=== PATIENT | female | born 1955 | race Caucasian/White ===

== ENCOUNTER → 2017-10-02 08:26 | Outpatient (CLI) | payer OTHER, SELFPAY ==
--- NOTE | 2017-10-02 08:30 | HPBI_ITS ---
MAMMOGRAPHY - BILATERAL SCREENING REASON FOR EXAM: Female, 62 years old. Routine annual screening examination. PERTINENT HISTORY: Prior bilateral stereotactic breast biopsies. TECHNIQUE: Digital bilateral breast arabella (3D mammographic acquisition) in the CC and MLO projections. 2-D mediolateral oblique (MLO) and craniocaudad (CC) views of both breasts were obtained. CAD: Full Field Digital Mammography with Computer Added Detection was performed. COMPARISON: Comparison is made with prior study dated August 22, 2016 and August 04, 2015. FINDINGS: Breast Composition: There are scattered areas of fibroglandular density. There are no dominant masses or suspicious calcifications. A tissue clip marker is once again seen in the deep upper outer portion of the left and right breasts. No other significant abnormalities are identified. There has been no significant change since the prior study. HPBI/SCREENING MAMM (CAD), BILAT IMPRESSION: Stable bilateral screening mammogram. Yearly follow-up mammogram recommended. (A) ASSESSMENT CATEGORY: BIRADS Category 2: Benign. A letter regarding these results will be sent to the patient by the facility within 30 days. Approximately 10% of breast cancers are not detected by mammography. A normal mammogram should not delay biopsy of a clinically suspicious abnormality. [id number] Electronically Signed: Nazario Baldwin MD at 10:32 EST Tel [phone], Service support ,
== END ==
PROVIDERS: Family Provider Family Medicine; PCP Family Medicine; Visit Provider Family Medicine
DX: Z12.31 Encounter for screening mammogram for malignant neoplasm of breast (principal)
CPT/HCPCS: 77063; 77067

== ENCOUNTER → 2017-10-06 07:19 | Outpatient (CLI) | payer OTHER, SELFPAY ==
[2017-10-06 09:13] LABS: Anion Gap 4 (5-15); BUN 45 mg/dL (7-18); BUN/Creat Ratio 26.3 RATIO (10-20); Calcium,Total 9.2 mg/dL (8.5-10.1); Chloride 105 mmol/L (98-107); Creatinine, Serum 1.71 mg/dL (0.55-1.02); EST Glomerular Filtration Rate 32 mL/min (>60); Est Glom Filt Rate - Afr Amer 39 mL/min (>60); Glucose 156 mg/dL (74-106); Potassium 4.9 mmol/L (3.5-5.1); Sodium Level 138 mmol/L (136-145)
== END ==
PROVIDERS: Family Provider Family Medicine; PCP Family Medicine; Visit Provider Internal Medicine Nephrology
DX: N18.3 Chronic kidney disease, stage 3 (moderate) (principal)
CPT/HCPCS: 36415; 80048

== ENCOUNTER → 2017-12-26 06:57 | Outpatient (CLI) | payer OTHER, SELFPAY ==
[2017-12-26 08:04] LABS: Cholesterol 206 mg/dL (200); High Density Lipoprotein 42 mg/dL; T4 Free Direct 0.94 ng/dL (0.76-1.46); Thyroid Stim Hormone (TSH) 7.81 uIU/mL (0.358-3.74); Triglycerides 146 mg/dL; Very Low Density Lipoprotein 29 mg/dL (5-40)
== END ==
PROVIDERS: Family Provider Family Medicine; PCP Family Medicine
DX: E78.5 Hyperlipidemia, unspecified (principal); E03.9 Hypothyroidism, unspecified
CPT/HCPCS: 36415; 80061; 84439; 84443

== ENCOUNTER → 2018-01-23 07:18 | Outpatient (CLI) | payer OTHER, SELFPAY ==
[2018-01-23 07:42] LABS: Hematocrit 34.1 % (37-47); Hemoglobin 11.1 g/dl (12.0-15.0); Mean Corp Hgb Conc 32.6 g/gl (32-36); Mean Corpuscular Hgb 30.3 pg (27.0-32.0); Mean Corpuscular Volume 93.2 fL (81-99); Mean Platelet Vol. 8.9 fl (6.2-12.0); Platelet Count 358 K/mm3 (150-450); RBC Distribution Width CV 13.2 % (11.6-14.6); RBC Distribution Width SD 45.5 fl (35.1-43.9); Red Blood Count 3.66 M/mm3 (4.2-5.4)
[2018-01-23 07:44] LABS: Scan Indicated on CBC? Y/N NO
[2018-01-23 07:45] LABS: Protein, Urine (Random) 10.1 mg/dL (<11.9); Protein:Creat Ratio 159 mg/g CRE (0-200)
[2018-01-23 07:55] LABS: Albumin, Serum 3.7 g/dL (3.2-5.0); BUN 72 mg/dL (7-18); BUN/Creat Ratio 40.7 RATIO (10-20); Calcium,Total 9.3 mg/dL (8.5-10.1); Chloride 110 mmol/L (98-107); Creatinine, Serum 1.77 mg/dL (0.55-1.02); EST Glomerular Filtration Rate 31 mL/min (>60); Est Glom Filt Rate - Afr Amer 38 mL/min (>60); Glucose 78 mg/dL (74-106); Phosphorus 4.5 mg/dL (2.5-4.9); Potassium 5.2 mmol/L (3.5-5.1); Sodium Level 139 mmol/L (136-145)
[2018-01-24 08:42] LABS: PTHIN 24.2 pg/mL (18.4-80.1); Vitamin D,25 Hydroxy 17.5 ng/mL (29.95-100.01)
== END ==
PROVIDERS: Family Provider Family Medicine; PCP Family Medicine; Visit Provider Internal Medicine Nephrology
DX: N18.3 Chronic kidney disease, stage 3 (moderate) (principal)
CPT/HCPCS: 36415; 80069; 82306; 82570; 83970; 84156; 85027

== ENCOUNTER → 2018-02-09 13:21 | Outpatient (CLI) | payer OTHER, SELFPAY ==
[2018-02-09 15:57] LABS: Absolute Lymphocyte Count 1.71 X10^3/ul (0.83-4.51); Absolute Neutrophil Count 6.1 X10^3/uL (2.0-7.7); Basophil# 0.05 X10^3/uL; Basophil% 0.5 % (0-1); Eosinophil# 0.36 X10^3/uL; Eosinophils% 3.9 % (0-5); Hematocrit 34.4 % (37-47); Hemoglobin 11.3 g/dl (12.0-15.0); Lymphocyte # 1.71 X10^3/ul (4.0); Lymphocyte % 18.5 % (19-41); Mean Corp Hgb Conc 32.8 g/gl (32-36); Mean Corpuscular Volume 94.5 fL (81-99); Mean Platelet Vol. 9.7 fl (6.2-12.0); Monocyte# 0.97 X10^3/uL; Monocyte% 10.5 % (0-10); Neutrophil # 6.12 X10^3/uL (2.7-7.7); Neutrophil % 66.3 % (47-70); Platelet Count 368 K/mm3 (150-450); RBC Distribution Width CV 13.2 % (11.6-14.6); Red Blood Count 3.64 M/mm3 (4.2-5.4); White Blood Count 9.2 K/mm3 (4.4-11.0)
[2018-02-09 16:20] LABS: POSITIVE COUNT NO; POSITIVE DIFFERENTIAL NO; POSITIVE MORPHOLOGY NO
[2018-02-09 16:22] LABS: Erythrocyte Sedimentation Rate 41 mm/hr (0-30)
== END ==
PROVIDERS: Family Provider Family Medicine; PCP Family Medicine; Visit Provider Family Medicine
DX: I88.9 Nonspecific lymphadenitis, unspecified (principal); E10.319 Type 1 diabetes mellitus with unspecified diabetic retinopathy without macular edema; J06.9 Acute upper respiratory infection, unspecified
CPT/HCPCS: 36415; 85025; 85652; 86140

== ENCOUNTER → 2018-06-05 07:49 | Outpatient (CLI) | payer OTHER, SELFPAY ==
[2018-06-05 08:41] LABS: Absolute Lymphocyte Count 1.71 X10^3/ul (0.83-4.51); Absolute Neutrophil Count 4.5 X10^3/uL (2.0-7.7); Basophil# 0.05 X10^3/uL; Basophil% 0.7 % (0-1); Eosinophils% 2.8 % (0-5); Hematocrit 33.5 % (37-47); Lymphocyte # 1.71 X10^3/ul (4.0); Lymphocyte % 23.8 % (19-41); Mean Corp Hgb Conc 32.8 g/gl (32-36); Mean Corpuscular Hgb 30.6 pg (27.0-32.0); Mean Corpuscular Volume 93.1 fL (81-99); Mean Platelet Vol. 9.1 fl (6.2-12.0); Monocyte# 0.68 X10^3/uL; Monocyte% 9.5 % (0-10); Neutrophil # 4.51 X10^3/uL (2.7-7.7); Neutrophil % 62.9 % (47-70); Platelet Count 344 K/mm3 (150-450); RBC Distribution Width CV 12.7 % (11.6-14.6); RBC Distribution Width SD 41.9 fl (35.1-43.9); White Blood Count 7.2 K/mm3 (4.4-11.0)
[2018-06-05 08:47] LABS: POSITIVE COUNT NO; POSITIVE DIFFERENTIAL NO; POSITIVE MORPHOLOGY NO
[2018-06-05 08:49] LABS: Protein, Urine (Random) 13.4 mg/dL (<11.9); Protein:Creat Ratio 369 mg/g CRE (0-200)
[2018-06-05 09:10] LABS: Albumin, Serum 3.4 g/dL (3.2-5.0); BUN 38 mg/dL (7-18); BUN/Creat Ratio 26.2 RATIO (10-20); Calcium,Total 9.7 mg/dL (8.5-10.1); Chloride 105 mmol/L (98-107); Creatinine, Serum 1.45 mg/dL (0.55-1.02); EST Glomerular Filtration Rate 39 mL/min (>60); Est Glom Filt Rate - Afr Amer 47 mL/min (>60); Glucose 98 mg/dL (74-106); Potassium 4.6 mmol/L (3.5-5.1); Sodium Level 139 mmol/L (136-145)
[2018-06-05 09:19] LABS: PTHIN 11.3 pg/mL (18.4-80.1)
[2018-06-05 09:20] LABS: Vitamin D,25 Hydroxy 29.2 ng/mL (29.95-100.01)
== END ==
PROVIDERS: Family Provider Family Medicine; PCP Family Medicine; Referring Provider Internal Medicine Nephrology; Visit Provider Internal Medicine Nephrology
DX: N18.3 Chronic kidney disease, stage 3 (moderate) (principal); N25.81 Secondary hyperparathyroidism of renal origin; D63.1 Anemia in chronic kidney disease
CPT/HCPCS: 36415; 80069; 82306; 82570; 83970; 84156; 85025

== ENCOUNTER → 2018-06-26 06:04 | Outpatient (CLI) | payer OTHER, SELFPAY ==
[2018-06-26 07:58] LABS: ALB/GLOB Ratio 0.9 RATIO (0.9-2.4); AST(SGOT) 17 U/L (15-37); Alanine Aminotransfer ALT/SGPT 25 U/L (13-56); Albumin, Serum 3.7 g/dL (3.2-5.0); Alkaline Phosphatase 67 U/L (45-117); Anion Gap 10 (5-15); BUN 59 mg/dL (7-18); BUN/Creat Ratio 31.9 RATIO (10-20); Calcium,Total 9.7 mg/dL (8.5-10.1); Chloride 108 mmol/L (98-107); Cholesterol 178 mg/dL (200); Creatinine, Serum 1.85 mg/dL (0.55-1.02); EST Glomerular Filtration Rate 29 mL/min (>60); Est Glom Filt Rate - Afr Amer 36 mL/min (>60); Globulin 4.3 g/dL (2.2-4.2); Glucose 60 mg/dL (74-106); High Density Lipoprotein 45 mg/dL; Potassium 4.2 mmol/L (3.5-5.1); Sodium Level 142 mmol/L (136-145); T4 Free Direct 0.99 ng/dL (0.76-1.46); Thyroid Stim Hormone (TSH) 3.35 uIU/mL (0.358-3.74); Triglycerides 125 mg/dL; Very Low Density Lipoprotein 25 mg/dL (5-40)
== END ==
PROVIDERS: Family Provider Family Medicine; PCP Family Medicine; Referring Provider Internal Medicine Endocrinology, Diabetes & Metabolism; Visit Provider Internal Medicine Endocrinology, Diabetes & Metabolism
DX: E10.65 Type 1 diabetes mellitus with hyperglycemia (principal)
CPT/HCPCS: 36415; 80053; 80061; 84439; 84443

== ENCOUNTER → 2018-09-13 06:03 | Outpatient (CLI) | payer OTHER, SELFPAY ==
[2018-09-13 07:44] LABS: ALB/GLOB Ratio 0.8 RATIO (0.9-2.4); AST(SGOT) 14 U/L (15-37); Alanine Aminotransfer ALT/SGPT 22 U/L (13-56); Albumin, Serum 3.5 g/dL (3.2-5.0); Alkaline Phosphatase 64 U/L (45-117); Anion Gap 9 (5-15); BUN 48 mg/dL (7-18); BUN/Creat Ratio 25.3 RATIO (10-20); Calcium,Total 9.4 mg/dL (8.5-10.1); Chloride 105 mmol/L (98-107); Cholesterol 154 mg/dL (200); EST Glomerular Filtration Rate 29 mL/min (>60); Est Glom Filt Rate - Afr Amer 35 mL/min (>60); Globulin 4.3 g/dL (2.2-4.2); Glucose 146 mg/dL (74-106); High Density Lipoprotein 44 mg/dL; Protein, Total 7.8 g/dL (6.4-8.2); Sodium Level 138 mmol/L (136-145); T4 Free Direct 1.04 ng/dL (0.76-1.46); Thyroid Stim Hormone (TSH) 0.49 uIU/mL (0.358-3.74); Triglycerides 99 mg/dL; Very Low Density Lipoprotein 20 mg/dL (5-40)
[2018-09-13 08:04] LABS: Hemoglobin A1c 9.2 % (4.2-6.3)
== END ==
PROVIDERS: Family Provider Family Medicine; PCP Family Medicine; Referring Provider Internal Medicine Endocrinology, Diabetes & Metabolism; Visit Provider Internal Medicine Endocrinology, Diabetes & Metabolism
DX: E10.65 Type 1 diabetes mellitus with hyperglycemia (principal)
CPT/HCPCS: 36415; 80053; 80061; 83036; 84439; 84443

== ENCOUNTER → 2018-10-31 13:37 | Outpatient (CLI) | payer OTHER, SELFPAY ==
--- NOTE | 2018-10-31 13:39 | BI_ITS ---
MAMMOGRAPHY - BILATERAL SCREENING REASON FOR EXAM: Female, 63 years old. Routine annual screening examination. PERTINENT HISTORY: Non-contributory. Remote bilateral stereotactic breast biopsies. TECHNIQUE: Digital bilateral breast arabella (3D mammographic acquisition) in the CC and MLO projections. 2-D mediolateral oblique (MLO) and craniocaudad (CC) views of both breasts were obtained. CAD: Full Field Digital Mammography with Computer Added Detection was performed. COMPARISON: Comparison is made with prior study dated October 02, 2017 and August 22, 2016. FINDINGS: Breast Composition: The breasts are heterogeneously dense, which may obscure small masses. There are no dominant masses or suspicious calcifications. A patient marker is seen in the deep upper outer aspect of the left and right breasts. No other significant abnormalities are identified. There has been no significant change since the prior study. BI/SCREENING MAMM (CAD), BILAT IMPRESSION: Stable bilateral screening mammogram. Yearly follow-up mammogram recommended. (A) ASSESSMENT CATEGORY: BIRADS Category 2: Benign. A letter regarding these results will be sent to the patient by the facility within 30 days. Approximately 10% of breast cancers are not detected by mammography. A normal mammogram should not delay biopsy of a clinically suspicious abnormality. [id number] Electronically Signed: Nazario Baldwin, at 15:30 EDT , Service support ,
== END ==
PROVIDERS: Family Provider Family Medicine; PCP Family Medicine; Referring Provider Family Medicine; Visit Provider Family Medicine
DX: Z12.31 Encounter for screening mammogram for malignant neoplasm of breast (principal)
CPT/HCPCS: 77063; 77067

== ENCOUNTER → 2018-11-09 10:57 | Outpatient (CLI) | payer OTHER, SELFPAY ==
[2018-11-09 12:03] LABS: Absolute Lymphocyte Count 1.73 X10^3/ul (0.83-4.51); Absolute Neutrophil Count 14.8 X10^3/uL (2.0-7.7); Basophil# 0.03 X10^3/uL; Basophil% 0.2 % (0-1); Eosinophils% 0.5 % (0-5); Hematocrit 37.9 % (37-47); Hemoglobin 12.1 g/dl (12.0-15.0); Lymphocyte # 1.73 X10^3/ul (4.0); Lymphocyte % 9.3 % (19-41); Mean Corp Hgb Conc 31.9 g/gl (32-36); Mean Corpuscular Volume 93.8 fL (81-99); Mean Platelet Vol. 10.3 fl (6.2-12.0); Monocyte# 1.93 X10^3/uL; Monocyte% 10.3 % (0-10); Neutrophil # 14.78 X10^3/uL (2.7-7.7); Neutrophil % 79.1 % (47-70); Platelet Count 265 K/mm3 (150-450); RBC Distribution Width CV 13.8 % (11.6-14.6); RBC Distribution Width SD 47.5 fl (35.1-43.9); Red Blood Count 4.04 M/mm3 (4.2-5.4); White Blood Count 18.7 K/mm3 (4.4-11.0)
[2018-11-09 12:06] LABS: Differential Indicated SCAN CRITERIA MET; POSITIVE COUNT NO; POSITIVE DIFFERENTIAL YES; POSITIVE MORPHOLOGY NO
[2018-11-09 12:37] LABS: Lactic Acid 1.8 mmol/L (0.4-2.0)
[2018-11-09 12:58] LABS: Platelet Estimate ADEQUATE (ADEQ); Red Cell Morphology NORM C+C NORMAL (NORM C&C)
[2018-11-09 13:03] LABS: ALB/GLOB Ratio 0.7 RATIO (0.9-2.4); AST(SGOT) 19 U/L (15-37); Alanine Aminotransfer ALT/SGPT 21 U/L (13-56); Albumin, Serum 3.7 g/dL (3.2-5.0); Alkaline Phosphatase 66 U/L (45-117); Anion Gap 16 (5-15); BUN 79 mg/dL (7-18); BUN/Creat Ratio 14.2 RATIO (10-20); Chloride 101 mmol/L (98-107); Creatinine, Serum 5.57 mg/dL (0.55-1.02); EST Glomerular Filtration Rate 8 mL/min (>60); Est Glom Filt Rate - Afr Amer 10 mL/min (>60); Globulin 5.3 g/dL (2.2-4.2); Glucose 281 mg/dL (74-106); Magnesium 1.9 mg/dL (1.6-2.6); Potassium 6.1 mmol/L (3.5-5.1); Sodium Level 133 mmol/L (136-145)
[2018-11-13 12:13] LABS: Pathologist Review Reviewed
== END ==
PROVIDERS: Family Provider Family Medicine; PCP Family Medicine; Visit Provider Family Medicine
DX: B34.9 Viral infection, unspecified (principal); E86.0 Dehydration; E10.319 Type 1 diabetes mellitus with unspecified diabetic retinopathy without macular edema; I95.9 Hypotension, unspecified
CPT/HCPCS: 36415; 80053; 81001; 82009; 83605; 83735; 85025

== ENCOUNTER 2018-11-09 14:49 | Inpatient (IN) | payer OTHER, SELFPAY ==
[2018-11-09] VITALS (7 sets, daily range): BP systolic 98–127; BP diastolic 38–47; PULSE 68–75; RESP 14–20; TEMP 36.2–36.6; O2SAT 95–98; BMI 28.3; BMI 28.6
--- NOTE | 2018-11-09 15:16 | EKG12_ITS ---
Test Reason : NAUSEA Blood Pressure : / mmHG Vent. Rate : 067 BPM Atrial Rate : 067 BPM P-R Int : 142 ms QRS Dur : 070 ms QT Int : 400 ms P-R-T Axes : 044 028 035 degrees QTc Int : 422 ms Normal sinus rhythm Normal ECG Confirmed by HERMES FRANCO, MANOLO ([id number]), editor newspaper BUD HWANG ([id number]) on 11/12/2018 10:58:20 AM Referred By: МАРИНА Confirmed By:MANOLO MIRZA MD
--- NOTE | 2018-11-09 15:17 | ED.VISSUMM ---
- ER Visit Summary Date of Service: 11/09/18 Chief Complaint: Nausea, vomiting, diarrhea History of Present Illness: The patient is a 63 F stage IV chronic kidney disease and insulin pump diabetes presents to the emergency department with renal failure. The patient was having symptoms of gastroenteritis. She states since Monday, she has had nausea, vomiting, multiple episodes of loose watery diarrhea. She also admits to nonproductive cough and generalized malaise. She states she has been increasingly nauseated. The patient is not on dialysis. She did see her primary care in the office today. She was found to have an elevated creatinine. She denies any abdominal pain. She denies any blood in the emesis or the diarrhea. Physical Examination: Vital signs reviewed General: Well-nourished, well-developed Head: Normocephalic, atraumatic Eyes: Pupils equal and reactive, extraocular muscles intact Neck, supple, no lymphadenopathy Heart: Regular rate and rhythm Respiratory: No distress, clear bilaterally Abdomen: Soft, nontender, nondistended, no peritoneal signs Back: Nontender Extremities: Nontender, no edema, no cords Skin: Normal color no rash Neuro: Alert and oriented, no focal or lateralizing deficits Test Results: [] Emergency Department Course and Treatment: The patient presents with elevated renal function and dehydration. Her abdomen is soft and nontender. She is not tachycardic. Is not hypotensive. IV was established. Patient was given 2 L of IV fluids and Zofran. She had improvement of her symptoms. Screening labs do show leukocytosis with feels likely reactive. She has no abdominal tenderness. She does have demonstration of acute kidney injury with a creatinine of 6. Her potassium is 5.8 with slight hemolysis. Her EKG shows no evidence of hyperkalemic change. With fluids she has improved. However, given her significant acute renal injury and dehydration, I do feel that she can require admission. Patient was discussed with the hospitalist. Treatment Plan: As Disposition: Admission Impression: 1. Acute kidney injury 2. Prerenal azotemia This note was generated with [employer] software. It may contain incorrect words, spelling, and punctuation that were not noted in review of the chart prior to signing ED Disposition - Plan for ED Patient: Referrals: Kyle Beard DO [Primary Care Provider] -
[2018-11-09] MEDS: Ondansetron 4 MG/2 ML Vial IV (15:42)
[2018-11-09] MEDS: 0.9% Normal Saline 1,000 ML 1000 ML IV ×2 (15:42)
--- NOTE | 2018-11-09 15:52 | RAD_ITS ---
STUDY: X-RAY CHEST REASON FOR EXAM: Female, 63 years old. CHF. Hypertension. Kidney failure. TECHNIQUE: Single AP portable view of the chest. COMPARISON: April 26, 2016. FINDINGS: There is a decreased inspiratory effort when compared to prior study. There is no new mass or infiltrate. There is no demonstrated pleural abnormality. There is borderline cardiomegaly. Normal mediastinum and cassie. Normal visualized pulmonary arteries. Normal visualized aortic arch and descending thoracic aorta. The thoracic spine is obscured by the mediastinum. Normal visualized ribs, clavicles, and shoulders. There is no demonstrated abnormality of the visualized soft tissue structures of the upper abdomen. RAD/Chest 1 View (Portable) IMPRESSION: No acute cardiopulmonary disease. Electronically Signed: Nehemias Gudino DO at 16:07 EDT Tel [phone], Service support ,
[2018-11-09 15:55] LABS: Absolute Lymphocyte Count 1.65 X10^3/ul (0.83-4.51); Absolute Neutrophil Count 14.2 X10^3/uL (2.0-7.7); Basophil# 0.01 X10^3/uL; Basophil% 0.1 % (0-1); Eosinophil# 0.01 X10^3/uL; Eosinophils% 0.1 % (0-5); Hematocrit 36.9 % (37-47); Hemoglobin 12.2 g/dl (12.0-15.0); Lymphocyte # 1.65 X10^3/ul (4.0); Lymphocyte % 9.3 % (19-41); Mean Corp Hgb Conc 33.1 g/gl (32-36); Mean Corpuscular Hgb 30.4 pg (27.0-32.0); Mean Platelet Vol. 10.1 fl (6.2-12.0); Monocyte# 1.75 X10^3/uL; Monocyte% 9.9 % (0-10); Neutrophil # 14.24 X10^3/uL (2.7-7.7); Neutrophil % 80.3 % (47-70); Platelet Count 295 K/mm3 (150-450); RBC Distribution Width CV 13.8 % (11.6-14.6); RBC Distribution Width SD 46.3 fl (35.1-43.9); Red Blood Count 4.01 M/mm3 (4.2-5.4); White Blood Count 17.7 K/mm3 (4.4-11.0)
[2018-11-09 16:05] LABS: ALB/GLOB Ratio 0.7 RATIO (0.9-2.4); AST(SGOT) 21 U/L (15-37); Alanine Aminotransfer ALT/SGPT 20 U/L (13-56); Albumin, Serum 3.5 g/dL (3.2-5.0); Alkaline Phosphatase 62 U/L (45-117); Anion Gap 15 (5-15); BUN 87 mg/dL (7-18); BUN/Creat Ratio 14.5 RATIO (10-20); Calcium,Total 9.4 mg/dL (8.5-10.1); Chloride 101 mmol/L (98-107); Creatinine, Serum 5.98 mg/dL (0.55-1.02); EST Glomerular Filtration Rate 8 mL/min (>60); Est Glom Filt Rate - Afr Amer 9 mL/min (>60); Globulin 5.3 g/dL (2.2-4.2); Glucose 279 mg/dL (74-106); Lipase 104 U/L (73-393); Potassium 5.8 mmol/L (3.5-5.1); Protein, Total 8.8 g/dL (6.4-8.2); Sodium Level 129 mmol/L (136-145)
[2018-11-09 16:08] LABS: Lactic Acid 1.6 mmol/L (0.4-2.0)
[2018-11-09 16:33] LABS: Differential Indicated SCAN CRITERIA MET; POSITIVE COUNT NO; POSITIVE DIFFERENTIAL YES; POSITIVE MORPHOLOGY YES
[2018-11-09 16:34] LABS: Platelet Estimate ADEQUATE (ADEQ); Red Cell Morphology NORM C+C NORMAL (NORM C&C)
--- NOTE | 2018-11-09 17:03 | ED.RN ---
pt states unable to void at this time. has received 1L of the 2 L ordered.
--- NOTE | 2018-11-09 17:31 | PCM.HP.STD ---
Problem List (1) DEVEN (acute kidney injury) Status: Acute (2) Hyperkalemia Status: Acute (3) Hyponatremia Status: Acute (4) Metabolic acidosis Status: Acute History of Present Illness Date of Admission: 11/09/18 Chief Complaint: n/v The patient is a 63 year old F presents with a 3-day history of intractable nausea vomiting diarrhea. Was not getting better. Patient was checking her blood sugar at home and was noted to be in the 90s the first 2 days but then today was in the 2 and 300 range. Presented to the emergency room and had lab work that showed her creatinine was 5.98. Baseline is around 1.9. Patient's potassium level was 5.8 but that appeared to be hemolyzed. Blood sugar was 279. Patient is a type I diabetic. Emergency room, patient received IV fluids and Zofran. [] Past Medical History Past Medical History (Chronic Problems): Chronic Problems Insulin pump in place (Chronic) DM type 1 (diabetes mellitus, type 1) (Chronic) Cerebrovascular disease (Chronic) Benign hypertension (Chronic) Allergies pravastatin sodium [From Pravachol] Allergy (Verified 11/09/18 14:53) Unknown sertraline HCl [From Zoloft] Allergy (Verified 11/09/18 14:53) Hives venlafaxine HCl [From Effexor] Allergy (Verified 11/09/18 14:53) Hives pneumococcal 23-valent polysacchari [From Pneumovax 23] Adverse Reaction (Verified 11/09/18 14:53) Swelling Home Medications: Ambulatory Orders Medication Instructions Recorded Aspirin [Aspirin, Baby] 81 mg PO DAILY@0800 06/07/14 Ferrous Gluconate 325 mg PO BID 06/07/14 Amlodipine [Norvasc] 5 mg PO DAILY 06/09/14 Guaifenesin Dm [Robitussin Dm] 10 ml PO Q4H PRN PRN udc 04/14/16 Ascorbic Acid [Vitamin C] 1,000 mg PO DAILY 11/09/18 Atenolol [Tenormin (Beta Taty)] 100 mg PO DAILY 11/09/18 Calcium (Elemental) [Os-Omer 500] 500 mg PO DAILY@0800 11/09/18 Cholecalciferol (Vitamin D3) 5,000 unit PO DAILY 11/09/18 [Vitamin D3] Insulin Lispro [Humalog] 0 units SQ UD 11/09/18 Levothyroxine [Synthroid] 50 mcg PO DAILY 11/09/18 Patiromer Calcium Sorbitex 8.4 gm PO DAILY 11/09/18 [Veltassa] Rosuvastatin Calcium [Crestor] 20 mg PO QHS 11/09/18 Spironolactone 50 mg PO DAILY 11/09/18 Valsartan [Diovan] 160 mg PO BID 11/09/18 hydroCHLOROthiazide 12.5 tab PO DAILY 11/09/18 [Hydrochlorothiazide] Surgical History: - Smoking Status: Former smoker Tobacco Use: Non-smoker - *Family History Maternal History Items: Unknown Review of Systems Constitutional: Reports: Anorexia, Chills. Denies: Fever Eyes: Denies: Blurred vision, Double vision HEENT: Denies: Head Aches, Sinus Congestion, Sinus Drainage Cardiovascular: Denies: Chest Pain, Palpitations Respiratory: Denies: Cough, Shortness of breath at rest, Sputum production Gastrointestinal: Reports: Abdominal Pain, Diarrhea, Nausea, Vomiting Genitourinary: Denies: Dysuria Musculoskeletal: Denies: Joint Pain, Joint Tenderness Skin: Denies: Rash, Wounds Neurological: Denies: Numbness, Tingling, Focal weakness Psychiatric: Denies: Anxiety, Depression Hematologic/ Lymphatic: Denies: Easy Bruising, Easy Bleeding, Hx of blood clot Comment: A 10 point review of systems were negative except as mentioned in the history of present illness and the other review of systems. VTE Information - Inpt Only VTE Present on Admission: No VTE Mechan Device Prophylaxis: None VTE Pharm Prophylaxis ordered?: Yes Patient Problems: Active and Suspected Problems DEVEN (acute kidney injury) (Acute) Hyperkalemia (Acute) Hyponatremia (Acute) Metabolic acidosis (Acute) - Physical Exam General: Alert, Cooperative, No apparent distress, Well developed, Well nourished HEENT: Atraumatic, Normocephalic Oral: Moist Mucosa, No Gingival or Mucosal Lesions/ Ulcerations Neck: No Nodes, Thyroid Normal Size and Texture Lungs: Clear to auscultation, Normal air movement, No rhonchi, No wheeze Cardiovascular: Regular rate, Regular Rhythm, Normal S1, Normal S2, No murmurs Abdomen: Bowel Sounds Present, Soft, Non Tender, Non-Distended, Hypoactive Bowel Sounds Extremities: No clubbing, No edema Skin: No rashes, No breakdown Musculoskeletal: No Tenderness to Palpation of Joints or Extremities, No Muscle Wasting Neurological: Neuro grossly intact, Muscle tone normal, Coordination normal Psych/Mental Status: Normal Affect, Appropriate Vital Signs Temp Pulse Resp BP Pulse Ox 36.2 C L 72 17 98/47 L 98 11/09/18 14:50 11/09/18 17:00 11/09/18 17:00 11/09/18 14:50 11/09/18 17:00 Oxygen Delivery Method Room Air Weight: 65.771 kg Body Mass Index (BMI) 28.3 Finger Stick Blood Glucose 166 Laboratory Tests Past 24 Hrs 11/09/18 11/09/18 11/09/18 15:30 15:30 15:30 WBC 17.7 H RBC 4.01 L Hgb 12.2 Hct 36.9 L MCV 92.0 MCH 30.4 MCHC 33.1 RDW 13.8 RDW Differential 46.3 H Plt Count 295 MPV 10.1 Immature Gran % (Auto) 0.300 Neut % (Auto) 80.3 H Lymph % (Auto) 9.3 L [place] % (Auto) 9.9 Eos % (Auto) 0.1 Baso % (Auto) 0.1 Absolute Neuts (auto) 14.2 H Absolute Lymphs (auto) 1.65 Total Counted Not Reportable Differential Comment Diff Path Review May foll Platelet Estimate ADEQUATE RBC Morphology NORM C+C Sodium 129 L Potassium 5.8 H Chloride 101 Carbon Dioxide 13.0 L Anion Gap 15 BUN 87 H Creatinine 5.98 H Estim Creat Clear Calc 7.10 Est GFR (MDRD) Af Amer 9 L Est GFR (MDRD) Non-Af 8 L BUN/Creatinine Ratio 14.5 Glucose 279 H Lactic Acid 1.6 Calcium 9.4 Total Bilirubin 0.20 AST 21 ALT 20 Alkaline Phosphatase 62 Total Protein 8.8 H Albumin 3.5 Globulin 5.3 H Albumin/Globulin Ratio 0.7 L Lipase 104 Clinical Impression(s) from Imaging Studies Chest X-Ray 11/09/18 15:52 IMPRESSION: No acute cardiopulmonary disease. Electronically Signed: Nehemias Gudino DO at 16:07 EDT Tel [phone], Service support , G reviewed and showed normal sinus rhythm with no hyperacute T waves. Assessment/Plan All Active Problems DEVEN (acute kidney injury) (Acute) Hyperkalemia (Acute) Hyponatremia (Acute) Metabolic acidosis (Acute) Gastroenteritis with dehydration (Acute) Acute kidney injury on CKD Stage 3 (Acute) 1. Acute kidney injury Likely prerenal given the intractable nausea and vomiting diarrhea IV fluids Hold nephrotoxic agents Reevaluate labs If worse, consider consultation to nephrology. 2. Hyperkalemia Was hemolyzed But may also be due to metabolic acidosis and acute kidney injury IV fluids Reevaluate 3. Metabolic acidosis Secondary to acute kidney injury Acetones negative so I do not suspect DKA Patient will be on a bicarb drip for 1 L but I suspect as her kidney failure improves at that should improve as well 4. Diabetes mellitus type 1 Uncontrolled The patient states that her blood sugars were okay yesterday and the day before when she is still having symptoms Not in DKA, therefore no need for insulin drip Will give the patient some Lantus as well as NovoLog. Hold on her insulin pump for now Sliding scale insulin as well 5. Gastroenteritis Supportive management Check enteropathic pathogens as well as C. difficile 6. DVT prophylaxis with heparin Code Visit Inpatient E&M: 39877 Init Hosp L3
--- NOTE | 2018-11-09 17:41 | HP.PCM_ITS ---
Problem List (1) DEVEN (acute kidney injury) Status: Acute (2) Hyperkalemia Status: Acute (3) Hyponatremia Status: Acute (4) Metabolic acidosis Status: Acute History of Present Illness Date of Admission: 11/09/18 Chief Complaint: n/v The patient is a 63 year old F presents with a 3-day history of intractable nausea vomiting diarrhea. Was not getting better. Patient was checking her blood sugar at home and was noted to be in the 90s the first 2 days but then today was in the 2 and 300 range. Presented to the emergency room and had lab work that showed her creatinine was 5.98. Baseline is around 1.9. Patient's potassium level was 5.8 but that appeared to be hemolyzed. Blood sugar was 279. Patient is a type I diabetic. Emergency room, patient received IV fluids and Zofran. [] Past Medical History Past Medical History (Chronic Problems): Chronic Problems Insulin pump in place (Chronic) DM type 1 (diabetes mellitus, type 1) (Chronic) Cerebrovascular disease (Chronic) Benign hypertension (Chronic) Allergies pravastatin sodium [From Pravachol] Allergy (Verified 11/09/18 14:53) Unknown sertraline HCl [From Zoloft] Allergy (Verified 11/09/18 14:53) Hives venlafaxine HCl [From Effexor] Allergy (Verified 11/09/18 14:53) Hives pneumococcal 23-valent polysacchari [From Pneumovax 23] Adverse Reaction (Verified 11/09/18 14:53) Swelling Home Medications: Ambulatory Orders Medication Instructions Recorded Aspirin [Aspirin, Baby] 81 mg PO DAILY@0800 06/07/14 Ferrous Gluconate 325 mg PO BID 06/07/14 Amlodipine [Norvasc] 5 mg PO DAILY 06/09/14 Guaifenesin Dm [Robitussin Dm] 10 ml PO Q4H PRN PRN udc 04/14/16 Ascorbic Acid [Vitamin C] 1,000 mg PO DAILY 11/09/18 Atenolol [Tenormin (Beta Taty)] 100 mg PO DAILY 11/09/18 Calcium (Elemental) [Os-Omer 500] 500 mg PO DAILY@0800 11/09/18 Cholecalciferol (Vitamin D3) 5,000 unit PO DAILY 11/09/18 [Vitamin D3] Insulin Lispro [Humalog] 0 units SQ UD 11/09/18 Levothyroxine [Synthroid] 50 mcg PO DAILY 11/09/18 Patiromer Calcium Sorbitex 8.4 gm PO DAILY 11/09/18 [Veltassa] Rosuvastatin Calcium [Crestor] 20 mg PO QHS 11/09/18 Spironolactone 50 mg PO DAILY 11/09/18 Valsartan [Diovan] 160 mg PO BID 11/09/18 hydroCHLOROthiazide 12.5 tab PO DAILY 11/09/18 [Hydrochlorothiazide] Surgical History: - Smoking Status: Former smoker Tobacco Use: Non-smoker - *Family History Maternal History Items: Unknown Review of Systems Constitutional: Reports: Anorexia, Chills. Denies: Fever Eyes: Denies: Blurred vision, Double vision HEENT: Denies: Head Aches, Sinus Congestion, Sinus Drainage Cardiovascular: Denies: Chest Pain, Palpitations Respiratory: Denies: Cough, Shortness of breath at rest, Sputum production Gastrointestinal: Reports: Abdominal Pain, Diarrhea, Nausea, Vomiting Genitourinary: Denies: Dysuria Musculoskeletal: Denies: Joint Pain, Joint Tenderness Skin: Denies: Rash, Wounds Neurological: Denies: Numbness, Tingling, Focal weakness Psychiatric: Denies: Anxiety, Depression Hematologic/ Lymphatic: Denies: Easy Bruising, Easy Bleeding, Hx of blood clot Comment: A 10 point review of systems were negative except as mentioned in the history of present illness and the other review of systems. VTE Information - Inpt Only VTE Present on Admission: No VTE Mechan Device Prophylaxis: None VTE Pharm Prophylaxis ordered?: Yes Patient Problems: Active and Suspected Problems DEVEN (acute kidney injury) (Acute) Hyperkalemia (Acute) Hyponatremia (Acute) Metabolic acidosis (Acute) - Physical Exam General: Alert, Cooperative, No apparent distress, Well developed, Well nourish ed HEENT: Atraumatic, Normocephalic Oral: Moist Mucosa, No Gingival or Mucosal Lesions/ Ulcerations Neck: No Nodes, Thyroid Normal Size and Texture Lungs: Clear to auscultation, Normal air movement, No rhonchi, No wheeze Cardiovascular: Regular rate, Regular Rhythm, Normal S1, Normal S2, No murmurs Abdomen: Bowel Sounds Present, Soft, Non Tender, Non-Distended, Hypoactive Bowel Sounds Extremities: No clubbing, No edema Skin: No rashes, No breakdown Musculoskeletal: No Tenderness to Palpation of Joints or Extremities, No Muscle Wasting Neurological: Neuro grossly intact, Muscle tone normal, Coordination normal Psych/Mental Status: Normal Affect, Appropriate Vital Signs Temp Pulse Resp BP Pulse Ox 36.2 C L 72 17 98/47 L 98 11/09/18 14:50 11/09/18 17:00 11/09/18 17:00 11/09/18 14:50 11/09/18 17:00 Oxygen Delivery Method Room Air Weight: 65.771 kg Body Mass Index (BMI) 28.3 Finger Stick Blood Glucose 166 Laboratory Tests Past 24 Hrs 11/09/18 11/09/18 11/09/18 15:30 15:30 15:30 WBC 17.7 H RBC 4.01 L Hgb 12.2 Hct 36.9 L MCV 92.0 MCH 30.4 MCHC 33.1 RDW 13.8 RDW Differential 46.3 H Plt Count 295 MPV 10.1 Immature Gran % (Auto) 0.300 Neut % (Auto) 80.3 H Lymph % (Auto) 9.3 L [place] % (Auto) 9.9 Eos % (Auto) 0.1 Baso % (Auto) 0.1 Absolute Neuts (auto) 14.2 H Absolute Lymphs (auto) 1.65 Total Counted Not Reportable Differential Comment Diff Path Review May foll Platelet Estimate ADEQUATE RBC Morphology NORM C+C Sodium 129 L Potassium 5.8 H Chloride 101 Carbon Dioxide 13.0 L Anion Gap 15 BUN 87 H Creatinine 5.98 H Estim Creat Clear Calc 7.10 Est GFR (MDRD) Af Amer 9 L Est GFR (MDRD) Non-Af 8 L BUN/Creatinine Ratio 14.5 Glucose 279 H Lactic Acid 1.6 Calcium 9.4 Total Bilirubin 0.20 AST 21 ALT 20 Alkaline Phosphatase 62 Total Protein 8.8 H Albumin 3.5 Globulin 5.3 H Albumin/Globulin Ratio 0.7 L Lipase 104 Clinical Impression(s) from Imaging Studies Chest X-Ray 11/09/18 15:52 IMPRESSION: No acute cardiopulmonary disease. Electronically Signed: Nehemias Gudino DO at 16:07 EDT Tel [phone], Service support , G reviewed and showed normal sinus rhythm with no hyperacute T waves. Assessment/Plan All Active Problems DEVEN (acute kidney injury) (Acute) Hyperkalemia (Acute) Hyponatremia (Acute) Metabolic acidosis (Acute) Gastroenteritis with dehydration (Acute) Acute kidney injury on CKD Stage 3 (Acute) 1. Acute kidney injury * Likely prerenal given the intractable nausea and vomiting diarrhea * IV fluids * Hold nephrotoxic agents * Reevaluate labs * If worse, consider consultation to nephrology. 2. Hyperkalemia * Was hemolyzed * But may also be due to metabolic acidosis and acute kidney injury * IV fluids * Reevaluate 3. Metabolic acidosis * Secondary to acute kidney injury * Acetones negative so I do not suspect DKA * Patient will be on a bicarb drip for 1 L but I suspect as her kidney failure improves at that should improve as well 4. Diabetes mellitus type 1 * Uncontrolled * The patient states that her blood sugars were okay yesterday and the day before when she is still having symptoms * Not in DKA, therefore no need for insulin drip * Will give the patient some Lantus as well as NovoLog. Hold on her insulin pump for now * Sliding scale insulin as well 5. Gastroenteritis * Supportive management * Check enteropathic pathogens as well as C. difficile 6. DVT prophylaxis with heparin Code Visit Inpatient E&M: 17389 Init Hosp L3
[2018-11-09 18:51] LABS: Bedside Glucose 197 mg/dL (70-110)
[2018-11-09] MEDS: Insulin Lispro 100 UNIT/ML INSULN.PEN 8 UNIT SC (19:35)
[2018-11-09] MEDS: 0.9% Normal Saline 1,000 ML 150 ML IV (19:36)
[2018-11-09] MEDS: Heparin Injection (Vial) 5,000 UNIT/ML VIAL 5000 UNIT SC (21:01)
[2018-11-09 22:15] LABS: Bedside Glucose 239 mg/dL (70-110)
[2018-11-09] MEDS: Insulin Lispro 100 UNIT/ML INSULN.PEN SQ (22:38)
[2018-11-10] VITALS (13 sets, daily range): BP systolic 122–136; BP diastolic 38–47; PULSE 68–79; RESP 14–18; TEMP 36.2–36.9; O2SAT 94–99
[2018-11-10] MEDS: 0.9% Normal Saline 1,000 ML 150 ML IV ×4 (02:36→21:26)
[2018-11-10 02:39] LABS: Bacteria 0 SEEN /hpf (None Seen); Mucous, Urine 0 SEEN /hpf (<or=2+); Red Blood Cells-Urine 0 SEEN /hpf (0-5); White Blood Cells 0 SEEN /hpf (0-5)
[2018-11-10] MEDS: Insulin Lispro 100 UNIT/ML INSULN.PEN SQ ×4 (02:41→17:15)
[2018-11-10 02:42] LABS: Color, Urine Yellow (Yellow); Glucose, Dipstick 50 mg/dl (Normal); Ketone-Dipstick Negative (Negative); Leukocyte Esterase-Dipstick Negative /ul (Negative); Nitrite-Dipstick Negative (Negative); Occult Blood-Urine Negative /ul (Negative); Protein-Dipstick 30 mg/dl (Negative); Urine Bilirubin Dipstick Negative (Negative); Urine Clarity Sl. Cloudy (Clear); Urine Urobilinogen Normal (Normal)
[2018-11-10 02:51] LABS: Bedside Glucose 231 mg/dL (70-110)
[2018-11-10] MEDS: guaiFENesin 10 ML UDC (200MG/10ML) PO ×3 (03:56→16:21)
[2018-11-10 04:14] LABS: Squamous Epithelial Cells - UA 0-5 SEEN /hpf (5-10)
[2018-11-10] MEDS: Heparin Injection (Vial) 5,000 UNIT/ML VIAL 5000 UNIT SC ×3 (05:46→21:26)
[2018-11-10] MEDS: Levothyroxine 50 MCG Tablet PO (05:47)
[2018-11-10 06:50] LABS: Bedside Glucose 177 mg/dL (70-110)
[2018-11-10 07:00] LABS: Absolute Lymphocyte Count 1.52 X10^3/ul (0.83-4.51); Absolute Neutrophil Count 8.7 X10^3/uL (2.0-7.7); Basophil# 0.02 X10^3/uL; Basophil% 0.2 % (0-1); Eosinophil# 0.11 X10^3/uL; Hematocrit 29.8 % (37-47); Hemoglobin 9.7 g/dl (12.0-15.0); Lymphocyte # 1.52 X10^3/ul (4.0); Lymphocyte % 13.4 % (19-41); Mean Corp Hgb Conc 32.6 g/gl (32-36); Mean Corpuscular Hgb 29.7 pg (27.0-32.0); Mean Corpuscular Volume 91.1 fL (81-99); Mean Platelet Vol. 9.8 fl (6.2-12.0); Monocyte# 0.98 X10^3/uL; Monocyte% 8.6 % (0-10); Neutrophil # 8.71 X10^3/uL (2.7-7.7); Neutrophil % 76.7 % (47-70); Platelet Count 219 K/mm3 (150-450); RBC Distribution Width CV 13.8 % (11.6-14.6); RBC Distribution Width SD 45.9 fl (35.1-43.9); Red Blood Count 3.27 M/mm3 (4.2-5.4); White Blood Count 11.4 K/mm3 (4.4-11.0)
[2018-11-10 07:01] LABS: Anion Gap 11 (5-15); BUN 69 mg/dL (7-18); BUN/Creat Ratio 20.8 RATIO (10-20); Calcium,Total 7.6 mg/dL (8.5-10.1); Chloride 111 mmol/L (98-107); Creatinine, Serum 3.32 mg/dL (0.55-1.02); EST Glomerular Filtration Rate 15 mL/min (>60); Est Glom Filt Rate - Afr Amer 18 mL/min (>60); Estimated Creatinine Clearance 12.78 ml/min; Glucose 216 mg/dL (74-106); Potassium 4.4 mmol/L (3.5-5.1); Sodium Level 138 mmol/L (136-145)
[2018-11-10 07:08] LABS: POSITIVE COUNT NO; POSITIVE DIFFERENTIAL NO; POSITIVE MORPHOLOGY NO
--- NOTE | 2018-11-10 07:51 | US_ITS ---
STUDY: RENAL ULTRASOUND - COMPLETE REASON FOR EXAM: Female, 63 years old. Acute renal insufficiency TECHNIQUE: Ultrasound evaluation of the kidneys was performed with real-time and static vargas-scale imaging. COMPARISON: None. FINDINGS: RIGHT KIDNEY: Normal location of the right kidney, which is normal in size. The right kidney measures 11.5 x 4.6 x 4.5 cm. There is diffuse thinning of the renal cortex. The renal cortex measures 1.1 cm. There is no right renal mass or cyst. There are no right renal calculi. There is no right hydronephrosis. DISTAL RIGHT URETER: There is non-visualization of the distal right ureter. There is no demonstrated right ureterovesical junction calculus. There is no demonstrated right ureteral jet. LEFT KIDNEY: Normal location of the left kidney, which is normal in size. The left kidney measures 11.4 x 4.0 x 4.9 cm. There is diffuse thinning of the renal cortex. The renal cortex measures 1.4 cm. Simple cyst of the left kidney measures 1.9 cm. There are no left renal calculi. There is no left hydronephrosis. DISTAL LEFT URETER: There is non-visualization of the distal left ureter. There is no demonstrated left ureterovesical junction calculus. There is no demonstrated left ureteral jet. BLADDER: The distended urinary bladder has a volume of 305 ml. There is a normal wall thickness of the distended urinary bladder. There is no demonstrated mass within the urinary bladder. There are no demonstrated bladder calculi. US/Kidney and Bladder IMPRESSION: 1. No hydronephrosis. 2. Bilateral renal cortical thinning. 3. Simple left renal cyst. Electronically Signed: Tuan Villalba MD at 16:19 EDT , Service support ,
--- NOTE | 2018-11-10 07:53 | PN_ITS ---
Patient Problems: Active and Suspected Problems DEVEN (acute kidney injury) (Acute) Hyperkalemia (Acute) Hyponatremia (Acute) Metabolic acidosis (Acute) Subjective: Patient was seen and examined. Sitting up eating. Denied any new nausea or vomiting. No diarrhea also seen since being admitted Vitals/I&O's: Vital Signs Temp Pulse Resp BP Pulse Ox 97.4 F L 72 18 128/40 H 99 11/10/18 04:00 11/10/18 07:00 11/10/18 04:00 11/10/18 04:00 11/10/18 04:00 Oxygen Delivery Method Room Air Weight: 68.1 kg Body Mass Index (BMI) 28.6 Finger Stick Blood Glucose 166 Intake and Output for Last 24 Hours 11/08/18 11/09/18 11/10/18 23:59 23:59 23:59 Intake Total 1489 / 1489 1318 / 1318 Balance 1489 / 1489 1318 / 1318 General: Alert, Oriented x3, Cooperative, No apparent distress HEENT: Atraumatic, PERRLA, EOMI, Normocephalic Neck: Supple Lungs: Clear to auscultation, Normal air movement Cardiovascular: Regular rate, Regular Rhythm, Normal S1, Normal S2, No murmurs Abdomen: Bowel Sounds Present, Soft, Non Tender, Non-Distended, No Hepato- splenomegaly Extremities: No edema Skin: No rashes, No breakdown Musculoskeletal: No Tenderness to Palpation of Joints or Extremities Lymphatic: No Cervical, Supraclavicular, or Inguinal Adenopathy Neurological: Cranial nerves II-XII grossly intact, Neuro grossly intact Psych/Mental Status: Normal Affect, Appropriate Laboratory Results 11/09/18 15:30: WBC 17.7 H, RBC 4.01 L, Hgb 12.2, Hct 36.9 L, MCV 92.0, MCH 30.4, MCHC 33.1, RDW 13.8, RDW Differential 46.3 H, Plt Count 295, MPV 10.1, Immature Gran % (Auto) 0.300, Neut % (Auto) 80.3 H, Lymph % (Auto) 9.3 L, [place] % (Auto) 9.9, Eos % (Auto) 0.1, Baso % (Auto) 0.1, Absolute Neuts (auto) 14.2 H, Absolute Lymphs (auto) 1.65, Total Counted Not Reportable, Differential Comment , Diff Path Review May foll, Platelet Estimate ADEQUATE, RBC Morphology NORM C+C 11/09/18 15:30: Sodium 129 L, Potassium 5.8 H, Chloride 101, Carbon Dioxide 13.0 L, Anion Gap 15, BUN 87 H, Creatinine 5.98 H, Estim Creat Clear Calc 7.10, Est GFR (MDRD) Af Amer 9 L, Est GFR (MDRD) Non-Af 8 L, BUN/Creatinine Ratio 14.5, Glucose 279 H, Calcium 9.4, Total Bilirubin 0.20, AST 21, ALT 20, Alkaline Phosphatase 62, Total Protein 8.8 H, Albumin 3.5, Globulin 5.3 H, Albumin/Globulin Ratio 0.7 L, Lipase 104 11/09/18 15:30: Lactic Acid 1.6 11/09/18 18:41: POC Glucose 197 H 11/09/18 22:12: POC Glucose 239 H 11/10/18 02:37: Urine Color Yellow, Urine Clarity Sl. Cloudy, Urine pH 6.0, Ur Specific [place] 1.010, Urine Protein 30 H, Urine Glucose (UA) 50 H, Urine Ketones Negative, Urine Occult Blood Negative, Urine Nitrite Negative, Urine Robert irubin Negative, Urine Urobilinogen Normal, Ur Leukocyte Esterase Negative, Urine RBC 0 SEEN, Urine WBC 0 SEEN, Ur Squamous Epith Cells 0-5 SEEN, Urine Bacteria 0 SEEN, Urine Mucus 0 SEEN 11/10/18 02:40: POC Glucose 231 H 11/10/18 05:40: WBC 11.4 H, RBC 3.27 L, Hgb 9.7 L, Hct 29.8 L, MCV 91.1, MCH 2 9.7, MCHC 32.6, RDW 13.8, RDW Differential 45.9 H, Plt Count 219, MPV 9.8, Immature Gran % (Auto) 0.100, Neut % (Auto) 76.7 H, Lymph % (Auto) 13.4 L, [place] % (Auto) 8.6, Eos % (Auto) 1.0, Baso % (Auto) 0.2, Absolute Neuts (auto) 8.7 H, Absolute Lymphs (auto) 1.52, Total Counted Not Reportable 11/10/18 05:40: Sodium 138, Potassium 4.4, Chloride 111 H, Carbon Dioxide 16.0 L , Anion Gap 11, BUN 69 H, Creatinine 3.32 H, Estim Creat Clear Calc 12.78, Est GFR (MDRD) Af Amer 18 L, Est GFR (MDRD) Non-Af 15 L, BUN/Creatinine Ratio 20.8 H , Glucose 216 H, Calcium 7.6 L 11/10/18 06:47: POC Glucose 177 H Current Medications Atenolol (Tenormin (Beta Taty)) 100 mg PO DAILY [facility] Dextrose (D50w Syringe) 0 gm IV X1 PRN; Protocol PRN Reason: Hypoglycemia Glucagon () 1 mg IM .X1 PRN PRN Reason: Hypoglycemia Guaifenesin (Robitussin) 10 ml PO Q4H PRN PRN PRN Reason: COUGH Last Admin: 11/10/18 03:56 Dose: 10 ml Heparin Sodium (Porcine) (Heparin Na) 5,000 unit SC Q8 TATY Last Admin: 11/10/18 05:46 Dose: 5,000 unit Sodium Chloride () 1,000 mls @ 150 mls/hr IV .Q6H40M [facility] Last Admin: 11/10/18 02:36 Dose: 150 mls/hr Insulin Human Lispro (Humalog Kwikpen (Bkc)) 0 unit SQ ACHS & 3AM [facility]; Protocol Last Admin: 11/10/18 02:41 Dose: 4 units Levothyroxine Sodium (Synthroid) 50 mcg PO DAILY@0600 [facility] Last Admin: 11/10/18 05:47 Dose: 50 mcg Magnesium Hydroxide (Milk Of Magnesia) 30 ml PO DAILY PRN PRN PRN Reason: Constipation Morphine Sulfate () 2 - 4 mg IV Q4H PRN PRN PRN Reason: MOD-SEVERE PAIN (4-10/10) Morphine Sulfate () 2 - 4 mg IV Q4H PRN PRN PRN Reason: MOD-SEVERE PAIN (4-10/10) Ondansetron HCl (Zofran) 4 mg IV Q8H PRN PRN PRN Reason: NAUSEA Sodium Chloride () 5 - 15 ml IV UD PRN PRN Reason: SALINE FLUSH Medical Necessity - Tobacco Use Smoking Status: Former smoker Tobacco Use: Non-smoker Assessment/Plan All Active Problems DEVEN (acute kidney injury) (Acute) Hyperkalemia (Acute) Hyponatremia (Acute) Metabolic acidosis (Acute) Gastroenteritis with dehydration (Acute) Acute kidney injury on CKD Stage 3 (Acute) 63-year-old female with past medical history of type I DM, CKD stage III who comes in with complaints of nausea and vomiting as well as diarrhea ongoing for more than 3 days. Patiet was found to have acute kidney injury. 1. Acute kidney injury on CKD stage III, prerenal, improving, secondary to intractable nausea and vomiting and medication side effects Recent was on hydrochlorothiazide, prolactin, valsartan, these meds are on hold Will continue on IV fluids, ultrasound of kidneys and bladder, labs in a.m. 2. Intractable nausea and vomiting likely second to gastroenteritis, resolved 3. Hyperkalemia, resolved, labs on hold 4. NAGMA secondary to CKD, was on bicarbonate drip on admission, We will monitor for now, likely will improve with improvement in [place] I, if persistent, would start sodium bicarbonate from tomorrow 5. Type I DM, blood sugars fairly controlled, on insulin pump, will continue on insulin pump therapy, will keep medium dose insulin sliding scale on with before meals at bedtime Accu-Cheks 5. Hypertension, controlled, on atenolol, amlodipine, hydrochlorothiazide, spironolactone, valsartan on hold We will continue to monitor 6. Hypothyroidism, on levothyroxine 7. DVT prophylaxis with heparin subcu Code Visit Inpatient E&M: 71001 Subs Hosp L2
[2018-11-10] MEDS: Atenolol 100 MG Tablet PO (08:07)
[2018-11-10 08:46] LABS: Iron 59 ug/dL (50-170); Iron Binding Capacity,Total 273 ug/dL (250-450); PERCENT IRON SATURATION 21.6 % (15.0-55.0)
--- NOTE | 2018-11-10 10:47 | CASEMGMT ---
RN CM Assessment Presentation: DEVEN, intractable nausea, vomiting, diarrhea. Type I diabetic Intro role of CM and purpose of RN CM assessment to patient and her . Demographics, PCP and Pharmacy verified. Pt able to participate in RN CM Assessment. PCP:Dr. Souza Preferred [facility]acy[facility] Insurance: MMO Prescription Benefit: yes, no difficulty with insulin supplies. LNOK: Sahil Living Arrangements: Lives independently in two story home with her . Denies needing assistance with any care needs. Transportation: drives or her drives. DME: none HHC: none Patient DC goals: Home DC PLAN: Home Harpal WARD RN ACM
[2018-11-10 11:26] LABS: Bedside Glucose 384 mg/dL (70-110)
[2018-11-10 16:20] LABS: Bedside Glucose 248 mg/dL (70-110)
--- NOTE | 2018-11-10 17:00 | NURSING ---
Patient bolused herself 8.5 units of humalog insulin via her home insulin pump at this time for supper.
[2018-11-10] MEDS: Ferrous Gluconate 324 MG Tablet PO (17:18)
[2018-11-10 21:35] LABS: Bedside Glucose 76 mg/dL (70-110)
[2018-11-11 02:59] VITALS: PULSE 73
[2018-11-11 03:15] VITALS: BP 112/46; PULSE 79; RESP 18; TEMP 36.8; O2SAT 92
[2018-11-11] MEDS: 0.9% Normal Saline 1,000 ML 150 ML IV (03:45)
[2018-11-11 04:01] LABS: Bedside Glucose 29 mg/dL (70-110)
[2018-11-11 04:01] LABS: Bedside Glucose 79 mg/dL (70-110)
[2018-11-11] MEDS: Heparin Injection (Vial) 5,000 UNIT/ML VIAL 5000 UNIT SC (05:26)
[2018-11-11] MEDS: Levothyroxine 50 MCG Tablet PO (05:26)
[2018-11-11 07:01] LABS: Bedside Glucose 170 mg/dL (70-110)
[2018-11-11 07:07] VITALS: PULSE 80
[2018-11-11 07:30] VITALS: O2SAT 87
[2018-11-11] MEDS: Ferrous Gluconate 324 MG Tablet PO (08:03)
[2018-11-11] MEDS: Atenolol 100 MG Tablet PO (08:03)
[2018-11-11] MEDS: Aspirin 81 MG TAB.CHEW PO (08:03)
[2018-11-11] MEDS: Calcium (Elemental) 500 MG Tablet PO (08:03)
[2018-11-11 08:45] VITALS: BP 139/47; PULSE 84; RESP 16; TEMP 36.3; O2SAT 93
[2018-11-11 09:33] LABS: Absolute Lymphocyte Count 0.82 X10^3/ul (0.83-4.51); Absolute Neutrophil Count 10.6 X10^3/uL (2.0-7.7); Basophil# 0.01 X10^3/uL; Basophil% 0.1 % (0-1); Differential Indicated SCAN CRITERIA MET; Eosinophil# 0.03 X10^3/uL; Eosinophils% 0.2 % (0-5); Hematocrit 29.3 % (37-47); Hemoglobin 9.6 g/dl (12.0-15.0); Lymphocyte # 0.82 X10^3/ul (4.0); Lymphocyte % 6.5 % (19-41); Mean Corp Hgb Conc 32.8 g/gl (32-36); Mean Corpuscular Hgb 29.8 pg (27.0-32.0); Mean Platelet Vol. 10.3 fl (6.2-12.0); Monocyte# 1.02 X10^3/uL; Monocyte% 8.1 % (0-10); Neutrophil # 10.61 X10^3/uL (2.7-7.7); Neutrophil % 84.8 % (47-70); POSITIVE COUNT NO; POSITIVE DIFFERENTIAL NO; POSITIVE MORPHOLOGY YES; Platelet Count 221 K/mm3 (150-450); RBC Distribution Width CV 13.4 % (11.6-14.6); RBC Distribution Width SD 43.9 fl (35.1-43.9); Red Blood Count 3.22 M/mm3 (4.2-5.4); White Blood Count 12.5 K/mm3 (4.4-11.0)
[2018-11-11 09:36] LABS: Albumin, Serum 2.5 g/dL (3.2-5.0); BUN 44 mg/dL (7-18); BUN/Creat Ratio 24.7 RATIO (10-20); Calcium,Total 7.3 mg/dL (8.5-10.1); Chloride 116 mmol/L (98-107); Creatinine, Serum 1.78 mg/dL (0.55-1.02); EST Glomerular Filtration Rate 31 mL/min (>60); Est Glom Filt Rate - Afr Amer 37 mL/min (>60); Estimated Creatinine Clearance 23.84 ml/min; Glucose 148 mg/dL (74-106); Phosphorus 1.7 mg/dL (2.5-4.9); Potassium 4.3 mmol/L (3.5-5.1); Sodium Level 141 mmol/L (136-145)
--- NOTE | 2018-11-11 10:14 | DS.PCM_ITS ---
Discharge Date and Diagnosis Date of Admission: 11/09/18 Date of Discharge: 11/11/18 - Primary Discharge Diagnosis Active and Suspected Problems DEVEN (acute kidney injury) (Acute) Hyperkalemia (Acute) Hyponatremia (Acute) Metabolic acidosis (Acute) Intractable nausea and vomiting Acute gastroenteritis - Secondary Discharge Diagnosis Chronic Problems Insulin pump in place (Chronic) DM type 1 (diabetes mellitus, type 1) (Chronic) Cerebrovascular disease (Chronic) Benign hypertension (Chronic) Hospital Course and Treatment Imaging Results: Clinical Impression(s) from Imaging Studies Chest X-Ray 11/09/18 15:52 IMPRESSION: No acute cardiopulmonary disease. Electronically Signed: Nehemias Gudino DO at 16:07 EDT Tel [phone], Service support , Renal Ultrasound 11/10/18 07:51 IMPRESSION: 1. No hydronephrosis. 2. Bilateral renal cortical thinning. 3. Simple left renal cyst. Electronically Signed: Tuan Villalba MD at 16:19 EDT , Service support , None Operations: None Procedures: None Summary of Care Provided: 63-year-old female with past medical history of type I DM, CKD stage III who comes in with complaints of nausea and vomiting as well as diarrhea ongoing for more than 3 days. She was found to have acute kidney injury secondary to dehydration. This was also secondary to acute gastroenteritis. Patient was also on hydrochlorothiazide, valsartan, spironolactone. These medications were held. He was also found to have electrolyte imbalances - hyponatremic with sodium of 129, hypokalemic with potassium of 5.8, non-gap metabolic acidosis with bicarb level of 13, BUN was 87, creatinine was 5.98, her baseline creatinine appears to be around 1.7-1.9. Ultrasound of the kidney and bladder was showed medical renal disease, simple left renal cyst. Patient was managed on IV fluids and supportive care. She improved, creatinine was gradually back to her baseline. She received a dose of bicarbonate for metabolic acidosis. This was not continued. Patient was rather observed as she continued to improve. She was continued on her insulin pump and her blood sugars were controlled prior to discharge. Patient was asked to stop taking valsartan because of reported carcinogenic contaminant. He was asked to stop taking hydrochlorothiazide and spironolactone. She is aware that she needs a repeat blood work to be done within a week. 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 She was asked to resume on her amlodipine if needed for uncontrolled blood pressure. Subjective: On the day of discharge, patient was seen and examined. She feels much improved. Objective: Physical exam: General: Alert, Oriented x3, Cooperative, No apparent distress HEENT: Atraumatic, PERRLA, EOMI, Normocephalic Neck: Supple Lungs: Clear to auscultation, Normal air movement Cardiovascular: Regular rate, Regular Rhythm, Normal S1, Normal S2, No murmurs Abdomen: Bowel Sounds Present, Soft, Non Tender, Non-Distended, No Hepato-splenomegaly Extremities: No edema Skin: No rashes, No breakdown Musculoskeletal: No Tenderness to Palpation of Joints or Extremities Lymphatic: No Cervical, Supraclavicular, or Inguinal Adenopathy Neurological: Cranial nerves II-XII grossly intact, Neuro grossly intact Psych/Mental Status: Normal Affect, Appropriate - Physical Exam Vital Signs Temp Pulse Resp BP Pulse Ox 97.3 F L 84 16 139/47 H 93 11/11/18 08:45 11/11/18 08:45 11/11/18 08:45 11/11/18 08:45 11/11/18 08:45 Oxygen Flow Rate (L/min) 2 Oxygen Delivery Method Room Air Weight: 70.7 kg Body Mass Index (BMI) 28.6 Finger Stick Blood Glucose 166 Intake and Output for Last 24 Hours 11/09/18 11/10/18 11/11/18 23:59 23:59 23:59 Intake Total 1489 / 1489 4959 / 4959 1152 / 1152 Output Total 400 / 400 Balance 1489 / 1489 4559 / 4559 1152 / 1152 Laboratory Tests Past 24 Hrs 11/11/18 11/11/18 09:06 09:06 WBC 12.5 H RBC 3.22 L Hgb 9.6 L Hct 29.3 L MCV 91.0 MCH 29.8 MCHC 32.8 RDW 13.4 RDW Differential 43.9 Plt Count 221 MPV 10.3 Immature Gran % (Auto) 0.300 Neut % (Auto) 84.8 H Lymph % (Auto) 6.5 L [place] % (Auto) 8.1 Eos % (Auto) 0.2 Baso % (Auto) 0.1 Absolute Neuts (auto) 10.6 H Absolute Lymphs (auto) 0.82 L Total Counted Not Reportable Sodium 141 Potassium 4.3 Chloride 116 H Carbon Dioxide 17.0 L BUN 44 H Creatinine 1.78 H Estim Creat Clear Calc 23.84 Est GFR (MDRD) Af Amer 37 L Est GFR (MDRD) Non-Af 31 L BUN/Creatinine Ratio 24.7 H Glucose 148 H Calcium 7.3 L Phosphorus 1.7 L Albumin 2.5 L POC Glucose 11/11/18 11/11/18 11/11/18 06:54 03:53 03:28 POC Glucose 170 H 79 29 L* 11/10/18 11/10/18 11/10/18 21:22 16:07 11:18 POC Glucose 76 248 H 384 H Discharge Diet: Low fat/ Low Cholesterol, 2000 mg Sodium Diet, Carb Control Diet Discharge Activity: Return to Normal Activity Home Medications: Medications to take at Discharge Aspirin [Aspirin, Baby] 81 mg PO DAILY@0800 06/07/14 Ferrous Gluconate 325 mg PO BID 06/07/14 Amlodipine [Norvasc] 5 mg PO DAILY 06/09/14 Guaifenesin Dm [Robitussin Dm] 10 ml PO Q4H PRN PRN udc 04/14/16 Ascorbic Acid [Vitamin C] 1,000 mg PO DAILY 11/09/18 Atenolol [Tenormin (beta angel)] 100 mg PO DAILY 11/09/18 Calcium (Elemental) [Os-Omer 500] 500 mg PO DAILY@0800 11/09/18 Cholecalciferol (Vitamin D3) [Vitamin D3] 5,000 unit PO DAILY 11/09/18 Insulin Lispro [Humalog] 0 units SQ UD 11/09/18 Levothyroxine [Synthroid] 50 mcg PO DAILY 11/09/18 Patiromer Calcium Sorbitex [Veltassa] 8.4 gm PO DAILY 11/09/18 Rosuvastatin Calcium [Crestor] 20 mg PO QHS 11/09/18 Na Biphos/Potassium Phosphate [Neutra-Phos Packet] 1 packet PO 4X/DAY #3 packet 11/11/18 Following Prescrptions Were Given to Patient: Na Biphos/Potassium Phosphate [Neutra-Phos Packet] 1 packet PO 4X/DAY #3 packet Primary Care Physician: Kyle Beard DO [Primary Care Provider] - Please follow up with your Primary Care Physician in: within 1-2 weeks Please Follow Up With: Sheirf Orantes MD When: within 1-2 weeks Disposition: Home Minutes spent on discharge:: 40 Patient Condition:: Stable Medical Necessity - Tobacco Use Smoking Status: Former smoker Tobacco Use: Non-smoker Meaningful Use Info Meaningful Use Diagnoses (Choose all that apply): None applicable Code Visit Inpatient E&M: 53067 Disch Hosp
--- NOTE | 2018-11-11 10:14 | DCINST_ITS ---
- Discharge Diagnoses Current Active Problems: Current Active and Chronic Problems DEVEN (acute kidney injury) (Acute) Hyperkalemia (Acute) Hyponatremia (Acute) Metabolic acidosis (Acute) Reason(s) for Visit for Discharge Instructions: Nausea and vomiting You will use the following diet at home:: Calorie/Carbohydrate Controlled (specify 1200, 1400, etc), Renal (restricted protein/sodium) Your food should be the consistency of: Regular Your liquids should be the consistency of: Regular/Thin Discharge Activity: Return to Normal Activity Additional Instructions: Continue to hydrate yourself. Follow-up with Dr. Orantes within 1-2 weeks. Take note of changes in your medcations. Do not take valsartan anymore. Continue to check your blood pressures at home. You may resume your home amlodipine if your systolic blood pressure is persistently elevated more than 150mmHG. Follow-up with your primary doctor to discuss your blood pressure medications and have blood work repeated to check on your kidney function. Allergies/Adverse Reactions: Allergies pravastatin sodium [From Pravachol] Allergy (Verified 11/09/18 14:53) Unknown sertraline HCl [From Zoloft] Allergy (Verified 11/09/18 14:53) Hives venlafaxine HCl [From Effexor] Allergy (Verified 11/09/18 14:53) Hives pneumococcal 23-valent polysacchari [From Pneumovax 23] Adverse Reaction (Verified 11/09/18 14:53) Swelling Medications to take at Discharge Aspirin [Aspirin, Baby] 81 mg PO DAILY@0800 06/07/14 Ferrous Gluconate 325 mg PO BID 06/07/14 Amlodipine [Norvasc] 5 mg PO DAILY 06/09/14 Guaifenesin Dm [Robitussin Dm] 10 ml PO Q4H PRN PRN udc 04/14/16 Ascorbic Acid [Vitamin C] 1,000 mg PO DAILY 11/09/18 Atenolol [Tenormin (beta angel)] 100 mg PO DAILY 11/09/18 Calcium (Elemental) [Os-Omer 500] 500 mg PO DAILY@0800 11/09/18 Cholecalciferol (Vitamin D3) [Vitamin D3] 5,000 unit PO DAILY 11/09/18 Insulin Lispro [Humalog] 0 units SQ UD 11/09/18 Levothyroxine [Synthroid] 50 mcg PO DAILY 11/09/18 Patiromer Calcium Sorbitex [Veltassa] 8.4 gm PO DAILY 11/09/18 Rosuvastatin Calcium [Crestor] 20 mg PO QHS 11/09/18 Na Biphos/Potassium Phosphate [Neutra-Phos Packet] 1 packet PO 4X/DAY #3 packet 11/11/18 The following prescriptions were given: Na Biphos/Potassium Phosphate [Neutra-Phos Packet] 1 packet PO 4X/DAY #3 packet Primary Care Physician: Kyle Beard DO [Primary Care Provider] - Please follow up with your Primary Care Physician in: within 1-2 weeks Test Results: Test results from this visit will be discussed in further detail at your follow- up appointment, if applicable. Please Follow Up With: Sherif Orantes MD When: within 1-2 weeks Proposed Discharge Date: 11/11/18
[2018-11-11 10:53] VITALS: PULSE 70
[2018-11-11] MEDS: Na Biphos/Potassium Phosphate PACKET 1 PACKET PO (10:56)
--- NOTE | 2018-11-12 14:23 | CASEMGMT ---
AMMON CM DC PHONE CALL DC DATE: 11/11/18 DC Disposition: Home LACE/STRATA: 05/09 Attempted call to home phone. Message machine did not leave identifier so no message left. Harpal VERDE BSN ACM
[2018-11-13 12:14] LABS: Pathologist Review Reviewed
== END 2018-11-11 11:28 | disposition home or self-care (01) | DRG 683 ==
LOC: ED 15:34 → MS3 17:24 → ICU 17:47 → PCU 11-10 07:16 → ICU 11-12 07:05
PROVIDERS: Emergency Provider Emergency Medicine; Family Provider Family Medicine; PCP Family Medicine; Visit Provider Internal Medicine
DX: N17.9 Acute kidney failure, unspecified (principal); E87.2 Acidosis; E87.1 Hypo-osmolality and hyponatremia; E87.5 Hyperkalemia; E03.9 Hypothyroidism, unspecified; K52.9 Noninfective gastroenteritis and colitis, unspecified; I12.9 Hypertensive chronic kidney disease with stage 1 through stage 4 chronic kidney disease, or unspecified chronic kidney disease; E10.22 Type 1 diabetes mellitus with diabetic chronic kidney disease; N18.3 Chronic kidney disease, stage 3 (moderate); E86.0 Dehydration; Z96.41 Presence of insulin pump (external) (internal); Z79.4 Long term (current) use of insulin
CPT/HCPCS: 36415; 71045; 76770; 80048; 80053; 80069; 81001; 82962; 83540; 83550; 83605; 83690; 85025; 93005; 94762; 97162; 97165; 99285; J7030; A4216; J2405

== ENCOUNTER → 2018-11-14 10:59 | Outpatient (CLI) | payer OTHER, SELFPAY ==
[2018-11-14 10:59] VITALS: BMI 28.3
--- NOTE | 2018-11-14 11:14 | RAD_ITS ---
STUDY: X-RAY CHEST REASON FOR EXAM: Female, 63 years old. Recently discharged from the hospital after being treated for dehydration. Patient now has cough. TECHNIQUE: PA and lateral views of the chest. COMPARISON: November 09, 2018 FINDINGS: The lungs are expanded. There is heterogeneous airspace consolidation involving more than half left lung. There may also be right basilar airspace consolidation. There may be small left-sided pleural effusion. There is mild cardiac enlargement. Normal mediastinum and cassie. Normal visualized pulmonary arteries. There is atherosclerotic calcification of the aortic arch with tortuosity. Normal visualized thoracic spine. Normal visualized ribs, clavicles, and shoulders. There is no demonstrated abnormality of the visualized soft tissue structures of the upper abdomen. RAD/Chest PA and Lateral IMPRESSION: 1. Bilateral heterogeneous airspace consolidations, left greater than right, could represent pneumonia. 2. Unchanged appearance to cardiomegaly. Electronically Signed: Diana Obrien MD at 10:10 EDT , Service support ,
[2018-11-14 13:08] LABS: Mean Corp Hgb Conc 32.1 g/gl (32-36); Mean Corpuscular Hgb 29.4 pg (27.0-32.0); Mean Corpuscular Volume 91.5 fL (81-99); Mean Platelet Vol. 9.7 fl (6.2-12.0); POSITIVE COUNT YES; POSITIVE DIFFERENTIAL YES; POSITIVE MORPHOLOGY YES; Platelet Count 430 K/mm3 (150-450); RBC Distribution Width CV 13.9 % (11.6-14.6); RBC Distribution Width SD 46.3 fl (35.1-43.9); Red Blood Count 3.06 M/mm3 (4.2-5.4); White Blood Count 15.2 K/mm3 (4.4-11.0)
[2018-11-14 13:09] LABS: ALB/GLOB Ratio 0.5 RATIO (0.9-2.4); AST(SGOT) 51 U/L (15-37); Alanine Aminotransfer ALT/SGPT 48 U/L (13-56); Albumin, Serum 2.5 g/dL (3.2-5.0); Alkaline Phosphatase 75 U/L (45-117); Anion Gap 9 (5-15); BUN 26 mg/dL (7-18); BUN/Creat Ratio 18.3 RATIO (10-20); Calcium,Total 7.9 mg/dL (8.5-10.1); Chloride 110 mmol/L (98-107); Creatinine, Serum 1.42 mg/dL (0.55-1.02); Differential Indicated MANUAL DIFF; EST Glomerular Filtration Rate 40 mL/min (>60); Est Glom Filt Rate - Afr Amer 48 mL/min (>60); Globulin 4.6 g/dL (2.2-4.2); Glucose 232 mg/dL (74-106); Potassium 4.1 mmol/L (3.5-5.1); Protein, Total 7.1 g/dL (6.4-8.2); Sodium Level 140 mmol/L (136-145)
[2018-11-14 13:12] LABS: BNP,B-Type NATRIURETIC PEPTIDE 287.1 pg/mL (0-100)
[2018-11-14 13:48] LABS: Eosinophil 1 % (0-5); Lymphocyte 9 % (19-41); Metamyelocyte 1 % (0-1); Monocyte 8 % (0-10); Neutrophil-Band 5 % (0-5); Neutrophil-Segmented 76 % (47-70); Total Cells Counted 100 (MANUAL DIFF)
[2018-11-14 13:49] LABS: Platelet Estimate ADEQUATE (ADEQ); Red Cell Morphology NORM C+C NORMAL (NORM C&C)
[2018-11-14 13:51] LABS: Absolute Lymphocyte Count 1.37 X10^3/ul (0.83-4.51); Absolute Neutrophil Count 12.3 X10^3/uL (2.0-7.7); Lymphocyte # 1.37 X10^3/ul (4.0)
[2018-11-15 12:10] LABS: Pathologist Review Reviewed
== END ==
PROVIDERS: Family Provider Family Medicine; PCP Family Medicine; Referring Provider Family Medicine; Visit Provider Family Medicine
DX: R05 Cough (principal); R09.02 Hypoxemia; R06.00 Dyspnea, unspecified
CPT/HCPCS: 36415; 71046; 80053; 83880; 85025

== ENCOUNTER → 2018-11-28 06:04 | Outpatient (CLI) | payer OTHER, SELFPAY ==
[2018-11-14 10:59] VITALS: BMI 28.3
[2018-11-28 07:25] LABS: Hematocrit 28.3 % (37-47); Hemoglobin 9.2 g/dl (12.0-15.0); Mean Corp Hgb Conc 32.5 g/gl (32-36); Mean Corpuscular Hgb 29.9 pg (27.0-32.0); Mean Corpuscular Volume 91.9 fL (81-99); Mean Platelet Vol. 8.7 fl (6.2-12.0); Platelet Count 444 K/mm3 (150-450); RBC Distribution Width CV 13.6 % (11.6-14.6); Red Blood Count 3.08 M/mm3 (4.2-5.4); Scan Indicated on CBC? Y/N NO; White Blood Count 6.3 K/mm3 (4.4-11.0)
[2018-11-28 07:35] LABS: Hemoglobin A1c 7.5 % (4.2-6.3)
[2018-11-28 07:37] LABS: Protein, Urine (Random) 33.4 mg/dL (<11.9); Protein:Creat Ratio 739 mg/g CRE (0-200)
[2018-11-28 07:45] LABS: ALB/GLOB Ratio 0.8 RATIO (0.9-2.4); AST(SGOT) 16 U/L (15-37); Alanine Aminotransfer ALT/SGPT 26 U/L (13-56); Alkaline Phosphatase 63 U/L (45-117); Anion Gap 4 (5-15); BUN 32 mg/dL (7-18); BUN/Creat Ratio 25.4 RATIO (10-20); Calcium,Total 9.2 mg/dL (8.5-10.1); Chloride 107 mmol/L (98-107); Creatinine, Serum 1.26 mg/dL (0.55-1.02); EST Glomerular Filtration Rate 46 mL/min (>60); Est Glom Filt Rate - Afr Amer 55 mL/min (>60); Globulin 3.9 g/dL (2.2-4.2); Glucose 149 mg/dL (74-106); Protein, Total 6.9 g/dL (6.4-8.2); Sodium Level 137 mmol/L (136-145); T4 Free Direct 1.04 ng/dL (0.76-1.46); Thyroid Stim Hormone (TSH) 3.19 uIU/mL (0.358-3.74)
[2018-11-28 08:17] LABS: PTHIN 8.5 pg/mL (18.4-80.1); Vitamin D,25 Hydroxy 37.5 ng/mL (29.95-100.01)
[2018-11-28 16:49] LABS: Phosphorus 4.2 mg/dL (2.5-4.9)
== END ==
PROVIDERS: Family Provider Family Medicine; PCP Family Medicine; Referring Provider Internal Medicine Endocrinology, Diabetes & Metabolism; Visit Provider Internal Medicine Endocrinology, Diabetes & Metabolism
DX: E10.65 Type 1 diabetes mellitus with hyperglycemia (principal); N18.3 Chronic kidney disease, stage 3 (moderate); D63.1 Anemia in chronic kidney disease
CPT/HCPCS: 36415; 80053; 82306; 82570; 83036; 83970; 84100; 84156; 84439; 84443; 85027

== ENCOUNTER → 2019-03-28 06:01 | Outpatient (CLI) | payer OTHER, SELFPAY ==
[2018-11-14 10:59] VITALS: BMI 28.3
[2019-03-28 08:15] LABS: ALB/GLOB Ratio 0.7 RATIO (0.9-2.4); AST(SGOT) 16 U/L (15-37); Alanine Aminotransfer ALT/SGPT 27 U/L (13-56); Albumin, Serum 3.2 g/dL (3.2-5.0); Alkaline Phosphatase 60 U/L (45-117); Anion Gap 9 (5-15); BUN 40 mg/dL (7-18); BUN/Creat Ratio 23.4 RATIO (10-20); Calcium,Total 10.2 mg/dL (8.5-10.1); Chloride 111 mmol/L (98-107); Cholesterol 152 mg/dL (200); Creatinine, Serum 1.71 mg/dL (0.55-1.02); EST Glomerular Filtration Rate 32 mL/min (>60); Est Glom Filt Rate - Afr Amer 39 mL/min (>60); Globulin 4.3 g/dL (2.2-4.2); Glucose 153 mg/dL (74-106); High Density Lipoprotein 50 mg/dL; Phosphorus 3.6 mg/dL (2.5-4.9); Potassium 4.3 mmol/L (3.5-5.1); Protein, Total 7.5 g/dL (6.4-8.2); Sodium Level 143 mmol/L (136-145); Thyroid Stim Hormone (TSH) 4.84 uIU/mL (0.358-3.74); Triglycerides 116 mg/dL; Very Low Density Lipoprotein 23 mg/dL (5-40)
[2019-04-03 10:20] LABS: Vitamin D 1,25-Dihydroxy 10.1 pg/mL (19.9-79.3)
== END ==
PROVIDERS: Family Provider Family Medicine; PCP Family Medicine; Referring Provider Internal Medicine Endocrinology, Diabetes & Metabolism; Visit Provider Internal Medicine Endocrinology, Diabetes & Metabolism
DX: E20.9 Hypoparathyroidism, unspecified (principal); E10.65 Type 1 diabetes mellitus with hyperglycemia
CPT/HCPCS: 36415; 80053; 80061; 82330; 82652; 83036; 83970; 84100; 84443

== ENCOUNTER → 2019-04-10 06:04 | Outpatient (CLI) | payer OTHER, SELFPAY ==
[2018-11-14 10:59] VITALS: BMI 28.3
[2019-04-10 07:34] LABS: ALB/GLOB Ratio 0.7 RATIO (0.9-2.4); AST(SGOT) 20 U/L (15-37); Alanine Aminotransfer ALT/SGPT 25 U/L (13-56); Albumin, Serum 3.3 g/dL (3.2-5.0); Alkaline Phosphatase 65 U/L (45-117); Anion Gap 6 (5-15); BUN 33 mg/dL (7-18); Calcium,Total 9.5 mg/dL (8.5-10.1); Chloride 111 mmol/L (98-107); EST Glomerular Filtration Rate 37 mL/min (>60); Est Glom Filt Rate - Afr Amer 45 mL/min (>60); Globulin 4.5 g/dL (2.2-4.2); Glucose 139 mg/dL (74-106); Potassium 4.4 mmol/L (3.5-5.1); Protein, Total 7.8 g/dL (6.4-8.2); Sodium Level 139 mmol/L (136-145)
[2019-04-10 08:51] LABS: PTHIN 12.6 pg/mL (18.4-80.1); Vitamin D,25 Hydroxy 35.2 ng/mL (29.95-100.01)
[2019-04-12 12:32] LABS: Beta-2-Microglobulin, S 3.7 mg/L (0.6-2.4)
[2019-04-16 14:08] LABS: Albumin 3.4 g/dL (2.9-4.4); Albumin, Ur 73.7 % (.); Alpha-1-Globulin, Ur 1.4 % (.); Alpha-1-Globulins 0.2 g/dL (0.0-0.4); Alpha-2-Globulins 0.9 g/dL (0.4-1.0); Alpha-2-Globulins, Ur 4.9 % (.); Beta Globulin, Ur 8.1 % (.); Gamma Globulin 1.5 g/dL (0.4-1.8); Immunoglobulin A 259 mg/dL (87-352); Immunoglobulin G 1328 mg/dL (700-1600); Immunoglobulin M 137 mg/dL (26-217); M-Spike, Ur % Not Observed % (Not Observed); PROEL- TOTAL PROTEIN 7.1 g/dL (6.0-8.5); Total Protein, Ur 77.9 mg/dL (Not Estab.)
[2019-04-17 12:23] LABS: Vitamin A, Retinol 68.3 ug/dL (22.0-69.5)
== END ==
PROVIDERS: Family Provider Family Medicine; PCP Family Medicine; Referring Provider Internal Medicine Endocrinology, Diabetes & Metabolism; Visit Provider Internal Medicine Endocrinology, Diabetes & Metabolism
DX: E83.52 Hypercalcemia (principal)
CPT/HCPCS: 36415; 80053; 82232; 82306; 82330; 82784; 83970; 84165; 84166; 84590; 86334; 86335

== ENCOUNTER → 2019-04-12 06:13 | Outpatient (CLI) | payer OTHER, SELFPAY ==
[2018-11-14 10:59] VITALS: BMI 28.3
[2019-04-12 09:42] LABS: 24 Hour Urine Protein 724.4 mg/24HR (<150 MG/24HR); 24HR. UA Prot. Total Volume 2375 mL; 24HR. Urine Creatinine 0.82 g/24 HR (0.70-1.90); Urine Protein (24 Hour) 30.5 mg/dL (<11.9)
[2019-04-12 11:17] LABS: 24HR UR TOTAL VOLUME 2375 ml; Calcium Urine pH Range 1; Urine Calcium (Random) < 5.0 (Not Estab.)
[2019-04-12 14:05] LABS: (24 HR) Urine Calcium < 5.0 mg/24 HR (42.0-353.0)
== END ==
PROVIDERS: Family Provider Family Medicine; PCP Family Medicine; Referring Provider Internal Medicine Endocrinology, Diabetes & Metabolism; Visit Provider Internal Medicine Endocrinology, Diabetes & Metabolism
DX: E83.52 Hypercalcemia (principal)
CPT/HCPCS: 82340; 82570; 84156

== ENCOUNTER → 2019-06-05 06:02 | Outpatient (CLI) | payer OTHER, SELFPAY ==
[2018-11-14 10:59] VITALS: BMI 28.3
[2019-06-05 08:56] LABS: Anion Gap 6 (5-15); BUN 46 mg/dL (7-18); BUN/Creat Ratio 27.7 RATIO (10-20); Calcium,Total 9.5 mg/dL (8.5-10.1); Chloride 110 mmol/L (98-107); Creatinine, Serum 1.66 mg/dL (0.55-1.02); EST Glomerular Filtration Rate 33 mL/min (>60); Est Glom Filt Rate - Afr Amer 40 mL/min (>60); Glucose 172 mg/dL (74-106); Potassium 4.1 mmol/L (3.5-5.1); Sodium Level 140 mmol/L (136-145)
== END ==
PROVIDERS: Family Provider Family Medicine; PCP Family Medicine; Referring Provider Internal Medicine Nephrology; Visit Provider Internal Medicine Nephrology
DX: N18.3 Chronic kidney disease, stage 3 (moderate) (principal)
CPT/HCPCS: 36415; 80048; 82043; 82570

== ENCOUNTER → 2019-07-02 06:09 | Outpatient (CLI) | payer OTHER, SELFPAY ==
[2018-11-14 10:59] VITALS: BMI 28.3
[2019-07-02 07:23] LABS: ALB/GLOB Ratio 0.8 RATIO (0.9-2.4); AST(SGOT) 17 U/L (15-37); Alanine Aminotransfer ALT/SGPT 27 U/L (13-56); Albumin, Serum 3.3 g/dL (3.2-5.0); Alkaline Phosphatase 55 U/L (45-117); Anion Gap 6 (5-15); BUN 46 mg/dL (7-18); BUN/Creat Ratio 26.9 RATIO (10-20); Calcium,Total 9.4 mg/dL (8.5-10.1); Chloride 109 mmol/L (98-107); Creatinine, Serum 1.71 mg/dL (0.55-1.02); EST Glomerular Filtration Rate 32 mL/min (>60); Est Glom Filt Rate - Afr Amer 39 mL/min (>60); Glucose 144 mg/dL (74-106); Potassium 4.3 mmol/L (3.5-5.1); Protein, Total 7.3 g/dL (6.4-8.2); Sodium Level 140 mmol/L (136-145); T4 Free Direct 1.15 ng/dL (0.76-1.46); Thyroid Stim Hormone (TSH) 0.22 uIU/mL (0.358-3.74)
[2019-07-02 08:02] LABS: Hemoglobin A1c 6.9 % (4.2-6.3)
== END ==
PROVIDERS: Family Provider Family Medicine; PCP Family Medicine; Referring Provider Internal Medicine Endocrinology, Diabetes & Metabolism; Visit Provider Internal Medicine Endocrinology, Diabetes & Metabolism
DX: E03.9 Hypothyroidism, unspecified (principal); E10.65 Type 1 diabetes mellitus with hyperglycemia
CPT/HCPCS: 36415; 80053; 83036; 84439; 84443

== ENCOUNTER → 2019-10-02 06:06 | Outpatient (CLI) | payer OTHER, SELFPAY ==
[2018-11-14 10:59] VITALS: BMI 28.3
[2019-10-02 07:17] LABS: ALB/GLOB Ratio 0.8 RATIO (0.9-2.4); AST(SGOT) 17 U/L (15-37); Alanine Aminotransfer ALT/SGPT 30 U/L (13-56); Albumin, Serum 3.4 g/dL (3.2-5.0); Alkaline Phosphatase 59 U/L (45-117); Anion Gap 6 (5-15); BUN 36 mg/dL (7-18); BUN/Creat Ratio 21.3 RATIO (10-20); Calcium,Total 9.3 mg/dL (8.5-10.1); Chloride 109 mmol/L (98-107); Cholesterol 168 mg/dL (200); Creatinine, Serum 1.69 mg/dL (0.55-1.02); EST Glomerular Filtration Rate 33 mL/min (>60); Est Glom Filt Rate - Afr Amer 39 mL/min (>60); Glucose 146 mg/dL (74-106); High Density Lipoprotein 51 mg/dL; Potassium 4.5 mmol/L (3.5-5.1); Protein, Total 7.4 g/dL (6.4-8.2); Sodium Level 140 mmol/L (136-145); Thyroid Stim Hormone (TSH) 1.31 uIU/mL (0.358-3.74); Triglycerides 160 mg/dL; Very Low Density Lipoprotein 32 mg/dL (5-40)
[2019-10-02 10:17] LABS: Hemoglobin A1c 6.8 % (4.2-6.3)
== END ==
PROVIDERS: PCP Family Medicine; Visit Provider Internal Medicine Endocrinology, Diabetes & Metabolism
DX: R77.1 Abnormality of globulin (principal)
CPT/HCPCS: 36415; 80053; 80061; 83036; 84443

== ENCOUNTER → 2020-02-05 08:00 | Outpatient (CLI) | payer OTHER, SELFPAY ==
[2018-11-14 10:59] VITALS: BMI 28.3
[2020-02-05 08:34] LABS: Hematocrit 36.3 % (37-47); Hemoglobin 11.5 g/dL (12.0-15.0); Mean Corp Hgb Conc 31.7 g/dL (32-36); Mean Corpuscular Hgb 31.2 pg (27.0-32.0); Mean Corpuscular Volume 98.4 fL (81-99); Mean Platelet Vol. 9.3 fl (6.2-12.0); Platelet Count 334 K/mm3 (150-450); RBC Distribution Width CV 12.6 % (11.6-14.6); RBC Distribution Width SD 45.1 fl (35.1-43.9); Red Blood Count 3.69 M/mm3 (4.2-5.4); White Blood Count 6.9 K/mm3 (4.4-11.0)
[2020-02-05 09:03] LABS: Hemoglobin A1c 6.8 % (3.8-5.6)
[2020-02-05 09:08] LABS: ALB/GLOB Ratio 0.9 RATIO (0.9-2.4); AST(SGOT) 14 U/L (15-37); Alanine Aminotransfer ALT/SGPT 25 U/L (13-56); Albumin, Serum 3.6 g/dL (3.2-5.0); Alkaline Phosphatase 64 U/L (45-117); Anion Gap 8 (5-15); BUN 45 mg/dL (7-18); BUN/Creat Ratio 23.7 RATIO (10-20); Calcium,Total 9.5 mg/dL (8.5-10.1); Chloride 106 mmol/L (98-107); EST Glomerular Filtration Rate 28 mL/min (>60); Est Glom Filt Rate - Afr Amer 34 mL/min (>60); Glucose 194 mg/dL (74-106); PTHIN 6.4 pg/mL (18.4-80.1); Phosphorus 3.6 mg/dL (2.5-4.9); Potassium 4.9 mmol/L (3.5-5.1); Protein, Total 7.6 g/dL (6.4-8.2); Sodium Level 139 mmol/L (136-145); T4 Free Direct 1.21 ng/dL (0.76-1.46); Thyroid Stim Hormone (TSH) 0.79 uIU/mL (0.358-3.74)
[2020-02-05 09:13] LABS: Vitamin D,25 Hydroxy 49.9 ng/mL
[2020-02-05 10:20] LABS: Microalbumin:Creatinine Ratio 884.4 mg/g CRE (<30 mg/g CRE); Protein, Urine (Random) 60.7 mg/dL (<11.9); Protein:Creat Ratio 1114 mg/g CRE (0-200)
== END ==
PROVIDERS: PCP Family Medicine; Visit Provider Internal Medicine Endocrinology, Diabetes & Metabolism
DX: E03.9 Hypothyroidism, unspecified (principal); E10.65 Type 1 diabetes mellitus with hyperglycemia
CPT/HCPCS: 36415; 80053; 82043; 82306; 82570; 83036; 83970; 84100; 84156; 84439; 84443; 85027

== ENCOUNTER → 2020-05-20 08:08 | Outpatient (CLI) | payer OTHER, SELFPAY ==
[2018-11-14 10:59] VITALS: BMI 28.3
[2020-05-20 09:17] LABS: ALB/GLOB Ratio 0.8 RATIO (0.9-2.4); AST(SGOT) 20 U/L (15-37); Alanine Aminotransfer ALT/SGPT 32 U/L (13-56); Albumin, Serum 3.4 g/dL (3.2-5.0); Alkaline Phosphatase 73 U/L (45-117); Anion Gap 4 (5-15); BUN 26 mg/dL (7-18); BUN/Creat Ratio 19.5 RATIO (10-20); Calcium,Total 10.1 mg/dL (8.5-10.1); Chloride 105 mmol/L (98-107); Cholesterol 200 mg/dL (200); Creatinine, Serum 1.33 mg/dL (0.55-1.02); EST Glomerular Filtration Rate 43 mL/min (>60); Est Glom Filt Rate - Afr Amer 52 mL/min (>60); Globulin 4.4 g/dL (2.2-4.2); Glucose 129 mg/dL (74-106); High Density Lipoprotein 61 mg/dL; Protein, Total 7.8 g/dL (6.4-8.2); Sodium Level 140 mmol/L (136-145); T4 Free Direct 0.93 ng/dL (0.76-1.46); Thyroid Stim Hormone (TSH) 3.97 uIU/mL (0.358-3.74); Triglycerides 167 mg/dL; Very Low Density Lipoprotein 33 mg/dL (5-40)
== END ==
PROVIDERS: PCP Family Medicine; Referring Provider Internal Medicine Endocrinology, Diabetes & Metabolism; Visit Provider Internal Medicine Endocrinology, Diabetes & Metabolism
DX: E10.65 Type 1 diabetes mellitus with hyperglycemia (principal); E03.9 Hypothyroidism, unspecified; N18.31 Chronic kidney disease, stage 3a; E78.5 Hyperlipidemia, unspecified; Z46.81 Encounter for fitting and adjustment of insulin pump
CPT/HCPCS: 36415; 80053; 80061; 84439; 84443

== ENCOUNTER → 2020-07-29 09:23 | Outpatient (CLI) | payer OTHER, SELFPAY ==
[2018-11-14 10:59] VITALS: BMI 28.3
[2020-07-29 10:20] LABS: Hematocrit 36.3 % (37-47); Hemoglobin 12.1 g/dL (12.0-15.0); Mean Corp Hgb Conc 33.3 g/dL (32-36); Mean Corpuscular Hgb 30.6 pg (27.0-32.0); Mean Corpuscular Volume 91.7 fL (81-99); Mean Platelet Vol. 9.6 fl (6.2-12.0); Platelet Count 337 K/mm3 (150-450); RBC Distribution Width CV 12.9 % (11.6-14.6); RBC Distribution Width SD 43.4 fl (35.1-43.9); Red Blood Count 3.96 M/mm3 (4.2-5.4); White Blood Count 7.6 K/mm3 (4.4-11.0)
[2020-07-29 10:22] LABS: Protein, Urine (Random) 147.2 mg/dL (<11.9); Protein:Creat Ratio 8000 mg/g CRE (0-200)
[2020-07-29 10:41] LABS: Albumin, Serum 3.3 g/dL (3.2-5.0); BUN 37 mg/dL (7-18); BUN/Creat Ratio 23.9 RATIO (10-20); Calcium,Total 9.9 mg/dL (8.5-10.1); Chloride 104 mmol/L (98-107); Creatinine, Serum 1.55 mg/dL (0.55-1.02); EST Glomerular Filtration Rate 36 mL/min (>60); Est Glom Filt Rate - Afr Amer 43 mL/min (>60); Glucose 174 mg/dL (74-106); Phosphorus 3.7 mg/dL (2.5-4.9); Sodium Level 139 mmol/L (136-145)
[2020-07-29 10:47] LABS: PTHIN 9.4 pg/mL (18.4-80.1)
[2020-07-29 10:52] LABS: Vitamin D,25 Hydroxy 23.4 ng/mL
== END ==
PROVIDERS: PCP Family Medicine; Referring Provider Internal Medicine Nephrology; Visit Provider Internal Medicine Nephrology
DX: N25.81 Secondary hyperparathyroidism of renal origin (principal); N18.30 Chronic kidney disease, stage 3 unspecified; D63.1 Anemia in chronic kidney disease
CPT/HCPCS: 36415; 80069; 82306; 82570; 83970; 84156; 85027

== ENCOUNTER → 2020-08-28 08:20 | Outpatient (CLI) | payer OTHER, SELFPAY ==
[2018-11-14 10:59] VITALS: BMI 28.3
[2020-08-28 09:24] LABS: ALB/GLOB Ratio 0.8 RATIO (0.9-2.4); AST(SGOT) 15 U/L (15-37); Alanine Aminotransfer ALT/SGPT 28 U/L (13-56); Albumin, Serum 3.4 g/dL (3.2-5.0); Alkaline Phosphatase 67 U/L (45-117); Anion Gap 4 (5-15); BUN 39 mg/dL (7-18); BUN/Creat Ratio 21.1 RATIO (10-20); Calcium,Total 9.1 mg/dL (8.5-10.1); Chloride 106 mmol/L (98-107); Cholesterol 187 mg/dL (200); Creatinine, Serum 1.85 mg/dL (0.55-1.02); EST Glomerular Filtration Rate 29 mL/min (>60); Est Glom Filt Rate - Afr Amer 35 mL/min (>60); Globulin 4.1 g/dL (2.2-4.2); Glucose 132 mg/dL (74-106); High Density Lipoprotein 54 mg/dL; Protein, Total 7.5 g/dL (6.4-8.2); Sodium Level 140 mmol/L (136-145); T4 Free Direct 1.21 ng/dL (0.76-1.46); Thyroid Stim Hormone (TSH) 1.28 uIU/mL (0.358-3.74); Triglycerides 171 mg/dL; Very Low Density Lipoprotein 34 mg/dL (5-40)
== END ==
PROVIDERS: PCP Family Medicine; Referring Provider Internal Medicine Endocrinology, Diabetes & Metabolism; Visit Provider Internal Medicine Endocrinology, Diabetes & Metabolism
DX: E10.65 Type 1 diabetes mellitus with hyperglycemia (principal); E03.9 Hypothyroidism, unspecified; N18.30 Chronic kidney disease, stage 3 unspecified; E78.5 Hyperlipidemia, unspecified; Z46.81 Encounter for fitting and adjustment of insulin pump
CPT/HCPCS: 36415; 80053; 80061; 84439; 84443

== ENCOUNTER 2020-10-15 12:00 | Outpatient (RCR) | payer OTHER, SELFPAY ==
[2018-11-14 10:59] VITALS: BMI 28.3
[2020-10-15] MEDS: COVID-19 VACC, MRNA(PFIZER)/PF 30 MCG/0.3 ML SYRINGE IM (10:10)
[2020-11-05] MEDS: COVID-19 VACC, MRNA(PFIZER)/PF 30 MCG/0.3 ML SYRINGE IM (10:01)
== END 2021-01-12 23:59 ==
LOC: IMMUN 12:00
PROVIDERS: PCP Family Medicine; Visit Provider Family Medicine
DX: Z23 Encounter for immunization (principal)
CPT/HCPCS: 0001A; 0002A; 91300

== ENCOUNTER → 2021-01-18 14:24 | Outpatient (CLI) | payer OTHER, SELFPAY ==
[2018-11-14 10:59] VITALS: BMI 28.3
--- NOTE | 2021-01-18 14:27 | RAD_ITS ---
STUDY: X-RAY - RIGHT HAND REASON FOR EXAM: Right hand pain and swelling, no specific injury. TECHNIQUE: 3 view(s) of the hand. COMPARISON: Radiographs 12/23/2014. FINDINGS: Normal radiocarpal articulation. Normal distal radioulnar joint. Normal visualized carpal bones. Normal carpal articulations Normal carpometacarpal articulation of the thumb. Normal second through fifth carpometacarpal joints. Normal metacarpi. Normal metacarpophalangeal joint of the thumb. Normal interphalangeal joint of the thumb. Normal proximal and distal phalanges of the thumb. Normal metacarpophalangeal joints of the second through fifth fingers. There are small marginal osteophytes and joint space narrowing of the distal interphalangeal joints of the second through fifth fingers. Normal phalanges of the second through fifth fingers. There is a pericapsular calcification of the fifth metacarpophalangeal joint. There is mild vascular calcification. RAD/Hand Min 3 Views IMPRESSION: Osteoarthritis of the distal interphalangeal joints Pericapsular calcification of the fifth metacarpophalangeal joint. Electronically Signed: Dragan De Jesus MD at 15:00 EDT Tel , Service support ,
[2021-01-18 18:02] LABS: Erythrocyte Sedimentation Rate 105 mm/hr (0-30)
[2021-01-18 18:11] LABS: Rheumatoid Factor < 10.0 IU/mL (<15); Uric Acid 7.4 mg/dL (2.6-6.0)
== END ==
PROVIDERS: PCP Family Medicine; Referring Provider Family Medicine; Visit Provider Family Medicine
DX: M79.641 Pain in right hand (principal); M13.0 Polyarthritis, unspecified
CPT/HCPCS: 36415; 73130; 84550; 85652; 86140; 86431

== ENCOUNTER → 2021-01-26 07:41 | Outpatient (CLI) | payer OTHER, SELFPAY ==
[2018-11-14 10:59] VITALS: BMI 28.3
[2021-01-26 08:35] LABS: Vitamin D,25 Hydroxy 25.9 ng/mL
[2021-01-26 08:41] LABS: ALB/GLOB Ratio 0.8 RATIO (0.9-2.4); AST(SGOT) 18 U/L (15-37); Alanine Aminotransfer ALT/SGPT 24 U/L (13-56); Albumin, Serum 3.1 g/dL (3.2-5.0); Alkaline Phosphatase 74 U/L (45-117); Anion Gap 9 (5-15); BUN 42 mg/dL (7-18); BUN/Creat Ratio 26.8 RATIO (10-20); Calcium,Total 8.9 mg/dL (8.5-10.1); Chloride 107 mmol/L (98-107); Creatinine, Serum 1.57 mg/dL (0.55-1.02); EST Glomerular Filtration Rate 35 mL/min (>60); Est Glom Filt Rate - Afr Amer 43 mL/min (>60); Glucose 127 mg/dL (74-106); Potassium 4.1 mmol/L (3.5-5.1); Protein, Total 7.1 g/dL (6.4-8.2); Sodium Level 141 mmol/L (136-145); T4 Free Direct 1.19 ng/dL (0.76-1.46); Thyroid Stim Hormone (TSH) 2.18 uIU/mL (0.358-3.74)
[2021-01-26 08:53] LABS: Microalbumin:Creatinine Ratio 2968.5 mg/g CRE (<30 mg/g CRE)
== END ==
PROVIDERS: PCP Family Medicine; Referring Provider Internal Medicine Endocrinology, Diabetes & Metabolism; Visit Provider Internal Medicine Endocrinology, Diabetes & Metabolism
DX: E10.65 Type 1 diabetes mellitus with hyperglycemia (principal); E03.9 Hypothyroidism, unspecified; E55.9 Vitamin D deficiency, unspecified; E78.5 Hyperlipidemia, unspecified; Z46.81 Encounter for fitting and adjustment of insulin pump
CPT/HCPCS: 36415; 80053; 82043; 82306; 82570; 83036; 84439; 84443

== ENCOUNTER → 2021-01-28 15:17 | Outpatient (CLI) | payer OTHER, SELFPAY ==
[2018-11-14 10:59] VITALS: BMI 28.3
--- NOTE | 2021-01-28 15:19 | BI_ITS ---
MAMMOGRAPHY - BILATERAL SCREENING 3-D TOMOSYNTHESIS REASON FOR EXAM: Female, 65 years old. SCREENING PERTINENT HISTORY: No significant family history. TECHNIQUE: 2-D mammograms and 3-D Tomosynthesis of the breast (s) were performed. CAD was performed. COMPARISON: 10/31/2018 FINDINGS: The breast composition is of scattered fibroglandular tissue Scattered benign calcifications are seen including arterial type. No dense spiculated masses or suspicious microcalcifications are identified. No architectural distortion is identified. There is no skin thickening or nipple retraction. There has been no significant change since the prior study 10/31/2018. BI/SCRN MAMM (CAD)W/FARHANA BILAT IMPRESSION: No mammographic signs of malignancy. Routine yearly mammograms recommended. ASSESSMENT CATEGORY: BIRADS Category 1: Negative. A letter regarding these results will be sent to the patient by the facility within 30 days. FOLLOW UP RECOMMENDATION: Yearly follow up mammogram recommended. (A) Approximately 10% of breast cancers are not detected by mammography. A normal mammogram should not delay biopsy of a clinically suspicious abnormality. Electronically Signed: Oksana Gary, at 13:34 EDT Tel , Service support ,
== END ==
PROVIDERS: PCP Family Medicine; Referring Provider Family Medicine; Visit Provider Family Medicine
DX: Z12.31 Encounter for screening mammogram for malignant neoplasm of breast (principal)
CPT/HCPCS: 77063; 77067

== ENCOUNTER → 2021-02-25 14:05 | Outpatient (CLI) | payer OTHER, SELFPAY ==
[2018-11-14 10:59] VITALS: BMI 28.3
[2021-02-25 17:55] LABS: Anion Gap 8 (5-15); BUN 25 mg/dL (7-18); Calcium,Total 9.1 mg/dL (8.5-10.1); Chloride 105 mmol/L (98-107); Creatinine, Serum 1.67 mg/dL (0.55-1.02); EST Glomerular Filtration Rate 33 mL/min (>60); Est Glom Filt Rate - Afr Amer 40 mL/min (>60); Glucose 80 mg/dL (74-106); Potassium 3.9 mmol/L (3.5-5.1); Sodium Level 140 mmol/L (136-145)
[2021-02-25 18:16] LABS: Protein:Creat Ratio 6082 mg/g CRE (0-200)
== END ==
PROVIDERS: PCP Family Medicine; Referring Provider Internal Medicine Nephrology; Visit Provider Internal Medicine Nephrology
DX: R80.9 Proteinuria, unspecified (principal); N18.32 Chronic kidney disease, stage 3b
CPT/HCPCS: 36415; 80048; 82570; 84156

== ENCOUNTER → 2021-07-16 07:25 | Outpatient (CLI) | payer OTHER, SELFPAY ==
[2021-07-16 09:23] LABS: Vitamin D,25 Hydroxy 34.5 ng/mL
[2021-07-16 09:34] LABS: ALB/GLOB Ratio 0.8 RATIO (0.9-2.4); AST(SGOT) 20 U/L (15-37); Alanine Aminotransfer ALT/SGPT 34 U/L (13-56); Albumin, Serum 3.2 g/dL (3.2-5.0); Alkaline Phosphatase 63 U/L (45-117); Anion Gap 8 (5-15); BUN 44 mg/dL (7-18); Calcium,Total 9.2 mg/dL (8.5-10.1); Chloride 107 mmol/L (98-107); Cholesterol 182 mg/dL (200); Creatinine, Serum 1.76 mg/dL (0.55-1.02); EST Glomerular Filtration Rate 31 mL/min (>60); Est Glom Filt Rate - Afr Amer 37 mL/min (>60); Globulin 4.2 g/dL (2.2-4.2); Glucose 139 mg/dL (74-106); High Density Lipoprotein 38 mg/dL; Potassium 4.1 mmol/L (3.5-5.1); Protein, Total 7.4 g/dL (6.4-8.2); Sodium Level 139 mmol/L (136-145); T4 Free Direct 1.37 ng/dL (0.76-1.46); Triglycerides 243 mg/dL; Very Low Density Lipoprotein 49 mg/dL (5-40)
== END ==
PROVIDERS: PCP Family Medicine; Referring Provider Internal Medicine Endocrinology, Diabetes & Metabolism; Visit Provider Internal Medicine Endocrinology, Diabetes & Metabolism
DX: E10.65 Type 1 diabetes mellitus with hyperglycemia (principal); E03.9 Hypothyroidism, unspecified; Z46.81 Encounter for fitting and adjustment of insulin pump; E78.5 Hyperlipidemia, unspecified; N18.30 Chronic kidney disease, stage 3 unspecified
CPT/HCPCS: 36415; 80053; 80061; 82306; 83036; 84439; 84443

== ENCOUNTER → 2021-08-05 | Outpatient (CLI) | payer OTHER, SELFPAY | END | disposition home or self-care (01) | LOC: LABSPEC 12:29 | PROVIDERS: PCP Family Medicine; Visit Provider Physician Assistant Medical | DX: Z11.52 Encounter for screening for COVID-19 (principal) | CPT/HCPCS: 87635; U0003; U0005 ==

== ENCOUNTER 2021-09-08 12:58 | Outpatient (CLI) | payer OTHER, SELFPAY ==
[2021-09-08 15:27] LABS: Hemoglobin 11.4 g/dL (12.0-15.0); Mean Corp Hgb Conc 32.6 g/dL (32-36); Mean Corpuscular Hgb 30.7 pg (27.0-32.0); Mean Corpuscular Volume 94.3 fL (81-99); Mean Platelet Vol. 9.6 fl (6.2-12.0); Platelet Count 340 K/mm3 (150-450); RBC Distribution Width CV 12.7 % (11.6-14.6); RBC Distribution Width SD 43.8 fl (35.1-43.9); Red Blood Count 3.71 M/mm3 (4.2-5.4); White Blood Count 8.2 K/mm3 (4.4-11.0)
[2021-09-08 15:51] LABS: Albumin, Serum 3.4 g/dL (3.2-5.0); BUN 44 mg/dL (7-18); Calcium,Total 9.1 mg/dL (8.5-10.1); Chloride 105 mmol/L (98-107); Creatinine, Serum 1.76 mg/dL (0.55-1.02); EST Glomerular Filtration Rate 31 mL/min (>60); Est Glom Filt Rate - Afr Amer 37 mL/min (>60); Glucose 295 mg/dL (74-106); Phosphorus 3.9 mg/dL (2.5-4.9); Potassium 4.8 mmol/L (3.5-5.1); Sodium Level 136 mmol/L (136-145)
[2021-09-08 15:53] LABS: Vitamin D,25 Hydroxy 39.6 ng/mL
[2021-09-08 16:24] LABS: Protein, Urine (Random) 55.5 mg/dL (<11.9); Protein:Creat Ratio 3153 mg/g CRE (0-200)
[2021-09-09 07:30] LABS: PTHIN 43.7 pg/mL (18.4-80.1)
== END 2021-09-08 23:59 | disposition short-term general hospital (02) ==
PROVIDERS: PCP Family Medicine; Referring Provider Internal Medicine Nephrology; Visit Provider Internal Medicine Nephrology
DX: R80.9 Proteinuria, unspecified (principal); E10.65 Type 1 diabetes mellitus with hyperglycemia; N18.32 Chronic kidney disease, stage 3b; D63.1 Anemia in chronic kidney disease; I12.9 Hypertensive chronic kidney disease with stage 1 through stage 4 chronic kidney disease, or unspecified chronic kidney disease; E78.5 Hyperlipidemia, unspecified; Z46.81 Encounter for fitting and adjustment of insulin pump
CPT/HCPCS: 36415; 80069; 82306; 82570; 83970; 84156; 85027

== ENCOUNTER 2021-11-15 08:25 | Outpatient (CLI) | payer OTHER, SELFPAY ==
[2021-11-15 09:42] LABS: Hemoglobin A1c 6.4 % (3.8-5.6)
[2021-11-15 09:55] LABS: Vitamin D,25 Hydroxy 36.4 ng/mL
[2021-11-15 09:59] LABS: ALB/GLOB Ratio 0.8 RATIO (0.9-2.4); AST(SGOT) 16 U/L (15-37); Alanine Aminotransfer ALT/SGPT 25 U/L (13-56); Albumin, Serum 3.4 g/dL (3.2-5.0); Alkaline Phosphatase 67 U/L (45-117); Anion Gap 7 (5-15); BUN 46 mg/dL (7-18); BUN/Creat Ratio 24.9 RATIO (10-20); Calcium,Total 8.7 mg/dL (8.5-10.1); Chloride 107 mmol/L (98-107); Creatinine, Serum 1.85 mg/dL (0.55-1.02); EST Glomerular Filtration Rate 29 mL/min (>60); Est Glom Filt Rate - Afr Amer 35 mL/min (>60); Globulin 4.1 g/dL (2.2-4.2); Glucose 154 mg/dL (74-106); Potassium 3.9 mmol/L (3.5-5.1); Protein, Total 7.5 g/dL (6.4-8.2); Sodium Level 140 mmol/L (136-145); Thyroid Stim Hormone (TSH) 0.31 uIU/mL (0.358-3.74)
[2021-11-15 10:18] LABS: Microalbumin:Creatinine Ratio 1908.5 mg/g CRE (<30 mg/g CRE)
== END 2021-11-15 23:59 | disposition home or self-care (01) ==
LOC: LAB 08:26
PROVIDERS: PCP Family Medicine; Referring Provider Internal Medicine Endocrinology, Diabetes & Metabolism; Visit Provider Internal Medicine Endocrinology, Diabetes & Metabolism
DX: E10.65 Type 1 diabetes mellitus with hyperglycemia (principal); N18.30 Chronic kidney disease, stage 3 unspecified; I12.9 Hypertensive chronic kidney disease with stage 1 through stage 4 chronic kidney disease, or unspecified chronic kidney disease; E78.5 Hyperlipidemia, unspecified; Z46.81 Encounter for fitting and adjustment of insulin pump
CPT/HCPCS: 36415; 80053; 82043; 82306; 82570; 83036; 84443

== ENCOUNTER → 2022-01-28 | Outpatient (CLI) | payer OTHER, SELFPAY ==
[2022-01-28 10:03] LABS: Cholesterol 180 mg/dL (200); High Density Lipoprotein 46 mg/dL; T4 Free Direct 1.27 ng/dL (0.76-1.46); Thyroid Stim Hormone (TSH) 0.84 uIU/mL (0.358-3.74); Triglycerides 220 mg/dL; Very Low Density Lipoprotein 44 mg/dL (5-40)
== END | disposition home or self-care (01) ==
LOC: LAB 08:27
PROVIDERS: PCP Family Medicine; Visit Provider Internal Medicine Endocrinology, Diabetes & Metabolism
DX: E10.65 Type 1 diabetes mellitus with hyperglycemia (principal); N18.30 Chronic kidney disease, stage 3 unspecified; Z46.81 Encounter for fitting and adjustment of insulin pump; E78.5 Hyperlipidemia, unspecified; I12.9 Hypertensive chronic kidney disease with stage 1 through stage 4 chronic kidney disease, or unspecified chronic kidney disease
CPT/HCPCS: 36415; 80061; 84439; 84443

== ENCOUNTER → 2022-05-11 | Outpatient (CLI) | payer MEDICARE, SELFPAY ==
[2022-05-11 09:13] LABS: Vitamin D,25 Hydroxy 32.8 ng/mL
[2022-05-11 09:32] LABS: ALB/GLOB Ratio 0.8 RATIO (0.9-2.4); AST(SGOT) 21 U/L (15-37); Alanine Aminotransfer ALT/SGPT 29 U/L (13-56); Albumin, Serum 3.2 g/dL (3.2-5.0); Alkaline Phosphatase 68 U/L (45-117); Anion Gap 7 (5-15); BUN 23 mg/dL (7-18); BUN/Creat Ratio 14.6 RATIO (10-20); Chloride 106 mmol/L (98-107); Creatinine, Serum 1.58 mg/dL (0.55-1.02); EST Glomerular Filtration Rate 35 mL/min (>60); Est Glom Filt Rate - Afr Amer 42 mL/min (>60); Free T3 2.3 pg/mL (2.18-3.98); Globulin 4.1 g/dL (2.2-4.2); Glucose 148 mg/dL (74-106); Potassium 3.8 mmol/L (3.5-5.1); Protein, Total 7.3 g/dL (6.4-8.2); Sodium Level 141 mmol/L (136-145); T4 Free Direct 1.11 ng/dL (0.76-1.46); Thyroid Stim Hormone (TSH) 1.51 uIU/mL (0.358-3.74)
[2022-05-11 09:46] LABS: Hemoglobin A1c 6.9 % (3.8-5.6)
== END | disposition home or self-care (01) ==
PROVIDERS: PCP Family Medicine; Referring Provider Internal Medicine Endocrinology, Diabetes & Metabolism; Visit Provider Internal Medicine Endocrinology, Diabetes & Metabolism
DX: E10.65 Type 1 diabetes mellitus with hyperglycemia (principal); N18.30 Chronic kidney disease, stage 3 unspecified; Z46.81 Encounter for fitting and adjustment of insulin pump; E78.5 Hyperlipidemia, unspecified; I12.9 Hypertensive chronic kidney disease with stage 1 through stage 4 chronic kidney disease, or unspecified chronic kidney disease
CPT/HCPCS: 36415; 80053; 82043; 82306; 83036; 84439; 84443; 84481

== ENCOUNTER → 2022-05-16 | Outpatient (CLI) | payer MEDICARE, SELFPAY ==
--- NOTE | 2022-05-16 07:57 | BI_ITS ---
MAMMOGRAPHY - BILATERAL SCREENING REASON FOR EXAM: Female, 67 years old. Routine annual screening examination. PERTINENT HISTORY: Non-contributory. History of prior bilateral stereotactic breast biopsies. TECHNIQUE: Digital bilateral breast afrhana (3D mammographic acquisition) in the CC and MLO projections. 2-D mediolateral oblique (MLO) and craniocaudad (CC) views of both breasts were obtained. CAD: Full Field Digital Mammography with Computer Added Detection was performed. COMPARISON: Comparison is made with prior study dated 01/28/2021 and 10/31/2018. FINDINGS: Breast Composition: There are scattered areas of fibroglandular density. There are no dominant masses or suspicious calcifications. Once again, tissue clip markers are seen in the deep upper outer aspects of the left and right breasts. No other significant abnormalities are identified. There has been no significant change since the prior study. BI/SCRN MAMM (CAD)W/FARHANA BILAT IMPRESSION: Stable bilateral screening mammogram. Yearly follow-up mammogram recommended. (A) ASSESSMENT CATEGORY: BIRADS Category 2: Benign. A letter regarding these results will be sent to the patient by the facility within 30 days. Approximately 10% of breast cancers are not detected by mammography. A normal mammogram should not delay biopsy of a clinically suspicious abnormality. [id number] Electronically Signed: Nazario Baldwin MD at 9:06 EDT ,
== END | disposition home or self-care (01) ==
LOC: OPBI 07:55
PROVIDERS: PCP Family Medicine; Referring Provider Family Medicine; Visit Provider Family Medicine
DX: Z12.31 Encounter for screening mammogram for malignant neoplasm of breast (principal)
CPT/HCPCS: 77063; 77067

== ENCOUNTER → 2022-06-01 | Outpatient (CLI) | payer MEDICARE, SELFPAY ==
[2022-06-01 12:00] LABS: Hematocrit 40.4 % (37-47); Hemoglobin 13.2 g/dL (12.0-15.0); Mean Corp Hgb Conc 32.7 g/dL (32-36); Mean Corpuscular Hgb 31.1 pg (27.0-32.0); Mean Corpuscular Volume 95.3 fL (81-99); Mean Platelet Vol. 9.5 fl (6.2-12.0); Platelet Count 348 K/mm3 (150-450); RBC Distribution Width CV 12.6 % (11.6-14.6); RBC Distribution Width SD 43.6 fl (35.1-43.9); Red Blood Count 4.24 M/mm3 (4.2-5.4); White Blood Count 9.4 K/mm3 (4.4-11.0)
[2022-06-01 12:16] LABS: Albumin, Serum 3.3 g/dL (3.2-5.0); BUN 37 mg/dL (7-18); BUN/Creat Ratio 22.8 RATIO (10-20); Calcium,Total 9.6 mg/dL (8.5-10.1); Chloride 106 mmol/L (98-107); Creatinine, Serum 1.62 mg/dL (0.55-1.02); EST Glomerular Filtration Rate 34 mL/min (>60); Est Glom Filt Rate - Afr Amer 41 mL/min (>60); Glucose 122 mg/dL (74-106); Phosphorus 4.3 mg/dL (2.5-4.9); Potassium 4.4 mmol/L (3.5-5.1); Sodium Level 137 mmol/L (136-145)
[2022-06-01 12:17] LABS: Protein, Urine (Random) 163.5 mg/dL (<11.9); Protein:Creat Ratio 10757 mg/g CRE (0-200); Vitamin D,25 Hydroxy 37.7 ng/mL
[2022-06-01 12:20] LABS: PTHIN 39.7 pg/mL (18.4-80.1)
== END | disposition home or self-care (01) ==
LOC: MTLAB 10:50
PROVIDERS: PCP Family Medicine; Referring Provider Internal Medicine Nephrology; Visit Provider Internal Medicine Nephrology
DX: R80.9 Proteinuria, unspecified (principal); N25.81 Secondary hyperparathyroidism of renal origin; N18.31 Chronic kidney disease, stage 3a; D63.1 Anemia in chronic kidney disease
CPT/HCPCS: 36415; 80069; 82306; 82570; 83970; 84156; 85027

== ENCOUNTER → 2022-08-18 | Outpatient (CLI) | payer MEDICARE, SELFPAY ==
[2022-08-18 09:31] LABS: Vitamin D,25 Hydroxy 35.6 ng/mL
[2022-08-18 09:36] LABS: ALB/GLOB Ratio 0.8 RATIO (0.9-2.4); AST(SGOT) 17 U/L (15-37); Alanine Aminotransfer ALT/SGPT 29 U/L (13-56); Alkaline Phosphatase 69 U/L (45-117); Anion Gap 6 (5-15); BUN 34 mg/dL (7-18); BUN/Creat Ratio 19.8 RATIO (10-20); Calcium,Total 8.8 mg/dL (8.5-10.1); Chloride 106 mmol/L (98-107); Cholesterol 189 mg/dL (200); Creatinine, Serum 1.72 mg/dL (0.55-1.02); EST Glomerular Filtration Rate 32 mL/min (>60); Est Glom Filt Rate - Afr Amer 38 mL/min (>60); Glucose 133 mg/dL (74-106); High Density Lipoprotein 53 mg/dL; Potassium 3.9 mmol/L (3.5-5.1); Sodium Level 140 mmol/L (136-145); T4 Free Direct 1.14 ng/dL (0.76-1.46); Thyroid Stim Hormone (TSH) 1.39 uIU/mL (0.358-3.74); Triglycerides 214 mg/dL; Very Low Density Lipoprotein 43 mg/dL (5-40)
[2022-08-18 09:47] LABS: Hemoglobin A1c 6.6 % (3.8-5.6)
== END | disposition home or self-care (01) ==
LOC: LAB 08:05
PROVIDERS: PCP Family Medicine; Referring Provider Internal Medicine Endocrinology, Diabetes & Metabolism; Visit Provider Internal Medicine Endocrinology, Diabetes & Metabolism
DX: E10.65 Type 1 diabetes mellitus with hyperglycemia (principal); E10.22 Type 1 diabetes mellitus with diabetic chronic kidney disease; N18.30 Chronic kidney disease, stage 3 unspecified; Z46.81 Encounter for fitting and adjustment of insulin pump; E03.9 Hypothyroidism, unspecified; I12.9 Hypertensive chronic kidney disease with stage 1 through stage 4 chronic kidney disease, or unspecified chronic kidney disease
CPT/HCPCS: 36415; 80053; 80061; 82306; 83036; 84439; 84443

== ENCOUNTER → 2022-09-05 | Outpatient (CLI) | payer MEDICARE, SELFPAY ==
[2022-09-05 08:43] LABS: ALB/GLOB Ratio 0.8 RATIO (0.9-2.4); AST(SGOT) 15 U/L (15-37); Alanine Aminotransfer ALT/SGPT 25 U/L (13-56); Alkaline Phosphatase 65 U/L (45-117); Anion Gap 7 (5-15); BUN 56 mg/dL (7-18); BUN/Creat Ratio 28.6 RATIO (10-20); Calcium,Total 9.1 mg/dL (8.5-10.1); Chloride 105 mmol/L (98-107); Creatinine, Serum 1.96 mg/dL (0.55-1.02); EST Glomerular Filtration Rate 27 mL/min (>60); Est Glom Filt Rate - Afr Amer 33 mL/min (>60); Glucose 218 mg/dL (74-106); Potassium 4.4 mmol/L (3.5-5.1); Sodium Level 139 mmol/L (136-145)
[2022-09-06 20:21] LABS: C-Peptide < 0.1 ng/mL (1.1-4.4)
== END | disposition home or self-care (01) ==
LOC: LAB 07:59
PROVIDERS: PCP Family Medicine; Referring Provider Internal Medicine Endocrinology, Diabetes & Metabolism; Visit Provider Internal Medicine Endocrinology, Diabetes & Metabolism
DX: E10.65 Type 1 diabetes mellitus with hyperglycemia (principal)
CPT/HCPCS: 36415; 80053; 84681

== ENCOUNTER → 2022-11-21 | Outpatient (CLI) | payer MEDICARE, SELFPAY ==
[2022-11-21 09:59] LABS: Hemoglobin A1c 6.7 % (3.8-5.6)
[2022-11-21 10:05] LABS: ALB/GLOB Ratio 0.8 RATIO (0.9-2.4); AST(SGOT) 21 U/L (15-37); Alanine Aminotransfer ALT/SGPT 24 U/L (13-56); Albumin, Serum 3.1 g/dL (3.2-5.0); Alkaline Phosphatase 65 U/L (45-117); Anion Gap 3 (5-15); BUN 46 mg/dL (7-18); BUN/Creat Ratio 25.3 RATIO (10-20); Calcium,Total 9.4 mg/dL (8.5-10.1); Chloride 111 mmol/L (98-107); Cholesterol 197 mg/dL (200); Creatinine, Serum 1.82 mg/dL (0.55-1.02); EST Glomerular Filtration Rate 30 mL/min (>60); Est Glom Filt Rate - Afr Amer 36 mL/min (>60); Globulin 3.9 g/dL (2.2-4.2); Glucose 124 mg/dL (74-106); High Density Lipoprotein 47 mg/dL; Potassium 4.1 mmol/L (3.5-5.1); Sodium Level 140 mmol/L (136-145); Thyroid Stim Hormone (TSH) 0.86 uIU/mL (0.358-3.74); Triglycerides 266 mg/dL; Very Low Density Lipoprotein 53 mg/dL (5-40)
== END | disposition home or self-care (01) ==
LOC: LAB 07:39
PROVIDERS: PCP Family Medicine; Referring Provider Internal Medicine Endocrinology, Diabetes & Metabolism; Visit Provider Internal Medicine Endocrinology, Diabetes & Metabolism
DX: E10.65 Type 1 diabetes mellitus with hyperglycemia (principal); E20.9 Hypoparathyroidism, unspecified; N18.30 Chronic kidney disease, stage 3 unspecified; E78.5 Hyperlipidemia, unspecified; I12.9 Hypertensive chronic kidney disease with stage 1 through stage 4 chronic kidney disease, or unspecified chronic kidney disease
CPT/HCPCS: 36415; 80053; 80061; 82043; 83036; 84443

== ENCOUNTER → 2022-11-29 | Outpatient (CLI) | payer MEDICARE, SELFPAY ==
[2022-11-29 12:55] LABS: Hematocrit 39.7 % (37-47); Hemoglobin 13.2 g/dL (12.0-15.0); Mean Corp Hgb Conc 33.2 g/dL (32-36); Mean Corpuscular Hgb 31.7 pg (27.0-32.0); Mean Corpuscular Volume 95.2 fL (81-99); Mean Platelet Vol. 9.8 fl (6.2-12.0); Platelet Count 332 K/mm3 (150-450); RBC Distribution Width CV 12.5 % (11.6-14.6); RBC Distribution Width SD 43.7 fl (35.1-43.9); Red Blood Count 4.17 M/mm3 (4.2-5.4); White Blood Count 7.6 K/mm3 (4.4-11.0)
[2022-11-29 13:35] LABS: PTHIN 33.9 pg/mL (18.4-80.1)
[2022-11-29 13:36] LABS: Albumin, Serum 3.3 g/dL (3.2-5.0); BUN 40 mg/dL (7-18); BUN/Creat Ratio 22.7 RATIO (10-20); Calcium,Total 9.6 mg/dL (8.5-10.1); Chloride 105 mmol/L (98-107); Creatinine, Serum 1.76 mg/dL (0.55-1.02); EST Glomerular Filtration Rate 31 mL/min (>60); Est Glom Filt Rate - Afr Amer 37 mL/min (>60); Glucose 128 mg/dL (74-106); Phosphorus 4.4 mg/dL (2.5-4.9); Potassium 4.3 mmol/L (3.5-5.1); Sodium Level 136 mmol/L (136-145)
[2022-11-29 13:38] LABS: Vitamin D,25 Hydroxy 58.4 ng/mL
[2022-11-29 13:57] LABS: Protein:Creat Ratio 6512 mg/g CRE (0-200)
[2022-11-30 14:10] LABS: Anti-dsDNA Ab 1 IU/mL (0-9)
[2022-11-30 16:09] LABS: Complement C3 149 mg/dL (82-167); PROEL- A/G Ratio 1.1 (0.7-1.7); PROEL- Albumin 3.5 g/dL (2.9-4.4); PROEL- Alpha-1 Globulin 0.2 g/dL (0.0-0.4); PROEL- Alpha-2 Globulin 0.9 g/dL (0.4-1.0); PROEL- Gamma Globulin 1.2 g/dL (0.4-1.8); PROEL- Globulin, Total 3.2 g/dL (2.2-3.9); PROEL- TOTAL PROTEIN 6.7 g/dL (6.0-8.5)
== END | disposition home or self-care (01) ==
LOC: MTLAB 10:49
PROVIDERS: PCP Family Medicine; Referring Provider Internal Medicine Nephrology; Visit Provider Internal Medicine Nephrology
DX: R80.9 Proteinuria, unspecified (principal); N25.81 Secondary hyperparathyroidism of renal origin; N18.32 Chronic kidney disease, stage 3b; D63.1 Anemia in chronic kidney disease
CPT/HCPCS: 36415; 80069; 82306; 82570; 83970; 84156; 84165; 85027; 86160; 86225

== ENCOUNTER → 2023-03-13 | Outpatient (CLI) | payer MEDICARE, SELFPAY ==
[2023-03-13 08:30] LABS: Hematocrit 37.5 % (37-47); Hemoglobin 11.6 g/dL (12.0-15.0); Mean Corp Hgb Conc 30.9 g/dL (32-36); Mean Corpuscular Hgb 31.2 pg (27.0-32.0); Mean Corpuscular Volume 100.8 fL (81-99); Mean Platelet Vol. 9.8 fl (6.2-12.0); Platelet Count 343 K/mm3 (150-450); RBC Distribution Width CV 12.7 % (11.6-14.6); RBC Distribution Width SD 47.1 fl (35.1-43.9); Red Blood Count 3.72 M/mm3 (4.2-5.4); White Blood Count 7.9 K/mm3 (4.4-11.0)
[2023-03-13 09:06] LABS: PTHIN 58.6 pg/mL (18.4-80.1)
[2023-03-13 09:22] LABS: ALB/GLOB Ratio 0.7 RATIO (0.9-2.4); AST(SGOT) 15 U/L (15-37); Alanine Aminotransfer ALT/SGPT 25 U/L (13-56); Albumin, Serum 3.1 g/dL (3.2-5.0); Alkaline Phosphatase 60 U/L (45-117); Anion Gap 6 (5-15); BUN 75 mg/dL (7-18); BUN/Creat Ratio 26.1 RATIO (10-20); Chloride 112 mmol/L (98-107); Cholesterol 175 mg/dL (200); Creatinine, Serum 2.87 mg/dL (0.55-1.02); EST Glomerular Filtration Rate 18 mL/min (>60); Est Glom Filt Rate - Afr Amer 21 mL/min (>60); Globulin 4.2 g/dL (2.2-4.2); Glucose 198 mg/dL (74-106); High Density Lipoprotein 43 mg/dL; Magnesium 2.5 mg/dL (1.6-2.6); Phosphorus 5.6 mg/dL (2.5-4.9); Potassium 5.7 mmol/L (3.5-5.1); Protein, Total 7.3 g/dL (6.4-8.2); Sodium Level 139 mmol/L (136-145); Triglycerides 287 mg/dL; Very Low Density Lipoprotein 57 mg/dL (5-40)
[2023-03-13 09:23] LABS: Hemoglobin A1c 7.3 % (3.8-5.6)
[2023-03-13 09:57] LABS: Microalbumin:Creatinine Ratio 1198.5 mg/g CRE (<30 mg/g CRE)
== END | disposition home or self-care (01) ==
PROVIDERS: PCP Family Medicine; Referring Provider Internal Medicine Nephrology; Visit Provider Internal Medicine Nephrology
DX: E10.65 Type 1 diabetes mellitus with hyperglycemia (principal); E20.9 Hypoparathyroidism, unspecified; N18.30 Chronic kidney disease, stage 3 unspecified; E03.9 Hypothyroidism, unspecified; Z46.81 Encounter for fitting and adjustment of insulin pump
CPT/HCPCS: 36415; 80053; 80061; 82043; 82306; 82570; 83036; 83735; 83970; 84100; 85027

== ENCOUNTER → 2023-03-30 | Outpatient (CLI) | payer MEDICARE, SELFPAY ==
[2023-03-30 11:43] LABS: Anion Gap 5 (5-15); BUN 70 mg/dL (7-18); BUN/Creat Ratio 27.8 RATIO (10-20); Calcium,Total 9.5 mg/dL (8.5-10.1); Chloride 108 mmol/L (98-107); Creatinine, Serum 2.52 mg/dL (0.55-1.02); EST Glomerular Filtration Rate 20 mL/min (>60); Est Glom Filt Rate - Afr Amer 25 mL/min (>60); Glucose 167 mg/dL (74-106); Potassium 5.2 mmol/L (3.5-5.1); Sodium Level 139 mmol/L (136-145); Uric Acid 8.7 mg/dL (2.6-6.0)
== END | disposition home or self-care (01) ==
PROVIDERS: PCP Family Medicine; Referring Provider Internal Medicine Endocrinology, Diabetes & Metabolism; Visit Provider Internal Medicine Endocrinology, Diabetes & Metabolism
DX: E10.65 Type 1 diabetes mellitus with hyperglycemia (principal); E20.9 Hypoparathyroidism, unspecified; Z46.81 Encounter for fitting and adjustment of insulin pump; H35.9 Unspecified retinal disorder; E03.9 Hypothyroidism, unspecified; Z87.2 Personal history of diseases of the skin and subcutaneous tissue
CPT/HCPCS: 36415; 80048; 84550

== ENCOUNTER → 2023-05-08 | Outpatient (CLI) | payer MEDICARE, SELFPAY ==
[2023-05-08 11:30] LABS: Hematocrit 37.2 % (37-47); Hemoglobin 11.4 g/dL (12.0-15.0); Mean Corp Hgb Conc 30.6 g/dL (32-36); Mean Corpuscular Hgb 30.5 pg (27.0-32.0); Mean Corpuscular Volume 99.5 fL (81-99); Mean Platelet Vol. 9.2 fl (6.2-12.0); Platelet Count 343 K/mm3 (150-450); RBC Distribution Width CV 12.5 % (11.6-14.6); RBC Distribution Width SD 44.9 fl (35.1-43.9); Red Blood Count 3.74 M/mm3 (4.2-5.4); White Blood Count 10.2 K/mm3 (4.4-11.0)
[2023-05-08 11:54] LABS: Protein, Urine (Random) 95.1 mg/dL (<11.9); Protein:Creat Ratio 2805 mg/g CRE (0-200)
[2023-05-08 11:55] LABS: PTHIN 30.8 pg/mL (18.4-80.1)
[2023-05-08 12:00] LABS: Albumin, Serum 3.4 g/dL (3.2-5.0); BUN 57 mg/dL (7-18); BUN/Creat Ratio 26.1 RATIO (10-20); Calcium,Total 9.4 mg/dL (8.5-10.1); Chloride 109 mmol/L (98-107); Creatinine, Serum 2.18 mg/dL (0.55-1.02); EST Glomerular Filtration Rate 24 mL/min (>60); Est Glom Filt Rate - Afr Amer 29 mL/min (>60); Glucose 119 mg/dL (74-106); Phosphorus 5.2 mg/dL (2.5-4.9); Potassium 5.7 mmol/L (3.5-5.1); Sodium Level 138 mmol/L (136-145)
[2023-05-08 12:01] LABS: Vitamin D,25 Hydroxy 47.5 ng/mL
== END | disposition home or self-care (01) ==
LOC: LAB 10:34
PROVIDERS: PCP Family Medicine; Referring Provider Internal Medicine Nephrology; Visit Provider Internal Medicine Nephrology
DX: N18.32 Chronic kidney disease, stage 3b (principal); N25.81 Secondary hyperparathyroidism of renal origin; D63.1 Anemia in chronic kidney disease; R80.9 Proteinuria, unspecified
CPT/HCPCS: 36415; 80069; 82306; 82570; 83970; 84156; 85027

== ENCOUNTER → 2023-06-06 | Outpatient (CLI) | payer MEDICARE, SELFPAY ==
[2023-06-06 08:24] LABS: Hemoglobin A1c 6.3 % (3.8-5.6)
[2023-06-06 08:27] LABS: ALB/GLOB Ratio 0.7 RATIO (0.9-2.4); AST(SGOT) 13 U/L (15-37); Alanine Aminotransfer ALT/SGPT 26 U/L (13-56); Albumin, Serum 3.2 g/dL (3.2-5.0); Alkaline Phosphatase 70 U/L (45-117); Anion Gap 3 (5-15); BUN 55 mg/dL (7-18); BUN/Creat Ratio 28.8 RATIO (10-20); Calcium,Total 8.9 mg/dL (8.5-10.1); Chloride 110 mmol/L (98-107); Cholesterol 177 mg/dL (200); Creatinine, Serum 1.91 mg/dL (0.55-1.02); EST Glomerular Filtration Rate 28 mL/min (>60); Est Glom Filt Rate - Afr Amer 34 mL/min (>60); Globulin 4.4 g/dL (2.2-4.2); Glucose 163 mg/dL (74-106); High Density Lipoprotein 46 mg/dL; Potassium 4.4 mmol/L (3.5-5.1); Protein, Total 7.6 g/dL (6.4-8.2); Sodium Level 137 mmol/L (136-145); Thyroid Stim Hormone (TSH) 0.24 uIU/mL (0.358-3.74); Triglycerides 297 mg/dL; Very Low Density Lipoprotein 59 mg/dL (5-40)
== END | disposition home or self-care (01) ==
LOC: LAB 07:23
PROVIDERS: PCP Family Medicine; Referring Provider Internal Medicine Endocrinology, Diabetes & Metabolism; Visit Provider Internal Medicine Endocrinology, Diabetes & Metabolism
DX: E10.65 Type 1 diabetes mellitus with hyperglycemia (principal); E20.9 Hypoparathyroidism, unspecified; Z46.81 Encounter for fitting and adjustment of insulin pump; H35.9 Unspecified retinal disorder; E03.9 Hypothyroidism, unspecified
CPT/HCPCS: 36415; 80053; 80061; 83036; 84439; 84443

== ENCOUNTER → 2023-07-05 | Outpatient (CLI) | payer MEDICARE, SELFPAY ==
--- NOTE | 2023-07-05 08:33 | BI_ITS ---
MAMMOGRAPHY - BILATERAL SCREENING REASON FOR EXAM: Female, 68 years old. Routine annual screening examination. PERTINENT HISTORY: Non-contributory. History of prior bilateral stereotactic breast biopsies. TECHNIQUE: Digital bilateral breast farhana (3D mammographic acquisition) in the CC and MLO projections. 2-D mediolateral oblique (MLO) and craniocaudad (CC) views of both breasts were obtained. CAD: Full Field Digital Mammography with Computer Added Detection was performed. COMPARISON: Comparison is made with prior study dated May 16, 2022 and January 28, 2021. FINDINGS: Breast Composition: The breasts are heterogeneously dense, which may obscure small masses. There are no dominant masses or suspicious calcifications. Tissue clip markers are once again seen in the deep upper outer aspect of the left and right breasts. Stable secretory type of calcifications bilaterally. No other significant abnormalities are identified. There has been no significant change since the prior study. BI/SCRN MAMM (CAD)W/FARHANA BILAT IMPRESSION: Stable bilateral screening mammogram. Yearly follow-up mammogram recommended. (A) ASSESSMENT CATEGORY: BIRADS Category 2: Benign. A letter regarding these results will be sent to the patient by the facility within 30 days. Approximately 10% of breast cancers are not detected by mammography. A normal mammogram should not delay biopsy of a clinically suspicious abnormality. [id number] Electronically Signed: Nazario Baldwin MD at 9:24 EST ,
== END | disposition home or self-care (01) ==
LOC: OPBI 08:30
PROVIDERS: PCP Family Medicine; Referring Provider Family Medicine; Visit Provider Family Medicine
DX: Z12.31 Encounter for screening mammogram for malignant neoplasm of breast (principal)
CPT/HCPCS: 77063; 77067

== ENCOUNTER → 2023-08-03 | Outpatient (CLI) | payer MEDICARE, SELFPAY ==
--- OUTSIDE RECORDS SUMMARY | 2023-08-03 11:45 | XMS RPT_ITS | CCD ---
Author Name Unknown Address [address] [place] [address] Organization [facility] Care Team Providers Care Guard Captain Name Role Phone NAOMY DUNN Attending Unavailable NAOMY DUNN Attending Unavailable Allergies Allergy Classification Reported Allergen(s) Allergy Type Date of Onset Reaction(s) Facility (1 source) amLODIPine; Translations: [AMLODIPINE] Drug Allergy 07-04-2012 [facility] Repository (1 source) Pneumococcal vaccine; Translations: [PNEUMOCOCCAL 23-DONALD PS VACCINE] Drug Allergy 05-31-2007 [facility] Repository (1 source) Pravastatin; Translations: [PRAVASTATIN] Drug Allergy 05-23-2005 [facility] Repository (1 source) Sertraline; Translations: [SERTRALINE HCL] Drug Allergy 05-23-2005 [facility] Repository (1 source) venlafaxine; Translations: [VENLAFAXINE HCL] Drug Allergy 05-23-2005 [facility] Repository Results Test Name Value Interpretation Reference Range Facil ity Encounters Encounter Date Encounter Type Care Provider Facility Start: 01-02-2018 End: 01-03-2018 Patient encounter procedure NAOMY DUNN [facility] Start: 10-03-2017 End: 10-04-2017 Patient encounter procedure NAOMY DUNN [facility] Summary Purpose Family History No Family History Records Found Advance Directives No Advanced Directives Records Found Additional Source Comments INFORMATION SOURCE (unrecogn ized section and content) FOR RECORDS PERTAINING TO PATIENTS WHO ARE OR HAVE BEEN ENROLLED IN A CHEMICAL DEPENDENCY/SUBSTANCEABUSE PROGRAM, SOME INFORMATION MAY BE OMITTED. This clinical summary was aggregated from multiple sources. Caution should be exercised in using it in the provision of clinical care. This summary normalizes information from multiple sources, and as a consequence, information in this document may materially change the coding, format and clinical context of patient data. In addition, data may be omitted in some cases. CLINICAL DECISIONS SHOULD BE BASED ON THE PRIMARY CLINICAL RECORDS. [facility] [employer] [facility]. provides no warranty or guarantee of the accuracy or completeness of information in this document.
[2023-08-03 12:41] LABS: Anion Gap 6 (5-15); BUN 42 mg/dL (7-18); BUN/Creat Ratio 21.3 RATIO (10-20); Calcium,Total 9.2 mg/dL (8.5-10.1); Chloride 110 mmol/L (98-107); Creatinine, Serum 1.97 mg/dL (0.55-1.02); EST Glomerular Filtration Rate 27 mL/min (>60); Est Glom Filt Rate - Afr Amer 33 mL/min (>60); Glucose 119 mg/dL (74-106); Potassium 4.7 mmol/L (3.5-5.1); Sodium Level 140 mmol/L (136-145)
[2023-08-03 12:49] LABS: Protein, Urine (Random) 106.8 mg/dL (<11.9); Protein:Creat Ratio 4967 mg/g CRE (0-200)
== END | disposition home or self-care (01) ==
LOC: MTLAB 11:12
PROVIDERS: PCP Family Medicine; Referring Provider Internal Medicine Nephrology; Visit Provider Internal Medicine Nephrology
DX: R80.9 Proteinuria, unspecified (principal); N18.32 Chronic kidney disease, stage 3b
CPT/HCPCS: 36415; 80048; 82570; 84156

== ENCOUNTER → 2023-09-14 | Outpatient (CLI) | payer MEDICARE, SELFPAY ==
[2023-09-14 15:06] LABS: Hematocrit 36.5 % (37-47); Hemoglobin 11.9 g/dL (12.0-15.0); Mean Corp Hgb Conc 32.6 g/dL (32-36); Mean Corpuscular Volume 95.1 fL (81-99); Mean Platelet Vol. 9.4 fl (6.2-12.0); Platelet Count 354 K/mm3 (150-450); RBC Distribution Width CV 12.4 % (11.6-14.6); RBC Distribution Width SD 42.5 fl (35.1-43.9); Red Blood Count 3.84 M/mm3 (4.2-5.4); White Blood Count 10.9 K/mm3 (4.4-11.0)
[2023-09-14 15:27] LABS: Vitamin D,25 Hydroxy 59.5 ng/mL
[2023-09-14 15:42] LABS: ALB/GLOB Ratio 0.8 RATIO (0.9-2.4); AST(SGOT) 15 U/L (15-37); Alanine Aminotransfer ALT/SGPT 29 U/L (13-56); Albumin, Serum 3.4 g/dL (3.2-5.0); Alkaline Phosphatase 67 U/L (45-117); Anion Gap 9 (5-15); BUN 54 mg/dL (7-18); BUN/Creat Ratio 22.6 RATIO (10-20); Calcium,Total 9.2 mg/dL (8.5-10.1); Chloride 110 mmol/L (98-107); Creatinine, Serum 2.39 mg/dL (0.55-1.02); EST Glomerular Filtration Rate 22 mL/min (>60); Est Glom Filt Rate - Afr Amer 26 mL/min (>60); Glucose 125 mg/dL (74-106); Potassium 4.6 mmol/L (3.5-5.1); Protein, Total 7.4 g/dL (6.4-8.2); Sodium Level 141 mmol/L (136-145); T4 Free Direct 1.05 ng/dL (0.76-1.46); Thyroid Stim Hormone (TSH) 0.84 uIU/mL (0.358-3.74)
[2023-09-14 16:10] LABS: Microalbumin:Creatinine Ratio 1776.5 mg/g CRE (<30 mg/g CRE)
== END | disposition home or self-care (01) ==
LOC: MTLAB 11:21
PROVIDERS: PCP Family Medicine; Referring Provider Internal Medicine Endocrinology, Diabetes & Metabolism; Visit Provider Internal Medicine Endocrinology, Diabetes & Metabolism
DX: E10.65 Type 1 diabetes mellitus with hyperglycemia (principal); E10.22 Type 1 diabetes mellitus with diabetic chronic kidney disease; E20.9 Hypoparathyroidism, unspecified; N18.30 Chronic kidney disease, stage 3 unspecified; H35.9 Unspecified retinal disorder; E78.5 Hyperlipidemia, unspecified
CPT/HCPCS: 36415; 80053; 82043; 82306; 82570; 84439; 84443; 85027

== ENCOUNTER 2023-11-12 07:52 | Emergency (ER) | payer MEDICARE, SELFPAY ==
[2023-11-12] VITALS (9 sets, daily range): BP systolic 147–180; BP diastolic 29–119; PULSE 47–78; RESP 12–18; TEMP 36.3–36.4; O2SAT 98–100; BMI 36.8
[2023-11-12 08:12] LABS: Absolute Lymphocyte Count 2.74 X10^3/uL (0.83-4.51); Absolute Neutrophil Count 5.5 X10^3/uL (2.0-7.7); Basophil# 0.07 X10^3/uL; Basophil% 0.7 % (0-1); Eosinophil# 0.31 X10^3/uL; Eosinophils% 3.2 % (0-5); Hematocrit 40.8 % (37-47); Hemoglobin 12.6 g/dL (12.0-15.0); Lymphocyte # 2.74 X10^3/ul (0.83-4.51); Lymphocyte % 28.2 % (19-41); Mean Corp Hgb Conc 30.9 g/dL (32-36); Mean Corpuscular Hgb 31.1 pg (27.0-32.0); Mean Corpuscular Volume 100.7 fL (81-99); Mean Platelet Vol. 9.7 fl (6.2-12.0); Monocyte# 1.04 X10^3/uL; Monocyte% 10.7 % (0-10); NRBC Flagged by Analyzer 0 % (0-5); Neutrophil # 5.47 X10^3/uL (2.7-7.7); Neutrophil % 56.5 % (47-70); Platelet Count 386 K/mm3 (150-450); RBC Distribution Width CV 12.4 % (11.6-14.6); RBC Distribution Width SD 45.9 fl (35.1-43.9); Red Blood Count 4.05 M/mm3 (4.2-5.4); White Blood Count 9.7 K/mm3 (4.4-11.0)
[2023-11-12 08:23] LABS: Anion Gap 7 (5-15); BUN 63 mg/dL (7-18); BUN/Creat Ratio 23.8 RATIO (10-20); Calcium,Total 9.1 mg/dL (8.5-10.1); Chloride 104 mmol/L (98-107); Creatinine, Serum 2.65 mg/dL (0.55-1.02); EST Glomerular Filtration Rate 19 mL/min (>60); Est Glom Filt Rate - Afr Amer 23 mL/min (>60); Estimated Creatinine Clearance 20.29 ml/min; Glucose 360 mg/dL (74-106); Potassium 5.3 mmol/L (3.5-5.1); Sodium Level 131 mmol/L (136-145)
--- NOTE | 2023-11-12 08:29 | EKG12_ITS ---
Test Reason : Blood Pressure : / mmHG Vent. Rate : 053 BPM Atrial Rate : 053 BPM P-R Int : 166 ms QRS Dur : 078 ms QT Int : 490 ms P-R-T Axes : 000 026 006 degrees QTc Int : 459 ms Sinus bradycardia Low voltage QRS Borderline ECG Confirmed by Eliseo Whalen ([id number]), online content editor BUD HWANG ([id number]) on 11/13/2023 11:06:44 AM Referred By: Confirmed By:Eliseo Whalen
--- NOTE | 2023-11-12 08:29 | CT_ITS ---
STUDY: CT CERVICAL SPINE WITHOUT CONTRAST REASON FOR EXAM: Female, 68 years old. Headache after fall RADIATION DOSAGE (If Supplied By Facility): CTDIvol = ( 24.83 ) mGy, DLP = ( 550.34 ) mGycm TECHNIQUE: High resolution transaxial imaging was performed without contrast material. Sagittal and coronal images were reconstructed. Individualized dose optimization techniques were used for this CT. COMPARISON: None FINDINGS: Normal craniovertebral junction. There are degenerative changes of the anterior atlantoaxial articulation. Normal odontoid process. There is straightening of the normal cervical lordosis, likely positional or due to pain. Normal vertebral bodies and posterior osseous elements. C2-3: Normal endplates. Normal disc height and morphology. Normal central canal and intervertebral neuroforamina. C3-4: Normal endplates. Mild disc space narrowing.. Normal central canal and intervertebral neuroforamina. C4-5: Normal endplates. Normal disc height and morphology. Normal central canal and intervertebral neuroforamina. C5-6: Normal endplates. Mild disc space narrowing.. Normal central canal and intervertebral neuroforamina. C6-7: Normal endplates. Mild disc space narrowing.. Normal central canal and intervertebral neuroforamina. C7-T1: Normal endplates. Mild disc space narrowing.. Normal central canal and intervertebral neuroforamina. Soft tissue show dense calcifications within the distal common carotid arteries and the vertebral arteries. There is no airway narrowing or deviation. No suspicious bulky adenopathy, lung apices are clear. CT/Spine Cervical without Contras IMPRESSION: Age consistent degenerative changes throughout the cervical spine without evidence of fracture or suspicious osseous lesion Electronically Signed: Cayetano Serra MD at 9:13 EDT ,
--- NOTE | 2023-11-12 08:29 | CT_ITS ---
STUDY: CT BRAIN WITHOUT CONTRAST REASON FOR EXAM: Female, 68 years old. Headache after fall RADIATION DOSAGE (If Supplied By Facility): CTDIvol = ( 44.99 ) mGy, DLP = ( 711.75 ) mGycm TECHNIQUE: Transaxial CT imaging of the brain was performed without administration of intravenous contrast material. Individualized dose optimization techniques were used for this CT. COMPARISON: 2010 FINDINGS: Normal soft tissue structures. Normal calvarium. Normal size ventricles and extra-axial spaces for the patient''s age. Normal white matter tracts of the cerebral hemispheres. Normal basal ganglia and thalami. Normal brainstem. Normal cerebellum. There is no intracranial hemorrhage. There are no findings of an acute ischemic infarction. Normal visualized paranasal sinuses. CT/Brain/Head without Contrast IMPRESSION: Chronic involutional changes of the brain. No acute hemorrhage Electronically Signed: Cayetano Serra MD at 9:15 EDT ,
--- NOTE | 2023-11-12 08:30 | RAD_ITS ---
INDICATION: HYPOGLYCEMIA EXAMINATION/TECHNIQUE: X-RAY - XR Chest 1 View COMPARISON: No relevant prior comparison study available FINDINGS: LINES/DEVICES: None. LUNGS: No consolidation, edema or effusion. No pneumothorax. MEDIASTINUM AND CARDIOVASCULAR STRUCTURES: Cardiac silhouette not enlarged. Central airways and mediastinal contour are unremarkable. BONES AND SOFT TISSUES: Unremarkable. RAD/Chest 1 View (Portable) IMPRESSION: No radiographic evidence of acute cardiopulmonary disease. Electronically Signed: Wilmer Zamora MD at 9:32 EDT ,
--- NOTE | 2023-11-12 08:30 | EX.ED.DYSGE1 ---
HPI History of Present Illness Chief Complaint: Hypoglycemia Narrative Narrative: 68-year-old female presenting with altered mental status. Patient lives with her family and apparently fell from bed this morning. She does not recall this. Patient's family found her at the bedside kneeling. Patient's sugar was noted to be in the 40s. She was given some juice x 2 and then EMS was called and glucagon was given as well as some IV fluids with D10. Patient's family states she does not have history of seizure but was altered and confused up until the time of my evaluation which is about an hour. Patient does have an insulin pump and currently her blood sugars are in the 300s. She states her only complaint currently is that she is cold and does not have any pain anywhere except for mild body aches. Patient's family states that she was otherwise normal for going to bed if she has been eating and drinking normally with normal urine and stool. She is on anticoagulation. PFSH PFS Home Medications aspirin 81 mg chewable tablet 81 mg PO DAILY@0800 [facility] 06/07/14 [History Last Taken 11/08/18] ferrous gluconate 324 mg (37.5 mg iron) tablet 325 mg PO BID iron supplement 06/07/14 [History Last Taken 11/08/18] amlodipine 5 mg tablet 5 mg PO DAILY bp 06/09/14 [History Last Taken 11/08/18] dextromethorphan-guaifenesin 10 mg-100 mg/5 mL oral syrup 10 ml PO Q4H PRN PRN Cough 04/14/16 [Rx Last Taken 11/09/18] Cholecalciferol (Vitamin D3) [Vitamin D3] 5,000 unit PO DAILY supplement 11/09/18 [History Last Taken 11/08/18] ascorbic acid (vitamin C) 1,000 mg tablet,extended release (Vitamin C ER) 1,000 mg PO DAILY supplement 11/09/18 [History Last Taken 11/08/18] atenolol 100 mg tablet 100 mg PO DAILY heart 11/09/18 [History Last Taken 11/08/18] calcium carbonate (Oyster Shell Calcium 500) 500 mg PO DAILY@0800 supplement 11/09/18 [History Last Taken 11/08/18] patiromer calcium sorbitex 8.4 gram oral powder packet (Veltassa) 8.4 g PO DAILY potassium 11/09/18 [History Last Taken 11/08/18] rosuvastatin 20 mg tablet (Crestor) 20 mg PO QHS cholesterol 11/09/18 [History Last Taken 11/08/18] potassium, sodium phosphates 280 mg-160 mg-250 mg oral powder packet 1 packet PO 4X/DAY #3 packets 11/11/18 [Rx Last Taken Unknown] dapagliflozin propanediol 10 mg tablet (Farxiga) 10 mg PO DAILY 11/12/23 [History Last Taken Unknown] insulin lispro-aabc 100 unit/mL subcutaneous solution (Lyumjev U-100 Insulin) 110 unit subcut DAILY 11/12/23 [History Last Taken Unknown] levothyroxine 88 mcg tablet (Synthroid) 88 mcg PO DAILY 11/12/23 [History Last Taken Unknown] mirtazapine 15 mg tablet 15 mg PO QHS 11/12/23 [History Last Taken Unknown] montelukast 10 mg tablet 10 mg PO DAILY 11/12/23 [History Last Taken Unknown] olmesartan 40 mg tablet 40 mg PO DAILY 11/12/23 [History Last Taken Unknown] sodium polystyrene sulfonate 15 gram-sorbitol 20 gram/60 mL oral susp (SPS (with sorbitol)) ml PO 11/12/23 [History Last Taken Unknown] Allergy/AdvReac Type Severity Reaction Status Date / Time pravastatin sodium Allergy Unknown Verified 11/09/18 14:53 [From Pravachol] sertraline HCl [From Zoloft] Allergy Hives Verified 11/09/18 14:53 venlafaxine HCl Allergy Hives Verified 11/09/18 14:53 [From Effexor] pneumococcal 23-valent AdvReac Swelling Verified 11/09/18 14:53 polysacchari [From Pneumovax 23] Social History Smoking Status: Former smoker ROS ROS ED Constitutional Constitutional ED: Denies chills, fever(s) or sweats Eyes Eyes: Denies blurry vision or change in vision ENT ENT ED: Denies ear pain or sore throat Cardiovascular Cardiovascular: Denies chest pain, palpitations or racing heartbeat Respiratory/Chest Respiratory/Chest: Denies cough, dyspnea or sputum Gastrointestinal Gastrointestinal: Denies abdominal pain, constipation, diarrhea, nausea or vomiting Genitourinary Genitourinary ED: Denies dysuria, hematuria or urinary frequency Musculoskeletal Musculoskeletal: Reports myalgias; Denies arthralgias or neck pain Integumentary Denies abscess, Abrasions or rash Neurologic Neurologic: Reports headache(s); Denies paresthesias or weakness Psychiatric Psychiatric: Denies anxiety, depression, suicidal ideation or suicidal thoughts Endocrine Endocrinology: Denies polydipsia or polyuria EXAM Physical Exam Const Vital Signs: 11/12/23 07:53 11/12/23 07:58 11/12/23 08:52 Temperature 97.4 F L Temperature Source Temporal Pulse Rate 65 58 L Respiratory Rate 16 16 Respiratory Effort Normal Respiratory Pattern Normal Blood Pressure 152/119 H 152/72 H Blood Pressure Mean 130 98 Pulse Ox 100 98 Oxygen Delivery Method Room Air Room Air 11/12/23 09:00 11/12/23 08:58 11/12/23 09:00 Temperature Temperature Source Pulse Rate 78 56 L 54 L Respiratory Rate 16 16 15 Respiratory Effort Respiratory Pattern Blood Pressure 152/76 H 147/29 H Blood Pressure Mean 101 49 Pulse Ox 98 100 98 Oxygen Delivery Method Room Air 11/12/23 09:15 11/12/23 09:30 11/12/23 09:45 Temperature Temperature Source Pulse Rate 60 61 58 L Respiratory Rate 18 16 15 Respiratory Effort Respiratory Pattern Blood Pressure 180/36 H 169/63 H 153/55 H Blood Pressure Mean 70 87 77 Pulse Ox 98 100 100 Oxygen Delivery Method 11/12/23 10:00 11/12/23 10:22 Temperature 97.6 F L Temperature Source Pulse Rate 47 L 57 L Respiratory Rate 12 18 Respiratory Effort Respiratory Pattern Blood Pressure 155/42 H 155/66 H Blood Pressure Mean 72 95 Pulse Ox 100 100 Oxygen Delivery Method Positive well nourished General Appearance ED: NAD; Negative for pallor HEENT Reports moist mucous membranes Eyes PERRL and EOMs intact bilaterally Chest Wall inspection of chest normal Resp normal respiratory effort and clear to auscultation bilaterally Auscultation: Negative for rales, rhonchi or wheezes Cardio regular rate and regular rhythm GI normal to inspection, nondistended, normoactive bowel sounds Neuro oriented x3 and CN's II-XII intact bilaterally Sensorium / Orientation: alert Motor Exam: general weakness Psych Psych Narrative: Slightly slow to respond. Alert and awake. Skin no rashes or lesions noted General Skin Exam: Negative for jaundice or pallor MDM MDM MDM Narrative Medical decision making narrative: Patient had fall from bed and was hypoglycemic. She is already given D10 as well as glucagon. Blood sugar is around 300 currently. Differential includes ACS, dysrhythmia, hypoglycemia, seizure, intracranial hemorrhage, C-spine injury, dehydration, anemia, electrolyte abnormalities, pneumonia, UTI. CBC was obtained to assess white blood cell count, hemoglobin, platelets. BMP to assess renal function, electrolytes, glucose. High-sensitivity troponin EKG to assess for dysrhythmia/ischemia. Chest x-ray rule out pneumonia. Urinalysis to assess for UTI. CT brain and cervical spine will be obtained to rule out intracranial injury or C-spine injury given the patient's altered mental status with possible seizure and she is unable to be cleared by next criteria. Patient given IV fluids. She declines analgesia. CBC shows normal white blood cell count 9.7. Hemoglobin 12.6. Platelets normal 386. Creatinine slightly elevated at 2.65 and again patient was given a liter of normal saline. Potassium slightly high at 5.3 but I do not believe she is more than IV fluids for this. Her EKG does not show any acute changes from hyperkalemia. My interpretation shows sinus bradycardia with a ventricular to 53 bpm without sign of ischemia. Chest x-ray on my interpretation shows no acute process. Radiology has not interpreted this. Lactic acid 1.0 which is reassuring from a seizure possibly standpoint. High-sensitivity phone is 3. Urinalysis negative for infection. On reevaluation at 10:20 AM the patient is doing much better and she is sitting up awake and alert. She feels better. We discussed that her lab work and imaging including her CT brain and cervical spine which were both negative. Patient does have an insulin pump and understands how to manage it she also knows where to follow-up with for the pump. She states that she has a pump issue she knows how to dose herself with insulin at home and she has all medications that she would be. She also has glucagon at home and we will place this by the bedside. Return precautions were discussed. Impression: 1. Altered mental status 2. Hypoglycemia 3. Closed head injury 4. Fall 5. Dehydration Lab Data Attestation: I reviewed the patient's lab results. Labs: Laboratory Results - last 24 hr 11/12/23 11/12/23 11/12/23 07:58 08:00 08:40 WBC 9.7 RBC 4.05 L Hgb 12.6 Hct 40.8 MCV 100.7 H MCH 31.1 MCHC 30.9 L RDW Std Deviation 45.9 H RDW Coeff of Estuardo 12.4 Plt Count 386 MPV 9.7 Immature Gran % (Auto) 0.700 Neut % (Auto) 56.5 Lymph % (Auto) 28.2 [place] % (Auto) 10.7 H Eos % (Auto) 3.2 Baso % (Auto) 0.7 Absolute Neuts (auto) 5.5 Absolute Lymphs (auto) 2.74 Nucleated RBC % 0 Sodium 131 L Potassium 5.3 H Chloride 104 Carbon Dioxide 20.0 L Anion Gap 7 BUN 63 H Creatinine 2.65 H Estim Creat Clear Calc 20.29 Est GFR (MDRD) Af Amer 23 L Est GFR (MDRD) Non-Af 19 L BUN/Creatinine Ratio 23.8 H Glucose 360 H Lactic Acid 1.0 Calcium 9.1 Troponin I High Sens 3 Urine Color Urine Clarity Urine pH Ur Specific [place] Urine Protein Urine Glucose (UA) Urine Ketones Urine Occult Blood Urine Nitrite Urine Bilirubin Urine Urobilinogen Ur Leukocyte Esterase Urine RBC Urine WBC Ur Squamous Epith Cells Urine Bacteria Urine Mucus POC Glucose 222 H 11/12/23 11/12/23 09:07 09:16 WBC RBC Hgb Hct MCV MCH MCHC RDW Std Deviation RDW Coeff of Estuardo Plt Count MPV Immature Gran % (Auto) Neut % (Auto) Lymph % (Auto) [place] % (Auto) Eos % (Auto) Baso % (Auto) Absolute Neuts (auto) Absolute Lymphs (auto) Nucleated RBC % Sodium Potassium Chloride Carbon Dioxide Anion Gap BUN Creatinine Estim Creat Clear Calc Est GFR (MDRD) Af Amer Est GFR (MDRD) Non-Af BUN/Creatinine Ratio Glucose Lactic Acid Calcium Troponin I High Sens Urine Color Yellow Urine Clarity Clear Urine pH 5.0 Ur Specific [place] 1.010 Urine Protein 100 H Urine Glucose (UA) 1000 H Urine Ketones Negative Urine Occult Blood 25 H Urine Nitrite Negative Urine Bilirubin Negative Urine Urobilinogen Normal Ur Leukocyte Esterase Negative Urine RBC 0 SEEN Urine WBC 0-5 SEEN Ur Squamous Epith Cells 0-5 SEEN Urine Bacteria 0 SEEN Urine Mucus 0 SEEN POC Glucose 343 H Discharge Plan Triage Chief Complaint: Hypoglycemia ED Provider: Robby Joe Dx/Rx/DC Orders Instructions: ED Diabetic Insulin Reaction Prescriptions: No Action aspirin 81 MG tablet,chewable 81 mg PO DAILY@0800 Patient Comments: heart health ferrous gluconate 325 MG tablet 325 mg PO BID Patient Comments: iron supplement amlodipine 5 MG tablet 5 mg PO DAILY Patient Comments: blood pressure dextromethorphan-guaifenesin 10 ML syrup 10 ml PO Q4H PRN PRN (Reason: Cough) 0RF Patient Comments: cough atenolol 100 MG tablet 100 mg PO DAILY rosuvastatin [Crestor] 20 MG tablet 20 mg PO QHS ascorbic acid (vitamin C) [Vitamin C] 1,000 MG tablet extended release 1,000 mg PO DAILY calcium carbonate [Oyster Shell Calcium 500] 500 MG tablet 500 mg PO DAILY@0800 patiromer calcium sorbitex [Veltassa] 8.4 GM powder in packet 8.4 g PO DAILY Patient Comments: MIX 1 PACKET UTD AND TAKE WITH FOOD QD Cholecalciferol (Vitamin D3) [Vitamin D3] 5,000 UNIT capsule 5,000 unit PO DAILY potassium, sodium phosphates 1 PACKET packet 1 packet PO 4X/DAY Qty: 3 0RF levothyroxine [Synthroid] 88 mcg tablet 88 mcg PO DAILY montelukast 10 mg tablet 10 mg PO DAILY mirtazapine 15 mg tablet 15 mg PO QHS olmesartan 40 mg tablet 40 mg PO DAILY dapagliflozin propanediol [Farxiga] 10 mg tablet 10 mg PO DAILY SPS (with sorbitol) 15-20 gram/60 mL suspension PO Lyumjev U-100 Insulin 100 unit/mL solution 110 unit subcut DAILY Primary Care Provider: Kyle Beard Referrals: Kyle Beard DO [Primary Care Provider] - Disposition Disposition: Home, Self Care Discharge Date/Time: 11/12/23 10:27
[2023-11-12 08:50] LABS: Troponin-I HS 3 pg/mL (3.0-54.0)
[2023-11-12 09:20] LABS: Bacteria 0 SEEN /hpf (None Seen); Mucous, Urine 0 SEEN /hpf (<or=2+); Red Blood Cells-Urine 0 SEEN /hpf (0-5)
[2023-11-12 09:22] LABS: Color, Urine Yellow (Yellow); Glucose, Dipstick 1000 mg/dl (Normal); Ketone-Dipstick Negative (Negative); Leukocyte Esterase-Dipstick Negative /ul (Negative); Nitrite-Dipstick Negative (Negative); Occult Blood-Urine 25 /ul (Negative); Protein-Dipstick 100 mg/dl (Negative); Urine Bilirubin Dipstick Negative (Negative); Urine Clarity Clear (Clear); Urine Urobilinogen Normal (Normal)
[2023-11-12 09:29] LABS: Squamous Epithelial Cells - UA 0-5 SEEN /hpf (5-10); White Blood Cells 0-5 SEEN /hpf (0-5)
[2023-11-12 10:19] LABS: Bedside Glucose 343 mg/dL (74-106)
[2023-11-12 10:19] LABS: Bedside Glucose 222 mg/dL (74-106)
[2023-11-12 10:36] LABS: Bedside Glucose 268 mg/dL (74-106)
== END 2023-11-12 10:27 | disposition home or self-care (01) ==
PROVIDERS: Emergency Provider Student in an Organized Health Care Education/Training Program; PCP Family Medicine; Visit Provider Student in an Organized Health Care Education/Training Program
DX: E16.2 Hypoglycemia, unspecified (principal); R41.82 Altered mental status, unspecified; S09.90XA Unspecified injury of head, initial encounter; E86.0 Dehydration; Z87.891 Personal history of nicotine dependence; Z96.41 Presence of insulin pump (external) (internal); W06.XXXA Fall from bed, initial encounter; Y92.89 Other specified places as the place of occurrence of the external cause
CPT/HCPCS: 70450; 71045; 72125; 80048; 81001; 82962; 83605; 84484; 85025; 93005; 99283; A4216

== ENCOUNTER → 2024-01-05 | Outpatient (CLI) | payer MEDICARE, SELFPAY ==
[2024-01-05 08:00] LABS: Hemoglobin A1c 6.3 % (3.8-5.6)
[2024-01-05 08:26] LABS: ALB/GLOB Ratio 0.8 RATIO (0.9-2.4); AST(SGOT) 23 U/L (15-37); Alanine Aminotransfer ALT/SGPT 30 U/L (13-56); Albumin, Serum 3.2 g/dL (3.2-5.0); Alkaline Phosphatase 63 U/L (45-117); Anion Gap 7 (5-15); BUN 35 mg/dL (7-18); BUN/Creat Ratio 18.6 RATIO (10-20); Calcium,Total 8.9 mg/dL (8.5-10.1); Chloride 107 mmol/L (98-107); Cholesterol 184 mg/dL (200); Creatinine, Serum 1.88 mg/dL (0.55-1.02); EST Glomerular Filtration Rate 28 mL/min (>60); Est Glom Filt Rate - Afr Amer 34 mL/min (>60); Free T3 1.9 pg/mL (2.18-3.98); Globulin 3.8 g/dL (2.2-4.2); Glucose 120 mg/dL (74-106); High Density Lipoprotein 44 mg/dL; Potassium 4.2 mmol/L (3.5-5.1); Sodium Level 139 mmol/L (136-145); T4 Free Direct 1.15 ng/dL (0.76-1.46); Thyroid Stim Hormone (TSH) 3.22 uIU/mL (0.358-3.74); Triglycerides 197 mg/dL; Very Low Density Lipoprotein 39 mg/dL (5-40)
[2024-01-05 09:44] LABS: Protein:Creat Ratio 2980 mg/g CRE (0-200)
== END | disposition home or self-care (01) ==
LOC: LAB 07:13
PROVIDERS: PCP Family Medicine; Referring Provider Internal Medicine Nephrology; Visit Provider Internal Medicine Nephrology
DX: N18.32 Chronic kidney disease, stage 3b (principal); E10.65 Type 1 diabetes mellitus with hyperglycemia; E10.22 Type 1 diabetes mellitus with diabetic chronic kidney disease; R80.9 Proteinuria, unspecified; H35.9 Unspecified retinal disorder; E78.5 Hyperlipidemia, unspecified
CPT/HCPCS: 36415; 80053; 80061; 82570; 83036; 84156; 84439; 84443; 84481

== ENCOUNTER → 2024-02-06 | Outpatient (CLI) | payer MEDICARE, SELFPAY ==
--- NOTE | 2024-02-06 09:03 | BD_ITS ---
STUDY: DUAL ENERGY X-RAY ABSORPTIOMETRY / DXA REASON FOR EXAM: Female, 68 years old. M810 TECHNIQUE: Bone Mineral Density (BMD) measurements of lumbar spine and bilateral hips were obtained. COMPARISON: None. FINDINGS: Lumbar Spine (L1-L4): g/cm2 (1.449) / T-score (3.4) / Z-score (5.3) Findings are suggestive of normal bone density with a low fracture risk. Left Femur Total: g/cm2 (0.993) / T-score (0.4) / Z-score (1.7) Left Femoral Neck: g/cm2 (0.774) / T-score (-0.7) / Z-score (0.9) Right Femur Total: g/cm2 (1.050) / T-score (0.9) / Z-score (2.2) Right Femoral Neck: g/cm2 (0.816) / T-score (-0.3) / Z-score (1.3) BD/Dexa Bone Density Study IMPRESSION: The patient is considered normal as outlined below according to World Stepan Organization (WHO) criteria with a low fracture risk. Reference Information: The T-score is the number of standard deviations above or below the standard which is normal for young adults at their peak bone mineral density. The World Health Organization (WHO) interprets the T-scores as follows: Above -1 Normal bone density Between -1 and -2.5 Osteopenia Equal to / or below -2.5 Osteoporosis As a practical clinical guideline, osteopenia may be graded as follows: Mild -1 through -1.5 Moderate -1.6 through -2.0 Severe -2.1 through -2.4 The Z-score is the number of standard deviations above or below age-matched controls. A Z-score of less than -1.5 would be considered abnormal. References: 1. NIH Osteoporosis and Related Bone Diseases www osteo.org 2. International Society for Clinical Densitometry www iscd.org 3. National Osteoporosis Foundation www nof.org Electronically Signed: Nazario Baldwin MD at 13:25 EDT ,
== END | disposition home or self-care (01) ==
LOC: OPBD 08:58
PROVIDERS: PCP Family Medicine; Referring Provider Family Medicine; Visit Provider Family Medicine
DX: M81.0 Age-related osteoporosis without current pathological fracture (principal)
CPT/HCPCS: 77080

== ENCOUNTER → 2024-04-26 | Outpatient (CLI) | payer MEDICARE, SELFPAY ==
[2024-04-26 11:14] LABS: ALB/GLOB Ratio 0.9 RATIO (0.9-2.4); AST(SGOT) 17 U/L (15-37); Alanine Aminotransfer ALT/SGPT 27 U/L (13-56); Albumin, Serum 3.5 g/dL (3.2-5.0); Alkaline Phosphatase 67 U/L (45-117); Anion Gap 8 (5-15); BUN 56 mg/dL (7-18); BUN/Creat Ratio 24.5 RATIO (10-20); Calcium,Total 9.2 mg/dL (8.5-10.1); Chloride 110 mmol/L (98-107); Creatinine, Serum 2.29 mg/dL (0.55-1.02); EST Glomerular Filtration Rate 23 mL/min (>60); Est Glom Filt Rate - Afr Amer 27 mL/min (>60); Globulin 3.8 g/dL (2.2-4.2); Glucose 154 mg/dL (74-106); Potassium 4.6 mmol/L (3.5-5.1); Protein, Total 7.3 g/dL (6.4-8.2); Sodium Level 139 mmol/L (136-145); T4 Free Direct 1.03 ng/dL (0.76-1.46)
[2024-04-26 11:27] LABS: Vitamin D,25 Hydroxy 48.9 ng/mL
[2024-04-26 11:32] LABS: Hemoglobin A1c 7.1 % (3.8-5.6)
[2024-04-26 11:45] LABS: Microalbumin:Creatinine Ratio 1309.6 mg/g CRE (<30 mg/g CRE); Protein, Urine (Random) 80.2 mg/dL (<11.9); Protein:Creat Ratio 1678 mg/g CRE (0-200)
== END | disposition home or self-care (01) ==
LOC: MTLAB 08:07
PROVIDERS: PCP Family Medicine; Referring Provider Internal Medicine Endocrinology, Diabetes & Metabolism; Visit Provider Internal Medicine Endocrinology, Diabetes & Metabolism
DX: R80.9 Proteinuria, unspecified (principal); E10.65 Type 1 diabetes mellitus with hyperglycemia; E11.22 Type 2 diabetes mellitus with diabetic chronic kidney disease; N18.32 Chronic kidney disease, stage 3b; E20.9 Hypoparathyroidism, unspecified; H35.9 Unspecified retinal disorder; E78.5 Hyperlipidemia, unspecified
CPT/HCPCS: 36415; 80053; 82043; 82306; 82570; 83036; 84156; 84439; 84443

== ENCOUNTER → 2024-08-19 | Outpatient (CLI) | payer MEDICARE, SELFPAY ==
[2024-08-19 11:07] LABS: ALB/GLOB Ratio 0.8 RATIO (0.9-2.4); AST(SGOT) 33 U/L (15-37); Alanine Aminotransfer ALT/SGPT 49 U/L (13-56); Albumin, Serum 3.4 g/dL (3.2-5.0); Alkaline Phosphatase 54 U/L (45-117); Anion Gap 10 (5-15); BUN 75 mg/dL (7-18); BUN/Creat Ratio 25.1 RATIO (10-20); Calcium,Total 9.2 mg/dL (8.5-10.1); Chloride 110 mmol/L (98-107); Creatinine, Serum 2.99 mg/dL (0.55-1.02); EST Glomerular Filtration Rate 17 mL/min (>60); Est Glom Filt Rate - Afr Amer 20 mL/min (>60); Free T3 1.4 pg/mL (2.18-3.98); Globulin 4.5 g/dL (2.2-4.2); Glucose 47 mg/dL (74-106); Potassium 4.6 mmol/L (3.5-5.1); Protein, Total 7.9 g/dL (6.4-8.2); Sodium Level 140 mmol/L (136-145); T4 Free Direct 1.33 ng/dL (0.76-1.46)
[2024-08-19 11:19] LABS: Microalbumin:Creatinine Ratio 1447.4 mg/g CRE (<30 mg/g CRE)
[2024-08-19 11:25] LABS: Hemoglobin A1c 6.2 % (3.8-5.6)
[2024-08-19 14:26] LABS: Vitamin D,25 Hydroxy 41.5 ng/mL
== END | disposition home or self-care (01) ==
LOC: MTLAB 07:53
PROVIDERS: PCP Family Medicine; Referring Provider Internal Medicine Endocrinology, Diabetes & Metabolism; Visit Provider Internal Medicine Endocrinology, Diabetes & Metabolism
DX: E10.65 Type 1 diabetes mellitus with hyperglycemia (principal); N18.30 Chronic kidney disease, stage 3 unspecified; E20.9 Hypoparathyroidism, unspecified; H35.9 Unspecified retinal disorder; E78.5 Hyperlipidemia, unspecified

== ENCOUNTER → 2024-11-12 | Outpatient (CLI) | payer MEDICARE, SELFPAY ==
[2024-11-12 11:28] LABS: Cholesterol 178 mg/dL (<=200); Free T3 2.2 pg/mL (2.18-3.98); High Density Lipoprotein 41 mg/dL; Low Density Lipoprotein Calc. 90 mg/dL; Triglycerides 236 mg/dL; Very Low Density Lipoprotein 47 mg/dL (5-40); Vitamin D,25 Hydroxy 42.1 ng/mL (30-100); cholesterol:hdl ratio screen 4.36
[2024-11-12 11:44] LABS: Anion Gap 14 (5-15); Calcium,Total 9.6 mg/dL (7.6-11.0); Chloride 108 mmol/L (98-108); Creatinine, Serum 2.84 mg/dL (0.70-1.20); EST Glomerular Filtration Rate 18 (>60); Glucose 116 mg/dL (70-99); Potassium 5.5 mmol/L (3.3-5.1); Sodium Level 138 mmol/L (133-145)
[2024-11-12 20:45] LABS: Protein, Urine (Random) 71.5 mg/dL (0.0-12.0); Protein:Creat Ratio 1706 mg/g CRE (0-200)
[2024-11-13 15:16] LABS: AST(SGOT) 15 U/L (<=31); Alanine Aminotransfer ALT/SGPT 16 U/L (<=34); Albumin, Serum 4.1 g/dL (3.4-4.8); Alkaline Phosphatase 56 U/L (35-104); Bilirubin, Direct < 0.08 mg/dL (0.00-0.30); Protein, Total 7.3 g/dL (5.9-8.4); Total Bilirubin 0.21 mg/dL (0.00-1.30)
[2024-11-13 16:14] LABS: BUN 104 mg/dL (4-19); BUN/Creat Ratio 36.6 RATIO (10-20); Globulin 3.3 g/dL (2.2-4.2)
== END | disposition home or self-care (01) ==
LOC: MTLAB 07:29
PROVIDERS: PCP Family Medicine; Referring Provider Internal Medicine Endocrinology, Diabetes & Metabolism; Visit Provider Internal Medicine Endocrinology, Diabetes & Metabolism
DX: E10.65 Type 1 diabetes mellitus with hyperglycemia (principal); N18.4 Chronic kidney disease, stage 4 (severe); E20.9 Hypoparathyroidism, unspecified; H35.9 Unspecified retinal disorder; E78.5 Hyperlipidemia, unspecified; R80.9 Proteinuria, unspecified
CPT/HCPCS: 36415; 80048; 80061; 80076; 82043; 82306; 82570; 83036; 84156; 84439; 84443; 84481

== ENCOUNTER → 2024-12-02 | Outpatient (CLI) | payer MEDICARE, SELFPAY ==
[2024-12-02 15:01] LABS: Anion Gap 11 (5-15); BUN 53 mg/dL (4-19); BUN/Creat Ratio 25.2 RATIO (10-20); Calcium,Total 10.1 mg/dL (7.6-11.0); Carbon Dioxide 22.4 mmol/L (21.0-32.0); Chloride 106 mmol/L (98-108); EST Glomerular Filtration Rate 25 (>60); Glucose 129 mg/dL (70-99); Potassium 4.4 mmol/L (3.3-5.1); Sodium Level 139 mmol/L (133-145)
[2024-12-02 16:09] LABS: Protein:Creat Ratio 3097 mg/g CRE (0-200)
== END | disposition home or self-care (01) ==
LOC: MTLAB 10:34
PROVIDERS: PCP Family Medicine; Referring Provider Internal Medicine Nephrology; Visit Provider Internal Medicine Nephrology
DX: N18.32 Chronic kidney disease, stage 3b (principal)
CPT/HCPCS: 36415; 80048; 82570; 84156

== ENCOUNTER → 2025-04-15 | Outpatient (CLI) | payer MEDICARE, SELFPAY ==
[2025-04-15 10:51] LABS: Creatinine, Urine (random) 72.80 mg/dL (28.00-217.00)
[2025-04-15 11:03] LABS: Microalbumin,Random Urine 2368.0 mg/L (<20 mg/L)
[2025-04-15 11:57] LABS: Cholesterol 209 mg/dL (<=200); Low Density Lipoprotein Calc. 114 mg/dL; Triglycerides 238 mg/dL; Very Low Density Lipoprotein 48 mg/dL (5-40); Vitamin D,25 Hydroxy 29.4 ng/mL (30-100); cholesterol:hdl ratio screen 4.44
[2025-04-15 12:00] LABS: AST(SGOT) 20 U/L (<=31); Alanine Aminotransfer ALT/SGPT 26 U/L (<=34); Albumin, Serum 3.5 g/dL (3.4-4.8); Alkaline Phosphatase 66 U/L (35-104); Anion Gap 13 (5-15); BUN 44 mg/dL (4-19); BUN/Creat Ratio 18.0 RATIO (10-20); Calcium,Total 9.0 mg/dL (7.6-11.0); Carbon Dioxide 23.3 mmol/L (21.0-32.0); Chloride 104 mmol/L (98-108); Globulin 3.1 g/dL (2.2-4.2); Glucose 179 mg/dL (70-99); Potassium 4.4 mmol/L (3.3-5.1)
== END | disposition home or self-care (01) ==
LOC: MTLAB 07:21
PROVIDERS: PCP Family Medicine; Referring Provider Internal Medicine Endocrinology, Diabetes & Metabolism; Visit Provider Internal Medicine Endocrinology, Diabetes & Metabolism
DX: E11.22 Type 2 diabetes mellitus with diabetic chronic kidney disease (principal); N18.4 Chronic kidney disease, stage 4 (severe); E20.9 Hypoparathyroidism, unspecified; H35.9 Unspecified retinal disorder; E78.5 Hyperlipidemia, unspecified
CPT/HCPCS: 36415; 80053; 80061; 82043; 82306; 82570; 83036; 84439; 84443

== ENCOUNTER → 2025-05-14 | Outpatient (CLI) | payer MEDICARE, SELFPAY ==
[2025-05-14 15:19] LABS: Anion Gap 10 (5-15); BUN 45 mg/dL (4-19); BUN/Creat Ratio 19.1 RATIO (10-20); Calcium,Total 8.8 mg/dL (7.6-11.0); Carbon Dioxide 24.8 mmol/L (21.0-32.0); Chloride 105 mmol/L (98-108); Glucose 232 mg/dL (70-99); Potassium 4.3 mmol/L (3.3-5.1)
== END | disposition home or self-care (01) ==
LOC: MTLAB 13:48
PROVIDERS: PCP Family Medicine; Referring Provider Internal Medicine Nephrology; Visit Provider Internal Medicine Nephrology
DX: E10.21 Type 1 diabetes mellitus with diabetic nephropathy (principal); E10.22 Type 1 diabetes mellitus with diabetic chronic kidney disease; N18.32 Chronic kidney disease, stage 3b
CPT/HCPCS: 36415; 80048

== ENCOUNTER → 2025-07-08 | Outpatient (CLI) | payer MEDICARE, SELFPAY ==
--- OUTSIDE RECORDS SUMMARY | 2025-07-08 07:14 | XMS RPT_ITS | CCD ---
Author Organization [facility] Care Team Providers Care Diabetes Manager Name Role Phone CAITLIN DUNN Attending Unavailable CAITLIN DUNN Attending Unavailable Dr. Kyle Beard Primary Care Provider Dr. Kyle Beard Referring Provider [phone] Dr. Blanka Nguyen Attending Provider Dr. Kyle Beard DO Primary Care Provider [phone] Eliot FRANCO, Dr. Gisel Marin Attending Provide r Dr. Gisel Mccabe MD Referring Provide r Jose Elias FRANCO, Dr. Gorman Other Provider Kyle Beard DO Unavailable [phone] Generic Provider , No Assigned Pcp Primary Car e Provider Unavailable GENERIC PROVIDER, NO ASSIGNED PCP Primary Care Unavailable LISA CHISHOLM Attending Unavailable Dr. Kyle Beard DO Primary Care Physician Dr. Gisel Mccabe MD Attending Physici an Dr. Gisel Mccabe MD Referring Provide r Sherif Orantes Attending Unavailable Sherif Orantes Referring Unavailable Kyle Beard Primary Care Unavailable Gisel Mccabe Attending UnavailGisel Scott Referring Unavaila ble Kyle Beard Primary Care Unavailable Sherif Orantes Attending Unavailable Sherif Orantes Referring Unavailable Kyle Beard Primary Care Unavailable Kyle Beard Primary Care Unavailable Gisel Mccabe Attending Gisel Velez Referring Moose jesse SorianoKisha Kyle Primary Care Unavailable Gisel Mccabe Attending Gisel Velez Referring Moose Sherif Castro Consulting Unavailable Allergies Allergy Classification Reported Allergen(s) Allergy Type Date of Onset Reaction(s) Facility (1 source) amLODIPine; Translations: [AMLODIPINE] Drug Allergy 2 [facility] Repository (1 source) Pneumococcal vaccine; Translations: [PNEUMOCOCCAL 23-DONALD PS VACCINE] Drug Allergy 7 [facility] Repository (1 source) Pravastatin; Translations: [PRAVASTATIN] Drug Allergy 5 [facility] (18 sources) Sertraline; Translations: [SERTRALINE HCL] Drug Allergy 5 [facility] (18 sources) venlafaxine; Translations: [VENLAFAXINE HCL] Drug Allergy 5 [facility] (17 sources) Pravastatin; Translations: [pravastatin sodium] Drug Allergy 9 [facility] (17 sources) pneumococcal 23-valent polysacchari; Translations: [pneumococcal 23-valent polysacchari] Propensity to adverse reactions 9 Swelling [facility] (1 source) ALLERGIES NOT ON FILE; Translations: [ALLERGIES NOT ON FILE] Propensity to adverse reactions (disorder) [facility] Medications Current Medications Medication Drug Class(es) Dates Sig (Normalized) Sig (Original) amLODIPine 5 mg oral tablet (16 sources) Dihydropyridine Calcium Channel Taty Start: 06-09-2014 take 1 tablet by mouth once daily ascorbic acid 1000 mg extended release oral tablet (16 sources) Vitamin C Start: 11-09-2018 take 1 tablet by mouth once daily aspirin 81 mg chewable tablet (16 sources) Platelet Aggregation Inhibitor, Nonsteroidal Anti-inflammatory Drug Start: 06-07-2014 take 1 tablet by mouth once daily atenolol 100 mg oral tablet (16 sources) beta-Adrenergic Taty Start: 11-09-2018 take 1 tablet by mouth once daily calcium carbonate 1250 mg oral tablet (16 sources) Start: 11-09-2018 cholecalciferol 0.125 mg oral capsule (16 sources) Vitamin D Start: 11-09-2018 take 1 capsule by mouth once daily dapagliflozin 10 mg oral tablet (3 sources) Sodium-Glucose Cotransporter 2 Inhibitor Start: 11-12-2023 take 1 tablet by mouth once daily dextromethorphan hydrobromide 2 mg/ml / guaiFENesin 20 mg/ml oral solution (16 sources) Uncompetitive C-bqsqcc-C-aspartate Receptor Antagonist, Sigma-1 Agonist Start: 04-14-2016 take 1 mL by mouth every four hours as needed for cough Start: 04-14-2016 take 1 mL by mouth every four hours as needed Dextromethorphan-Guaifenesin Active 10 M L PO EVERY 4 HOURS NEEDED April 14, 2016 12:06pm ferrous gluconate 324 mg oral tablet (16 sources) Start: 06-07-2014 take 1 tablet by janelle th twice daily insulin lispro-aabc 100 unt/ml injectable solution (19 sources) Insulin Analog Start: 11-12-2023 Start: 11-09-2018 End: 11-12-2023 Insulin Lispro (Humalog U-10 0 Insulin) 100/ML solution Discontinued 0 U SQ DIRECTED November 09, 2018 12:00am November 12, 2023 8:11am dm Start: 11-09-2018 End: 11-12-2023 Insulin Lispro (Humalog U-10 0 Insulin) 100/ML solution Discontinued 0 UNITS SQ DIRECTED November 09, 2018 12:00am November 12, 2023 8:11am levothyroxine sodium 0.088 m g oral tablet (19 sources) l-Thyroxine Start: 11-12-2023 take 1 tablet by janelle once daily Start: 11-09-2018 End: 11-12-2023 take 1 tablet by mouth once daily Levothyroxine 50 MCG tablet Discontinued 50 ug PO DAILY November 09, 2018 12:00am November 12, 2023 8:11am thyroid mirtazapine 15 mg oral tablet (3 sources) Start: 11-12-2023 take 1 tablet by mouth at bedtime montelukast 10 mg oral tablet (3 sources) Leukotriene Receptor Antagonist Start: 11-12-2023 take 1 tablet by mouth once daily olmesartan medoxomil 40 mg oral tablet (3 sources) Angiotensin 2 Receptor Taty Start: 11-12-2023 take 1 tablet by mouth once daily patiromer 8400 mg powder for oral suspension (16 sources) Potassium Binder Start: 11-09-2018 Potassium, Sodium Phosphates (14 sources) Start: 11-11-2018 Potassium, Sod ium Phosphates Active 1 PACKET PO 4 TIMES DAILY November 11, 2018 9:50am Start: 11-11-2018 Potassium, Sod ium Phosphates Active 1 PACKET PO 4 TIMES DAILY November 10, 2018 11:00pm Start: 11-11-2018 Potassium, Sod ium Phosphates Active 1 PACKET PO 4 TIMES DAILY November 11, 2018 12:00am Potassium, Sodium Phosphates 1 PACKET packet (2 sources) Start: 11-11-2018 take 1 dose by mouth four times daily Start: 11-11-2018 take 1 dose by mouth four times daily Potassium, Sodium Phosphates 1 PACKET packet Active 1 NMA PO 4 TIMES DAILY November 11, 2018 12:00am rosuvastatin calcium 20 mg oral tablet (16 sources) HMG-CoA Reductase Inhibitor Start: 11-09-2018 take 1 tablet by mouth at bedtime sodium polystyrene sulfonate 250 mg/ml oral suspension (3 sources) Start: 11-12-2023 Start: 11-12-2023 Sodium Polysty damir Sulf-Sorbtl [Sodium Polystyrene Sulfonate 15 Gram-Sorbitol 20 Gram/60 Ml Oral Susp] (Sodium Polystyrene Sulfonate 15 Gram-Sorbitol 20 ) 15-20 gram/60 mL suspension Active ML PO November 12, 2023 12:00am Completed/Discontinued Medications Medication Drug Class(es) Dates Sig (Normalized) Sig (Original) bacitracin zinc 0.5 unt/mg topical ointment (1 source) Start: 5 End: 5 apply 1 dose topically once Topical, Once, On 03/22/25 at 2235, For 1 dose, Apply to: face 1 ml hydrALAZINE hydrochloride 20 mg/ml injection (1 source) Arteriolar Vasodilator Start: 5 End: 5 10 mg, intravenous, Once, On 03/22/25 at 2100, For 1 dose hydroCHLOROthiazide 12.5 mg oral capsule (20 sources) Thiazide Diuretic Start: 9 End: 9 Hydrochlorothiazide 12.5 MG capsule Discontinued 12.5 {tbl} PO DAILY November 09, 2018 5:05pm November 11, 2018 9:53am bp Start: 04-12-2016 End: 11-11-2018 Hydrochlorothiazide 12.5 MG capsule Discontinued 12.5 {tbl} PO DAILY 0 0 April 14, 2016 12:10pm November 09, 2018 5:07pm spironolactone 25 mg oral tablet (20 sources) Aldosterone Antagonist Start: 11-09-2018 End: 11-11-2018 take 2 tablets by mouth once daily Spironolactone 25 MG tablet Discontinued 50 mg PO DAILY November 09, 2018 12:00am November 11, 2018 9:54am fluid Start: 11-09-2018 End: 11-11-2018 take 50 mg by mouth once daily Spironolactone Disconti nued 50 MG PO DAILY November 09, 2018 12:00am November 11, 2018 9:54am Start: 04-12-2016 End: 04-14-2016 take 1 tablet by mouth once daily Spironolactone 25 MG tablet Discontinued 25 mg PO DAILY April 12, 2016 12:00am April 14, 2016 12:11pm valsartan 160 mg oral tablet (20 sources) Angiotensin 2 Receptor Taty Start: 04-12-2016 End: 11-11-2018 take 1 tablet by mouth twice daily Valsartan 160 MG tablet Discontinued 160 mg PO TWICE A DAY November 09, 2018 5:05pm November 11, 2018 9:53am heart Problems Active Problems Problem Classification Problem Date Documented Date Episodic/Chronic Acute and unspecified renal failure (16 sources) Injury of kidney; Translations: [Acute kidney failure, unspecified] 11-09-2018 Episodic Chronic kidney disease (17 sources) Chronic kidney disease; Translations: [Chronic kidney disease, stage 3b] Onset: 12-05-2024 04-13-2022 Diabetes mellitus with complications (2 sources) Type 1 diabetes mellitus with diabetic nephropathy; Translations: [Type 1 diabetes mellitus with hyperglycemia] Onset: 04-28-2025 Chronic Diabetes mellitus without complication (16 sources) Type 1 diabetes mellitus; Translations: [Type 1 diabetes mellitus without complications] 11-09-2018 Chronic E Codes: Fall (3 sources) Fall; Translations: [Unspecified fall, initial encounter] Onset: 03-22-2025 03-22-2025 Episodic Essential hypertension (19 sources) Benign hypertension; Translations: [Essential (primary) hypertension] Onset: 03-22-2025 11-09-2018 Chronic Fluid and electrolyte disorders (20 sources) Hyponatremia; Translations: [Hypo-osmolality and hyponatremia] 11-09-2018 Episodic Other and ill-defined cerebrovascular disease (16 sources) Cerebrovascular disease; Translations: [Cerebrovascular disease, unspecified] 11-09-2018 Chronic Residual codes; unclassified (16 sources) Past history of procedure; Translations: [Personal history of other medical treatment] 11-09-2018 Episodic Skull and face fractures (4 sources) Closed fracture of nasal bones; Translations: [Fracture of nasal bones, initial encounter for closed fracture] Onset: 03-22-2025 03-23-2025 Episodic Past or Other Problems Problem Classification Problem Date Documented Da te Episodic/Chronic Unclassified (16 sources) Gastroenteritis with dehydration 04-13-2022 Results Test Name Value Interpretation Reference Range Facility Basic Metabolic Profile (BMP )on 05-14-2025 BUN/CRE 19.1 RATIO Normal 10-20 [facility] Comment on above: Performed By: #### L 500.2500 #### [facility] [address] [place], [address] Calcium [Mass/Vol] 8.8 mg/dL Normal 7.6-11.0 [facility] Comment on above: Performed By: #### L 500.2500 #### [facility] [address] [place], [address] Chloride [Moles/Vol] 105 mmol/L Normal 98-108 [facility] Comment on above: Performed By: #### L 500.2500 #### [facility] [address] [place], [address] CO2 [Moles/Vol] 24.8 mmol/L Normal 21.0-32.0 [facility] Comment on above: Performed By: #### L 500.2500 #### [facility] [address] [place], [address] Creatinine [Mass/Vol] 2.37 mg/dL High 0.70-1.20 [facility] Comment on above: Performed By: #### L [id number] #### [facility] [address] [place], [address] GAP 10 Normal 5-15 [facility] Comment on above: Performed By: #### L [id number] #### [facility] [address] [place], [address] GFR/1.73 sq M.predicted among non-blacks MDRD (S/P/Bld) [Vol rate/Area] 22 mL/min/{1.73_m2} Low >60 [facility] Comment on above: Result Comment: mL/m in/1.73m2 CKD-EPI Creatinine Equation (2020) Performed By: #### L 500.2500 #### [facility] [address] [place], [address] Glucose [Mass/Vol] 232 mg/dL High 70-99 [facility] Comment on above: Performed By: #### L 500.2500 #### [facility] [address] [place], [address] Potassium [Moles/Vol] 4.3 mmol/L Normal 3.3-5.1 [facility] Comment on above: Performed By: #### L [id number] #### [facility] [address] [place], [address] Sodium [Moles/Vol] 140 mmol/L Normal 133-145 [facility] Comment on above: Performed By: #### L 500.2500 #### [facility] [address] [place], [address] Urea nitrogen [Mass/Vol] 45 mg/dL High 4-19 [facility] Comment on above: Performed By: #### L 500.2500 #### [facility] [address] [place], [address] Anion gap in Serum or Plasma Ordered By: iGsel Mccabe on 04-15-2025 Anion gap [Moles/Vol] 13 mmol/L 5- [facility] BUN/creatinine ratioOrdered By: Gisel Mccabe on 04-15-2025 Urea nitrogen/Creatinine [Mass ratio] 18.0 mg/mg - [facility] Bilirubin, totalOrdered By: Gisel Mccabe on 04-15-2025 Bilirubin [Mass/Vol] mg/dL 0.00-1.30 [facility] Calculated very low density lipoprotein (VLDL) cholesterol measurementOrdered By: Gisel Mccabe on 04-15-2025 Calculated very low density lipoprotein (VLDL) cholesterol measurement 48 mg/dL High [facility] Carbon dioxide, total [Moles /volume] in Central venous bloodOrdered By: Gisel Mccabe on 04-15-2025 CO2 [Moles/Vol] 23.3 mmol/L Normal 21.0-32.0 [facility] Comment on above: Performed By: #### L 501.0900, L500.2500 #### [facility] [address] [place], [place], [id number] Chloride assayOrdered By: Hiwot Mccabe on 04-15-2025 Chloride [Moles/Vol] 104 mmol/L Normal 98-108 [facility] Comment on above: Performed By: #### L 501.0900, L500.2500 #### [facility] [address] [place], [place], [id number] Comprehensive Metabolic Prof ilon 04-15-2025 ALK PHOS 66 U/L Normal 35-104 [facility] Comment on above: Performed By: #### L 501.0900, L500.2500 #### [facility] [address] [place], [address] BUN/CRE 18.0 RATIO Normal - [facility] Comment on above: Performed By: #### L 501.0900, L500.2500 #### [facility] [address] [place] [place], [address] GAP 13 Normal -15 [facility] Comment on above: Performed By: #### L 501.0900, L500.2500 #### [facility] [address] [place], [address] Potassium [Moles/Vol] 4.4 mmol/L Normal 3.3-5.1 [facility] Comment on above: Performed By: #### L 501.0900, L500.2500 #### [facility] [address] [place], [address] T BILI < 0.15 Normal 0.00-1.30 [facility] Comment on above: Performed By: #### L 501.0900, L500.2500 #### [facility] [address] [place], [address] T PROT 6.6 g/dL Normal 5.9-8.4 [facility] Comment on above: Performed By: #### L 501.0900, L500.2500 #### [facility] [address] [place], [address] Comprehensive Metabolic Prof ilOrdered By: Gisel Mccabe on 04-15-2025 AST [Catalytic activity/Vol] 20 U/L Normal <=31 [facility] Comment on above: Performed By: #### L 501.0900, L500.2500 #### [facility] [address] [place], [address] Glomerular filtration rate ( GFR) estimation/1.73 sq m using serum, plasma, or whole bOrdered By: Gisel Mccabe on 04-15-2025 GFR/1.73 sq M.predicted among non-blacks MDRD (S/P/Bld) [Vol rate/Area] 21 mL/min/{1.73_m2} Low >60 [facility] Comment on above: mL/min/1.73m2 CKD-EP I Creatinine Equation (2020) Result Comment: mL/m in/1.73m2 CKD-EPI Creatinine Equation (2020) Performed By: #### L 501.0900, L500.2500 #### [facility] [address] [place], [place], [address] Hemoglobin A1con 04-15-2025 HbA1c (Bld) [Mass fraction] 7.0 % High <=5.6 [facility] Comment on above: Result Comment: Norm al < 5.7 % Prediabetic 5.7 - 6.4 % Diabetic >or= 6.5 % Please note range changes. Performed By: #### L 501.0900, L500.2500 #### [facility] [address] [place], [address] Hemoglobin A1c percentageOrd ered By: Gisel Mccabe on 04-15-2025 HbA1c (Bld) [Mass fraction] 7.0 % High <5.7 [facility] Comment on above: Normal < 5.7 % Predi abetic 5.7 - 6.4 % Diabetic >or= 6.5 % Please note range changes. LDL calc ser/plasOrdered By: Gisel Mccabe on 04-15-2025 Cholesterol in LDL [Mass/Vol] 114 mg/dL [facility] Comment on above: Pbjeqyompl=047-028 m g/dL & Higher Msph=793 mg/dL or greaterFriedwald Equation for LDL-C Lipid Profileon 04-15-2025 CHOL:HDL 4.44 Normal [facility] Comment on above: Performed By: #### L 501.0900, L500.2500 #### [facility] [address] [place] [place], [address] Cholesterol [Mass/Vol] 209 mg/dL High <=200 [facility] Comment on above: Result Comment: Chol esterol level, Desirable <200 mg/dL Borderline high cholesterol 200-239 mg/dL High cholesterol >=240 mg/dL Recommendations of the NCEP Adult Treatment Panel for the following risk-cutoff thresholds for the [place] population. Performed By: #### L 501.0900, L500.2500 #### [facility] [address] [place], [address] Cholesterol in HDL [Mass/Vol] 47 mg/dL Normal [facility] Comment on above: Result Comment: Trina onal Cholesterol Education Program (NCEP) guidelines: <40 mg/dL: Low HDL-cholesterol (major risk factor for CHD) >= 60 mg/dL: High HDL-cholesterol (negative risk factor for CHD) HDL-cholesterol is affected by a number of factors, e.g. smoking, exercise, hormones, sex and age. Performed By: #### L 501.0900, L500.2500 #### [facility] [address] [place], [address] Cholesterol in LDL [Mass/Vol] 114 mg/dL Normal [facility] Comment on above: Result Comment: Bord xzpebr=691-032 mg/dL Higher Modr=132 mg/dL or greater Friedwald Equation for LDL-C Performed By: #### L 501.0900, L500.2500 #### [facility] [address] [place], [address] Cholesterol in VLDL [Mass/Vol] 48 mg/dL High 5-40 [facility] Comment on above: Performed By: #### L 501.0900, L500.2500 #### [facility] [address] [place], [address] Triglyceride [Mass/Vol] 238 mg/dL High [facility] Comment on above: Result Comment: The drugs N-Acetylcysteine and Metamizole may falsely depress this assay. Normal range: <150 mg/dL Borderline High: 150-199 mg/dL High: 200-499 mg/dL Very High: >500 mg/dL Performed By: #### L 501.0900, L500.2500 #### [facility] [address] [place], [address] Microalb:Creat Ratio,Random URon 04-15-2025 MALB:CREAT 3252.7 mg/g CRE High <30 mg/g CRE [facility] Comment on above: Performed By: #### L 501.0900, L500.2500 #### [facility] [address] [place], [address] MICROALBUMIN,UR 2368.0 mg/L Normal <20 mg/L [facility] Comment on above: Performed By: #### L 501.0900, L500.2500 #### [facility] [address] [place], [address] Potassium measurement (mass/ volume)Ordered By: Gisel Mccabe on 04-15-2025 Potassium (Unsp spec) [Mass/Vol] 4.4 mmol/L 3.3-5.1 [facility] Random urine creatinine lamar urement (mass/volume)Ordered By: Gisel Mccabe on 04-15-2025 Creatinine Unsp time (U) [Mass/Vol] 72.80 mg/dL 28.00-217.0 0 [facility] Screening total cholesterol/ high density lipoprotein (HDL) cholesterol ratioOrdered By: Gisel Mccabe on 04-15-2025 Cholesterol.total/Cholest rebeca in HDL [Mass ratio] 4.44 {ratio} [facility] Serum creatinine measurement (mass/volume)Ordered By: Gisel Mccabe on 04-15-2025 Creatinine [Mass/Vol] 2.42 mg/dL High 0.70-1.20 [facility] Comment on above: Performed By: #### L 501.0900, L500.2500 #### [facility] [address] [place] [place], [address] Serum globulin measurementOr dered By: Gisel Mccabe on 04-15-2025 Globulin (S) [Mass/Vol] 3.1 g/dL Normal 2.2-4.2 [facility] Comment on above: Performed By: #### L 501.0900, L500.2500 #### [facility] [address] [place], [address] Serum glucose measurement (m ass/volume)Ordered By: Gisel Mccabe on 04-15-2025 Glucose [Mass/Vol] 179 mg/dL High 70-99 [facility] Comment on above: Performed By: #### L 501.0900, L500.2500 #### [facility] [address] [place], [address] Serum or plasma alanine clayton otransferase (ALT) measurementOrdered By: Gisel Mccabe on 04-15-2025 ALT [Catalytic activity/Vol] 26 U/L Normal <=34 [facility] Comment on above: Performed By: #### L 501.0900, L500.2500 #### [facility] [address] [place], [address] Serum or plasma albumin lamar urement (mass/volume)Ordered By: Gisel Mccabe on 04-15-2025 Albumin [Mass/Vol] 3.5 g/dL Normal 3.4-4.8 [facility] Comment on above: Performed By: #### L 501.0900, L500.2500 #### [facility] [address] [place], [address] Serum or plasma albumin/glob ulin mass ratioOrdered By: Gisel Mccabe on 04-15-2025 Albumin/Globulin [Mass ratio] 1.1 {ratio} Normal 0.9-2.4 [facility] Comment on above: Performed By: #### L 501.0900, L500.2500 #### [facility] [address] [place], [address] Serum or plasma alkaline farideh sphatase measurementOrdered By: Gisel Mccabe on 04-15-2025 ALP [Catalytic activity/Vol] 66 U/L 35-104 [facility] Serum or plasma calcium lamar urement (mass/volume)Ordered By: Gisel Mccabe on 04-15-2025 Calcium [Mass/Vol] 9.0 mg/dL Normal 7.6-11.0 [facility] Comment on above: Performed By: #### L 501.0900, L500.2500 #### [facility] [address] [place], [place], [id number] Serum or plasma cholesterol in HDL measurement (mass/volume)Ordered By: Gisel Mccabe on 04-15-2025 Cholesterol in HDL [Mass/Vol] 47 mg/dL >40 [facility] Comment on above: National Cholesterol Education Program (NCEP) guidelines:<40 mg/dL: Low HDL-cholesterol (major risk factor for CHD)>= 60 mg/dL: High HDL-cholesterol (negative risk factor for CHD)HDL-cholesterol is affected by a number of factors, e.g. smoking, exercise, hormones, sex and age. Serum or plasma cholesterol measurement (mass/volume)Ordered By: Gisel Mccabe on 04-15-2025 Cholesterol [Mass/Vol] 209 mg/dL High <201 [facility] Comment on above: Cholesterol level, D esirable <200 mg/dLBorderline high cholesterol 200-239 mg/dLHigh cholesterol >=240 mg/dLRecommendations of the NCEP Adult Treatment Panel for the following risk-cutoff thresholds for the [place] population. Serum or plasma urea nitroge n measurement (mass/volume)Ordered By: Gisel Mccabe on 04-15-2025 Urea nitrogen [Mass/Vol] 44 mg/dL High 4-19 [facility] Comment on above: Performed By: #### L 501.0900, L500.2500 #### [facility] [address] [place], [place], [id number] Sodium levelOrdered By: Eileen Mccabe on 04-15-2025 Sodium [Moles/Vol] 140 mmol/L Normal 133-145 [facility] Comment on above: Performed By: #### L 501.0900, L500.2500 #### [facility] [address] [place], [place], [id number] T4 Free Directon 04-15-2025 T4 FREE DIRECT 1.20 ng/dL Normal 0.76-1.46 [facility] Comment on above: Performed By: #### L 501.0900, L500.2500 #### [facility] [address] [place], [place], [address] T4 freeOrdered By: Gisel saenz on 04-15-2025 Free T4 [Mass/Vol] 1.20 ng/dL 0.76-1.46 [facility] TSH DL <= 0.005 mIU/L QnOrde red By: Gisel Mccabe on 04-15-2025 TSH Qn 3.800 uIU/mL 0.300-4.200 [facility] Thyroid Stim Hormone (TSH)on 04-15-2025 TSH 3.800 uIU/mL Normal 0.300-4.200 [facility] Comment on above: Performed By: #### L 501.0900, L500.2500 #### [facility] [address] [place], [place], [address] Total proteinOrdered By: Matthew Mccabe on 04-15-2025 Protein [Mass/Vol] 6.6 g/dL 5.9-8.4 [facility] Triglycerides measurementOrd ered By: Gisel Mccabe on 04-15-2025 Triglyceride [Mass/Vol] 238 mg/dL High <199 [facility] Comment on above: The drugs N-Acetylcy steine and Metamizole may falsely depress this assay. Normal range: <150 mg/dLBorderline High: 150-199 mg/dLHigh: 200-499 mg/dLVery High: >500 mg/dL Urine albumin measurement [facility] detection limit of 20 mg/L or less (mass/volume)Ordered By: Gisel Mccabe on 04-15-2025 Albumin DL <= 20 mg/L (U) [Mass/Vol] 2368.0 mg/L <20 mg/L [facility] Vitamin D,25 Hydroxyon 04-15 Vitamin D 25-OH 29.4 ng/mL Low 30-100 [facility] Comment on above: Result Comment: Jeana min D Status Deficiency: <20 ng/mL (50nmol/L) Insufficiency: 20-30 ng/mL (50-75 nmol/L) Sufficiency: 30-100 ng/mL (75-250 nmol/L) Toxicity: >100 ng/mL (>250 nmol/L) Performed By: #### L 501.0900, L500.2500 #### [facility] [address] [place], [address] No Panel Informationon 03-23 CT HEAD: 1. No acute intracranial abnormality or calvarial fracture. 2. Left mastoid air cell effusion with a trace amount of fluid in the left middle ear of uncertain chronicity. Consider clinical correlation for otomastoiditis. CT MAXILLOFACIAL SKELETON: 1. Subtle rightward offset of the right and left nasal bones likely representing nondisplaced fractures. 2. Partial opacification of the nasal cavity may relate to small volume epistaxis. I personally reviewed the images/study and I agree with the findings as stated by Telma Thakur MD (resident). MACRO: None. Signed by: Tobi Valdes 03/23/2025 12:56 AM Dictation workstation: [id number] Interpreted By: Toib Browne i, and Elsamaloty Mazzin STUDY: CT FACIAL BONES WO IV CONTRAST; CT HEAD WO IV CONTRAST; 03/22/2025 10:47 pm INDICATION: Signs/Symptoms:facial trauma; Signs/Symptoms:fall with headstrike. COMPARISON: None. ACCESSION NUMBER(S): [id number]; [id number] ORDERING CLINICIAN: AMERICO CHING TECHNIQUE: Axial noncontrast images of the head with coronal and sagittal reformatted images. Axial noncontrast images of the facial bones with coronal and sagittal reformatted images. 3D facial reconstructions were created on an independent workstation and reviewed. FINDINGS: CT HEAD: BRAIN PARENCHYMA: No acute intraparenchymal hemorrhage or parenchymal evidence of acute large territory ischemic infarct. Espino-white matter distinction is preserved. No mass-effect. VENTRICLES and EXTRA-AXIAL SPACES: No acute extra-axial or intraventricular hemorrhage. No effacement of cerebral sulci. The ventricles and sulci are age-concordant. MASTOIDS: There is complete opacification of the left-sided mastoid air cells. The right-sided mastoid air cells are unremarkable. Trace amount of fluid in the left middle ear. CALVARIUM: No skull fracture. CT MAXILLOFACIAL SKELETON: FACIAL BONES: Subtle rightward offset of the right and left nasal bones (304/139), likely representing nondisplaced fractures. The bony orbits are intact. ORBITS: The globes, extraocular muscles, and optic nerve sheath complexes are intact. No retrobulbar or subperiosteal hematoma. Bilateral lens replacements. SOFT TISSUES: No discernible acute abnormality. PARANASAL SINUSES: No air-fluid levels within the paranasal sinuses. Partial opacification of the nasal cavity may relate to small volume epistaxis. MMODAL Tobi Valdes MD - 03/23/2025 Interpreted By: Tobi Valdes and Elsamaloty Mazzin STUDY: CT FACIAL BONES WO IV CONTRAST; CT HEAD WO IV CONTRAST; 03/22/2025 10:47 pm INDICATION: Signs/Symptoms:facial trauma; Signs/Symptoms:fall with headstrike. COMPARISON: None. ACCESSION NUMBER(S): [id number]; [id number] ORDERING CLINICIAN: AMERICO CHING TECHNIQUE: Axial noncontrast images of the head with coronal and sagittal reformatted images. Axial noncontrast images of the facial bones with coronal and sagittal reformatted images. 3D facial reconstructions were created on an independent workstation and reviewed. FINDINGS: CT HEAD: BRAIN PARENCHYMA: No acute intraparenchymal hemorrhage or parenchymal evidence of acute large territory ischemic infarct. Espino-white matter distinction is preserved. No mass-effect. VENTRICLES and EXTRA-AXIAL SPACES: No acute extra-axial or intraventricular hemorrhage. No effacement of cerebral sulci. The ventricles and sulci are age-concordant. MASTOIDS: There is complete opacification of the left-sided mastoid air cells. The right-sided mastoid air cells are unremarkable. Trace amount of fluid in the left middle ear. CALVARIUM: No skull fracture. CT MAXILLOFACIAL SKELETON: FACIAL BONES: Subtle rightward offset of the right and left nasal bones (304/139), likely representing nondisplaced fractures. The bony orbits are intact. ORBITS: The globes, extraocular muscles, and optic nerve sheath complexes are intact. No retrobulbar or subperiosteal hematoma. Bilateral lens replacements. SOFT TISSUES: No discernible acute abnormality. PARANASAL SINUSES: No air-fluid levels within the paranasal sinuses. Partial opacification of the nasal cavity may relate to small volume epistaxis. IMPRESSION: CT HEAD: 1. No acute intracranial abnormality or calvarial fracture. 2. Left mastoid air cell effusion with a trace amount of fluid in the left middle ear of uncertain chronicity. Consider clinical correlation for otomastoiditis. CT MAXILLOFACIAL SKELETON: 1. Subtle rightward offset of the right and left nasal bones likely representing nondisplaced fractures. 2. Partial opacification of the nasal cavity may relate to small volume epistaxis. I personally reviewed the images/study and I agree with the findings as stated by Telma Thakur MD (resident). MACRO: None. Signed by: Tobi Valdes 03/23/2025 12:56 AM Dictation workstation: [id number] [facility] Work Phone: No Panel InformationOrdered By: Tobi Valdes on 03-23-2025 [facility] Work Phone: CT FACIAL BONES WO IV CONTRA STon 03-22-2025 CT FACIAL BONES WO IV CONTRAST Interpreted By: Tobi Valdes and Elsamaloty Mazzin STUDY: CT FACIAL BONES WO IV CONTRAST; CT HEAD WO IV CONTRAST; 03/22/2025 10:47 pm INDICATION: Signs/Symptoms:facial trauma; Signs/Symptoms:fall with headstrike. COMPARISON: None. ACCESSION NUMBER(S): [id number]; [id number] ORDERING CLINICIAN: AMERICO CHING TECHNIQUE: Axial noncontrast images of the head with coronal and sagittal reformatted images. Axial noncontrast images of the facial bones with coronal and sagittal reformatted images. 3D facial reconstructions were created on an independent workstation and reviewed. FINDINGS: CT HEAD: BRAIN PARENCHYMA: No acute intraparenchymal hemorrhage or parenchymal evidence of acute large territory ischemic infarct. Espino-white matter distinction is preserved. No mass-effect. VENTRICLES and EXTRA-AXIAL SPACES: No acute extra-axial or intraventricular hemorrhage. No effacement of cerebral sulci. The ventricles and sulci are age-concordant. MASTOIDS: There is complete opacification of the left-sided mastoid air cells. The right-sided mastoid air cells are unremarkable. Trace amount of fluid in the left middle ear. CALVARIUM: No skull fracture. CT MAXILLOFACIAL SKELETON: FACIAL BONES: Subtle rightward offset of the right and left nasal bones (304/139), likely representing nondisplaced fractures. The bony orbits are intact. ORBITS: The globes, extraocular muscles, and optic nerve sheath complexes are intact. No retrobulbar or subperiosteal hematoma. Bilateral lens replacements. SOFT TISSUES: No discernible acute abnormality. PARANASAL SINUSES: No air-fluid levels within the paranasal sinuses. Partial opacification of the nasal cavity may relate to small volume epistaxis. IMPRESSION: CT HEAD: 1. No acute intracranial abnormality or calvarial fracture. 2. Left mastoid air cell effusion with a trace amount of fluid in the left middle ear of uncertain chronicity. Consider clinical correlation for otomastoiditis. CT MAXILLOFACIAL SKELETON: 1. Subtle rightward offset of the right and left nasal bones likely representing nondisplaced fractures. 2. Partial opacification of the nasal cavity may relate to small volume epistaxis. I personally reviewed the images/study and I agree with the findings as stated by Telma Thakur MD (resident). MACRO: None. Signed by: Tobi Valdes 03/23/2025 12:56 AM Dictation workstation: [id number] [facility] CT HEAD WO IV CONTRASTon CT HEAD WO IV CONTRAST Interpreted By: Tobi Diaz and Elsamaloty Mazzin STUDY: CT FACIAL BONES WO IV CONTRAST; CT HEAD WO IV CONTRAST; 03/22/2025 10:47 pm INDICATION: Signs/Symptoms:facial trauma; Signs/Symptoms:fall with headstrike. COMPARISON: None. ACCESSION NUMBER(S): [id number]; [id number] ORDERING CLINICIAN: AMERICO CHING TECHNIQUE: Axial noncontrast images of the head with coronal and sagittal reformatted images. Axial noncontrast images of the facial bones with coronal and sagittal reformatted images. 3D facial reconstructions were created on an independent workstation and reviewed. FINDINGS: CT HEAD: BRAIN PARENCHYMA: No acute intraparenchymal hemorrhage or parenchymal evidence of acute large territory ischemic infarct. Espino-white matter distinction is preserved. No mass-effect. VENTRICLES and EXTRA-AXIAL SPACES: No acute extra-axial or intraventricular hemorrhage. No effacement of cerebral sulci. The ventricles and sulci are age-concordant. MASTOIDS: There is complete opacification of the left-sided mastoid air cells. The right-sided mastoid air cells are unremarkable. Trace amount of fluid in the left middle ear. CALVARIUM: No skull fracture. CT MAXILLOFACIAL SKELETON: FACIAL BONES: Subtle rightward offset of the right and left nasal bones (304/139), likely representing nondisplaced fractures. The bony orbits are intact. ORBITS: The globes, extraocular muscles, and optic nerve sheath complexes are intact. No retrobulbar or subperiosteal hematoma. Bilateral lens replacements. SOFT TISSUES: No discernible acute abnormality. PARANASAL SINUSES: No air-fluid levels within the paranasal sinuses. Partial opacification of the nasal cavity may relate to small volume epistaxis. IMPRESSION: CT HEAD: 1. No acute intracranial abnormality or calvarial fracture. 2. Left mastoid air cell effusion with a trace amount of fluid in the left middle ear of uncertain chronicity. Consider clinical correlation for otomastoiditis. CT MAXILLOFACIAL SKELETON: 1. Subtle rightward offset of the right and left nasal bones likely representing nondisplaced fractures. 2. Partial opacification of the nasal cavity may relate to small volume epistaxis. I personally reviewed the images/study and I agree with the findings as stated by Telma Thakur MD (resident). MACRO: None. Signed by: Tobi Valdes 03/23/2025 12:56 AM Dictation workstation: [id number] Normal [facility] Glucose Test strip manual (B ld) [Mass/Vol]on 03-22-2025 Glucose [Mass/Vol] 102 mg/dL High 74 - 99 mg/dL [facility] Interpretation and review of laboratory results Abnormal [facility] Glucose [Mass/Vol] 102 mg/dL High 74-99 [facility] Comment on above: Performed By: #### 2 [id number] #### BOOGIE Barragan ([id number]) [facility] ([facility]) [address] [place] [address] No Panel Informationon 03-22 Radiology Study observation (narrative) [facility] Work Phone: Basic Metabolic Profile (BMP )on 12-02-2024 BUN/CRE 25.2 RATIO High 10-20 [facility] Comment on above: Performed By: #### L 501.0900, L500.2500 #### [facility] [address] [place], [address] Calcium [Mass/Vol] 10.1 mg/dL Normal 7.6-11.0 [facility] Comment on above: Performed By: #### L 501.0900, L500.2500 #### [facility] [address] [place], [address] Chloride [Moles/Vol] 106 mmol/L Normal 98-108 [facility] Comment on above: Performed By: #### L 501.0900, L500.2500 #### [facility] [address] [place], [address] CO2 [Moles/Vol] 22.4 mmol/L Normal 21.0-32.0 [facility] Comment on above: Performed By: #### L 501.0900, L500.2500 #### [facility] [address] [place], [address] Creatinine [Mass/Vol] 2.10 mg/dL High 0.70-1.20 [facility] Comment on above: Performed By: #### L 501.0900, L500.2500 #### [facility] [address] [place], [address] GAP 11 Normal 5-15 [facility] Comment on above: Performed By: #### L 501.0900, L500.2500 #### [facility] [address] [place], [address] GFR/1.73 sq M.predicted among non-blacks MDRD (S/P/Bld) [Vol rate/Area] 25 mL/min/{1.73_m2} Low >60 [facility] Comment on above: Result Comment: mL/m in/1.73m2 CKD-EPI Creatinine Equation (2020) Performed By: #### L 501.0900, L500.2500 #### [facility] [address] [place], [address] Glucose [Mass/Vol] 129 mg/dL High 70-99 [facility] Comment on above: Performed By: #### L 501.0900, L500.2500 #### [facility] [address] [place], [address] Potassium [Moles/Vol] 4.4 mmol/L Normal 3.3-5.1 [facility] Comment on above: Performed By: #### L 501.0900, L500.2500 #### [facility] [address] [place], [address] Sodium [Moles/Vol] 139 mmol/L Normal 133-145 [facility] Comment on above: Performed By: #### L 501.0900, L500.2500 #### [facility] [address] [place], [address] Urea nitrogen [Mass/Vol] 53 mg/dL High 4-19 [facility] Comment on above: Performed By: #### L 501.0900, L500.2500 #### [facility] [address] [place], [address] Protein+Creatinine Ratio,Uri neon 12-02-2024 PROT:CRE RATIO 3097 mg/g CRE High 0-200 [facility] Comment on above: Performed By: #### L 501.0900, L500.2500 #### [facility] [address] [place], [address] Protein (U) [Mass/Vol] 131.0 mg/dL High 0.0-12.0 [facility] Comment on above: Performed By: #### L 501.0900, L500.2500 #### [facility] [address] [place], [address] UR CREAT 42.30 mg/dL Normal 28.00-217.0 0 [facility] Comment on above: Performed By: #### L 501.0900, L500.2500 #### [facility] [address] [place], [address] Basic Metabolic Profile (BMP )on 11-13-2024 BUN/CRE 36.6 RATIO High 10-20 [facility] Comment on above: Performed By: #### L 501.0900, L500.2500 #### [facility] [address] [place], [address] Urea nitrogen [Mass/Vol] 104 mg/dL Invalid Interpretation Code 11-23 [facility] Comment on above: Result Comment: Crit ical Result(s) Called at: by:??Results read back by same. Critical Result(s) Called at 1138: TO AWILLIAMSON by: KCLAPPER??Results read back by same. Critical Result(s) Called at: by:??Results read back by same. Critical Result(s) Called at: by:??Results read back by same. AMENDED REPORT 11/13/241613 BUN previously reported as: 104 *H mg/dL Critical Result(s) Called at: by:??Results read back by same. Critical Result(s) Called at 1138: TO AWILLIAMSON by: KCLAPPER??Results read back by same. Performed By: #### L 501.0900, L500.2500 #### [facility] [address] [place] [place], [address] Liver Profileon 11-13-2024 Globulin (S) [Mass/Vol] 3.3 g/dL Normal 2.2-4.2 [facility] Comment on above: Result Comment: AMENDED REPORT 11/13/241613 GLOB previously reported as: 3.2 g/dL Performed By: #### L 501.0900, L500.2500 #### [facility] [place], [address] Albumin DL <= 20 mg/L (U) [M ass/Vol]Ordered By: Gisel Mccabe on 11-12-2024 Urine Random Microalbumin 524.0 mg/L NO RANGE EST. [facility] Anion gap in Serum or Plasma Ordered By: Gisel Mccabe on 11-12-2024 Anion gap [Moles/Vol] 14 mmol/L 5-15 [facility] BUN/creatinine ratioOrdered By: Gisel Mccabe on 11-12-2024 Urea nitrogen/Creatinine [Mass ratio] 36.6 mg/mg High 10-20 [facility] Bilirubin, totalOrdered By: Gisel Mccabe on 11-12-2024 Bilirubin [Mass/Vol] 0.21 mg/dL 0.00-1.30 [facility] Bilirubin.direct [Mass/Vol]O rdered By: Gisel Mccabe on 11-12-2024 Direct Bilirubin < 0.08 mg/dL 0.00-0.30 [facility] Calculated very low density lipoprotein (VLDL) cholesterol measurementOrdered By: Gisel Mccabe on 11-12-2024 VLDL Cholesterol 47 mg/dL High 5-40 [facility] Carbon dioxide, total [Moles /volume] in Central venous bloodOrdered By: Gisel Mccabe on 11-12-2024 CO2 [Moles/Vol] 16.0 mmol/L Low 21.0-32.0 [facility] Chloride assayOrdered By: Hiwot Mccabe on 11-12-2024 Chloride [Moles/Vol] 108 mmol/L 98-108 [facility] Creatinine Unsp time (U) [Ma ss/Vol]Ordered By: Gisel Mccabe on 11-12-2024 Creatinine (U) [Mass/Vol] 41.90 mg/dL 28 .00-217.0 0 [facility] Free T3on 11-12-2024 Free T3 [Mass/Vol] 2.2 pg/mL Normal 2.18-3.98 [facility] Comment on above: Performed By: #### L 501.0900, L500.2500 #### [facility] [address] [place], [place], [address] Free U7Zrrvmse By: Gisel saenz on 11-12-2024 Free Triiodothyronine (T3) pg/dL 2.2 pg/mL 2.18-3.98 [facility] GFR/1.73 sq M.predicted karol g non-blacks MDRD (S/P/Bld) [Vol rate/Area]Ordered By: Gisel Mccabe on 11-12-2024 Estimated GFR (MDRD) Non-Af Amer 18 Low >60 [facility] Comment on above: mL/min/1.73m2 CKD-EP I Creatinine Equation (2020) Hemoglobin A1con 11-12-2024 HbA1c (Bld) [Mass fraction] 7.0 % Normal <=5.6 [facility] Comment on above: Performed By: #### L 501.0900, L500.2500 #### [facility] [address] [place], [place], [address] Hemoglobin A1c percentageOrd ered By: Gisel Mccabe on 11-12-2024 HbA1c (Bld) [Mass fraction] 7.0 % >5.7 [facility] LDL calc ser/plasOrdered By: Gisel Mccabe on 11-12-2024 LDL Cholesterol, Calculated 90 mg/dL [facility] Comment on above: Iqzduywmxf=454-037 m g/dL & Higher Jidz=073 mg/dL or greater Laboratory - Chemistry and C hemistry - challengeOrdered By: Gisel Mccabe on 11-12-2024 AST [Catalytic activity/Vol] 15 U/L <32 [facility] Lipid Profileon 11-12-2024 CHOL:HDL 4.36 Normal [facility] Comment on above: Performed By: #### L 501.0900, L500.2500 #### [facility] [address] [place], [address] Cholesterol [Mass/Vol] 178 mg/dL Normal <=200 [facility] Comment on above: Result Comment: Chol esterol level, Desirable <200 mg/dL Borderline high cholesterol 200-239 mg/dL High cholesterol >=240 mg/dL Recommendations of the NCEP Adult Treatment Panel for the following risk-cutoff thresholds for the [place] population. Performed By: #### L 501.0900, L500.2500 #### [facility] [address] [place], [address] Cholesterol in HDL [Mass/Vol] 41 mg/dL Normal [facility] Comment on above: Result Comment: Trina onal Cholesterol Education Program (NCEP) guidelines: <40 mg/dL: Low HDL-cholesterol (major risk factor for CHD) >= 60 mg/dL: High HDL-cholesterol (negative risk factor for CHD) HDL-cholesterol is affected by a number of factors, e.g. smoking, exercise, hormones, sex and age. Performed By: #### L 501.0900, L500.2500 #### [facility] [address] [place], [address] Cholesterol in LDL [Mass/Vol] 90 mg/dL Normal [facility] Comment on above: Result Comment: Bord dkbexx=664-281 mg/dL Higher Aria=711 mg/dL or greater Performed By: #### L 501.0900, L500.2500 #### [facility] [address] [place], [address] Cholesterol in VLDL [Mass/Vol] 47 mg/dL High 5-40 [facility] Comment on above: Performed By: #### L 501.0900, L500.2500 #### [facility] [address] [place], [address] Triglyceride [Mass/Vol] 236 mg/dL High [facility] Comment on above: Result Comment: The drugs N-Acetylcysteine and Metamizole may falsely depress this assay. Normal range: <150 mg/dL Borderline High: 150-199 mg/dL High: 200-499 mg/dL Very High: >500 mg/dL Performed By: #### L 501.0900, L500.2500 #### [facility] [address] [place] [place], [address] Microalbumin,Random Urineon 11-12-2024 MICROALBUMIN,UR 524.0 mg/L Normal NO RANGE EST. [facility] Comment on above: Performed By: #### L 501.0900, L500.2500 #### [facility] [address] [place], [address] Potassium (Unsp spec) [Mass/ Vol]Ordered By: Gisel Mccabe on 11-12-2024 Potassium [Moles/Vol] 5.5 mmol/L High 3.3-5.1 [facility] Protein+Creatinine Ratio,Uri neon 11-12-2024 PROT:CRE RATIO 1706 mg/g CRE High 0-200 [facility] Comment on above: Performed By: #### L 501.0900, L500.2500 #### [facility] [address] [place], [address] Protein (U) [Mass/Vol] 71.5 mg/dL High 0.0-12.0 [facility] Comment on above: Performed By: #### L 501.0900, L500.2500 #### [facility] [address] [place], [address] Protein/Creatinine (U) [Mass ratio]Ordered By: Gisel Mccabe on 11-12-2024 Urine Protein/Creatinine Ratio 1706 mg/g CRE High 0-200 [facility] Screening total cholesterol/ high density lipoprotein (HDL) cholesterol ratioOrdered By: Gisel Mccabe on 11-12-2024 Cholesterol.total/Cholest rebeca in HDL [Mass ratio] 4.36 {ratio} [facility] Serum creatinine measurement (mass/volume)Ordered By: Gisel Mccabe on 11-12-2024 Creatinine [Mass/Vol] 2.84 mg/dL High 0.70-1.20 [facility] Serum globulin measurementOr dered By: Gisel Mccabe on 11-12-2024 Globulin (S) [Mass/Vol] 3.3 g/dL 2.2-4.2 [facility] Comment on above: Previous reported re sult: 3.2 g/dLEdited by: KALANI on 11/13/24:1614 AMENDED REPORT 11/13/24 1614 GLOB previously reported as: 3.2 g/dL Serum glucose measurement (m ass/volume)Ordered By: Gisel Mccabe on 11-12-2024 Glucose [Mass/Vol] 116 mg/dL High 70-99 [facility] Serum or plasma alanine clayton otransferase (ALT) measurementOrdered By: Gisel Mccabe on 11-12-2024 ALT [Catalytic activity/Vol] 16 U/L <35 [facility] Serum or plasma albumin lamar urement (mass/volume)Ordered By: Gisel Mccabe on 11-12-2024 Albumin [Mass/Vol] 4.1 g/dL 3.4-4.8 [facility] Serum or plasma alkaline farideh sphatase measurementOrdered By: Gisel Mccabe on 11-12-2024 ALP [Catalytic activity/Vol] 56 U/L 35-104 [facility] Serum or plasma calcium lamar urement (mass/volume)Ordered By: Gisel Mccabe on 11-12-2024 Calcium [Mass/Vol] 9.6 mg/dL 7.6-11.0 [facility] Serum or plasma cholesterol in HDL measurement (mass/volume)Ordered By: Gisel Mccabe on 11-12-2024 Cholesterol in HDL [Mass/Vol] 41 mg/dL >40 [facility] Comment on above: National Cholesterol Education Program (NCEP) guidelines:<40 mg/dL: Low HDL-cholesterol (major risk factor for CHD)>= 60 mg/dL: High HDL-cholesterol (negative risk factor for CHD)HDL-cholesterol is affected by a number of factors, e.g. smoking, exercise, hormones, sex and age. Serum or plasma cholesterol measurement (mass/volume)Ordered By: Gisel Mccabe on 11-12-2024 Cholesterol [Mass/Vol] 178 mg/dL <201 [facility] Comment on above: Cholesterol level, D esirable <200 mg/dLBorderline high cholesterol 200-239 mg/dLHigh cholesterol >=240 mg/dLRecommendations of the NCEP Adult Treatment Panel for the following risk-cutoff thresholds for the [place] population. Serum or plasma urea nitroge n measurement (mass/volume)Ordered By: Gisel Mccabe on 11-12-2024 Urea nitrogen [Mass/Vol] 104 mg/dL High 4-19 [facility] Comment on above: Critical Result(s) C alled at: by: Results read back by same. Critical Result(s) Called at 1138: TO AWILLIAMSON by: KCLAPPER Results read back by same. Critical Result(s) Called at: by: Results read back by same.Critical Result(s) Called at: by: Results read back by same.Previous reported result: 104 mg/dLEdited by: AUTOINS on 11/13/24:0313 AMENDED REPORT 11/13/24 0313 BUN previously reported as: 104 *H mg/dL Critical Result(s) Called at: by: Results read back by same.Previous reported result: 104 mg/dLEdited by: AUTOINS on 11/13/24:1614 AMENDED REPORT 11/13/24 1614 BUN previously reported as: 104 *H mg/dL Critical Result(s) Called at: by: Results read back by same. Critical Result(s) Called at 1138: TO AWILLIAMSON by: KCLAPPER Results read back by same. Sodium levelOrdered By: Eileen Mccabe on 11-12-2024 Sodium [Moles/Vol] 138 mmol/L 133-145 [facility] [facility] T4 Free Directon 11-12-2024 T4 FREE DIRECT 1.30 ng/dL Normal 0.76-1.46 [facility] Comment on above: Performed By: #### L 501.0900, L500.2500 #### [facility] [address] [place], [address] T4 freeOrdered By: Gisel saenz on 11-12-2024 Free T4 [Mass/Vol] 1.30 ng/dL 0.76-1.46 [facility] TSH DL <= 0.005 mIU/L QnOrde red By: Gisel Mccabe on 11-12-2024 Thyroid Stimulating Hormone (TSH) 1.810 uIU/mL 0.300-4.200 [facility] Thyroid Stim Hormone (TSH)on 11-12-2024 TSH 1.810 uIU/mL Normal 0.300-4.200 [facility] Comment on above: Performed By: #### L 501.0900, L500.2500 #### [facility] [address] [place], [place], [address] Total proteinOrdered By: Matthew Mccabe on 11-12-2024 Protein [Mass/Vol] 7.3 g/dL 5.9-8.4 [facility] Triglycerides measurementOrd ered By: Gisel Mccabe on 11-12-2024 Triglyceride [Mass/Vol] 236 mg/dL High <199 [facility] Comment on above: The drugs N-Acetylcy steine and Metamizole may falsely depress this assay. Normal range: <150 mg/dLBorderline High: 150-199 mg/dLHigh: 200-499 mg/dLVery High: >500 mg/dL Urine protein measurement (m ass/volume)Ordered By: Gisel Mccabe on 11-12-2024 Protein (U) [Mass/Vol] 71.5 mg/dL High 0.0-12.0 [facility] Vitamin D, 25-hydroxyOrdered By: Gisel Mccabe on 11-12-2024 Vitamin D 25-Hydroxy 42.1 ng/mL 30-100 [facility] Comment on above: Vitamin D StatusDefi ciency: <20 ng/mL (50nmol/L)Insufficiency: 20-30 ng/mL (50-75 nmol/L)Sufficiency: 30-100 ng/mL (75-250 nmol/L)Toxicity: >100 ng/mL (>250 nmol/L) Vitamin D,25 Hydroxyon 11-12 Vitamin D 25-OH 42.1 ng/mL Normal 30-100 [facility] Comment on above: Result Comment: Jeana min D Status Deficiency: <20 ng/mL (50nmol/L) Insufficiency: 20-30 ng/mL (50-75 nmol/L) Sufficiency: 30-100 ng/mL (75-250 nmol/L) Toxicity: >100 ng/mL (>250 nmol/L) Performed By: #### L 501.0900, L500.2500 #### [facility] [address] [place], [address] [id number] DOrdered By: pAple Mccabe on 08-19-2024 Vitamin D 25-Hydroxy 41.5 ng/mL [facility] Comment on above: Vitamin D 25(OH) Sta tus Range Deficiency <20 ng/mL (50nmol/L) Insufficiency 20 - 30 ng/mL (50 - 75 nmol/L) Sufficiency 30 - 100 ng/mL (75 - 250 nmol/L) Toxicity >100 ng/mL (>250 nmol/L) Albumin to globulin ratioOrd ered By: Gisel Mccabe on 08-19-2024 Albumin/Globulin [Mass ratio] 0.8 {ratio} Low 0.9-2.4 [facility] Bilirubin, totalOrdered By: Gisel Mccabe on 08-19-2024 Bilirubin [Mass/Vol] 0.30 mg/dL 0.20-1.00 [facility] Comment on above: For patients on eltr ombopag therapy, use of Dimension [place] TBIL is not recommended. Blood urea nitrogen (BUN)/cr eatinine ratioOrdered By: Gisel Mccabe on 08-19-2024 Urea nitrogen/Creatinine [Mass ratio] 25.1 mg/mg High 10-20 [facility] Carbon dioxide measurementOr dered By: Gisel Mccabe on 08-19-2024 CO2 [Moles/Vol] 20.0 mmol/L Low 21.0-32.0 [facility] Chloride measurementOrdered By: Gisel Mccabe on 08-19-2024 Chloride [Moles/Vol] 110 mmol/L High 98-107 [facility] Comprehensive Metabolic Prof ilon 08-19-2024 Albumin [Mass/Vol] 3.4 g/dL Normal 3.2-5.0 [facility] Comment on above: Order Comment: N Performed By: #### L 501.9985, L506.1000, L506.0400, L502.0250, L500.4050, L501.9520, L501.90122 #### [facility] [address] [place], [address] Albumin/Globulin [Mass ratio] 0.8 {ratio} Low 0.9-2.4 [facility] Comment on above: Order Comment: N Performed By: #### L 501.9985, L506.1000, L506.0400, L502.0250, L500.4050, L501.9520, L501.17215 #### [facility] [address] [place], [address] ALK P 54 U/L Normal 45-117 [facility] Comment on above: Order Comment: N Performed By: #### L 501.9985, L506.1000, L506.0400, L502.0250, L500.4050, L501.9520, L501.71710 #### [facility] [address] [place], [address] ALT [Catalytic activity/Vol] 49 U/L Normal 13-56 [facility] Comment on above: Order Comment: N Performed By: #### L 501.9985, L506.1000, L506.0400, L502.0250, L500.4050, L501.9520, L501.27041 #### [facility] [address] [place], [address] AST [Catalytic activity/Vol] 33 U/L Normal 15-37 [facility] Comment on above: Order Comment: N Performed By: #### L 501.9985, L506.1000, L506.0400, L502.0250, L500.4050, L501.9520, L501.89485 #### [facility] [address] [place] [place], [address] Bilirubin [Mass/Vol] 0.30 mg/dL Normal 0.20-1.00 [facility] Comment on above: Order Comment: N Result Comment: For patients on eltrombopag therapy, use of Dimension [place] TBIL is not recommended. Performed By: #### L 501.9985, L506.1000, L506.0400, L502.0250, L500.4050, L501.9520, L501.02796 #### [facility] [address] [place], [address] BUN/CRE 25.1 RATIO High 10-20 [facility] Comment on above: Order Comment: N Performed By: #### L 501.9985, L506.1000, L506.0400, L502.0250, L500.4050, L501.9520, L501.49197 #### [facility] [address] [place], [address] CA,Total 9.2 mg/dL Normal 8.5-10.1 [facility] Comment on above: Order Comment: N Performed By: #### L 501.9985, L506.1000, L506.0400, L502.0250, L500.4050, L501.9520, L501.06543 #### [facility] [address] [place], [address] Chloride [Moles/Vol] 110 mmol/L High 98-107 [facility] Comment on above: Order Comment: N Performed By: #### L 501.9985, L506.1000, L506.0400, L502.0250, L500.4050, L501.9520, L501.31017 #### [facility] [address] [place], [address] CO2 [Moles/Vol] 20.0 mmol/L Low 21.0-32.0 [facility] Comment on above: Order Comment: N Performed By: #### L 501.9985, L506.1000, L506.0400, L502.0250, L500.4050, L501.9520, L501.57834 #### [facility] [address] [place], [address] Creatinine [Mass/Vol] 2.99 mg/dL High 0.55-1.02 [facility] Comment on above: Order Comment: N Result Comment: The validity of the calculated GFR GFRAA in patients over 70 years has not been determined. Clinical correlation is essential. Performed By: #### L 501.9985, L506.1000, L506.0400, L502.0250, L500.4050, L501.9520, L501.10792 #### [facility] [address] [place], [place], [id number] (483 EST GFR - AA 20 mL/min Low >60 [facility] Comment on above: Order Comment: N Result Comment: Afri can Syrian GFR Calc Performed By: #### L 501.9985, L506.1000, L506.0400, L502.0250, L500.4050, L501.9520, L501.44422 #### [facility] [address] [place], [address] GAP 10 Normal 5-15 [facility] Comment on above: Order Comment: N Performed By: #### L 501.9985, L506.1000, L506.0400, L502.0250, L500.4050, L501.9520, L501.02457 #### [facility] [address] [place], [address] GFR/1.73 sq M.predicted among non-blacks MDRD (S/P/Bld) [Vol rate/Area] 17 mL/min/{1.73_m2} Low >60 [facility] Comment on above: Order Comment: N Result Comment: Non- GFR Calc Performed By: #### L 501.9985, L506.1000, L506.0400, L502.0250, L500.4050, L501.9520, L501.94626 #### [facility] [address] [place], [address] Globulin (S) [Mass/Vol] 4.5 g/dL High 2.2-4.2 [facility] Comment on above: Order Comment: N Performed By: #### L 501.9985, L506.1000, L506.0400, L502.0250, L500.4050, L501.9520, L501.72310 #### [facility] [address] [place], [address] Glucose [Mass/Vol] 47 mg/dL Low 74-106 [facility] Comment on above: Order Comment: N Result Comment: Gluc ose result less than 50 mg/dL suggests HYPOGLYCEMIA. Performed By: #### L 501.9985, L506.1000, L506.0400, L502.0250, L500.4050, L501.9520, L501.33363 #### [facility] [address] [place], [address] Potassium [Moles/Vol] 4.6 mmol/L Normal 3.5-5.1 [facility] Comment on above: Order Comment: N Performed By: #### L 501.9985, L506.1000, L506.0400, L502.0250, L500.4050, L501.9520, L501.84410 #### [facility] [address] [place], [address] Sodium [Moles/Vol] 140 mmol/L Normal 136-145 [facility] Comment on above: Order Comment: N Performed By: #### L 501.9985, L506.1000, L506.0400, L502.0250, L500.4050, L501.9520, L501.86029 #### [facility] [address] [place], [place], [id number] T PROT 7.9 g/dL Normal 6.4-8.2 [facility] Comment on above: Order Comment: N Performed By: #### L 501.9985, L506.1000, L506.0400, L502.0250, L500.4050, L501.9520, L501.94422 #### [facility] [address] [place], [place], [id number] Urea nitrogen [Mass/Vol] 75 mg/dL High 7-18 [facility] Comment on above: Order Comment: N Performed By: #### L 501.9985, L506.1000, L506.0400, L502.0250, L500.4050, L501.9520, L501.20128 #### [facility] [address] [place], [place], [phone] Direct serum free thyroxine (FT4) measurementOrdered By: Gisel Mccabe on 08-19-2024 Free T4 [Mass/Vol] 1.33 ng/dL 0.76-1.46 [facility] Estimated glomerular filtrat ion rate (GFR) AmericanOrdered By: Gisel Mccabe on 08-19-2024 Estimated GFR (MDRD) Amer 20 mL/min Low >60 [facility] Comment on above: GFR Calc Free T3on 08-19-2024 Free T3 [Mass/Vol] 1.4 pg/mL Low 2.18-3.98 [facility] Comment on above: Order Comment: N Performed By: #### L 501.9985, L506.1000, L506.0400, L502.0250, L500.4050, L501.9520, L501.91007 #### [facility] [address] [place], [place], [address] Free K4Mlmzdlq By: Gisel saenz on 08-19-2024 Free Triiodothyronine (T3) pg/dL 1.4 pg/mL Low 2.18-3.98 [facility] Glomerular filtration rate ( GFR) estimationOrdered By: Gisel Mccabe on 08-19-2024 Estimated GFR (MDRD) Non-Af Amer 17 mL/min Low >60 [facility] Comment on above: Non- GFR Calc Glucose measurementOrdered B y: Gisel Mccabe on 08-19-2024 Glucose [Mass/Vol] 47 mg/dL Low 74-106 [facility] Comment on above: Glucose result less than 50 mg/dL suggests HYPOGLYCEMIA. Hemoglobin A1con 08-19-2024 HbA1c (Bld) [Mass fraction] 6.2 % High 3.8-5.6 [facility] Comment on above: Result Comment: Norm al < 5.7 % Prediabetic 5.7 - 6.4 % Diabetic >or= 6.5 % Please note range changes. Performed By: #### L 501.9985, L506.1000, L506.0400, L502.0250, L500.4050, L501.9520, L501.75194 #### [facility] [address] [place], [place], [address] Hemoglobin A1c percentageOrd ered By: Gisel Mccabe on 08-19-2024 HbA1c (Bld) [Mass fraction] 6.2 % High 3.8-5.6 [facility] Comment on above: Normal < 5.7 % Predi abetic 5.7 - 6.4 % Diabetic >or= 6.5 % Please note range changes. Laboratory - Chemistry and C hemistry - challengeOrdered By: Gisel Mccabe on 08-19-2024 AST [Catalytic activity/Vol] 33 U/L 15-37 [facility] Microalb:Creat Ratio,Random URon 08-19-2024 Creatinine [Mass/Vol] 68.40 mg/dL Normal NO RAN GE EST. [facility] Comment on above: Performed By: #### L 501.9985, L506.1000, L506.0400, L502.0250, L500.4050, L501.9520, L501.88634 #### [facility] [address] [place], [place], [id number] (079) MALB:CRE 1447.4 mg/g CRE High <30 mg/g CRE [facility] Comment on above: Performed By: #### L 501.9985, L506.1000, L506.0400, L502.0250, L500.4050, L501.9520, L501.25474 #### [facility] [address] [place], [place], [phone] MICROALBUMIN,UR 990.0 mg/L Normal NO RANGE EST. [facility] Comment on above: Performed By: #### L 501.9985, L506.1000, L506.0400, L502.0250, L500.4050, L501.9520, L501.81950 #### [facility] [address] [place], [place], [phone] Potassium measurementOrdered By: Gisel Mccabe on 08-19-2024 Potassium [Moles/Vol] 4.6 mmol/L 3.5-5.1 [facility] Random urine microalbumin me asurementOrdered By: Gisel Mccabe on 08-19-2024 Urine Random Microalbumin 990.0 mg/L NO RANGE EST. [facility] Serum anion gap measurementO rdered By: Gisel Mccabe on 08-19-2024 Anion gap [Moles/Vol] 10 mmol/L 5-15 [facility] Serum globulin measurementOr dered By: Gisel Mccabe on 08-19-2024 Globulin (S) [Mass/Vol] 4.5 g/dL High 2.2-4.2 [facility] Serum or plasma alanine clayton otransferase (ALT) measurementOrdered By: Gisel Mccabe on 08-19-2024 ALT [Catalytic activity/Vol] 49 U/L 13-56 [facility] Serum or plasma albumin lamar urement (mass/volume)Ordered By: Gisel Mccabe on 08-19-2024 Albumin [Mass/Vol] 3.4 g/dL 3.2-5.0 [facility] Serum or plasma alkaline farideh sphatase measurementOrdered By: Gisel Mccabe on 08-19-2024 ALP [Catalytic activity/Vol] 54 U/L 45-117 [facility] Serum or plasma calcium lamar urement (mass/volume)Ordered By: Gisel Mccabe on 08-19-2024 Calcium [Mass/Vol] 9.2 mg/dL 8.5-10.1 [facility] Serum or plasma creatinine m easurement (mass/volume)Ordered By: Gisel Mccabe on 08-19-2024 Creatinine [Mass/Vol] 2.99 mg/dL High 0.55-1.02 [facility] Comment on above: The validity of the calculated GFR & GFRAA in patients over 70 years has not been determined. Clinical correlation is essential. Serum or plasma urea nitroge n measurement (mass/volume)Ordered By: Gisel Mccabe on 08-19-2024 Urea nitrogen [Mass/Vol] 75 mg/dL High 7-18 [facility] Sodium levelOrdered By: Eileen Mccabe on 08-19-2024 Sodium [Moles/Vol] 140 mmol/L 136-145 [facility] T4 Free Directon 08-19-2024 T4 FREE DIRECT 1.33 ng/dL Normal 0.76-1.46 [facility] Comment on above: Order Comment: N Performed By: #### L 501.9985, L506.1000, L506.0400, L502.0250, L500.4050, L501.9520, L501.81066 #### [facility] [address], [address] TSH QnOrdered By: Gisel reyes on 08-19-2024 Thyroid Stimulating Hormone (TSH) 2.070 uIU/mL 0.358-3.740 [facility] Thyroid Stim Hormone (TSH)on 08-19-2024 TSH 2.070 uIU/mL Normal 0.358-3.740 [facility] Comment on above: Order Comment: N Performed By: #### L 501.9985, L506.1000, L506.0400, L502.0250, L500.4050, L501.9520, L501.35476 #### [facility] [address] [place], [place], [phone] Total proteinOrdered By: Matthew Mccabe on 08-19-2024 Protein [Mass/Vol] 7.9 g/dL 6.4-8.2 [facility] Urine albumin/creatinine rat io for detection of microalbuminuriaOrdered By: Gisel Mccabe on 08-19-2024 Urine Microalbumin/Creatinine Ratio 1447.4 mg/g CRE High <30 [facility] Urine creatinine measurement (mass/volume)Ordered By: Gisel Mccabe on 08-19-2024 Creatinine (U) [Mass/Vol] 68.40 mg/dL NO RANGE EST. [facility] Vitamin D,25 Hydroxyon 08-19 Vitamin D 25-OH 41.5 ng/mL Normal [facility] Comment on above: Result Comment: Jeana min D 25(OH) Status Range Deficiency <20 ng/mL (50nmol/L) Insufficiency 20 - 30 ng/mL (50 - 75 nmol/L) Sufficiency 30 - 100 ng/mL (75 - 250 nmol/L) Toxicity >100 ng/mL (>250 nmol/L) Performed By: #### L 501.9985, L506.1000, L506.0400, L502.0250, L500.4050, L501.9520, L501.08332 #### [facility] [address] [place], [place], [phone] Absolute lymphocyte countOrd ered By: Robby Joe on 11-12-2023 Lymphocytes Auto (Unsp spec) [#/Vol] 2.74 10*3/uL 0.83-4.51 [facility] Automated lymphocyte count a s percentage of total leukocytesOrdered By: Robby Joe on 11-12-2023 Lymphocytes/100 WBC Auto (Unsp spec) 28.2 % 19-41 [facility] Basophil percentageOrdered B y: Robby Joe on 11-12-2023 Basophil percentage 0-5 SEEN /hpf 0-5 [facility] Lactate [Moles/Vol] 1.0 mmol[facility]L [facility].4-[facility] Bas[facility] WBC (Bld) 0.7 % 0-1 [facility] Chloride [Moles/Vol] 104 mmol/L 98-107 [facility] Eosinophils/100 WBC (Bld) 3.2 % 0-5 [facility] Glucose [Mass/Vol] 360 mg/dL 74-106 [facility] Comment on above: Glucose result great er than or equal to 200 mg/dLsuggests DIABETES MELLITUS per A.D.A. criteria. Hemoglobin (Bld) [Mass/Vol] 12.6 g/dL 12.0-15.0 [facility] Monocytes/100 WBC (Bld) 10.7 % 0-10 [facility] Neutrophils (Bld) [#/Vol] 5.5 10*3/uL 2.0-7.7 [facility] Neutrophils/100 WBC (Bld) 56.5 % 47-70 [facility] Potassium [Moles/Vol] 5.3 mmol/L 3.5-5.1 [facility] Sodium [Moles/Vol] 131 mmol/L 136-145 [facility] WBC (Bld) [#/Vol] 9.7 10*3/uL 4.4-11.0 [facility] Bilirubin Test strip Ql (U)O rdered By: Robby Joe on 11-12-2023 Bilirubin Ql (U) Negative Negative [facility] Determination of erythrocyte mean corpuscular volume (MCV)Ordered By: Robby Joe on 11-12-2023 MCV (RBC) [Entitic vol] 100.7 fL 81-99 [facility] Erythrocyte distribution wid th ratioOrdered By: Robby Joe on 11-12-2023 Erythrocyte distribution width (RBC) [Ratio] 12.4 % 11.6-14.6 [facility] Erythrocyte distribution wid th standard deviationOrdered By: Robby Joe on 11-12-2023 Erythrocyte distribution width (RBC) [Entitic vol] 45.9 fL 35.1-43.9 [facility] Hematocrit Auto (Bld) [Volum e fraction]Ordered By: Robby Joe on 11-12-2023 Hematocrit (Bld) [Volume fraction] 40.8 % 37-47 [facility] Immature granulocytes/100 WB C Auto (Bld)Ordered By: Robby Joe on 11-12-2023 Immature granulocytes/100 WBC (Bld) 0.700 % 0.0-0.9 [facility] Comment on above: IG% - Immature Granu locytes (promyelocytes, myelocytes and metamyelocytes) > 1% indicates that a LEFT SHIFT is Present. Ketones Test strip Ql (U)Ord ered By: Robby Joe on 11-12-2023 Ketones Ql (U) Negative Negative [facility] - Chemistry and C hemistry - challengeOrdered By: Robby Joe on 11-12-2023 CO2 [Moles/Vol] 20.0 mmol/L 21.0-32.0 [facility] Urea nitrogen/Creatinine [Mass ratio] 23.8 mg/mg 10-20 [facility] - Hematology and Cell countsOrdered By: Robby Joe on 11-12-2023 MCH (RBC) [Entitic mass] 31.1 pg 27.0-32.0 [facility] MCHC (RBC) [Mass/Vol] 30.9 g/dL 32-36 [facility] Nucleated RBC/100 WBC (Bld) [Ratio] 0 % 0-5 [facility] Platelet mean volume (Bld) [Entitic vol] 9.7 fL 6.2-12.0 [facility] Platelets (Bld) [#/Vol] 386 10*3/uL 150-450 [facility] Mucus LM Ql (Urine sed)Order ed By: Robby Joe on 11-12-2023 Mucus Ql (Urine sed) 0 SEEN /hpf [facility] Nitrite Test strip Ql (U)Ord ered By: Robby Joe on 11-12-2023 Nitrite Ql (U) Negative Negative [facility] No Panel InformationOrdered By: Robby Joe on 11-12-2023 Urine RBC 0 SEEN /hpf 0-5 [facility] Estimated Creatinine Clearance Calc 20.29 ml/min [facility] Estimated GFR (MDRD) Amer 23 mL/min >60 [facility] Comment on above: GFR Calc Estimated GFR (MDRD) Non-Af Amer 19 mL/min >60 [facility] Comment on above: Non- GFR Calc Troponin I High Sensitivity 3 pg/mL 3.0-54.0 [facility] Comment on above: Please Note: New Je t Units and Gender Specific Reference Ranges. For more information see Policy Stat Procedure [place] High Sensitivity Troponin (TNIH) and attachments. Protein Test strip Ql (U)Ord ered By: Robby Joe on 11-12-2023 Protein Ql (U) 100 mg/dl Negative [facility] RBC Auto (Bld) [#/Vol]Ordere d By: Robby Joe on 11-12-2023 RBC (Bld) [#/Vol] 4.05 10*6/uL 4.2-5.4 [facility] Serum or plasma calcium lamar urement (mass/volume)Ordered By: Robby Joe on 11-12-2023 Calcium [Mass/Vol] 9.1 mg/dL 8.5-10.1 [facility] Serum or plasma creatinine m easurement (mass/volume)Ordered By: Robby Joe on 11-12-2023 Creatinine [Mass/Vol] 2.65 mg/dL 0.55-1.02 [facility] Comment on above: The validity of the calculated GFR & GFRAA in patients over 70 years has not been determined. Clinical correlation is essential. Serum or plasma urea nitroge n measurement (mass/volume)Ordered By: Robby Joe on 11-12-2023 Urea nitrogen [Mass/Vol] 63 mg/dL 7-18 [facility] Squamous epithelial cells de tection in urine sediment by light microscopyOrdered By: Robby Joe on 11-12-2023 Epithelial cells.squamous LM Ql (Urine sed) 0-5 SEEN /hpf 5-10 [facility] Thin prep Papanicolaou smear with manual screeningOrdered By: Robby Joe on 11-12-2023 Thin prep Papanicolaou smear with manual screening 343 mg/dL 74-106 [facility] Comment on above: MANAGEMENT OF PATIEN T CARE PER NURSING PROTOCOL Thin prep Papanicolaou smear with manual screening 7 5-15 [facility] Urine blood detectionOrdered By: Robby Joe on 11-12-2023 RBC Ql (U) 25 /ul Negative [facility] Urine clarityOrdered By: Mann Joe on 11-12-2023 Clarity (U) Clear Clear [facility] Urine color determinationOrd ered By: Robby Joe on 11-12-2023 Color (U) Yellow Yellow [facility] Urine glucose detectionOrder ed By: Robby Joe on 11-12-2023 Glucose Ql (U) 1000 mg/dl Normal [facility] Urine leukocyte esterase det ection by dipstickOrdered By: Robby Joe on 11-12-2023 Leukocyte esterase Test strip Ql (U) Negative Negative [facility] Urine pHOrdered By: Robby lópez on 11-12-2023 pH (U) 5.0 [pH] 5.0 - 8.0 [facility] Urine sediment bacteria coun t by microscopy (number/high power field)Ordered By: Robby Joe on 11-12-2023 Bacteria LM.HPF (Urine sed) [#/Area] 0 /[HPF] None Seen [facility] Urine specific gravity measu rementOrdered By: Robby Joe on 11-12-2023 Specific gravity (U) [Rel density] 1.010 1.002-1.030 [facility] Urine urobilinogen measureme ntOrdered By: Robby Joe on 11-12-2023 Urobilinogen Ql (U) Normal mg/dl Normal [facility] Basophil percentageOrdered B y: Giselilda Mccabe on 09-14-2023 Bilirubin [Mass/Vol] 0.40 mg/dL 0.20-1.00 [facility] Comment on above: For patients on eltr ombopag therapy, use of Dimension [place] TBIL is not recommended. Chloride [Moles/Vol] 110 mmol/L 98-107 [facility] Glucose [Mass/Vol] 125 mg/dL 74-106 [facility] Comment on above: Fasting Glucose resu lt from 100 to 125 mg/dL suggests IMPAIRED HOMEOSTASIS per A.D.A. criteria. Hemoglobin (Bld) [Mass/Vol] 11.9 g/dL 12.0-15.0 [facility] Potassium [Moles/Vol] 4.6 mmol/L 3.5-5.1 [facility] Protein [Mass/Vol] 7.4 g/dL 6.4-8.2 [facility] Sodium [Moles/Vol] 141 mmol/L 136-145 [facility] WBC (Bld) [#/Vol] 10.9 10*3/uL 4.4-11.0 [facility] Determination of erythrocyte mean corpuscular volume (MCV)Ordered By: Gisel Mccabe on 09-14-2023 MCV (RBC) [Entitic vol] 95.1 fL 81-99 [facility] Erythrocyte distribution wid th ratioOrdered By: [facility] on 09-14-2023 Erythrocyte distribution width (RBC) [Ratio] 12.4 % 11.6-14.6 [facility] Erythrocyte distribution wid th standard deviationOrdered By: [facility] on 09-14-2023 Erythrocyte distribution width (RBC) [Entitic vol] 42.5 fL 35.1-43.9 [facility] Hematocrit Auto (Bld) [Volum e fraction]Ordered By: Gisel Raghallie on 09-14-2023 Hematocrit (Bld) [Volume fraction] 36.5 % 37-47 [facility] - Chemistry and C hemistry - challengeOrdered By: Giselnena Mccabe on 09-14-2023 Albumin/Globulin [Mass ratio] 0.8 {ratio} 0.9-2.4 [facility] ALP [Catalytic activity/Vol] 67 U/L 45-117 [facility] ALT [Catalytic activity/Vol] 29 U/L 13-56 [facility] CO2 [Moles/Vol] 22.0 mmol/L 21.0-32.0 [facility] Globulin (S) [Mass/Vol] 4.0 g/dL 2.2-4.2 [facility] Urea nitrogen/Creatinine [Mass ratio] 22.6 mg/mg 10-20 [facility] - Hematology and Cell countsOrdered By: Gisel Mccabe on 09-14-2023 MCH (RBC) [Entitic mass] 31.0 pg 27.0-32.0 [facility] MCHC (RBC) [Mass/Vol] 32.6 g/dL 32-36 [facility] Platelet mean volume (Bld) [Entitic vol] 9.4 fL 6.2-12.0 [facility] Platelets (Bld) [#/Vol] 354 10*3/uL 150-450 [facility] No Panel InformationOrdered By: Gisel Mccabe on 09-14-2023 Estimated GFR (MDRD) Amer 26 mL/min >60 [facility] Comment on above: GFR Calc Estimated GFR (MDRD) Non-Af Amer 22 mL/min >60 [facility] Comment on above: Non- GFR Calc Urine Microalbumin/Creatinine Ratio 1776.5 mg/g CRE <30 [facility] Vitamin D 25-Hydroxy 59.5 ng/mL [facility] Comment on above: Vitamin D 25(OH) Sta tus Range Deficiency <20 ng/mL (50nmol/L) Insufficiency 20 - 30 ng/mL (50 - 75 nmol/L) Sufficiency 30 - 100 ng/mL (75 - 250 nmol/L) Toxicity >100 ng/mL (>250 nmol/L) RBC Auto (Bld) [#/Vol]Ordere d By: Gisel Mccabe on 09-14-2023 RBC (Bld) [#/Vol] 3.84 10*6/uL 4.2-5.4 [facility] Serum or plasma calcium lamar urement (mass/volume)Ordered By: Gisel Mccabe on 09-14-2023 Calcium [Mass/Vol] 9.2 mg/dL 8.5-10.1 [facility] Serum or plasma creatinine m easurement (mass/volume)Ordered By: Gisel Mccabe on 09-14-2023 Creatinine [Mass/Vol] 2.39 mg/dL 0.55-1.02 [facility] Comment on above: The validity of the calculated GFR & GFRAA in patients over 70 years has not been determined. Clinical correlation is essential. Serum or plasma thyroid stim ulating hormone (TSH) measurement (units/volume)Ordered By: Gisel Mccabe on 09-14-2023 TSH Qn 0.84 uIU/mL 0.358-3.74 [facility] Serum or plasma urea nitroge n measurement (mass/volume)Ordered By: Gisel Mccabe on 09-14-2023 Urea nitrogen [Mass/Vol] 54 mg/dL 7-18 [facility] Thin prep Papanicolaou smear with manual screeningOrdered By: Giselnena Mccabe on 09-14-2023 Thin prep Papanicolaou smear with manual screening 3.4 g/dL 3.2-5.0 [facility] Thin prep Papanicolaou smear with manual screening 15 U/L 15-37 [facility] Thin prep Papanicolaou smear with manual screening 9 5-15 [facility] Thin prep Papanicolaou smear with manual screening 755.0 mg/L NO RANGE EST. [facility] Thin prep Papanicolaou smear with manual screening 1.05 ng/dL 0.76-1.46 [facility] Urine creatinine measurement (mass/volume)Ordered By: Giselnena Mccabe on 09-14-2023 Creatinine (U) [Mass/Vol] 42.50 mg/dL NO RANGE EST. [facility] Basophil percentageOrdered B y: Sherif Orantes on 08-03-2023 Chloride [Moles/Vol] 110 mmol/L 98-107 [facility] Glucose [Mass/Vol] 119 mg/dL 74-106 [facility] Comment on above: Fasting Glucose resu lt from 100 to 125 mg/dL suggests IMPAIRED HOMEOSTASIS per A.D.A. criteria. Potassium [Moles/Vol] 4.7 mmol/L 3.5-5.1 [facility] Sodium [Moles/Vol] 140 mmol/L 136-145 [facility] Laboratory - Chemistry and C hemistry - challengeOrdered By: Sherif Orantes on 08-03-2023 CO2 [Moles/Vol] 24.0 mmol/L 21.0-32.0 [facility] Urea nitrogen/Creatinine [Mass ratio] 21.3 mg/mg 10-20 [facility] No Panel InformationOrdered By: Sherif Orantes on 08-03-2023 Estimated GFR (MDRD) Amer 33 mL/min >60 [facility] Comment on above: GFR Calc Estimated GFR (MDRD) Non-Af Amer 27 mL/min >60 [facility] Comment on above: Non- GFR Calc Serum or plasma calcium lmaar urement (mass/volume)Ordered By: Sherif Orantes on 08-03-2023 Calcium [Mass/Vol] 9.2 mg/dL 8.5-10.1 [facility] Serum or plasma creatinine m easurement (mass/volume)Ordered By: Sherif Orantes on 08-03-2023 Creatinine [Mass/Vol] 1.97 mg/dL 0.55-1.02 [facility] Comment on above: The validity of the calculated GFR & GFRAA in patients over 70 years has not been determined. Clinical correlation is essential. Serum or plasma urea nitroge n measurement (mass/volume)Ordered By: Sherif Orantes on 08-03-2023 Urea nitrogen [Mass/Vol] 42 mg/dL 7-18 [facility] Thin prep Papanicolaou smear with manual screeningOrdered By: Sherif Orantes on 08-03-2023 Thin prep Papanicolaou smear with manual screening 6 5-15 [facility] Urine creatinine measurement (mass/volume)Ordered By: Sherif Orantes on 08-03-2023 Creatinine (U) [Mass/Vol] 21.50 mg/dL NO RANGE EST. [facility] Urine protein measurement (m ass/volume)Ordered By: Sherif Orantes on 08-03-2023 Protein (U) [Mass/Vol] 106.8 mg/dL 0.0-11.8 [facility] Urine protein/creatinine mas s ratioOrdered By: Shreif Orantes on 08-03-2023 Protein/Creatinine (U) [Mass ratio] 4967 mg/g CRE 0-200 [facility] Basophil percentageOrdered B y: Gisel Mccabe on 06-06-2023 Bilirubin [Mass/Vol] 0.20 mg/dL 0.20-1.00 [facility] Comment on above: For patients on eltr ombopag therapy, use of Dimension [place] TBIL is not recommended. Chloride [Moles/Vol] 110 mmol/L 98-107 [facility] Cholesterol [Mass/Vol] 177 mg/dL <200 [facility] Comment on above: <200 mg/dL Desirable 200-240 mg/dL Borderline >240 mg/dL High Risk Glucose [Mass/Vol] 163 mg/dL 74-106 [facility] Comment on above: Fasting Glucose resu lt greater than or equal to 126 mg/dL suggests DIABETES MELLITUS per A.D.A. criteria. Potassium [Moles/Vol] 4.4 mmol/L 3.5-5.1 [facility] Protein [Mass/Vol] 7.6 g/dL 6.4-8.2 [facility] Sodium [Moles/Vol] 137 mmol/L 136-145 [facility] Triglyceride [Mass/Vol] 297 mg/dL <199 [facility] Comment on above: The drugs N-Acetylcy steine and Metamizole may falsely depress this assay.Serum Triglycerides Reference Interval Normal <150 mg/dL Borderline high 150 - 199 mg/dL High 200 - 499 mg/dL Very High > or = 500 mg/dL Laboratory - Chemistry and C hemistry - challengeOrdered By: Gisel Mccabe on 06-06-2023 ALP [Catalytic activity/Vol] 70 U/L 45-117 [facility] ALT [Catalytic activity/Vol] 26 U/L 13-56 [facility] CO2 [Moles/Vol] 24.0 mmol/L 21.0-32.0 [facility] Free T4 [Mass/Vol] 1.10 ng/dL 0.76-1.46 [facility] Globulin (S) [Mass/Vol] 4.4 g/dL 2.2-4.2 [facility] Urea nitrogen/Creatinine [Mass ratio] 28.8 mg/mg 10-20 [facility] No Panel InformationOrdered By: Gisel Mccabe on 06-06-2023 Estimated GFR (MDRD) Amer 34 mL/min >60 [facility] Comment on above: GFR Calc Estimated GFR (MDRD) Non-Af Amer 28 mL/min >60 [facility] Comment on above: Non- GFR Calc Thyroid Stimulating Hormone (TSH) 0.24 uIU/mL 0.358-3.74 [facility] Serum or plasma albumin lamar urement (mass/volume)Ordered By: Gisel Mccabe on 06-06-2023 Albumin [Mass/Vol] 3.2 g/dL 3.2-5.0 [facility] Serum or plasma albumin/glob ulin mass ratioOrdered By: Gisel [facility] 06-06-2023 Albumin/Globulin [Mass ratio] 0.7 {ratio} 0.9-2.4 [facility] Serum or plasma calcium lamar urement (mass/volume)Ordered By: Giselnena Mccabe on 06-06-2023 Calcium [Mass/Vol] 8.9 mg/dL 8.5-10.1 [facility] Serum or plasma cholesterol in HDL measurement (mass/volume)Ordered By: Gisel Raghallie on 06-06-2023 Cholesterol in HDL [Mass/Vol] 46 mg/dL >40 [facility] Comment on above: The drugs N-Acetylcy steine and Metamizole may falsely depress this assay. Reference Range HDL <40 mg/dL Low HDL Cholesterol HDL >or= 60 mg/dL High HDL Cholesterol Serum or plasma cholesterol in VLDL measurement (mass/volume)Ordered By: Gisel Mccabe 06-06-2023 Cholesterol in VLDL [Mass/Vol] 59 mg/dL 5-40 [facility] Serum or plasma creatinine m easurement (mass/volume)Ordered By: Giselnena Mccabe 06-06-2023 Creatinine [Mass/Vol] 1.91 mg/dL 0.55-1.02 [facility] Comment on above: The validity of the calculated GFR & GFRAA in patients over 70 years has not been determined. Clinical correlation is essential. Serum or plasma low density lipoprotein (LDL) cholesterol measurement (mass/volume)Ordered By: Gisel Mccabe on 06-06-2023 Cholesterol in LDL [Mass/Vol] 72 mg/dL 0-130 [facility] Serum or plasma urea nitroge n measurement (mass/volume)Ordered By: Gisel Raghallie 06-06-2023 Urea nitrogen [Mass/Vol] 55 mg/dL 7-18 [facility] Thin prep Papanicolaou smear with manual screeningOrdered By: Gisel Mccabe on 06-06-2023 Thin prep Papanicolaou smear with manual screening 13 U/L 15-37 [facility] Thin prep Papanicolaou smear with manual screening 3 5-15 [facility] Whole blood hemoglobin A1c/t otal hemoglobin ratio (mass fraction)Ordered By: Gisel Mccabe on 06-06-2023 HbA1c (Bld) [Mass fraction] 6.3 % 3.8-5.6 [facility] Comment on above: Normal < 5.7 % Predi abetic 5.7 - 6.4 % Diabetic >or= 6.5 % Please note range changes. Basophil percentageOrdered B y: Sherif Orantes on 05-08-2023 Basophil percentage 5.2 mg/dL 2.5-4.9 [facility] Chloride [Moles/Vol] 109 mmol/L 98-107 [facility] Glucose [Mass/Vol] 119 mg/dL 74-106 [facility] Comment on above: Fasting Glucose resu lt from 100 to 125 mg/dL suggests IMPAIRED HOMEOSTASIS per A.D.A. criteria. Potassium [Moles/Vol] 5.7 mmol/L 3.5-5.1 [facility] Sodium [Moles/Vol] 138 mmol/L 136-145 [facility] WBC (Bld) [#/Vol] 10.2 10*3/uL 4.4-11.0 [facility] Blood erythrocytes count (nu mber/volume)Ordered By: Sherif Orantes on 05-08-2023 RBC (Bld) [#/Vol] 3.74 10*6/uL 4.2-5.4 [facility] Blood hemoglobin measurement (mass/volume)Ordered By: Sherif Orantes on 05-08-2023 Hemoglobin (Bld) [Mass/Vol] 11.4 g/dL 12.0-15.0 [facility] Blood platelet mean volumeOr dered By: Sherif Orantes on 05-08-2023 Platelet mean volume (Bld) [Entitic vol] 9.2 fL 6.2-12.0 [facility] Determination of erythrocyte mean corpuscular volume (MCV)Ordered By: Sherif Orantes on 05-08-2023 MCV (RBC) [Entitic vol] 99.5 fL 81-99 [facility] Hematocrit Auto (Bld) [Volum e fraction]Ordered By: Sherif Orantes on 05-08-2023 Hematocrit (Bld) [Volume fraction] 37.2 % 37-47 [facility] - Chemistry and C hemistry - challengeOrdered By: Sherif Orantes on 05-08-2023 CO2 [Moles/Vol] 22.0 mmol/L 21.0-32.0 [facility] Urea nitrogen/Creatinine [Mass ratio] 26.1 mg/mg 10-20 [facility] - Hematology and Cell countsOrdered By: Sherif Orantes on 05-08-2023 Erythrocyte distribution width (RBC) [Entitic vol] 44.9 fL 35.1-43.9 [facility] Erythrocyte distribution width (RBC) [Ratio] 12.5 % 11.6-14.6 [facility] MCH (RBC) [Entitic mass] 30.5 pg 27.0-32.0 [facility] MCHC Auto (RBC) [Mass/Vol]Or dered By: Sherif Orantes on 05-08-2023 MCHC (RBC) [Mass/Vol] 30.6 g/dL 32-36 [facility] No Panel InformationOrdered By: Sherif Orantes on 05-08-2023 Estimated GFR (MDRD) Amer 29 mL/min >60 [facility] Comment on above: GFR Calc Estimated GFR (MDRD) Non-Af Amer 24 mL/min >60 [facility] Comment on above: Non- GFR Calc Parathyroid Hormone (Intact) 30.8 pg/mL 18.4-80.1 [facility] Vitamin D 25-Hydroxy 47.5 ng/mL [facility] Comment on above: Vitamin D 25(OH) Sta tus Range Deficiency <20 ng/mL (50nmol/L) Insufficiency 20 - 30 ng/mL (50 - 75 nmol/L) Sufficiency 30 - 100 ng/mL (75 - 250 nmol/L) Toxicity >100 ng/mL (>250 nmol/L) Platelets bldOrdered By: Jeff Orantes on 05-08-2023 Platelets (Bld) [#/Vol] 343 10*3/uL 150-450 [facility] Serum or plasma albumin lamar urement (mass/volume)Ordered By: Sherif Orantes on 05-08-2023 Albumin [Mass/Vol] 3.4 g/dL 3.2-5.0 [facility] Serum or plasma calcium lamar urement (mass/volume)Ordered By: Sherif Orantes on 05-08-2023 Calcium [Mass/Vol] 9.4 mg/dL 8.5-10.1 [facility] Serum or plasma creatinine m easurement (mass/volume)Ordered By: Sherif Orantes on 05-08-2023 Creatinine [Mass/Vol] 2.18 mg/dL 0.55-1.02 [facility] Comment on above: The validity of the calculated GFR & GFRAA in patients over 70 years has not been determined. Clinical correlation is essential. Serum or plasma urea nitroge n measurement (mass/volume)Ordered By: Sherif Orantes on 05-08-2023 Urea nitrogen [Mass/Vol] 57 mg/dL 7-18 [facility] Urine creatinine measurement (mass/volume)Ordered By: Sherif Orantes on 05-08-2023 Creatinine (U) [Mass/Vol] 33.90 mg/dL NO RANGE EST. [facility] Urine protein measurement (m ass/volume)Ordered By: Sherif Orantes on 05-08-2023 Protein (U) [Mass/Vol] 95.1 mg/dL 0.0-11.8 [facility] Urine protein/creatinine mas s ratioOrdered By: Sherif Orantes on 05-08-2023 Protein/Creatinine (U) [Mass ratio] 2805 mg/g CRE 0-200 [facility] Basophil percentageOrdered B y: Gisel Mccabe on 03-30-2023 Chloride [Moles/Vol] 108 mmol/L 98-107 [facility] Glucose [Mass/Vol] 167 mg/dL 74-106 [facility] Comment on above: Fasting Glucose resu lt greater than or equal to 126 mg/dL suggests DIABETES MELLITUS per A.D.A. criteria. Potassium [Moles/Vol] 5.2 mmol/L 3.5-5.1 [facility] Sodium [Moles/Vol] 139 mmol/L 136-145 [facility] Laboratory - Chemistry and C hemistry - challengeOrdered By: Gisel Mccabe on 03-30-2023 CO2 [Moles/Vol] 26.0 mmol/L 21.0-32.0 [facility] Urea nitrogen/Creatinine [Mass ratio] 27.8 mg/mg 10-20 [facility] No Panel InformationOrdered By: Gisel Mccabe on 03-30-2023 Estimated GFR (MDRD) Amer 25 mL/min >60 [facility] Comment on above: GFR Calc Estimated GFR (MDRD) Non-Af Amer 20 mL/min >60 [facility] Comment on above: Non- GFR Calc Serum or plasma calcium lamar urement (mass/volume)Ordered By: Gisel Mccabe on 03-30-2023 Calcium [Mass/Vol] 9.5 mg/dL 8.5-10.1 [facility] Serum or plasma creatinine m easurement (mass/volume)Ordered By: Gisel Mccabe on 03-30-2023 Creatinine [Mass/Vol] 2.52 mg/dL 0.55-1.02 [facility] Comment on above: The validity of the calculated GFR & GFRAA in patients over 70 years has not been determined. Clinical correlation is essential. Serum or plasma urea nitroge n measurement (mass/volume)Ordered By: Gisel Mccabe on 03-30-2023 Urea nitrogen [Mass/Vol] 70 mg/dL 7-18 [facility] Serum or plasma uric acid me asurement (mass/volume)Ordered By: Giesl Mccabe on 03-30-2023 Urate [Mass/Vol] 8.7 mg/dL 2.6-6.0 [facility] Comment on above: The drugs N-Acetylcy steine and Metamizole may falsely depress this assay. Thin prep Papanicolaou smear with manual screeningOrdered By: Gisel Mccabe on 03-30-2023 Thin prep Papanicolaou smear with manual screening 5 5-15 [facility] Basophil percentageOrdered B y: Sherif Orantes on 03-13-2023 Basophil percentage 5.6 mg/dL 2.5-4.9 [facility] Bilirubin [Mass/Vol] 0.20 mg/dL 0.20-1.00 [facility] Comment on above: For patients on eltr ombopag therapy, use of Dimension [place] TBIL is not recommended. Chloride [Moles/Vol] 112 mmol/L 98-107 [facility] Cholesterol [Mass/Vol] 175 mg/dL <200 [facility] Comment on above: <200 mg/dL Desirable 200-240 mg/dL Borderline >240 mg/dL High Risk Glucose [Mass/Vol] 198 mg/dL 74-106 [facility] Comment on above: Fasting Glucose resu lt greater than or equal to 126 mg/dL suggests DIABETES MELLITUS per A.D.A. criteria. Potassium [Moles/Vol] 5.7 mmol/L 3.5-5.1 [facility] Protein [Mass/Vol] 7.3 g/dL 6.4-8.2 [facility] Sodium [Moles/Vol] 139 mmol/L 136-145 [facility] Triglyceride [Mass/Vol] 287 mg/dL <199 [facility] Comment on above: The drugs N-Acetylcy steine and Metamizole may falsely depress this assay.Serum Triglycerides Reference Interval Normal <150 mg/dL Borderline high 150 - 199 mg/dL High 200 - 499 mg/dL Very High > or = 500 mg/dL WBC (Bld) [#/Vol] 7.9 10*3/uL 4.4-11.0 [facility] Blood erythrocytes count (nu mber/volume)Ordered By: Sherif Orantes on 03-13-2023 RBC (Bld) [#/Vol] 3.72 10*6/uL 4.2-5.4 [facility] Blood hemoglobin measurement (mass/volume)Ordered By: Sherif Orantes on 03-13-2023 Hemoglobin (Bld) [Mass/Vol] 11.6 g/dL 12.0-15.0 [facility] Blood platelet mean volumeOr dered By: Sherif Orantes on 03-13-2023 Platelet mean volume (Bld) [Entitic vol] 9.8 fL 6.2-12.0 [facility] Determination of erythrocyte mean corpuscular volume (MCV)Ordered By: Sherif Orantes on 03-13-2023 MCV (RBC) [Entitic vol] 100.8 fL 81-99 [facility] Hematocrit Auto (Bld) [Volum e fraction]Ordered By: Sherif Orantes on 03-13-2023 Hematocrit (Bld) [Volume fraction] 37.5 % 37-47 [facility] - Chemistry and C hemistry - challengeOrdered By: Sherif Orantes on 03-13-2023 ALP [Catalytic activity/Vol] 60 U/L 45-117 [facility] ALT [Catalytic activity/Vol] 25 U/L 13-56 [facility] CO2 [Moles/Vol] 21.0 mmol/L 21.0-32.0 [facility] Globulin (S) [Mass/Vol] 4.2 g/dL 2.2-4.2 [facility] Magnesium [Mass/Vol] 2.5 mg/dL 1.6-2.6 [facility] Urea nitrogen/Creatinine [Mass ratio] 26.1 mg/mg 10-20 [facility] - Hematology and Cell countsOrdered By: Sherif Orantes on 03-13-2023 Erythrocyte distribution width (RBC) [Entitic vol] 47.1 fL 35.1-43.9 [facility] Erythrocyte distribution width (RBC) [Ratio] 12.7 % 11.6-14.6 [facility] MCH (RBC) [Entitic mass] 31.2 pg 27.0-32.0 [facility] MCHC Auto (RBC) [Mass/Vol]Or dered By: Sherif Orantes on 03-13-2023 MCHC (RBC) [Mass/Vol] 30.9 g/dL 32-36 [facility] No Panel InformationOrdered By: Sherif Orantes on 03-13-2023 Estimated GFR (MDRD) Amer 21 mL/min >60 [facility] Comment on above: GFR Calc Estimated GFR (MDRD) Non-Af Amer 18 mL/min >60 [facility] Comment on above: Non- GFR Calc Parathyroid Hormone (Intact) 58.6 pg/mL 18.4-80.1 [facility] Urine Microalbumin/Creatinine Ratio 1198.5 mg/g CRE <30 [facility] Vitamin D 25-Hydroxy 56.0 ng/mL [facility] Comment on above: Vitamin D 25(OH) Sta tus Range Deficiency <20 ng/mL (50nmol/L) Insufficiency 20 - 30 ng/mL (50 - 75 nmol/L) Sufficiency 30 - 100 ng/mL (75 - 250 nmol/L) Toxicity >100 ng/mL (>250 nmol/L) Platelets bldOrdered By: Jeff Orantes on 03-13-2023 Platelets (Bld) [#/Vol] 343 10*3/uL 150-450 [facility] Serum or plasma albumin lamar urement (mass/volume)Ordered By: Sherif Orantes on 03-13-2023 Albumin [Mass/Vol] 3.1 g/dL 3.2-5.0 [facility] Serum or plasma albumin/glob ulin mass ratioOrdered By: Sherif Orantes on 03-13-2023 Albumin/Globulin [Mass ratio] 0.7 {ratio} 0.9-2.4 [facility] Serum or plasma calcium lamar urement (mass/volume)Ordered By: Sherif Orantes on 03-13-2023 Calcium [Mass/Vol] 9.0 mg/dL 8.5-10.1 [facility] Serum or plasma cholesterol in HDL measurement (mass/volume)Ordered By: Sherif Orantes on 03-13-2023 Cholesterol in HDL [Mass/Vol] 43 mg/dL >40 [facility] Comment on above: The drugs N-Acetylcy steine and Metamizole may falsely depress this assay. Reference Range HDL <40 mg/dL Low HDL Cholesterol HDL >or= 60 mg/dL High HDL Cholesterol Serum or plasma cholesterol in VLDL measurement (mass/volume)Ordered By: Sherif Orantes on 03-13-2023 Cholesterol in VLDL [Mass/Vol] 57 mg/dL 5-40 [facility] Serum or plasma creatinine m easurement (mass/volume)Ordered By: Sherif Orantes on 03-13-2023 Creatinine [Mass/Vol] 2.87 mg/dL 0.55-1.02 [facility] Comment on above: The validity of the calculated GFR & GFRAA in patients over 70 years has not been determined. Clinical correlation is essential. Serum or plasma low density lipoprotein (LDL) cholesterol measurement (mass/volume)Ordered By: Sherif Orantes on 03-13-2023 Cholesterol in LDL [Mass/Vol] 75 mg/dL 0-130 [facility] Serum or plasma urea nitroge n measurement (mass/volume)Ordered By: Sherif Orantes on 03-13-2023 Urea nitrogen [Mass/Vol] 75 mg/dL 7-18 [facility] Thin prep Papanicolaou smear with manual screeningOrdered By: Sherif Orantes on 03-13-2023 Thin prep Papanicolaou smear with manual screening 15 U/L 15-37 [facility] Thin prep Papanicolaou smear with manual screening 6 5-15 [facility] Thin prep Papanicolaou smear with manual screening 646.0 mg/L NO RANGE EST. [facility] Urine creatinine measurement (mass/volume)Ordered By: Sherif Orantes on 03-13-2023 Creatinine (U) [Mass/Vol] 53.90 mg/dL NO RANGE EST. [facility] Whole blood hemoglobin A1c/t otal hemoglobin ratio (mass fraction)Ordered By: Sherif Orantes on 03-13-2023 HbA1c (Bld) [Mass fraction] 7.3 % 3.8-5.6 [facility] Comment on above: Normal < 5.7 % Predi abetic 5.7 - 6.4 % Diabetic >or= 6.5 % Please note range changes. Basophil percentageOrdered B y: Dr. Orantes on 11-29-2022 Basophil percentage 4.4 mg/dL 2.5-4.9 [facility] Chloride [Moles/Vol] 105 mmol/L 98-107 [facility] Glucose [Mass/Vol] 128 mg/dL 74-106 [facility] Comment on above: Fasting Glucose resu lt greater than or equal to 126 mg/dL suggests DIABETES MELLITUS per A.D.A. criteria. Potassium [Moles/Vol] 4.3 mmol/L 3.5-5.1 [facility] Sodium [Moles/Vol] 136 mmol/L 136-145 [facility] WBC (Bld) [#/Vol] 7.6 10*3/uL 4.4-11.0 [facility] Blood erythrocytes count (nu mber/volume)Ordered By: Dr. Orantes on 11-29-2022 RBC (Bld) [#/Vol] 4.17 10*6/uL 4.2-5.4 [facility] Blood hemoglobin measurement (mass/volume)Ordered By: Dr. Orantes on 11-29-2022 Hemoglobin (Bld) [Mass/Vol] 13.2 g/dL 12.0-15.0 [facility] Blood platelet mean volumeOr dered By: Dr. Orantes on 11-29-2022 Platelet mean volume (Bld) [Entitic vol] 9.8 fL 6.2-12.0 [facility] Determination of erythrocyte mean corpuscular volume (MCV)Ordered By: Dr. Orantes on 11-29-2022 MCV (RBC) [Entitic vol] 95.2 fL 81-99 [facility] Hematocrit Auto (Bld) [Volum e fraction]Ordered By: Dr. Orantes on 11-29-2022 Hematocrit (Bld) [Volume fraction] 39.7 % 37-47 [facility] - Chemistry and C hemistry - challengeOrdered By: Dr. Orantes on 11-29-2022 Albumin [Mass/Vol] 3.5 g/dL 2.9-4.4 [facility] CO2 [Moles/Vol] 24.0 mmol/L 21.0-32.0 [facility] Urea nitrogen/Creatinine [Mass ratio] 22.7 mg/mg 10-20 [facility] - Hematology and Cell countsOrdered By: Dr. Orantes on 11-29-2022 Erythrocyte distribution width (RBC) [Entitic vol] 43.7 fL 35.1-43.9 [facility] Erythrocyte distribution width (RBC) [Ratio] 12.5 % 11.6-14.6 [facility] MCH (RBC) [Entitic mass] 31.7 pg 27.0-32.0 [facility] MCHC Auto (RBC) [Mass/Vol]Or dered By: Dr. Orantes on 11-29-2022 MCHC (RBC) [Mass/Vol] 33.2 g/dL 32-36 [facility] No Panel InformationOrdered By: Dr. Orantes on 11-29-2022 Addendum Document Comment . [facility] Comment on above: The SPE pattern appe ars unremarkable. Evidence ofmonoclonal protein is not apparent. [id number] 0.2 g/dL 0.0-0.4 [facility] [id number] 0.9 g/dL 0.4-1.0 [facility] Estimated GFR (MDRD) Amer 37 mL/min >60 [facility] Comment on above: GFR Calc Estimated GFR (MDRD) Non-Af Amer 31 mL/min >60 [facility] Comment on above: Non- GFR Calc Gamma Globulins 1.2 g/dL 0.4-1.8 [facility] Parathyroid Hormone (Intact) 33.9 pg/mL 18.4-80.1 [facility] Vitamin D 25-Hydroxy 58.4 ng/mL [facility] Comment on above: Vitamin D 25(OH) Sta tus Range Deficiency <20 ng/mL (50nmol/L) Insufficiency 20 - 30 ng/mL (50 - 75 nmol/L) Sufficiency 30 - 100 ng/mL (75 - 250 nmol/L) Toxicity >100 ng/mL (>250 nmol/L) Platelets bldOrdered By: Dr. Orantes on 11-29-2022 Platelets (Bld) [#/Vol] 332 10*3/uL 150-450 [facility] Protein Fractions Elph [Inte rp]Ordered By: Dr. Orantes on 11-29-2022 Protein Fractions [Interp] Comment . [facility] Comment on above: Protein electrophore sis scan will follow via computer,mail, or insurance actuary delivery. Serum DNA double strand anti body assay (units/volume)Ordered By: Dr. Orantes on 11-29-2022 DNA double strand Ab Qn (S) 1 [IU]/mL 0-9 [facility] Comment on above: Negative <5 Equivoca l 5 - 9 Positive >9Performed at: CB - [facility] [address] [id number] Director: Carlos Calderon PhD, Phone: [phone] Serum albumin to globulin ra darline by protein electrophoresisOrdered By: Dr. Orantes on 11-29-2022 Albumin/Globulin Elph [Mass ratio] 1.1 0.7-1.7 [facility] Serum globulin measurement ( mass/volume)Ordered By: Dr. Orantes on 11-29-2022 Globulin (S) [Mass/Vol] 3.2 g/dL 2.2-3.9 [facility] Serum or plasma albumin lamar urement (mass/volume)Ordered By: Dr. Orantes on 11-29-2022 Albumin [Mass/Vol] 3.3 g/dL 3.2-5.0 [facility] Serum or plasma beta globuli n measurement by electrophoresis (mass/volume)Ordered By: Dr. Orantes on 11-29-2022 Beta globulin Elph [Mass/Vol] 1.0 g/dL 0.7-1.3 [facility] Serum or plasma calcium lamar urement (mass/volume)Ordered By: Dr. Orantes on 11-29-2022 Calcium [Mass/Vol] 9.6 mg/dL 8.5-10.1 [facility] Serum or plasma complement C 3 measurement (mass/volume)Ordered By: Dr. Orantes on 11-29-2022 Complement C3 [Mass/Vol] 149 mg/dL 82-167 [facility] Comment on above: Performed at: [facility] - [facility] [address] [id number] Director: Carlos Calderon PhD, Phone: [phone] Serum or plasma complement C 4 measurement (mass/volume)Ordered By: Dr. Orantes on 11-29-2022 Complement C4 [Mass/Vol] 25 mg/dL 12-38 [facility] Serum or plasma creatinine m easurement (mass/volume)Ordered By: Dr. Orantes on 11-29-2022 Creatinine [Mass/Vol] 1.76 mg/dL 0.55-1.02 [facility] Comment on above: The validity of the calculated GFR & GFRAA in patients over 70 years has not been determined. Clinical correlation is essential. Serum or plasma urea nitroge n measurement (mass/volume)Ordered By: Dr. Orantes on 11-29-2022 Urea nitrogen [Mass/Vol] 40 mg/dL 7-18 [facility] Thin prep Papanicolaou smear with manual screeningOrdered By: Dr. Orantes on 11-29-2022 Thin prep Papanicolaou smear with manual screening See comment [facility] Comment on above: NOT OBSERVED Total protein bloodOrdered B y: Dr. Orantes on 11-29-2022 Protein [Mass/Vol] 6.7 g/dL 6.0-8.5 [facility] Urine creatinine measurement (mass/volume)Ordered By: Dr. Orantes on 11-29-2022 Creatinine (U) [Mass/Vol] 32.40 mg/dL NO RANGE EST. [facility] Urine protein measurement (m ass/volume)Ordered By: Dr. Orantes on 11-29-2022 Protein (U) [Mass/Vol] 211.0 mg/dL 0.0-11.8 [facility] Urine protein/creatinine mas s ratioOrdered By: Dr. Orantes on 11-29-2022 Protein/Creatinine (U) [Mass ratio] 6512 mg/g CRE 0-200 [facility] Basophil percentageOrdered B y: Dr. Mccabe on 11-21-2022 Bilirubin [Mass/Vol] 0.30 mg/dL 0.20-1.00 [facility] Comment on above: For patients on eltr ombopag therapy, use of Dimension [place] TBIL is not recommended. Chloride [Moles/Vol] 111 mmol/L 98-107 [facility] Cholesterol [Mass/Vol] 197 mg/dL <200 [facility] Comment on above: <200 mg/dL Desirable 200-240 mg/dL Borderline >240 mg/dL High Risk Glucose [Mass/Vol] 124 mg/dL 74-106 [facility] Comment on above: Fasting Glucose resu lt from 100 to 125 mg/dL suggests IMPAIRED HOMEOSTASIS per A.D.A. criteria. Potassium [Moles/Vol] 4.1 mmol/L 3.5-5.1 [facility] Protein [Mass/Vol] 7.0 g/dL 6.4-8.2 [facility] Sodium [Moles/Vol] 140 mmol/L 136-145 [facility] Triglyceride [Mass/Vol] 266 mg/dL <199 [facility] Comment on above: The drugs N-Acetylcy steine and Metamizole may falsely depress this assay.Serum Triglycerides Reference Interval Normal <150 mg/dL Borderline high 150 - 199 mg/dL High 200 - 499 mg/dL Very High > or = 500 mg/dL Laboratory - Chemistry and C hemistry - challengeOrdered By: Dr. Mccabe on 11-21-2022 ALP [Catalytic activity/Vol] 65 U/L 45-117 [facility] ALT [Catalytic activity/Vol] 24 U/L 13-56 [facility] CO2 [Moles/Vol] 26.0 mmol/L 21.0-32.0 [facility] Globulin (S) [Mass/Vol] 3.9 g/dL 2.2-4.2 [facility] Urea nitrogen/Creatinine [Mass ratio] 25.3 mg/mg 10-20 [facility] No Panel InformationOrdered By: Dr. Mccabe on 11-21-2022 Estimated GFR (MDRD) Amer 36 mL/min >60 [facility] Comment on above: GFR Calc Estimated GFR (MDRD) Non-Af Amer 30 mL/min >60 [facility] Comment on above: Non- GFR Calc Thyroid Stimulating Hormone (TSH) 0.86 uIU/mL 0.358-3.74 [facility] Serum or plasma albumin lamar urement (mass/volume)Ordered By: Dr. Mccabe on 11-21-2022 Albumin [Mass/Vol] 3.1 g/dL 3.2-5.0 [facility] Serum or plasma albumin/glob ulin mass ratioOrdered By: Dr. Mccabe on 11-21-2022 Albumin/Globulin [Mass ratio] 0.8 {ratio} 0.9-2.4 [facility] Serum or plasma calcium lamar urement (mass/volume)Ordered By: Dr. Mccabe on 11-21-2022 Calcium [Mass/Vol] 9.4 mg/dL 8.5-10.1 [facility] Serum or plasma cholesterol in HDL measurement (mass/volume)Ordered By: Dr. Mccabe on 11-21-2022 Cholesterol in HDL [Mass/Vol] 47 mg/dL >40 [facility] Comment on above: The drugs N-Acetylcy steine and Metamizole may falsely depress this assay. Reference Range HDL <40 mg/dL Low HDL Cholesterol HDL >or= 60 mg/dL High HDL Cholesterol Serum or plasma cholesterol in VLDL measurement (mass/volume)Ordered By: Dr. Mccabe on 11-21-2022 Cholesterol in VLDL [Mass/Vol] 53 mg/dL 5-40 [facility] Serum or plasma creatinine m easurement (mass/volume)Ordered By: Dr. Mccabe on 11-21-2022 Creatinine [Mass/Vol] 1.82 mg/dL 0.55-1.02 [facility] Comment on above: The validity of the calculated GFR & GFRAA in patients over 70 years has not been determined. Clinical correlation is essential. Serum or plasma low density lipoprotein (LDL) cholesterol measurement (mass/volume)Ordered By: Dr. Mccabe on 11-21-2022 Cholesterol in LDL [Mass/Vol] 97 mg/dL 0-130 [facility] Serum or plasma urea nitroge n measurement (mass/volume)Ordered By: Dr. Mccabe on 11-21-2022 Urea nitrogen [Mass/Vol] 46 mg/dL 7-18 [facility] Thin prep Papanicolaou smear with manual screeningOrdered By: Dr. Mccabe on 11-21-2022 Thin prep Papanicolaou smear with manual screening 21 U/L 15-37 [facility] Thin prep Papanicolaou smear with manual screening 3 5-15 [facility] Thin prep Papanicolaou smear with manual screening 2340.0 mg/L NO RANGE EST. [facility] Whole blood hemoglobin A1c/t otal hemoglobin ratio (mass fraction)Ordered By: Dr. Mccabe on 11-21-2022 HbA1c (Bld) [Mass fraction] 6.7 % 3.8-5.6 [facility] Comment on above: Normal < 5.7 % Predi abetic 5.7 - 6.4 % Diabetic >or= 6.5 % Please note range changes. Basophil percentageOrdered B y: Dr. Mccabe on 09-05-2022 Bilirubin [Mass/Vol] 0.30 mg/dL 0.20-1.00 [facility] Comment on above: For patients on eltr ombopag therapy, use of Dimension [place] TBIL is not recommended. Chloride [Moles/Vol] 105 mmol/L 98-107 [facility] Glucose [Mass/Vol] 218 mg/dL 74-106 [facility] Comment on above: Glucose result great er than or equal to 200 mg/dLsuggests DIABETES MELLITUS per A.D.A. criteria. Potassium [Moles/Vol] 4.4 mmol/L 3.5-5.1 [facility] Protein [Mass/Vol] 7.0 g/dL 6.4-8.2 [facility] Sodium [Moles/Vol] 139 mmol/L 136-145 [facility] Laboratory - Chemistry and C hemistry - challengeOrdered By: Dr. Mccabe on 09-05-2022 ALP [Catalytic activity/Vol] 65 U/L 45-117 [facility] ALT [Catalytic activity/Vol] 25 U/L 13-56 [facility] CO2 [Moles/Vol] 27.0 mmol/L 21.0-32.0 [facility] Globulin (S) [Mass/Vol] 4.0 g/dL 2.2-4.2 [facility] Urea nitrogen/Creatinine [Mass ratio] 28.6 mg/mg 10-20 [facility] No Panel InformationOrdered By: Dr. Mccabe on 09-05-2022 C-Peptide < 0.1 ng/mL 1.1-4.4 [facility] Comment on above: C-Peptide reference interval is for fasting patients.Performed at: [facility] [id number] Director: Carlos Calderon PhD, Phone: [phone] Estimated GFR (MDRD) Amer 33 mL/min >60 [facility] Comment on above: GFR Calc Estimated GFR (MDRD) Non-Af Amer 27 mL/min >60 [facility] Comment on above: Non- GFR Calc Serum or plasma albumin lamar urement (mass/volume)Ordered By: Dr. Mccabe on 09-05-2022 Albumin [Mass/Vol] 3.0 g/dL 3.2-5.0 [facility] Serum or plasma albumin/glob ulin mass ratioOrdered By: Dr. Mccabe on 09-05-2022 Albumin/Globulin [Mass ratio] 0.8 {ratio} 0.9-2.4 [facility] Serum or plasma calcium lamar urement (mass/volume)Ordered By: Dr. Mccabe on 09-05-2022 Calcium [Mass/Vol] 9.1 mg/dL 8.5-10.1 [facility] Serum or plasma creatinine m easurement (mass/volume)Ordered By: Dr. Mccabe on 09-05-2022 Creatinine [Mass/Vol] 1.96 mg/dL 0.55-1.02 [facility] Comment on above: The validity of the calculated GFR & GFRAA in patients over 70 years has not been determined. Clinical correlation is essential. Serum or plasma urea nitroge n measurement (mass/volume)Ordered By: Dr. Mccabe on 09-05-2022 Urea nitrogen [Mass/Vol] 56 mg/dL 7-18 [facility] Thin prep Papanicolaou smear with manual screeningOrdered By: Dr. Mccabe on 09-05-2022 Thin prep Papanicolaou smear with manual screening 15 U/L 15-37 [facility] Thin prep Papanicolaou smear with manual screening 7 5-15 [facility] Basophil percentageOrdered B y: Dr. Mccabe on 08-18-2022 Bilirubin [Mass/Vol] 0.30 mg/dL 0.20-1.00 [facility] Comment on above: For patients on eltr ombopag therapy, use of Dimension [place] TBIL is not recommended. Chloride [Moles/Vol] 106 mmol/L 98-107 [facility] Cholesterol [Mass/Vol] 189 mg/dL <200 [facility] Comment on above: <200 mg/dL Desirable 200-240 mg/dL Borderline >240 mg/dL High Risk Glucose [Mass/Vol] 133 mg/dL 74-106 [facility] Comment on above: Fasting Glucose resu lt greater than or equal to 126 mg/dL suggests DIABETES MELLITUS per A.D.A. criteria. Potassium [Moles/Vol] 3.9 mmol/L 3.5-5.1 [facility] Protein [Mass/Vol] 7.0 g/dL 6.4-8.2 [facility] Sodium [Moles/Vol] 140 mmol/L 136-145 [facility] Triglyceride [Mass/Vol] 214 mg/dL <199 [facility] Comment on above: The drugs N-Acetylcy steine and Metamizole may falsely depress this assay.Serum Triglycerides Reference Interval Normal <150 mg/dL Borderline high 150 - 199 mg/dL High 200 - 499 mg/dL Very High > or = 500 mg/dL Laboratory - Chemistry and C hemistry - challengeOrdered By: Dr. Mccabe on 08-18-2022 ALP [Catalytic activity/Vol] 69 U/L 45-117 [facility] ALT [Catalytic activity/Vol] 29 U/L 13-56 [facility] CO2 [Moles/Vol] 28.0 mmol/L 21.0-32.0 [facility] Free T4 [Mass/Vol] 1.14 ng/dL 0.76-1.46 [facility] Globulin (S) [Mass/Vol] 4.0 g/dL 2.2-4.2 [facility] Urea nitrogen/Creatinine [Mass ratio] 19.8 mg/mg 10-20 [facility] No Panel InformationOrdered By: Dr. Mccabe on 08-18-2022 Estimated GFR (MDRD) Amer 38 mL/min >60 [facility] Comment on above: GFR Calc Estimated GFR (MDRD) Non-Af Amer 32 mL/min >60 [facility] Comment on above: Non- GFR Calc Thyroid Stimulating Hormone (TSH) 1.39 uIU/mL 0.358-3.74 [facility] Vitamin D 25-Hydroxy 35.6 ng/mL [facility] Comment on above: Vitamin D 25(OH) Sta tus Range Deficiency <20 ng/mL (50nmol/L) Insufficiency 20 - 30 ng/mL (50 - 75 nmol/L) Sufficiency 30 - 100 ng/mL (75 - 250 nmol/L) Toxicity >100 ng/mL (>250 nmol/L) Serum or plasma albumin lamar urement (mass/volume)Ordered By: Dr. Mccabe on 08-18-2022 Albumin [Mass/Vol] 3.0 g/dL 3.2-5.0 [facility] Serum or plasma albumin/glob ulin mass ratioOrdered By: Dr. Mccabe on 08-18-2022 Albumin/Globulin [Mass ratio] 0.8 {ratio} 0.9-2.4 [facility] Serum or plasma calcium lamar urement (mass/volume)Ordered By: Dr. Mccabe on 08-18-2022 Calcium [Mass/Vol] 8.8 mg/dL 8.5-10.1 [facility] Serum or plasma cholesterol in HDL measurement (mass/volume)Ordered By: Dr. Mccabe on 08-18-2022 Cholesterol in HDL [Mass/Vol] 53 mg/dL >40 [facility] Comment on above: The drugs N-Acetylcy steine and Metamizole may falsely depress this assay. Reference Range HDL <40 mg/dL Low HDL Cholesterol HDL >or= 60 mg/dL High HDL Cholesterol Serum or plasma cholesterol in VLDL measurement (mass/volume)Ordered By: Dr. Mccabe on 08-18-2022 Cholesterol in VLDL [Mass/Vol] 43 mg/dL 5-40 [facility] Serum or plasma creatinine m easurement (mass/volume)Ordered By: Dr. Mccabe on 08-18-2022 Creatinine [Mass/Vol] 1.72 mg/dL 0.55-1.02 [facility] Comment on above: The validity of the calculated GFR & GFRAA in patients over 70 years has not been determined. Clinical correlation is essential. Serum or plasma low density lipoprotein (LDL) cholesterol measurement (mass/volume)Ordered By: Dr. Mccabe on 08-18-2022 Cholesterol in LDL [Mass/Vol] 93 mg/dL 0-130 [facility] Serum or plasma urea nitroge n measurement (mass/volume)Ordered By: Dr. Mccabe on 08-18-2022 Urea nitrogen [Mass/Vol] 34 mg/dL 7-18 [facility] Thin prep Papanicolaou smear with manual screeningOrdered By: Dr. Mccabe on 08-18-2022 Thin prep Papanicolaou smear with manual screening 17 U/L 15-37 [facility] Thin prep Papanicolaou smear with manual screening 6 5-15 [facility] Whole blood hemoglobin A1c/t otal hemoglobin ratio (mass fraction)Ordered By: Dr. Mccabe on 08-18-2022 HbA1c (Bld) [Mass fraction] 6.6 % 3.8-5.6 [facility] Comment on above: Normal < 5.7 % Predi abetic 5.7 - 6.4 % Diabetic >or= 6.5 % Please note range changes. Basophil percentageOrdered B y: Dr. Orantes on 06-01-2022 Basophil percentage 4.3 mg/dL 2.5-4.9 [facility] Chloride [Moles/Vol] 106 mmol/L 98-107 [facility] Glucose [Mass/Vol] 122 mg/dL 74-106 [facility] Comment on above: Fasting Glucose resu lt from 100 to 125 mg/dL suggests IMPAIRED HOMEOSTASIS per A.D.A. criteria. Potassium [Moles/Vol] 4.4 mmol/L 3.5-5.1 [facility] Sodium [Moles/Vol] 137 mmol/L 136-145 [facility] WBC (Bld) [#/Vol] 9.4 10*3/uL 4.4-11.0 [facility] Blood erythrocytes count (nu mber/volume)Ordered By: Dr. Orantes on 06-01-2022 RBC (Bld) [#/Vol] 4.24 10*6/uL 4.2-5.4 [facility] Blood hemoglobin measurement (mass/volume)Ordered By: Dr. Orantes on 06-01-2022 Hemoglobin (Bld) [Mass/Vol] 13.2 g/dL 12.0-15.0 [facility] Blood platelet mean volumeOr dered By: Dr. Orantes on 06-01-2022 Platelet mean volume (Bld) [Entitic vol] 9.5 fL 6.2-12.0 [facility] Determination of erythrocyte mean corpuscular volume (MCV)Ordered By: Dr. Orantes on 06-01-2022 MCV (RBC) [Entitic vol] 95.3 fL 81-99 [facility] Hematocrit Auto (Bld) [Volum e fraction]Ordered By: Dr. Orantes on 06-01-2022 Hematocrit (Bld) [Volume fraction] 40.4 % 37-47 [facility] Laboratory - Chemistry and C hemistry - challengeOrdered By: Dr. Orantes on 06-01-2022 CO2 [Moles/Vol] 26.0 mmol/L 21.0-32.0 [facility] Urea nitrogen/Creatinine [Mass ratio] 22.8 mg/mg 10- [facility] Laboratory - Hematology and Cell countsOrdered By: Dr. Orantes on 06-01-2022 Erythrocyte distribution width (RBC) [Entitic vol] 43.6 fL 35.1-43.9 [facility] Erythrocyte distribution width (RBC) [Ratio] 12.6 % 11.6-14.6 [facility] MCH (RBC) [Entitic mass] 31.1 pg 27.0-32.0 [facility] MCHC Auto (RBC) [Mass/Vol]Or dered By: Dr. rOantes on 06-01-2022 MCHC (RBC) [Mass/Vol] 32.7 g/dL 32-36 [facility] No Panel InformationOrdered By: Dr. Orantes on 06-01-2022 Estimated GFR (MDRD) Amer 41 mL/min >60 [facility] Comment on above: GFR Calc Estimated GFR (MDRD) Non-Af Amer 34 mL/min >60 [facility] Comment on above: Non- GFR Calc Parathyroid Hormone (Intact) 39.7 pg/mL 18.4-80.1 [facility] Vitamin D 25-Hydroxy 37.7 ng/mL [facility] Comment on above: Vitamin D 25(OH) Sta tus Range Deficiency <20 ng/mL (50nmol/L) Insufficiency 20 - 30 ng/mL (50 - 75 nmol/L) Sufficiency 30 - 100 ng/mL (75 - 250 nmol/L) Toxicity >100 ng/mL (>250 nmol/L) Platelets bldOrdered By: Dr. Orantes on 06-01-2022 Platelets (Bld) [#/Vol] 348 10*3/uL 150-450 [facility] Serum or plasma albumin lamar urement (mass/volume)Ordered By: Dr. Orantes on 06-01-2022 Albumin [Mass/Vol] 3.3 g/dL 3.2-5.0 [facility] Serum or plasma calcium lamar urement (mass/volume)Ordered By: Dr. Orantes on 06-01-2022 Calcium [Mass/Vol] 9.6 mg/dL 8.5-10.1 [facility] Serum or plasma creatinine m easurement (mass/volume)Ordered By: Dr. Orantes on 06-01-2022 Creatinine [Mass/Vol] 1.62 mg/dL 0.55-1.02 [facility] Comment on above: The validity of the calculated GFR & GFRAA in patients over 70 years has not been determined. Clinical correlation is essential. Serum or plasma urea nitroge n measurement (mass/volume)Ordered By: Dr. Orantes on 06-01-2022 Urea nitrogen [Mass/Vol] 37 mg/dL 7-18 [facility] Urine creatinine measurement (mass/volume)Ordered By: Dr. Orantes on 06-01-2022 Creatinine (U) [Mass/Vol] 15.20 mg/dL NO RANGE EST. [facility] Urine protein measurement (m ass/volume)Ordered By: Dr. Orantes on 06-01-2022 Protein (U) [Mass/Vol] 163.5 mg/dL 0.0-11.8 [facility] Urine protein/creatinine mas s ratioOrdered By: Dr. Orantes on 06-01-2022 Protein/Creatinine (U) [Mass ratio] 78114 mg/g CRE 0-200 [facility] Basophil percentageOrdered B y: Dr. Mccabe on 05-11-2022 Bilirubin [Mass/Vol] 0.40 mg/dL 0.20-1.00 [facility] Comment on above: For patients on eltr ombopag therapy, use of Dimension [place] TBIL is not recommended. Chloride [Moles/Vol] 106 mmol/L 98-107 [facility] Glucose [Mass/Vol] 148 mg/dL 74-106 [facility] Comment on above: Fasting Glucose resu lt greater than or equal to 126 mg/dL suggests DIABETES MELLITUS per A.D.A. criteria. Potassium [Moles/Vol] 3.8 mmol/L 3.5-5.1 [facility] Protein [Mass/Vol] 7.3 g/dL 6.4-8.2 [facility] Sodium [Moles/Vol] 141 mmol/L 136-145 [facility] Laboratory - Chemistry and C hemistry - challengeOrdered By: Dr. Mccabe on 05-11-2022 ALP [Catalytic activity/Vol] 68 U/L 45-117 [facility] ALT [Catalytic activity/Vol] 29 U/L 13-56 [facility] CO2 [Moles/Vol] 28.0 mmol/L 21.0-32.0 [facility] Free T4 [Mass/Vol] 1.11 ng/dL 0.76-1.46 [facility] Globulin (S) [Mass/Vol] 4.1 g/dL 2.2-4.2 [facility] Urea nitrogen/Creatinine [Mass ratio] 14.6 mg/mg 10-20 [facility] No Panel InformationOrdered By: Dr. Mccabe on 05-11-2022 Estimated GFR (MDRD) Amer 42 mL/min >60 [facility] Comment on above: GFR Calc Estimated GFR (MDRD) Non-Af Amer 35 mL/min >60 [facility] Comment on above: Non- GFR Calc Free Triiodothyronine (T3) pg/dL 2.3 pg/mL 2.18-3.98 [facility] Thyroid Stimulating Hormone (TSH) 1.51 uIU/mL 0.358-3.74 [facility] Vitamin D 25-Hydroxy 32.8 ng/mL [facility] Comment on above: Vitamin D 25(OH) Sta tus Range Deficiency <20 ng/mL (50nmol/L) Insufficiency 20 - 30 ng/mL (50 - 75 nmol/L) Sufficiency 30 - 100 ng/mL (75 - 250 nmol/L) Toxicity >100 ng/mL (>250 nmol/L) Serum or plasma albumin lamar urement (mass/volume)Ordered By: Dr. Mccabe on 05-11-2022 Albumin [Mass/Vol] 3.2 g/dL 3.2-5.0 [facility] Serum or plasma albumin/glob ulin mass ratioOrdered By: Dr. Mccabe on 05-11-2022 Albumin/Globulin [Mass ratio] 0.8 {ratio} 0.9-2.4 [facility] Serum or plasma calcium lamar urement (mass/volume)Ordered By: Dr. Mccabe on 05-11-2022 Calcium [Mass/Vol] 9.0 mg/dL 8.5-10.1 [facility] Serum or plasma creatinine m easurement (mass/volume)Ordered By: Dr. Mccabe on 05-11-2022 Creatinine [Mass/Vol] 1.58 mg/dL 0.55-1.02 [facility] Comment on above: The validity of the calculated GFR & GFRAA in patients over 70 years has not been determined. Clinical correlation is essential. Serum or plasma urea nitroge n measurement (mass/volume)Ordered By: Dr. Mccabe on 05-11-2022 Urea nitrogen [Mass/Vol] 23 mg/dL 7-18 [facility] Thin prep Papanicolaou smear with manual screeningOrdered By: Dr. Mccabe on 05-11-2022 Thin prep Papanicolaou smear with manual screening 21 U/L 15-37 [facility] Thin prep Papanicolaou smear with manual screening 7 5-15 [facility] Thin prep Papanicolaou smear with manual screening 1780.0 mg/L NO RANGE EST. [facility] Whole blood hemoglobin A1c/t otal hemoglobin ratio (mass fraction)Ordered By: Dr. Mccabe on 05-11-2022 HbA1c (Bld) [Mass fraction] 6.9 % 3.8-5.6 [facility] Comment on above: Normal < 5.7 % Predi abetic 5.7 - 6.4 % Diabetic >or= 6.5 % Please note range changes. Basophil percentageon 2021 Cholesterol [Mass/Vol] 180 mg/dL <200 [facility] Work Phone: Comment on above: <200 mg/dL Desirable 200-240 mg/dL Borderline >240 mg/dL High Risk Triglyceride [Mass/Vol] 220 mg/dL <199 [facility] Work Phone: Comment on above: The drugs N-Acetylcy steine and Metamizole may falsely depress this assay.Serum Triglycerides Reference Interval Normal <150 mg/dL Borderline high 150 - 199 mg/dL High 200 - 499 mg/dL Very High > or = 500 mg/dL Laboratory - Chemistry and C hemistry - challengeon 01-28-2022 Free T4 [Mass/Vol] 1.27 ng/dL 0.76-1.46 [facility] Work Phone: No Panel Informationon 01-28 Thyroid Stimulating Hormone (TSH) 0.84 uIU/mL 0.358-3.74 [facility] Work Phone: Serum or plasma cholesterol in HDL measurement (mass/volume)on 01-28-2022 Cholesterol in HDL [Mass/Vol] 46 mg/dL >40 [facility] Work Phone: Comment on above: The drugs N-Acetylcy steine and Metamizole may falsely depress this assay. Reference Range HDL <40 mg/dL Low HDL Cholesterol HDL >or= 60 mg/dL High HDL Cholesterol Serum or plasma cholesterol in VLDL measurement (mass/volume)on 01-28-2022 Cholesterol in VLDL [Mass/Vol] 44 mg/dL 5-40 [facility] Work Phone: Serum or plasma low density lipoprotein (LDL) cholesterol measurement (mass/volume)on 01-28-2022 Cholesterol in LDL [Mass/Vol] 90 mg/dL 0-130 [facility] Work Phone: Basophil percentageon 2021 Bilirubin [Mass/Vol] 0.30 mg/dL 0.20-1.00 [facility] Work Phone: Comment on above: For patients on eltr ombopag therapy, use of Dimension [place] TBIL is not recommended. Chloride [Moles/Vol] 107 mmol/L 98-107 [facility] Work Phone: Glucose [Mass/Vol] 154 mg/dL 74-106 [facility] Work Phone: Comment on above: Fasting Glucose resu lt greater than or equal to 126 mg/dL suggests DIABETES MELLITUS per A.D.A. criteria. Potassium [Moles/Vol] 3.9 mmol/L 3.5-5.1 [facility] Work Phone: Protein [Mass/Vol] 7.5 g/dL 6.4-8.2 [facility] Work Phone: Sodium [Moles/Vol] 140 mmol/L 136-145 [facility] Work Phone: Laboratory - Chemistry and C hemistry - challengeon 11-15-2021 ALP [Catalytic activity/Vol] 67 U/L 45-117 [facility] Work Phone: ALT [Catalytic activity/Vol] 25 U/L 13-56 [facility] Work Phone: CO2 [Moles/Vol] 26.0 mmol/L 21.0-32.0 [facility] Work Phone: Globulin (S) [Mass/Vol] 4.1 g/dL 2.2-4.2 [facility] Work Phone: Urea nitrogen/Creatinine [Mass ratio] 24.9 mg/mg 10-20 [facility] Work Phone: No Panel Informationon 11-15 Estimated GFR (MDRD) Amer 35 mL/min >60 [facility] Work Phone: Comment on above: GFR Calc Estimated GFR (MDRD) Non-Af Amer 29 mL/min >60 [facility] Work Phone: Comment on above: Non- GFR Calc Thyroid Stimulating Hormone (TSH) 0.31 uIU/mL 0.358-3.74 [facility] Work Phone: Urine Microalbumin/Creatinine Ratio 1908.5 mg/g CRE <30 [facility] Work Phone: Vitamin D 25-Hydroxy 36.4 ng/mL [facility] Work Phone: Comment on above: Vitamin D 25(OH) Sta tus Range Deficiency <20 ng/mL (50nmol/L) Insufficiency 20 - 30 ng/mL (50 - 75 nmol/L) Sufficiency 30 - 100 ng/mL (75 - 250 nmol/L) Toxicity >100 ng/mL (>250 nmol/L) Serum or plasma albumin lamar urement (mass/volume)on 11-15-2021 Albumin [Mass/Vol] 3.4 g/dL 3.2-5.0 [facility] Work Phone: Serum or plasma albumin/glob ulin mass ratioon 11-15-2021 Albumin/Globulin [Mass ratio] 0.8 {ratio} 0.9-2.4 [facility] Work Phone: Serum or plasma calcium lamar urement (mass/volume)on 11-15-2021 Calcium [Mass/Vol] 8.7 mg/dL 8.5-10.1 [facility] Work Phone: Serum or plasma creatinine m easurement (mass/volume)on 11-15-2021 Creatinine [Mass/Vol] 1.85 mg/dL 0.55-1.02 [facility] Work Phone: Comment on above: The validity of the calculated GFR & GFRAA in patients over 70 years has not been determined. Clinical correlation is essential. Serum or plasma urea nitroge n measurement (mass/volume)on 11-15-2021 Urea nitrogen [Mass/Vol] 46 mg/dL 7-18 [facility] Work Phone: Thin prep Papanicolaou smear with manual screeningon 11-15-2021 Thin prep Papanicolaou smear with manual screening 16 U/L 15-37 [facility] Work Phone: Thin prep Papanicolaou smear with manual screening 7 5-15 [facility] Work Phone: Thin prep Papanicolaou smear with manual screening 1460.0 mg/L NO RANGE EST. [facility] Work Phone: Urine creatinine measurement (mass/volume)on 11-15-2021 Creatinine (U) [Mass/Vol] 76.50 mg/dL NO RANGE EST. [facility] Work Phone: Whole blood hemoglobin A1c/t otal hemoglobin ratio (mass fraction)on 11-15-2021 HbA1c (Bld) [Mass fraction] 6.4 % 3.8-5.6 [facility] Work Phone: Comment on above: Normal < 5.7 % Predi abetic 5.7 - 6.4 % Diabetic >or= 6.5 % Please note range changes. Basophil percentageon 2021 Basophil percentage 3.9 mg/dL 2.5-4.9 [facility]: Chloride [Moles/Vol] 105 mmol/L 98-107 [facility]: Glucose [Mass/Vol] 295 mg/dL 74-106 [facility] Work Phone: Comment on above: Glucose result great er than or equal to 200 mg/dLsuggests DIABETES MELLITUS per A.D.A. criteria. Potassium [Moles/Vol] 4.8 mmol/L 3.5-5.1 [facility] Work [facility]: Sodium [Moles/Vol] 136 mmol/L 136-145 [facility] Work Phone: WBC (Bld) [#/Vol] 8.2 10*3/uL 4.4-11.0 [facility] Work Phone: Blood erythrocytes count (nu mber/volume)on 09-08-2021 RBC (Bld) [#/Vol] 3.71 10*6/uL 4.2-5.4 [facility] Work Phone: Blood hemoglobin measurement (mass/volume)on 09-08-2021 Hemoglobin (Bld) [Mass/Vol] 11.4 g/dL 12.0-15.0 [facility] Work Phone: Blood platelet mean volumeon 09-08-2021 Platelet mean volume (Bld) [Entitic vol] 9.6 fL 6.2-12.0 [facility] Work Phone: Determination of erythrocyte mean corpuscular volume (MCV)on 09-08-2021 MCV (RBC) [Entitic vol] 94.3 fL 81-99 [facility] Work Phone: Hematocrit Auto (Bld) [Volum e fraction]on 09-08-2021 Hematocrit (Bld) [Volume fraction] 35.0 % 37-47 [facility] Work Phone: Laboratory - Chemistry and C hemistry - challengeon 09-08-2021 CO2 [Moles/Vol] 23.0 mmol/L 21.0-32.0 [facility] Work Phone: Urea nitrogen/Creatinine [Mass ratio] 25.0 mg/mg 10-20 [facility] Work Phone: Laboratory - Hematology and Cell countson 09-08-2021 Erythrocyte distribution width (RBC) [Entitic vol] 43.8 fL 35.1-43.9 [facility] Work Phone: Erythrocyte distribution width (RBC) [Ratio] 12.7 % 11.6-14.6 [facility] Work Phone: MCH (RBC) [Entitic mass] 30.7 pg 27.0-32.0 [facility] Work Phone: MCHC Auto (RBC) [Mass/Vol]on 09-08-2021 MCHC (RBC) [Mass/Vol] 32.6 g/dL 32-36 [facility] Work Phone: No Panel Informationon 09-08 Estimated GFR (MDRD) Amer 37 mL/min >60 [facility] Work Phone: Comment on above: GFR Calc Estimated GFR (MDRD) Non-Af Amer 31 mL/min >60 [facility] Work Phone: Comment on above: Non- GFR Calc Miscellaneous Test See [facility]: Comment on above: TEST RESULT LIMITSAn ti-PLA2R Anti-PLA2R < 1.8 RU/mL 0.0 - 19.9 Negative < 14.0 Borderline 14.0 - 19.9 Positive > 19.9 TESTING PERFORMED AT [facility]. ORIGINAL REPORT ON FILE IN LAB CONTAINS ADDITIONAL TEST SITE INFORMATION. Parathyroid Hormone (Intact) 43.7 pg/mL 18.4-80.1 [facility] Work Phone: Vitamin D 25-Hydroxy 39.6 ng/mL [facility] Work Phone: Comment on above: Vitamin D 25(OH) Sta tus Range Deficiency <20 ng/mL (50nmol/L) Insufficiency 20 - 30 ng/mL (50 - 75 nmol/L) Sufficiency 30 - 100 ng/mL (75 - 250 nmol/L) Toxicity >100 ng/mL (>250 nmol/L) Platelets bldon 09-08-2021 Platelets (Bld) [#/Vol] 340 10*3/uL 150-450 [facility] Work Phone: Serum or plasma albumin lamar urement (mass/volume)on 09-08-2021 Albumin [Mass/Vol] 3.4 g/dL 3.2-5.0 [facility] Work Phone: Serum or plasma calcium lamar urement (mass/volume)on 09-08-2021 Calcium [Mass/Vol] 9.1 mg/dL 8.5-10.1 [facility] Work Phone: Serum or plasma creatinine m easurement (mass/volume)on 09-08-2021 Creatinine [Mass/Vol] 1.76 mg/dL 0.55-1.02 [facility] Work Phone: Comment on above: The validity of the calculated GFR & GFRAA in patients over 70 years has not been determined. Clinical correlation is essential. Serum or plasma urea nitroge n measurement (mass/volume)on 09-08-2021 Urea nitrogen [Mass/Vol] 44 mg/dL 7-18 [facility] Work Phone: Urine creatinine measurement (mass/volume)on 09-08-2021 Creatinine (U) [Mass/Vol] 17.60 mg/dL NO RANGE EST. [facility] Work Phone: Urine protein measurement (m ass/volume)on 09-08-2021 Protein (U) [Mass/Vol] 55.5 mg/dL 0.0-11.8 [facility] Work Phone: Urine protein/creatinine mas s ratioon 09-08-2021 Protein/Creatinine (U) [Mass ratio] 3153 mg/g CRE 0-200 [facility] Work Phone: SARS coronavirus RNA [Presen ce] in Unspecified specimen by SAAD with probe detectionon 08-05-2021 SARS-CoV RNA SAAD+probe Ql (Unsp spec) Not detected Not Detected [facility] Work Phone: Comment on above: This nucleic acid am plification test was developed and itsperformance characteristics determined by [facility]. Nucleic acid amplification tests include RT-PCR and TMA. This test has not been FDA cleared orapproved. This test has been authorized by FDA under anEmergency Use Authorization (EUA). This test is onlyauthorized for the duration of time the declaration thatcircumstances exist justifying the authorization of theemergency use of in vitro diagnostic tests for detection [id number] virus and/or diagnosis of COVID-19 infectionunder section 564(b)(1) of the Act, 21 U.S.C. 360bbb-3(b)(1), unless the authorization is terminated or revokedsooner.When diagnostic testing is negative, the possibility of afalse negative result should be considered in the contextof a patient's recent exposures and the presence ofclinical signs and symptoms consistent with COVID-19. Anindividual without symptoms of COVID-19 and who is notshedding SARS-CoV-2 virus would expect to have a negative(not detected) result in this assay. OBSOLETEon 09-10-2018 OBSOLETE Refill (ENDMED) IMANSHILPI D ([id number]) 1955 F Date Time Provider Department 09/10/18 CAITLIN DUNN During your visit today, we recorded the following information about you: Allergies As of Date: 09/10/2018 Noted Allergy Reaction EFFEXOR (VENLAFAXINE HCL) 05/23/2005 4 - Hives NORVASC (AMLODIPINE) 07/04/2012 7 - Swelling PNEUMOVAX 23 (PNEUMOCOCCAL 23-DONALD*05/31/2007 PRAVACHOL (PRAVASTATIN) 05/23/2005 4 - Hives ZOLOFT (SERTRALINE HCL) 05/23/2005 4 - Hives Date Reviewed: 01/02/2018 Reviewed by: Caitlin Dunn - Fully Assessed Reason for Visit: Refill Request [94] Visit Diagnosis:Type 1 diabetes mellitus with diabetic nephropathy, with long-term current use of insulin (HCC) [E10.21] Prescriptions as of 09/10/2018 Sig: LEVOTHYROXINE 50 MCG TABLET Take 1 tablet by mouth once d* EZETIMIBE 10 MG TABLET Take 1 tablet by mouth once d* CONTOUR NEXT TEST STRIPS CHECKING BLOOD SUGARS 6 TIMES* HUMALOG U-100 INSULIN 100 UNI* USE IN INSULIN PUMP 40-50 UNI* SPIRONOLACTONE 25 MG TABLET TAKE 2 TABLETS BY MOUTH DAILY AMLODIPINE 5 MG TABLET VALSARTAN 160 MG TABLET Take 160 mg by mouth twice da* HYDROCHLOROTHIAZIDE 12.5 MG C* Take 12.5 mg by mouth once da* GLUCAGON (HUMAN RECOMBINANT) * Inject 1 mg subcutaneously as* ASPIRIN 81 MG TABLET,DELAYED * Take 1 tablet by mouth once d* VALSARTAN 80 MG-HYDROCHLOROTH* Take 1 tablet by mouth twice * FERROUS SULFATE 325 MG (65 MG* Take 325 mg by mouth twice da* LANCETS Use as instructed AMLODIPINE 5 MG-ATORVASTATIN * Take 1 tablet by mouth once d* LEVOMEFOLATE CALCIUM 15 MG TA* Take by mouth. CHOLECALCIFEROL (VITAMIN D3) * Take 2,000 Units by mouth onc* LEFLUNOMIDE 10 MG TABLET Take 10 mg by mouth once randy* CPAP Use as directed NEBIVOLOL 20 MG TABLET Take 1 tablet by mouth once d* CETIRIZINE 10 MG CAPSULE Take by mouth once daily. PEN NEEDLE 31 GAUGE X 12/20 Use as directed. ULTRAM 50 MG TABLET as necessary CALCIUM 500 MG TABLET Take one(1) tablet twice randy* PROTONIX 40 MG TABLET,DELAYED* Take one(1) tablet daily. MULTIVITAMIN TABLET Take one(1) tablet daily. 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*INVALID FOR* Hypothyroidism [E03.9] INVALID FOR* Albuminuria [R80.9] INVALID FOR* Encounter Status:Closed by ENDY BRADFORD MA on 09/10/18 [facility] CNOVon 01-02-2018 CNOV Office Visit (CYN ) SHILPI BARRON ([id number]) 1955 F Date Time Provider Department 01/02/18 10:05 AM CAITLIN DUNN During your visit today, we recorded the following information about you: Pulse Blood pressure Weight Height 67/minute 138/55 70 kg 1.555 m Caitlin Dunn MD 01/02/2018 11:46 AM Signed SUBJECTIVE: Shilpi Barron is a 62 year old female who presents for type 1 Diabetes-on insulin pump, hypothyroidism, hyperlipidemia and hypertension follow up Diabetes complications include: retinopathy and nephropathy. She sees [facility] - She has been on insulin pump for ~ 15 years. Interval history: BG have been elevated, she self titrated couple of her basal settings Continuous Subcutaneous Insulin Pump Settings: Pump Medtronic Basal rates: MN: 0.85, 2:30a 1.0, 4A 1.45, 5:30a 1.25, 10A 0.8, 11:30 am 1.25 3:30 PM 0.825 7PM 0.75 Midnight noon Bolus (1unit/___grams CHO) 8.0 6 Midnight Sensitivity (correction factor) 150 Target or Goal BG (mg/dl) 120 Active insulin time (hours) Changes infusion sites every 3 days Blood glucose times and ranges (mg/dl): Currently checks sugars 5 times daily Breakfast 87-290 Lunch 87-200 Dinner 85-130 HS 200-295 Hypoglycemic episodes: rare She had a CGM Exercise:No Eye exam: December 2017 A1c:7.5 Flu shot:yes Nephrology- aug 2017 Outside labs- December 2017 CHOL-206 TRIG-146 HDL-42 LDL-135 She developed myalgia due to statin, stopped lipitor 3 months ago She also tried Pravachol developed hives Hypothyroidism: Synthroid 25 mcg daily She takes it 7:00 am iron and vitamins are at 9:00 am Patient denies any changes in weight No constipation Recent thyroid labs: TSH-7.8 Free T4-0.94 REVIEW OF SYSTEMS: GENERAL: Fever - No Changes in weight - No NEUROLOGICAL: Numbness, tingling or sensation of pins and needles - yes Headaches-No HEAD, EYES, EARS, NOSE, AND THROAT: Changes in hearing - No Changes in vision - No CARDIOVASCULAR: Chest pain or pressure - No Palpitations - No RESPIRATORY: Cough - No Wheezing - No Shortness of breath - No GASTROINTESTINAL: Abdominal discomfort - No Nausea - No Vomiting - No EXTREMITY: Edema (swelling) - No Claudication-No MUSCULOSKELETAL: Muscle pain or ache - No Arthralgia-No Skin: Rash - No Erythema-No ENDOCRINE: Diabetes - Yes Thyroid disorder - Yes PSYCHOLOGICAL: Depression - No Anxiety-No Heme: Bruising-No Bleeding-No Current Outpatient Prescriptions on File Prior to Visit: insulin lispro (HUMALOG) 100 unit/mL injection USE IN INSULIN PUMP 40-50 UNITS PER DAY DIRECTED spironolactone (ALDACTONE) 25 mg tablet Take 25 mg by mouth once daily. valsartan (DIOVAN) 160 mg tablet Take 160 mg by mouth twice daily. Hydrochlorothiazide 12.5 mg capsule Take 12.5 mg by mouth once daily. blood sugar diagnostic (CONTOUR NEXT STRIPS) test strip Checking blood sugars 6 times daily glucagon, human recombinant, (GLUCAGON EMERGENCY KIT, HUMAN,) 1 mg injection Inject 1 mg subcutaneously as directed. aspirin, enteric coated (ASPIRIN LOW DOSE) 81 mg EC tablet Take 1 tablet by mouth once daily. blood sugar diagnostic (ONETOUCH ULTRA TEST) test strip TEST BLOOD SUGAR 6 TIMES DAILY DIRECTED Ferrous Sulfate 325 mg (65 mg iron) tablet Take 325 mg by mouth twice daily. Lancets (BD ULTRA FINE LANCETS) lancets Use as instructed amLODIPine-Atorvastati n 5-10 mg per tablet Take 1 tablet by mouth once daily. L-Methylfolate (DEPLIN) 15 mg tab Take by mouth. Cholecalciferol, Vitamin D3, (VITAMIN D-3) 2,000 unit tab Take 2,000 Units by mouth once daily. CPAP Use as directed Cetirizine (ZYRTEC) 10 mg ORAL Cap Take by mouth once daily. needles, insulin disposable(PEN NEEDLE 31 X 5/16) Use as directed. tramadol hcl(ULTRAM 50 MG TAB) as necessary Calcium 500 mg ORAL Tab Take one(1) tablet twice daily. MULTIVITAMIN TAB Take one(1) tablet daily. Valsartan-Hydrochlorot hiazide (DIOVAN HCT) 80-12.5 mg per tablet Take 1 tablet by mouth twice daily. leflunomide (ARAVA) 10 mg tablet Take 10 mg by mouth once daily. nebivolol 20 mg Tab Take 1 tablet by mouth once daily. PROTONIX 40 MG TAB Take one(1) tablet daily. No current facility-administered medications on file prior to visit. ALLERGIES Allergen Reactions - Effexor [Venlafaxin* Hives - Norvasc [Amlodipine] Swelling - Pneumovax 23 [Pneum* - Pravachol [Pravasta* Hives - Zoloft [Sertraline * Hives PAST MEDICAL HISTORY Diagnosis Date - Essential hypertension, benign - Pure hypercholesterolemia - Type I (juvenile type) diabetes mellitus without mention of complication, not stated as uncontrolled PAST SURGICAL HISTORY Procedure Laterality Date - APPENDECTOMY - DELIVERY ONLY 1975 , low cervical - PAST SURGICAL HISTORY OF insulin pump insertion - PAST SURGICAL HISTORY OF laser for eye bleeding - PAST SURGICAL HISTORY OF 09/14/15 Endoscopy - REMV 2ND CATARACT,CORN-SCLER SECTN Cataract removal - REVISE MEDIAN N/CARPAL TUNNEL SURG 1993 Carpal tunnel decomp, right - STEREOTACTIC CORE BIOPSY 09/05/08 BILAT - TOTAL ABDOM HYSTERECTOMY 2005 Hysterectomy, MUNA FAMILY HISTORY Problem Relation Age of Onset - Arthritis Mother - Cancer Sister melanoma - Diabetes Mother - Diabetes Father - Diabetes Sister - Hypertension Father - Stroke Mother - Osteoporosis Maternal Grandmother Social History Marital status: Spouse name: Years of education: Number of children: Social History Main Topics Smoking status: Former Smoker Packs/day: 0.00 Years: 0.00 Smokeless tobacco: Never Used Alcohol use: Yes 1.5 oz/week Cans of Beer (12oz): 1 per week Drug use: No PHYSICAL EXAM: BP 138/55 (BP Site: Left Arm, BP Position: Sitting, BP Cuff Size: Regular Adult) Pulse 67 Ht 155.5 cm (5' 1.22) Wt 70 kg (154 lb 6.4 oz) SpO2 99% BMI 28.96 kg/m? General:alert and oriented X 3, no acute distress Eyes:anicteric sclera, Extraocular motions intact Mucous membranes moist, no erythema Neck supple, no cervical lymphadenopathy Thyroid: normal size, normal texture, no palpable nodules Chest: Breathing unlabored, Lungs clear to auscultation. No wheezing, rhonchi, rales CV:normal, Regular rate and rhythm, no murmurs, clicks, or gallops. Abdomen: Normal abdominal sounds, non tender to palpation, no masses No lipohypertrophy of infusion sites Neuro: Gait normal. Sensation grossly intact. Normal DTR's at patella Musculoskeletal: Muscular strength intact, No joint swelling, deformity, or tenderness Extremities without edema, Good peripheral pulses Feet: Shoes and socks removed, No deformities, ulcers, calluses, normal distal pulses and sensitive to 10 gm monofilament Skin: no rashes/ erythema LAB: Glucose (mg/dL) Date Value 01/01/2016 159* Potassium (mmol/L) Date Value 01/01/2016 4.0 Sodium (mmol/L) Date Value 01/01/2016 139 Chloride (mmol/L) Date Value 01/01/2016 100 CO2 (mmol/L) Date Value 01/01/2016 26 Creatinine (mg/dL) Date Value 01/01/2016 1.35 BUN (mg/dL) Date Value 01/01/2016 32* Anion Gap (mmol/L) Date Value 01/01/2016 13 Calcium (mg/dL) Date Value 01/01/2016 9.4 Hemoglobin A1C Date Value Ref Range Status 01/01/2016 7.7 (H) 4.3 - 5.6 % Final Comment: [place] [employer] guidelines indicate that patients with HgbA1c in the range 5.7-6.4% are at increased risk for development of diabetes, and intervention by lifestyle modification may be beneficial. HgbA1c greater or equal to 6.5% is considered diagnostic of diabetes. 02/09/2012 7.8 (H) 4.0 - 6.0 % Final Comment: [place] [employer] guidelines indicate that patients with HgbA1c in the range 5.7-6.4% are at increased risk for development of diabetes, and intervention by lifestyle modification may be beneficial. HgbA1c greater or equal to 6.5% is considered diagnostic of diabetes. 02/26/2004 7.3 (A) 4.0 - 6.0 % Final Hemoglobin A1c Date Value Ref Range Status 05/25/2016 8.0 (A) 4 - 6 % Final HBA1C, Annie Date Value Ref Range Status 09/26/2011 7.7 (H) 4.0 - 6.0 % Final 03/31/2011 7.6 (H) 4.0 - 6.0 % Final 05/08/2009 7.7 (H) 4.2 - 5.8 % Final Comment: Test performed by: [facility] Annie, [address] [place] [address]. 09/18/2008 8.0 (H) 4.2 - 5.8 % Final Comment: Test performed by: [facility], [address] [place] [address]. 04/03/2008 7.3 (H) 4.2 - 5.8 % Final Comment: Test performed by: [facility], [address] [place] [address]. Hemoglobin A1C (POCT) Date Value Ref Range Status 01/02/2018 7.8 (A) 4.2 - 5.6 % Final Comment: Point of care (POC) Hemoglobin A1c (HGBA1C) testing is intended to assess glucose control and provide a management tool for patients known to have diabetes and their healthcare providers. Target HGBA1C levels may depend on specific clinical circumstances. POC HGBA1C is not intended for use as a diagnostic or screening test; laboratory-based testing should be used for diagnostic purposes. The following information is supplemental and may not be applicable to specific diabetes management situations: The POC device fruit tester provides a normal range of 4.2% to 6.5% for the HGBA1C POC test. However, the [place] [employer] guidelines indicate that patients with HGBA1C in the range of 5.7% to 6.4% are at increased risk for development of diabetes and that intervention by lifestyle modification may be beneficial. A HGBA1C level greater than or equal to 6.5% is considered diagnostic of diabetes, pending confirmatory testing. Use of HGBA1C testing to evaluate glucose control may not be appropriate for patients with hemoglobin variants or other conditions (e.g. anemia) that alter red blood cell lifespan. 10/03/2017 7.5 (A) 4.2 - 5.6 % Final Comment: Point of care (POC) Hemoglobin A1c (HGBA1C) testing is intended to assess glucose control and provide a management tool for patients known to have diabetes and their healthcare providers. Target HGBA1C levels may depend on specific clinical circumstances. POC HGBA1C is not intended for use as a diagnostic or screening test; laboratory-based testing should be used for diagnostic purposes. The following information is supplemental and may not be applicable to specific diabetes management situations: The POC device fruit tester provides a normal range of 4.2% to 6.5% for the HGBA1C POC test. However, the [place] [employer] guidelines indicate that patients with HGBA1C in the range of 5.7% to 6.4% are at increased risk for development of diabetes and that intervention by lifestyle modification may be beneficial. A HGBA1C level greater than or equal to 6.5% is considered diagnostic of diabetes, pending confirmatory testing. Use of HGBA1C testing to evaluate glucose control may not be appropriate for patients with hemoglobin variants or other conditions (e.g. anemia) that alter red blood cell lifespan. 05/30/2017 8.2 (A) 4.2 - 5.6 % Final Comment: Point of care (POC) Hemoglobin A1c (HGBA1C) testing is intended to assess glucose control and provide a management tool for patients known to have diabetes and their healthcare providers. Target HGBA1C levels may depend on specific clinical circumstances. POC HGBA1C is not intended for use as a diagnostic or screening test; laboratory-based testing should be used for diagnostic purposes. The following information is supplemental and may not be applicable to specific diabetes management situations: The POC device fruit tester provides a normal range of 4.2% to 6.5% for the HGBA1C POC test. However, the [place] [employer] guidelines indicate that patients with HGBA1C in the range of 5.7% to 6.4% are at increased risk for development of diabetes and that intervention by lifestyle modification may be beneficial. A HGBA1C level greater than or equal to 6.5% is considered diagnostic of diabetes, pending confirmatory testing. Use of HGBA1C testing to evaluate glucose control may not be appropriate for patients with hemoglobin variants or other conditions (e.g. anemia) that alter red blood cell lifespan. 11/29/2016 8.1 (A) 4.2 - 5.6 % Final Comment: Point of care (POC) Hemoglobin A1c (HGBA1C) testing is intended to assess glucose control and provide a management tool for patients known to have diabetes and their healthcare providers. Target HGBA1C levels may depend on specific clinical circumstances. POC HGBA1C is not intended for use as a diagnostic or screening test; laboratory-based testing should be used for diagnostic purposes. The following information is supplemental and may not be applicable to specific diabetes management situations: The POC device fruit tester provides a normal range of 4.2% to 6.5% for the HGBA1C POC test. However, the [place] [employer] guidelines indicate that patients with HGBA1C in the range of 5.7% to 6.4% are at increased risk for development of diabetes and that intervention by lifestyle modification may be beneficial. A HGBA1C level greater than or equal to 6.5% is considered diagnostic of diabetes, pending confirmatory testing. Use of HGBA1C testing to evaluate glucose control may not be appropriate for patients with hemoglobin variants or other conditions (e.g. anemia) that alter red blood cell lifespan. 08/30/2016 8.3 (A) 4.2 - 5.6 % Final Comment: Point of care (POC) Hemoglobin A1c (HGBA1C) testing is intended to assess glucose control and provide a management tool for patients known to have diabetes and their healthcare providers. Target HGBA1C levels may depend on specific clinical circumstances. POC HGBA1C is not intended for use as a diagnostic or screening test; laboratory-based testing should be used for diagnostic purposes. The following information is supplemental and may not be applicable to specific diabetes management situations: The POC device fruit tester provides a normal range of 4.2% to 6.5% for the HGBA1C POC test. However, the [place] [employer] guidelines indicate that patients with HGBA1C in the range of 5.7% to 6.4% are at increased risk for development of diabetes and that intervention by lifestyle modification may be beneficial. A HGBA1C level greater than or equal to 6.5% is considered diagnostic of diabetes, pending confirmatory testing. Use of HGBA1C testing to evaluate glucose control may not be appropriate for patients with hemoglobin variants or other conditions (e.g. anemia) that alter red blood cell lifespan. No results found for: TSH No results found for this basename: vitd25] ALBUMIN/CREAT RATIO (mg/g) Date Value 01/01/2016 646* ASSESSMENT/PLAN: Type 1 diabetes uncontrolled with complications Insulin pump titration Hypertension Hyperlipidemia Macroalbuminuria Hypothyroidism A1c has increased (7.8) Review of pump download revealed hyperglycemia at bedtime Change insulin to carb ratio to 1:5 CHO with dinner Continue current basal settings She change infusion site every 3 days Patient is instructed to test sugars 3 times daily BP is well controlled continue Diovan and spironolactone Cholesterol:we discussed her outside results She is intolerant to statins She is already on a low fat diet Start Zetia Macroalbuminuria-see Nephrology, continue Diovan Eye exam and Immmunization are uptodate Bio-chemically hypothyroid Increase synthroid to 50 mcg daily I educated the patient on proper administration of this medication which includes taking it on an empty stomach and alteast 2 hour apart from Calcium, iron and PPIs. Update thyroid function test at follow up Lab letter printed and provided to the patient Follow up in 3 months. Caitlin Dunn MD 01/02/18 Caitlin Dunn MD 01/02/2018 10:59 AM Signed Start Zetia Follow up in 3 months Referring Provider: SELF [200] Allergies As of Date: 01/02/2018 Noted Allergy Reaction EFFEXOR (VENLAFAXINE HCL) 05/23/2005 4 - Hives NORVASC (AMLODIPINE) 07/04/2012 7 - Swelling PNEUMOVAX 23 (PNEUMOCOCCAL 23-DONALD*05/31/2007 PRAVACHOL (PRAVASTATIN) 05/23/2005 4 - Hives ZOLOFT (SERTRALINE HCL) 05/23/2005 4 - Hives Date Reviewed: 01/02/2018 Reviewed by: Caitlin Dunn - Fully Assessed Reason for Visit: Diabetes [34] Primary Visit Diagnosis:Type 1 diabetes mellitus with diabetic nephropathy, with long-term current use of insulin (HCC) [E10.21] Other Visit Diagnoses:Insulin pump titration [Z46.81] Essential hypertension [I10] Pure hypercholesterolemia [E78.00] Hypothyroidism, unspecified type [E03.9] Albuminuria [R80.9] Order(s):HEMOGLOBIN A1C (POC) [4927532] Order #: [id number]. #:[id number] levothyroxine (SYNTHROID) 50 mcg tabletTake 1 tablet by mouth once daily.Disp: 90 tabletRfl: 3 ezetimibe (ZETIA) 10 mg tabletTake 1 tablet by mouth once daily.Disp: 90 tabletRfl: 3 Prescriptions as of 01/02/2018 Sig: CONTOUR NEXT TEST STRIPS CHECKING BLOOD SUGARS 6 TIMES* HUMALOG U-100 INSULIN 100 UNI* USE IN INSULIN PUMP 40-50 UNI* SPIRONOLACTONE 25 MG TABLET TAKE 2 TABLETS BY MOUTH DAILY AMLODIPINE 5 MG TABLET VALSARTAN 160 MG TABLET Take 160 mg by mouth twice da* HYDROCHLOROTHIAZIDE 12.5 MG C* Take 12.5 mg by mouth once da* GLUCAGON (HUMAN RECOMBINANT) * Inject 1 mg subcutaneously as* ASPIRIN 81 MG TABLET,DELAYED * Take 1 tablet by mouth once d* FERROUS SULFATE 325 MG (65 MG* Take 325 mg by mouth twice da* LANCETS Use as instructed CPAP Use as directed NEBIVOLOL 20 MG TABLET Take 1 tablet by mouth once d* CETIRIZINE 10 MG CAPSULE Take by mouth once daily. CALCIUM 500 MG TABLET Take one(1) tablet twice randy* MULTIVITAMIN TABLET Take one(1) tablet daily. LEVOTHYROXINE 50 MCG TABLET Take 1 tablet by mouth once d* EZETIMIBE 10 MG TABLET Take 1 tablet by mouth once d* VALSARTAN 80 MG-HYDROCHLOROTH* Take 1 tablet by mouth twice * AMLODIPINE 5 MG-ATORVASTATIN * Take 1 tablet by mouth once d* LEVOMEFOLATE CALCIUM 15 MG TA* Take by mouth. CHOLECALCIFEROL (VITAMIN D3) * Take 2,000 Units by mouth onc* LEFLUNOMIDE 10 MG TABLET Take 10 mg by mouth once randy* PEN NEEDLE 31 GAUGE X 12/20 Use as directed. ULTRAM 50 MG TABLET as necessary PROTONIX 40 MG TABLET,DELAYED* Take one(1) tablet daily. Medication notes this encounter NEBIVOLOL 20 MG TABLET >> Endy Bradford MA 01/02/2018 10:12 AM >> ENDY BRADFORD MA January 02, 2018 10:12 AM AMLODIPINE 5 MG-ATORVASTATIN 10 MG TABLET >> Endy Bradford MA 01/02/2018 10:12 AM >> ENDY BRADFORD MA January 02, 2018 10:12 AM D/c Problem List As Of Date 01/02/2018 Noted Resolved Type 1 diabetes mellitus with diabetic nephropa*INVALID FOR*01/13/2016 PURE HYPERCHOLESTEROLEM [E78.00] INVALID FOR* FIBROADENOSIS OF BREAST [N60.29] INVALID FOR* Hypertension [I10] INVALID FOR*01/13/2016 Type 1 diabetes mellitus with diabetic nephropa*INVALID FOR* Essential hypertension [I10] INVALID FOR* Insulin pump titration [Z46.81] INVALID FOR* Hyperlipidemia [E78.5] INVALID FOR* Macroalbuminuric diabetic nephropathy (HCC) [E1*INVALID FOR* Hypothyroidism [E03.9] INVALID FOR* Albuminuria [R80.9] INVALID FOR* Other instructions from your clinician: Start Zetia Follow up in 3 months Prescriptions ordered this encounter Disp Refills Start End LEVOTHYROXINE 50 MCG TABLET 90 t* 3 01/02/2018 Route: ORAL Sig: Take 1 tablet by mouth once daily. EZETIMIBE 10 MG TABLET 90 t* 3 01/02/2018 Route: ORAL Sig: Take 1 tablet by mouth once daily. Medications Discontinued During This Encounter levothyroxine (SYNTHROID) 25 mcg tab* 90 t* 3 05/31/2017 01/02/2018 Route: ORAL Sig: Take 1 tablet by mouth once daily. Disc: Reason for discontinue is not on file. Letter Text [facility]ocrin[facility], [address] [place] [address] Caitlin Dunn D.O. January 02, 2018 Shilpi Barron [id number] Please obtain the following laboratory tests on Ms. Barron approximately 3 months. Tests: TSH Free T4 Diagnoses: Hypothyroidism (E03.9) Please fax result to [phone] and also provide Shilpi Barron with a copy. Thank you. Caitlin Dunn MD Encounter Status:Closed by CAITLIN DUNN DO on 01/02/[address] [facility] PROGRESSon 01-02-2018 Protein mass conc HNO ID: [id number] Author: Caitlin Dunn Service: (none) Author Type: Physician Type: Progress Notes Filed: 01/02/2018 11:46 AM Note Text: SUBJECTIVE: Shilpi Barron is a 62 year old female who presents for type 1 Diabetes-on insulin pump, hypothyroidism, hyperlipidemia and hypertension follow up Diabetes complications include: retinopathy and nephropathy. She sees [facility] - She has been on insulin pump for ~ 15 years. Interval history: BG have been elevated, she self titrated couple of her basal settings Continuous Subcutaneous Insulin Pump Settings: Pump Medtronic Basal rates: MN: 0.85, 2:30a 1.0, 4A 1.45, 5:30a 1.25, 10A 0.8, 11:30 am 1.25 3:30 PM 0.825 7PM 0.75 Midnight noon Bolus (1unit/___grams CHO) 8.0 6 Midnight Sensitivity (correction factor) 150 Target or Goal BG (mg/dl) 120 Active insulin time (hours) Changes infusion sites every 3 days Blood glucose times and ranges (mg/dl): Currently checks sugars 5 times daily Breakfast 87-290 Lunch 87-200 Dinner 85-130 HS 200-295 Hypoglycemic episodes: rare She had a CGM Exercise:No Eye exam: December 2017 A1c:7.5 Flu shot:yes Nephrology- aug 2017 Outside labs- December 2017 CHOL-206 TRIG-146 HDL-42 LDL-135 She developed myalgia due to statin, stopped lipitor 3 months ago She also tried Pravachol developed hives Hypothyroidism: Synthroid 25 mcg daily She takes it 7:00 am iron and vitamins are at 9:00 am Patient denies any changes in weight No constipation Recent thyroid labs: TSH-7.8 Free T4-0.94 REVIEW OF SYSTEMS: GENERAL: Fever - No Changes in weight - No NEUROLOGICAL: Numbness, tingling or sensation of pins and needles - yes Headaches-No HEAD, EYES, EARS, NOSE, AND THROAT: Changes in hearing - No Changes in vision - No CARDIOVASCULAR: Chest pain or pressure - No Palpitations - No RESPIRATORY: Cough - No Wheezing - No Shortness of breath - No GASTROINTESTINAL: Abdominal discomfort - No Nausea - No Vomiting - No EXTREMITY: Edema (swelling) - No Claudication-No MUSCULOSKELETAL: Muscle pain or ache - No Arthralgia-No Skin: Rash - No Erythema-No ENDOCRINE: Diabetes - Yes Thyroid disorder - Yes PSYCHOLOGICAL: Depression - No Anxiety-No Heme: Bruising-No Bleeding-No Current Outpatient Prescriptions on File Prior to Visit: insulin lispro (HUMALOG) 100 unit/mL injection USE IN INSULIN PUMP 40-50 UNITS PER DAY DIRECTED spironolactone (ALDACTONE) 25 mg tablet Take 25 mg by mouth once daily. valsartan (DIOVAN) 160 mg tablet Take 160 mg by mouth twice daily. Hydrochlorothiazide 12.5 mg capsule Take 12.5 mg by mouth once daily. blood sugar diagnostic (CONTOUR NEXT STRIPS) test strip Checking blood sugars 6 times daily glucagon, human recombinant, (GLUCAGON EMERGENCY KIT, HUMAN,) 1 mg injection Inject 1 mg subcutaneously as directed. aspirin, enteric coated (ASPIRIN LOW DOSE) 81 mg EC tablet Take 1 tablet by mouth once daily. blood sugar diagnostic (ONETOUCH ULTRA TEST) test strip TEST BLOOD SUGAR 6 TIMES DAILY DIRECTED Ferrous Sulfate 325 mg (65 mg iron) tablet Take 325 mg by mouth twice daily. Lancets (BD ULTRA FINE LANCETS) lancets Use as instructed amLODIPine-Atorvastati n 5-10 mg per tablet Take 1 tablet by mouth once daily. L-Methylfolate (DEPLIN) 15 mg tab Take by mouth. Cholecalciferol, Vitamin D3, (VITAMIN D-3) 2,000 unit tab Take 2,000 Units by mouth once daily. CPAP Use as directed Cetirizine (ZYRTEC) 10 mg ORAL Cap Take by mouth once daily. needles, insulin disposable(PEN NEEDLE 31 X 12/20) Use as directed. tramadol hcl(ULTRAM 50 MG TAB) as necessary Calcium 500 mg ORAL Tab Take one(1) tablet twice daily. MULTIVITAMIN TAB Take one(1) tablet daily. Valsartan-Hydrochlorot hiazide (DIOVAN HCT) 80-12.5 mg per tablet Take 1 tablet by mouth twice daily. leflunomide (ARAVA) 10 mg tablet Take 10 mg by mouth once daily. nebivolol 20 mg Tab Take 1 tablet by mouth once daily. PROTONIX 40 MG TAB Take one(1) tablet daily. No current facility-administered medications on file prior to visit. ALLERGIES Allergen Reactions - Effexor [Venlafaxin* Hives - Norvasc [Amlodipine] Swelling - Pneumovax 23 [Pneum* - Pravachol [Pravasta* Hives - Zoloft [Sertraline * Hives PAST MEDICAL HISTORY Diagnosis Date - Essential hypertension, benign - Pure hypercholesterolemia - Type I (juvenile type) diabetes mellitus without mention of complication, not stated as uncontrolled PAST SURGICAL HISTORY Procedure Laterality Date - APPENDECTOMY - DELIVERY ONLY 1975 , low cervical - PAST SURGICAL HISTORY OF insulin pump insertion - PAST SURGICAL HISTORY OF laser for eye bleeding - PAST SURGICAL HISTORY OF 09/14/15 Endoscopy - REMV 2ND CATARACT,CORN-SCLER SECTN Cataract removal - REVISE MEDIAN N/CARPAL TUNNEL SURG 1993 Carpal tunnel decomp, right - STEREOTACTIC CORE BIOPSY 09/05/08 BILAT - TOTAL ABDOM HYSTERECTOMY 2005 Hysterectomy, MUNA FAMILY HISTORY Problem Relation Age of Onset - Arthritis Mother - Cancer Sister melanoma - Diabetes Mother - Diabetes Father - Diabetes Sister - Hypertension Father - Stroke Mother - Osteoporosis Maternal Grandmother Social History Marital status: Spouse name: Years of education: Number of children: Social History Main Topics Smoking status: Former Smoker Packs/day: 0.00 Years: 0.00 Smokeless tobacco: Never Used Alcohol use: Yes 1.5 oz/week Cans of Beer (12oz): 1 per week Drug use: No PHYSICAL EXAM: BP 138/55 (BP Site: Left Arm, BP Position: Sitting, BP Cuff Size: Regular Adult) Pulse 67 Ht 155.5 cm (5' 1.22) Wt 70 kg (154 lb 6.4 oz) SpO2 99% BMI 28.96 kg/m? General:alert and oriented X 3, no acute distress Eyes:anicteric sclera, Extraocular motions intact Mucous membranes moist, no erythema Neck supple, no cervical lymphadenopathy Thyroid: normal size, normal texture, no palpable nodules Chest: Breathing unlabored, Lungs clear to auscultation. No wheezing, rhonchi, rales CV:normal, Regular rate and rhythm, no murmurs, clicks, or gallops. Abdomen: Normal abdominal sounds, non tender to palpation, no masses No lipohypertrophy of infusion sites Neuro: Gait normal. Sensation grossly intact. Normal DTR's at patella Musculoskeletal: Muscular strength intact, No joint swelling, deformity, or tenderness Extremities without edema, Good peripheral pulses Feet: Shoes and socks removed, No deformities, ulcers, calluses, normal distal pulses and sensitive to 10 gm monofilament Skin: no rashes/ erythema LAB: Glucose (mg/dL) Date Value 01/01/2016 159* Potassium (mmol/L) Date Value 01/01/2016 4.0 Sodium (mmol/L) Date Value 01/01/2016 139 Chloride (mmol/L) Date Value 01/01/2016 100 CO2 (mmol/L) Date Value 01/01/2016 26 Creatinine (mg/dL) Date Value 01/01/2016 1.35 BUN (mg/dL) Date Value 01/01/2016 32* Anion Gap (mmol/L) Date Value 01/01/2016 13 Calcium (mg/dL) Date Value 01/01/2016 9.4 Hemoglobin A1C Date Value Ref Range Status 01/01/2016 7.7 (H) 4.3 - 5.6 % Final Comment: [place] [employer] guidelines indicate that patients with HgbA1c in the range 5.7-6.4% are at increased risk for development of diabetes, and intervention by lifestyle modification may be beneficial. HgbA1c greater or equal to 6.5% is considered diagnostic of diabetes. 02/09/2012 7.8 (H) 4.0 - 6.0 % Final Comment: [place] [employer] guidelines indicate that patients with HgbA1c in the range 5.7-6.4% are at increased risk for development of diabetes, and intervention by lifestyle modification may be beneficial. HgbA1c greater or equal to 6.5% is considered diagnostic of diabetes. 02/26/2004 7.3 (A) 4.0 - 6.0 % Final Hemoglobin A1c Date Value Ref Range Status 05/25/2016 8.0 (A) 4 - 6 % Final HBA1C, Annie Date Value Ref Range Status 09/26/2011 7.7 (H) 4.0 - 6.0 % Final 03/31/2011 7.6 (H) 4.0 - 6.0 % Final 05/08/2009 7.7 (H) 4.2 - 5.8 % Final Comment: Test performed by: [facility], [address] [place] [address]. 09/18/2008 8.0 (H) 4.2 - 5.8 % Final Comment: Test performed by: [facility] [place] [place] [address]. 04/03/2008 7.3 (H) 4.2 - 5.8 % Final Comment: Test performed by: [facility] [place] [place] [address]. Hemoglobin A1C (POCT) Date Value Ref Range Status 01/02/2018 7.8 (A) 4.2 - 5.6 % Final Comment: Point of care (POC) Hemoglobin A1c (HGBA1C) testing is intended to assess glucose control and provide a management tool for patients known to have diabetes and their healthcare providers. Target HGBA1C levels may depend on specific clinical circumstances. POC HGBA1C is not intended for use as a diagnostic or screening test; laboratory-based testing should be used for diagnostic purposes. The following information is supplemental and may not be applicable to specific diabetes management situations: The POC device fruit tester provides a normal range of 4.2% to 6.5% for the HGBA1C POC test. However, the [place] [employer] guidelines indicate that patients with HGBA1C in the range of 5.7% to 6.4% are at increased risk for development of diabetes and that intervention by lifestyle modification may be beneficial. A HGBA1C level greater than or equal to 6.5% is considered diagnostic of diabetes, pending confirmatory testing. Use of HGBA1C testing to evaluate glucose control may not be appropriate for patients with hemoglobin variants or other conditions (e.g. anemia) that alter red blood cell lifespan. 10/03/2017 7.5 (A) 4.2 - 5.6 % Final Comment: Point of care (POC) Hemoglobin A1c (HGBA1C) testing is intended to assess glucose control and provide a management tool for patients known to have diabetes and their healthcare providers. Target HGBA1C levels may depend on specific clinical circumstances. POC HGBA1C is not intended for use as a diagnostic or screening test; laboratory-based testing should be used for diagnostic purposes. The following information is supplemental and may not be applicable to specific diabetes management situations: The POC device fruit tester provides a normal range of 4.2% to 6.5% for the HGBA1C POC test. However, the [place] [employer] guidelines indicate that patients with HGBA1C in the range of 5.7% to 6.4% are at increased risk for development of diabetes and that intervention by lifestyle modification may be beneficial. A HGBA1C level greater than or equal to 6.5% is considered diagnostic of diabetes, pending confirmatory testing. Use of HGBA1C testing to evaluate glucose control may not be appropriate for patients with hemoglobin variants or other conditions (e.g. anemia) that alter red blood cell lifespan. 05/30/2017 8.2 (A) 4.2 - 5.6 % Final Comment: Point of care (POC) Hemoglobin A1c (HGBA1C) testing is intended to assess glucose control and provide a management tool for patients known to have diabetes and their healthcare providers. Target HGBA1C levels may depend on specific clinical circumstances. POC HGBA1C is not intended for use as a diagnostic or screening test; laboratory-based testing should be used for diagnostic purposes. The following information is supplemental and may not be applicable to specific diabetes management situations: The POC device fruit tester provides a normal range of 4.2% to 6.5% for the HGBA1C POC test. However, the [place] [employer] guidelines indicate that patients with HGBA1C in the range of 5.7% to 6.4% are at increased risk for development of diabetes and that intervention by lifestyle modification may be beneficial. A HGBA1C level greater than or equal to 6.5% is considered diagnostic of diabetes, pending confirmatory testing. Use of HGBA1C testing to evaluate glucose control may not be appropriate for patients with hemoglobin variants or other conditions (e.g. anemia) that alter red blood cell lifespan. 11/29/2016 8.1 (A) 4.2 - 5.6 % Final Comment: Point of care (POC) Hemoglobin A1c (HGBA1C) testing is intended to assess glucose control and provide a management tool for patients known to have diabetes and their healthcare providers. Target HGBA1C levels may depend on specific clinical circumstances. POC HGBA1C is not intended for use as a diagnostic or screening test; laboratory-based testing should be used for diagnostic purposes. The following information is supplemental and may not be applicable to specific diabetes management situations: The POC device fruit tester provides a normal range of 4.2% to 6.5% for the HGBA1C POC test. However, the [place] [employer] guidelines indicate that patients with HGBA1C in the range of 5.7% to 6.4% are at increased risk for development of diabetes and that intervention by lifestyle modification may be beneficial. A HGBA1C level greater than or equal to 6.5% is considered diagnostic of diabetes, pending confirmatory testing. Use of HGBA1C testing to evaluate glucose control may not be appropriate for patients with hemoglobin variants or other conditions (e.g. anemia) that alter red blood cell lifespan. 08/30/2016 8.3 (A) 4.2 - 5.6 % Final Comment: Point of care (POC) Hemoglobin A1c (HGBA1C) testing is intended to assess glucose control and provide a management tool for patients known to have diabetes and their healthcare providers. Target HGBA1C levels may depend on specific clinical circumstances. POC HGBA1C is not intended for use as a diagnostic or screening test; laboratory-based testing should be used for diagnostic purposes. The following information is supplemental and may not be applicable to specific diabetes management situations: The POC device fruit tester provides a normal range of 4.2% to 6.5% for the HGBA1C POC test. However, the [place] [employer] guidelines indicate that patients with HGBA1C in the range of 5.7% to 6.4% are at increased risk for development of diabetes and that intervention by lifestyle modification may be beneficial. A HGBA1C level greater than or equal to 6.5% is considered diagnostic of diabetes, pending confirmatory testing. Use of HGBA1C testing to evaluate glucose control may not be appropriate for patients with hemoglobin variants or other conditions (e.g. anemia) that alter red blood cell lifespan. No results found for: TSH No results found for this basename: vitd25] ALBUMIN/CREAT RATIO (mg/g) Date Value 01/01/2016 646* ASSESSMENT/PLAN: Type 1 diabetes uncontrolled with complications Insulin pump titration Hypertension Hyperlipidemia Macroalbuminuria Hypothyroidism A1c has increased (7.8) Review of pump download revealed hyperglycemia at bedtime Change insulin to carb ratio to 1:5 CHO with dinner Continue current basal settings She change infusion site every 3 days Patient is instructed to test sugars 3 times daily BP is well controlled continue Diovan and spironolactone Cholesterol:we discussed her outside results She is intolerant to statins She is already on a low fat diet Start Zetia Macroalbuminuria-see Nephrology, continue Diovan Eye exam and Immmunization are uptodate Bio-chemically hypothyroid Increase synthroid to 50 mcg daily I educated the patient on proper administration of this medication which includes taking it on an empty stomach and alteast 2 hour apart from Calcium, iron and PPIs. Update thyroid function test at follow up Lab letter printed and provided to the patient Follow up in 3 months. Caitlin Dunn MD 01/02/[address] [facility] PROGRESSon 10-03-2017 Protein mass conc HNO ID: [id number] Author: Caitlin Dunn Service: (none) Author Type: Physician Type: Progress Notes Filed: 10/03/2017 11:45 AM Note Text: SUBJECTIVE: Shilpi Barron is a 62 year old female who presents for type 1 Diabetes-on insulin pump, hypothyroidism, hyperlipidemia and hypertension follow up Diabetes complications include: retinopathy and nephropathy. She sees [facility] - She has been on insulin pump for 10-14 years. Interval history: Her dad before william BG have been elevated, she self titrated couple of her basal settings Continuous Subcutaneous Insulin Pump Settings: Pump Medtronic Basal rates: MN: 0.85, 2:30a 1.0, 4A 1.25, 5:30a 0.975 10A 0.775, 11:30 am 1.25 3:30 PM 0.825 7PM 0.75 Midnight noon Bolus (1unit/___grams CHO) 8.0 6 Midnight Sensitivity (correction factor) 150 Target or Goal BG (mg/dl) 120 Active insulin time (hours) Changes infusion sites every 3 days Blood glucose times and ranges (mg/dl): Currently checks sugars 5 times daily Breakfast 170-234 Lunch 106-131 Dinner ----- HS 96-150 Hypoglycemic episodes: rare She had a CGM Exercise:No Eye exam: 3 months A1c:8.2 Flu shot:yes Last TSH has been elevated Last labs: TSH-4.48 (0.358-3.74) Free T4-0.85 (0.76-1.46) At that time, I started Synthroid 25 mcg daily 3 months ago She has been taking it along with all the other medications, which includes iron and vitamins REVIEW OF SYSTEMS: GENERAL: Fever - No Changes in weight - No NEUROLOGICAL: Numbness, tingling or sensation of pins and needles - yes Headaches-No HEAD, EYES, EARS, NOSE, AND THROAT: Changes in hearing - No Changes in vision - No CARDIOVASCULAR: Chest pain or pressure - No Palpitations - No RESPIRATORY: Cough - No Wheezing - No Shortness of breath - No GASTROINTESTINAL: Abdominal discomfort - No Nausea - No Vomiting - No EXTREMITY: Edema (swelling) - No Claudication-No MUSCULOSKELETAL: Muscle pain or ache - No Arthralgia-No Skin: Rash - No Erythema-No ENDOCRINE: Diabetes - Yes Thyroid disorder - Yes PSYCHOLOGICAL: Depression - No Anxiety-No Heme: Bruising-No Bleeding-No Current Outpatient Prescriptions on File Prior to Visit: insulin lispro (HUMALOG) 100 unit/mL injection USE IN INSULIN PUMP 40-50 UNITS PER DAY DIRECTED spironolactone (ALDACTONE) 25 mg tablet Take 25 mg by mouth once daily. valsartan (DIOVAN) 160 mg tablet Take 160 mg by mouth twice daily. Hydrochlorothiazide 12.5 mg capsule Take 12.5 mg by mouth once daily. blood sugar diagnostic (CONTOUR NEXT STRIPS) test strip Checking blood sugars 6 times daily glucagon, human recombinant, (GLUCAGON EMERGENCY KIT, HUMAN,) 1 mg injection Inject 1 mg subcutaneously as directed. aspirin, enteric coated (ASPIRIN LOW DOSE) 81 mg EC tablet Take 1 tablet by mouth once daily. blood sugar diagnostic (ONETOUCH ULTRA TEST) test strip TEST BLOOD SUGAR 6 TIMES DAILY DIRECTED Ferrous Sulfate 325 mg (65 mg iron) tablet Take 325 mg by mouth twice daily. Lancets ([employer] ULTRA FINE LANCETS) lancets Use as instructed amLODIPine-Atorvastati n 5-10 mg per tablet Take 1 tablet by mouth once daily. L-Methylfolate (DEPLIN) 15 mg tab Take by mouth. Cholecalciferol, Vitamin D3, (VITAMIN D-3) 2,000 unit tab Take 2,000 Units by mouth once daily. CPAP Use as directed Cetirizine (ZYRTEC) 10 mg ORAL Cap Take by mouth once daily. needles, insulin disposable(PEN NEEDLE 31 X 5/16) Use as directed. tramadol hcl(ULTRAM 50 MG TAB) as necessary Calcium 500 mg ORAL Tab Take one(1) tablet twice daily. MULTIVITAMIN TAB Take one(1) tablet daily. Valsartan-Hydrochlorot hiazide (DIOVAN HCT) 80-12.5 mg per tablet Take 1 tablet by mouth twice daily. leflunomide (ARAVA) 10 mg tablet Take 10 mg by mouth once daily. nebivolol 20 mg Tab Take 1 tablet by mouth once daily. PROTONIX 40 MG TAB Take one(1) tablet daily. No current facility-administered medications on file prior to visit. ALLERGIES Allergen Reactions - Effexor [Venlafaxin* Hives - Norvasc [Amlodipine] Swelling - Pneumovax 23 [Pneum* - Pravachol [Pravasta* Hives - Zoloft [Sertraline * Hives PAST MEDICAL HISTORY Diagnosis Date - Essential hypertension, benign - Pure hypercholesterolemia - Type I (juvenile type) diabetes mellitus without mention of complication, not stated as uncontrolled PAST SURGICAL HISTORY Procedure Laterality Date - APPENDECTOMY - DELIVERY ONLY 1975 , low cervical - PAST SURGICAL HISTORY OF insulin pump insertion - PAST SURGICAL HISTORY OF laser for eye bleeding - PAST SURGICAL HISTORY OF 09/14/15 Endoscopy - REMV 2ND CATARACT,CORN-SCLER SECTN Cataract removal - REVISE MEDIAN N/CARPAL TUNNEL SURG 1993 Carpal tunnel decomp, right - STEREOTACTIC CORE BIOPSY 09/05/08 BILAT - TOTAL ABDOM HYSTERECTOMY 2005 Hysterectomy, MUNA FAMILY HISTORY Problem Relation Age of Onset - Arthritis Mother - Cancer Sister melanoma - Diabetes Mother - Diabetes Father - Diabetes Sister - Hypertension Father - Stroke Mother - Osteoporosis Maternal Grandmother Social History Marital status: Spouse name: Years of education: Number of children: Social History Main Topics Smoking status: Former Smoker Packs/day: 0.00 Years: 0.00 Smokeless status: Never Used Alcohol use: Yes 1.5 oz/week 1 Cans of Beer (12oz) per week Drug use: No PHYSICAL EXAM: BP 136/58 (BP Site: Left Arm, BP Position: Sitting, BP Cuff Size: Regular Adult) Pulse 68 Ht 154.5 cm (5' 0.83) Wt 69.3 kg (152 lb 12.8 oz) SpO2 100% BMI 29.04 kg/m2 General:alert and oriented X 3, no acute distress Eyes:anicteric sclera, Extraocular motions intact Mucous membranes moist, no erythema Neck supple, no cervical lymphadenopathy Thyroid: normal size, normal texture, no palpable nodules Chest: Breathing unlabored, Lungs clear to auscultation. No wheezing, rhonchi, rales CV:normal, Regular rate and rhythm, no murmurs, clicks, or gallops. Abdomen: Normal abdominal sounds, non tender to palpation, no masses No lipohypertrophy of infusion sites Neuro: Gait normal. Sensation grossly intact. Normal DTR's at patella Musculoskeletal: Muscular strength intact, No joint swelling, deformity, or tenderness Extremities without edema, Good peripheral pulses Skin: no rashes/ erythema LAB: Glucose (mg/dL) Date Value 01/01/2016 159* Potassium (mmol/L) Date Value 01/01/2016 4.0 Sodium (mmol/L) Date Value 01/01/2016 139 Chloride (mmol/L) Date Value 01/01/2016 100 CO2 (mmol/L) Date Value 01/01/2016 26 Creatinine (mg/dL) Date Value 01/01/2016 1.35 BUN (mg/dL) Date Value 01/01/2016 32* Anion Gap (mmol/L) Date Value 01/01/2016 13 Calcium (mg/dL) Date Value 01/01/2016 9.4 Hemoglobin A1C Date Value Ref Range Status 01/01/2016 7.7 (H) 4.3 - 5.6 % Final Comment: [place] [employer] guidelines indicate that patients with HgbA1c in the range 5.7-6.4% are at increased risk for development of diabetes, and intervention by lifestyle modification may be beneficial. HgbA1c greater or equal to 6.5% is considered diagnostic of diabetes. 03/25/2015 8.1 Final 07/09/2014 7.2 Final 02/09/2012 7.8 (H) 4.0 - 6.0 % Final Comment: [place] [employer] guidelines indicate that patients with HgbA1c in the range 5.7-6.4% are at increased risk for development of diabetes, and intervention by lifestyle modification may be beneficial. HgbA1c greater or equal to 6.5% is considered diagnostic of diabetes. 02/26/2004 7.3 (A) 4.0 - 6.0 % Final Hemoglobin A1c Date Value Ref Range Status 05/25/2016 8.0 (A) 4 - 6 % Final HBA1C, Annie Date Value Ref Range Status 09/26/2011 7.7 (H) 4.0 - 6.0 % Final 03/31/2011 7.6 (H) 4.0 - 6.0 % Final 05/08/2009 7.7 (H) 4.2 - 5.8 % Final Comment: Test performed by: [facility] Annie, [address] [place] [address]. 09/18/2008 8.0 (H) 4.2 - 5.8 % Final Comment: Test performed by: [facility] Annie, [address] [place] [address]. 04/03/2008 7.3 (H) 4.2 - 5.8 % Final Comment: Test performed by: [facility] Annie, [address] [place] [address]. Hemoglobin A1C (POCT) Date Value Ref Range Status 10/03/2017 7.5 (A) 4.2 - 5.6 % Final Comment: Point of care (POC) Hemoglobin A1c (HGBA1C) testing is intended to assess glucose control and provide a management tool for patients known to have diabetes and their healthcare providers. Target HGBA1C levels may depend on specific clinical circumstances. POC HGBA1C is not intended for use as a diagnostic or screening test; laboratory-based testing should be used for diagnostic purposes. The following information is supplemental and may not be applicable to specific diabetes management situations: The POC device fruit tester provides a normal range of 4.2% to 6.5% for the HGBA1C POC test. However, the [place] [employer] guidelines indicate that patients with HGBA1C in the range of 5.7% to 6.4% are at increased risk for development of diabetes and that intervention by lifestyle modification may be beneficial. A HGBA1C level greater than or equal to 6.5% is considered diagnostic of diabetes, pending confirmatory testing. Use of HGBA1C testing to evaluate glucose control may not be appropriate for patients with hemoglobin variants or other conditions (e.g. anemia) that alter red blood cell lifespan. 05/30/2017 8.2 (A) 4.2 - 5.6 % Final Comment: Point of care (POC) Hemoglobin A1c (HGBA1C) testing is intended to assess glucose control and provide a management tool for patients known to have diabetes and their healthcare providers. Target HGBA1C levels may depend on specific clinical circumstances. POC HGBA1C is not intended for use as a diagnostic or screening test; laboratory-based testing should be used for diagnostic purposes. The following information is supplemental and may not be applicable to specific diabetes management situations: The POC device fruit tester provides a normal range of 4.2% to 6.5% for the HGBA1C POC test. However, the [place] [employer] guidelines indicate that patients with HGBA1C in the range of 5.7% to 6.4% are at increased risk for development of diabetes and that intervention by lifestyle modification may be beneficial. A HGBA1C level greater than or equal to 6.5% is considered diagnostic of diabetes, pending confirmatory testing. Use of HGBA1C testing to evaluate glucose control may not be appropriate for patients with hemoglobin variants or other conditions (e.g. anemia) that alter red blood cell lifespan. 11/29/2016 8.1 (A) 4.2 - 5.6 % Final Comment: Point of care (POC) Hemoglobin A1c (HGBA1C) testing is intended to assess glucose control and provide a management tool for patients known to have diabetes and their healthcare providers. Target HGBA1C levels may depend on specific clinical circumstances. POC HGBA1C is not intended for use as a diagnostic or screening test; laboratory-based testing should be used for diagnostic purposes. The following information is supplemental and may not be applicable to specific diabetes management situations: The POC device fruit tester provides a normal range of 4.2% to 6.5% for the HGBA1C POC test. However, the [place] [employer] guidelines indicate that patients with HGBA1C in the range of 5.7% to 6.4% are at increased risk for development of diabetes and that intervention by lifestyle modification may be beneficial. A HGBA1C level greater than or equal to 6.5% is considered diagnostic of diabetes, pending confirmatory testing. Use of HGBA1C testing to evaluate glucose control may not be appropriate for patients with hemoglobin variants or other conditions (e.g. anemia) that alter red blood cell lifespan. 08/30/2016 8.3 (A) 4.2 - 5.6 % Final Comment: Point of care (POC) Hemoglobin A1c (HGBA1C) testing is intended to assess glucose control and provide a management tool for patients known to have diabetes and their healthcare providers. Target HGBA1C levels may depend on specific clinical circumstances. POC HGBA1C is not intended for use as a diagnostic or screening test; laboratory-based testing should be used for diagnostic purposes. The following information is supplemental and may not be applicable to specific diabetes management situations: The POC device fruit tester provides a normal range of 4.2% to 6.5% for the HGBA1C POC test. However, the [place] [employer] guidelines indicate that patients with HGBA1C in the range of 5.7% to 6.4% are at increased risk for development of diabetes and that intervention by lifestyle modification may be beneficial. A HGBA1C level greater than or equal to 6.5% is considered diagnostic of diabetes, pending confirmatory testing. Use of HGBA1C testing to evaluate glucose control may not be appropriate for patients with hemoglobin variants or other conditions (e.g. anemia) that alter red blood cell lifespan. No results found for: TSH No results found for this basename: [id number]] ALBUMIN/CREAT RATIO (mg/g) Date Value 01/01/2016 646* ASSESSMENT/PLAN: Type 1 diabetes uncontrolled with complications Insulin pump titration Hypertension Hyperlipidemia Macroalbuminuria Hypothyroidism A1c is better (7.5) Review of pump download revealed fasting hyperglycemia Increase morning basal rates Basal rates: 4A 1.35, 5:30 am 1.0 Continue current insulin to carb ratio She change infusion site every 3 days Patient is instructed to test sugars 3 times daily BP is well controlled Low potassium diet per nephrology continue Diovan and spironolactone Cholesterol:update a lipid panel at follow up continue Atorvastatin Macroalbuminuria-see Nephrology, continue Diovan Eye exam and Immmunization are uptodate I educated the patient on proper administration of this medication which includes taking it on an empty stomach and alteast 2 hour apart from Calcium, iron and PPIs. Update thyroid function test at follow up I will send patient a message in my chart once the lab results become available Lab orders provided to the patient Follow up in 3 months. Caitlin Dunn MD 10/03/[address] [facility] Vital Signs Date Time Vital Sign Value Performing Clinician Facility 03-23-2025 01:15-0400 Diastolic blood pressure 60 mm[Hg] Maurice Marcos MD Work Phone: [facility] 03-23-2025 01:15-0400 Systolic blood pressure 180 mm[Hg] Maurice Marcos MD Work Phone: [facility] 03-22-2025 23:15-0400 SaO2% (BldA) [Mass fraction] 100 % Maurice Macros MD Work Phone: [facility] 03-22-2025 18:49-0400 Body temperature 97.7 [degF] Maurice Marcos MD Work Phone: [facility] 03-22-2025 18:49-0400 Heart rate 63 /min Maurice Marcos MD Work Phone: [facility] 03-22-2025 18:49-0400 Respiratory rate 16 /min Maurice Marcos MD Work Phone: [facility] 11-12-2023 10:22-0400 Body temperature 97.6 [degF] [facility] 11-12-2023 10:22-0400 Diastolic blood pressure 66 mm[Hg] [facility] 11-12-2023 10:22-0400 Heart rate 57 /min [facility] 11-12-2023 10:22-0400 Respiratory rate 18 /min [facility] 11-12-2023 10:22-0400 SaO2% (BldA) [Mass fraction] 100 % [facility] 11-12-2023 10:22-0400 Systolic blood pressure 155 mm[Hg] [facility] 11-12-2023 07:53-0400 Body height 152.4 cm [facility] 11-12-2023 07:53-0400 Body mass index (BMI) [Ratio] 36.8 kg/m2 [facility] 11-12-2023 07:53-0400 Body weight 85.63 kg [facility] Encounters Encounter Date Encounter Type Care Provider Facility Start: 05-14-2025 End: 05-14-2025 ambulatory Sherif Orantes Facility:[facility] Start: 04-15-2025 End: 04-15-[address] Kyle Beard DO Work Phone: [facility] [place] Start: 04-15-2025 End: 04-15-[address] Gisel Mccabe MD -[facility] [place] Work Phone: Start: 04-15-2025 End: 04-15-2025 ambulatory Gisel Mccabe Facility:[facility] Start: 03-22-2025 End: 03-23-2025 Emergency department patient visit Maurice Marcos MD Work Phone: [facility] Comment on above: Fall, initial encoun ter (Primary Dx); Hypertension, unspecified type; Closed fracture of nasal bone, initial encounter Start: 12-02-2024 End: 12-02-2024 ambulatory Sherif Orantes Facility:[facility] Start: 11-12-2024 End: 11-12-[address] Kyle Beard DO Work Phone: [facility] Work Phone: Start: 11-12-2024 End: 11-12-[address] Gisel Mccabe MD -Laboratory, [place] Work Phone: Start: 11-12-2024 End: 11-12-2024 ambulatory Kyle Beard Facility:[facility] Start: 08-19-2024 End: 08-19-[address] Gisel Mccabe MD -Laboratory, [place] Work Phone: Start: 08-19-2024 End: 08-19-2024 ambulatory Kyle Beard Facility:[facility] Start: 11-12-2023 End: 11-12-2023 Emergency department patient visit [facility] Work Phone: Start: 09-14-2023 End: 09-14-2023 ambulatory [facility] Work Phone: Start: 09-14-2023 End: 09-14-2023 Patient encounter procedure [facility] [place] Work Phone: Start: 08-03-2023 End: 08-03-2023 ambulatory [facility] Work Phone: Start: 08-03-2023 End: 08-03-2023 Patient encounter procedure [facility] [place] Work Phone: Start: 07-05-2023 End: 07-05-2023 ambulatory [facility] Work Phone: Start: 07-05-2023 End: 07-05-2023 Patient encounter procedure [facility] Work Phone: Start: 06-06-2023 End: 06-06-2023 Patient encounter procedure [facility] Work Phone: Start: 05-08-2023 End: 05-08-2023 Patient encounter procedure [facility] Work Phone: Start: 03-30-2023 End: 03-30-2023 ambulatory [facility] Work Phone: Start: 03-30-2023 End: 03-30-2023 Patient encounter procedure [facility] Work Phone: Start: 03-13-2023 End: 03-13-2023 ambulatory [facility] Work Phone: Start: 03-13-2023 End: 03-13-2023 Patient encounter procedure [facility] Work Phone: Start: 11-29-2022 End: 11-29-2022 ambulatory [facility] Work Phone: Start: 11-29-2022 End: 11-29-2022 Patient encounter procedure [facility] [place] Start: 11-21-2022 End: 11-21-2022 Patient encounter procedure [facility] Start: 09-05-2022 End: 09-05-2022 ambulatory [facility] Work Phone: Start: 09-05-2022 End: 09-05-2022 Patient encounter procedure [facility] Start: 08-18-2022 End: 08-18-2022 ambulatory [facility] Work Phone: Start: 08-18-2022 End: 08-18-2022 Patient encounter procedure [facility] Start: 06-01-2022 End: 06-01-2022 ambulatory [facility] Work Phone: Start: 06-01-2022 End: 06-01-2022 [facility] Start: 05-16-2022 End: 05-16-2022 ambulatory [facility] Work Phone: Start: 05-16-2022 End: 05-16-2022 Patient encounter procedure [facility] Start: 05-11-2022 End: 05-11-2022 ambulatory [facility] Work Phone: Start: 05-11-2022 End: 05-11-2022 Patient encounter procedure [facility] Start: 01-28-2022 End: 01-28-2022 Patient encounter procedure [facility] Start: 11-15-2021 End: 11-15-[address] [facility] Beard [facility] Start: 09-08-2021 End: 09-08-[address] Kyle Beard [facility] Start: 08-05-2021 End: 08-05-[address] Kyle Beard [facility] Start: 08-05-2021 End: 08-05-[address] Kyle Beard Work Phone: [facility] Start: 01-02-2018 End: 01-03-2018 [facility] Start: 10-03-2017 End: 10-04-[address] [facility] Procedures Date Procedure Procedure Detail Performing Clinician Start: 04-15-2025 Urine microalbumin/creatinine ratio measurement Dr. Kyle Beard DO Work Phone: Start: 04-15-2025 Vitamin D, 25-hydrox y measurement Dr. Kyle Beard DO Work Phone: Comment on above: Vitamin D StatusDefi ciency: <20 ng/mL (50nmol/L)Insufficiency: 20-30 ng/mL (50-75 nmol/L)Sufficiency: 30-100 ng/mL (75-250 nmol/L)Toxicity: >100 ng/mL (>250 nmol/L) Start: 03-22-2025 3d rendering w/inter p & postprocess supervision Americomitch Ching DO Work Phone: Start: 03-22-2025 Ct head/brain w/o co ntrast material Americo Chanerica DO Work Phone: Start: 03-22-2025 Glucose quantitative blood xcpt reagent strip Maurice Marcos MD Work Phone: Start: 07-05-2023 Screening mammography Start: 05-16-2022 Screening mammography Plan of Treatment Date Care Activity Detail Author Start: 03-22-2035 DTaP/Tdap/Td Vaccines (2 - Td or Tdap) DTaP/Tdap/Td Vaccines (2 - Td or Tdap) [facility] Start: 2032 RSV High Risk: (Elderly (60+) or Population) (1 - 1-dose 75+ series) RSV High Risk: (Elderly (60+) or Population) (1 - 1-dose 75+ series) [facility] Start: 02-05-2026 Screening for osteoporosis Bone Density Scan [facility] Start: 04-07-2025 Influenza vaccination Influenza Vaccine (#1) [facility] Start: 01-08-2025 Medicare Annual Wellness Visit Medicare Annual Wellness Visit (AWV) [facility] Start: 04-07-2024 COVID-19 Vaccine ( season) COVID-19 Vaccine ( season) [facility] Start: 11-12-2023 [facility] Start: 11-12-2023 Plain chest X-ray Chest 1 View (Portable) [facility] Start: 11-12-2023 XR Chest Single view [facility] Start: 11-12-2023 CT cervical spine without contrast Spine Cervical without Contras [facility] Start: 11-12-2023 CT Cervical spine WO contrast [facility] Start: 11-12-2023 CT of head without contrast Brain/Head without Contrast [facility] Start: 11-12-2023 CT Unspecified body region WO contrast [facility] Start: 05-07-2015 Pneumococcal vaccination Pneumococcal Vaccine (2 of 2 - PCV) [facility] Start: 2007 Zoster Vaccines (1 of 2) Zoster Vaccines (1 of 2) [facility] Start: 1997 Screening for malignant neoplasm of breast Mammogram [facility] Start: 1975 Hepatitis C screening Hepatitis C Screening [facility] Start: 1958 MMR Vaccines (1 of 1 - Standard series) MMR Vaccines (1 of 1 - Standard series) [facility] Start: 1957 Lipid panel Lipid Panel [facility] Start: 1957 Screening for malignant neoplasm of colon [facility] Patient Education ED Diabetic In sulin Reaction [facility] Work Phone: Patient referral [facility] Work Phone: Immunizations Immunization Date Immunization Notes Care Provider Fa [facility] 03-22-2025 tetanus toxoid, reduced diphtheria toxoid, and acellular pertussis vaccine, adsorbed Maurice Marcos MD Work Phone: [facility] 06-10-2024 influenza virus vaccine, unspecified formulation Maurice Marcos MD Work Phone: [facility] Work Phone: 11-05-2020 Covid (Pfizer) Dr. Kyle lei Work Phone: [facility] 10-15-2020 Covid (Pfizer) Dr. Kyle lei Work Phone: [facility] 05-07-[address] Kyle Beard Work Phone: [facility] 05-07-[address] Priscilla Beard Work Phone: [facility] Work Phone: 05-07-2014 pneumococcal vaccine , unspecified formulation [facility] Payers Date Payer Category Payer Self-pay [id number] 2024 Medicare (Managed Care) [facility] [id number] 2024 Unknown [id number] 2016 Private Health Insurance [id number] 2010 Unknown [id number] 1957 Unknown [id number] Unknown [facility] [id number] Unknown [id number] Unknown [id number] Unknown [id number] Unknown [id number] Unknown [id number] Social History Date Type Detail Facility Start: 08-04-2021 End: 11-12-2023 Tobacco smoking status NHIS Unknown if ever smoked [facility] Start: 08-04-2021 None [facility] Start: 08-04-2021 Homeless [facility] Start: 08-04-2021 Non-smoker [facility] Start: 1955 Sex Assigned At Female [facility] Start: 11-12-2023 Tobacco smoking stat us NHIS Ex-smoker (finding) [facility] Start: 11-18-2024 Sex Female (finding) [facility] Start: 1955 Sex assigned at Not on file [facility] Work Phone: Start: 07-01-2022 Sex Female [facility] Gender identity Not on file [facility] Functional Status Date Assessment Result Facility 03-22-2025 [place] - 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 Do not hold in sneezes. Do not blow your nose for two weeks. Do not forcibly spit. Do not use a straw to drink. Do not smoke. No lifting greater than 15-20 pounds. You were also persistently hypertensive in the emergency department and this will require follow-up with your primary care provider to see if changes need to be made to your medications. If you have chest pain or shortness of breath is important to return the emergency department. Additionally there was note of fluid within the mastoid which is near your ear. I have sent you a referral for ears nose and throat doctors for your nasal bone but they will also be able to address this fluid collection. -- Otolaryngology/ENT Clinic The following attachments cannot be sent through Care Everywhere.Nose fracture (Yemeni)documented in this encounter [facility] Work Phone: Emergency department Triage note 03-22-2025 Asmita Meyer RN - 03/22/2025 6:45 PM EDT Note Date & Type Note Facility 03-22-2025 Emergency department Triage note Pt tripped on crack in sidewalk and fall forward, denies LOC, denies blood thinners, noted abrasions to face and bilat hands, type 1 diabetic and take meds for htn, pt states complaince with meds [facility] Work Phone: Emergency department Note 03-22-2025 Asmita Meyer RN - 03/22/2025 6:45 PM EDT Note Date & Type Note Facility 03-22-2025 Emergency department Note Pt tripped on crack in sidewalk and fall forward, denies LOC, denies blood thinners, noted abrasions to face and bilat hands, type 1 diabetic and take meds for htn, pt states complaince with meds documented in this encounter [facility] Work Phone: Evaluation note Note Date & Type Note Facility Evaluation note No assessment information availa ble [facility] Work Phone: Evaluation note Note Date & Type Note Facility Evaluation note Diagnosis Fall, initial encounter- Primary Hypertension, unspecified type Closed fracture of nasal bone, initial encounter documented in this encounter [facility] Work Phone: Reason for referral (narrative) Note Date & Type Note Facility Reason for referral (narrative) No reason for referral information available [facility] Work Phone: Summary Purpose Family History No Family History Records Found Relationship Condition Age at Onset Recorded Date/T lalitha Unknown Family History?Unknown Unknown November 09, 2018 5:47pm Family History?Unknown Unknown Decem 2020 2:59pm Relationship Condition Age at Onset Recorded Date/T lalitha Unknown Family History?Unknown Unknown November 09, 2018 4:47pm Family History?Unknown Unknown Decem 2020 1:59pm Advance Directives No Advanced Directives Records Found Advance Directive Response Recorded Date/ Time Advance Directives Yes July 2:59pm Living Will Yes August 04 021 2:59pm Power of Product Analyst Yes August 04, 2021 2:59pm Advance Directive Response Recorded Date/ Time Advance Directives Yes July 1:59pm Living Will Yes August 04 1:59pm Power of Product Analyst Yes August 04, 2021 1:59pm Advance Directive Response Recorded Date/ Time Advance Directives Yes July 2:59pm Living Will No November 12, 2023 7:58am Power of Product Analyst No November 11 7:58am Advance Directive Response Recorded Date/ Time Advance Directives Yes July 2:59pm Chief Complaint and Reason for Visit Chief Complaint COVID DRIVE THRU JE T 2 DRS/ 2 ORDERS Chief Complaint SCREENING Chief Complaint SCREENING N18.3 Chief Complaint N18.3 Chief Complaint 2 ORDERING DOCTORS/S CANNED ORDERS Chief Complaint 2 ORDERING DOCTORS/S CANNED ORDERS SCREEN Chief Complaint SCREEN Chief Complaint hypoglycemia Chief Complaint Admit Date CORRECTED ORDERS ENTERED/ADD JOSE ELIAS SMITHE R November 12, 2024 7:28am Chief Complaint Admit Date FASTING April 15, 2025 7:20am Additional Source Comments INFORMATION SOURCE (unrecogn ized section and content) DATE CREATED AUTHOR 09/25/[address] [facility] DATE CREATED AUTHOR AUTHOR'S ORGANIZ ATION 03/30/2025 [facility] DATE CREATED AUTHOR AUTHOR'S ORGANIZ ATION 06/05/2025 [facility] Goals (unrecognized section and content) Goals may be documented in a n alternate sectionGoals may be documented in an alternate sectionGoals may be documented in an alternate sectionGoals may be documented in an alternate sectionGoals may be documented in an alternate sectionGoals may be documented in an alternate sectionGoals may be documented in an alternate sectionGoals may be documented in an alternate sectionGoals may be documented in an alternate sectionGoals may be documented in an alternate sectionGoals may be documented in an alternate sectionGoals may be documented in an alternate sectionGoals may be documented in an alternate sectionGoals may be documented in an alternate sectionGoals may be documented in an alternate sectionGoals may be documented in an alternate section Care Teams (unrecognized sec tion and content) Team Status: Active Member Role Status Dates Dr. Kyle Beard DO Family Provider Active Dr. Kyle Beard DO Primary Care Provider Active Team Status: Inactive Member Role Status Dates Dr. Kyle Beard DO Primary Care Prov ider, Attending Provider, Referring Provider Active Team Status: Inactive Member Role Status Dates Dr. Kyle Beard DO Primary Care Provider Active Dr. Gisel Mccabe MD Attending Provider, Re ferring Provider Active Team Status: Inactive Member Role Status Dates Dr. Kyle Beard DO Primary Care Provider Active Dr. Sherif Orantes MD Attending Provider, Referri ng Provider Active Team Status: Inactive Member Role Status Dates Dr. Kyle Beard DO Primary Care Provider Active Dr. Sherif Orantes MD Attending Provider, Referri ng Provider Active Dr. Gisel Mccabe MD Other Provider Active Team Status: Inactive Member Role Status Dates Dr. Kyle Beard DO Primary Care Provider Active Dr. Brittney Richmond MD Attending Provider, Referring P rovider Active Team Status: Inactive Member Role Status Dates Dr. Kyle Beard DO Primary Care Provider Active Dr. Robby Joe DO Emergency Provider Active Team Status: Active Member Role Status Dates Dr. Kyle Beard DO Primary Care Provider Active Team Status: Inactive Member Role Status Dates Dr. Kyle Beard DO Primary Care Provider Active Start: August 19, 2024 End: August 19, 2024 Dr. Gisel Mccabe MD Attending Provider Active Start: August 19, 2024 End: August 19, 2024 Dr. Gisel Mccabe MD Referring Provider Active Start: August 19, 2024 End: August 19, 2024 Team Status: Inactive Member Role Status Dates Dr. Kyle Beard DO Primary Care Provider Active Start: November 12, 2024 End: November 12, 2024 Dr. Gisel Mccabe MD Attending Provider Act cristiano Start: November 12, 2024 End: November 12, 2024 Dr. Gisel Mccabe MD Referring Provider Act cristiano Start: November 12, 2024 End: November 12, 2024 Dr. 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 Kyle Beard DO Primary care physician Active Team Status: Inactive Member Role/Relationship Status Dates Dr. Kyle Beard DO Primary care physician Active Start: April 15, 2025 End: April 15, 2025 Dr. Gisel Mccabe MD Attending physician Active Start: April End: April 15, 2025 Dr. Gisel Mccabe MD Referring Provider Active Start: April End: April 15, 2025 Reason for Visit (unrecogniz ed section and content) Reason Comments Fall Scheduled Active and Recently Administ ered Medications (unrecognized section and content) Medication Order 03/21/2025 03/22/2025 03/23/2025 acetaminophen (Tylenol) tablet 650 mg 650 mg, oral, Once, On 03/22/25 at 1935, For 1 dose, If ordered PRN for pain, nurse is permitted to administer this medication for higher pain scores based on patient preference? Yes 1948 (Not Given - Provider: Jessica Garcia RN - Reason: Patient/family refused) bacitracin ointment (COMPLETED) Topical, Once, On 03/22/25 at 2235, For 1 dose, Apply to: face 2315 (Given - Provider: Megh an Daymut, RN) hydrALAZINE (Apresoline) injection 10 mg (COMPLETED) 10 mg, intravenous, Once, On 03/22/25 at 2100, For 1 dose 2210 (Given - Provider: Andie Garcia RN) FOR RECORDS PERTAINING TO PATIENTS WHO ARE [...] BE BASED ON THE PRIMARY CLINICAL RECORDS. [employer] [facility]. provides no warranty or guarantee of the accuracy or completeness of information in this document.
[2025-07-08 10:48] LABS: Creatinine, Urine (random) 33.30 mg/dL (28.00-217.00)
[2025-07-08 12:46] LABS: Microalbumin,Random Urine 958.0 mg/L (<20 mg/L)
[2025-07-08 12:56] LABS: AST(SGOT) 20 U/L (<=31); Alanine Aminotransfer ALT/SGPT 23 U/L (<=34); Albumin, Serum 3.5 g/dL (3.4-4.8); Alkaline Phosphatase 63 U/L (35-104); Anion Gap 12 (5-15); BUN 41 mg/dL (4-19); BUN/Creat Ratio 17.4 RATIO (10-20); Calcium,Total 9.3 mg/dL (7.6-11.0); Carbon Dioxide 23.9 mmol/L (21.0-32.0); Chloride 105 mmol/L (98-108); Cholesterol 227 mg/dL (<=200); Free T3 2.2 pg/mL (2.18-3.98); Globulin 3.0 g/dL (2.2-4.2); Glucose 139 mg/dL (70-99); Low Density Lipoprotein Calc. 134 mg/dL; Potassium 4.5 mmol/L (3.3-5.1); Triglycerides 272 mg/dL; Very Low Density Lipoprotein 54 mg/dL (5-40); cholesterol:hdl ratio screen 5.09
== END | disposition home or self-care (01) ==
LOC: MTLAB 07:12
PROVIDERS: PCP Family Medicine; Referring Provider Internal Medicine Endocrinology, Diabetes & Metabolism; Visit Provider Internal Medicine Endocrinology, Diabetes & Metabolism
DX: E10.65 Type 1 diabetes mellitus with hyperglycemia (principal); N18.4 Chronic kidney disease, stage 4 (severe); E20.9 Hypoparathyroidism, unspecified; H35.9 Unspecified retinal disorder; E78.5 Hyperlipidemia, unspecified
CPT/HCPCS: 36415; 80053; 80061; 82043; 82570; 83036; 84439; 84443; 84481

== ENCOUNTER → 2025-07-18 | Outpatient (CLI) | payer MEDICARE, SELFPAY ==
--- NOTE | 2025-07-18 15:35 | US_ITS ---
PROCEDURE: THYROID 07/18/2025 REASON FOR EXAM: THROMEGALY TECHNIQUE: Procedure Code: USTHY Modality: US Procedure: THYROID COMPARISON: None. FINDINGS: Right thyroid lobe size: 4.0 x 1.4 x 1.4 cm Left thyroid lobe size: 4.1 x 1.4 x 1.5 cm Isthmus: 0.5 cm Background parenchymal echotexture is homogeneous. Nodules: 1. Lobe: Right, Location: Mid, Size: 1.6.1.1 x 0.9 cm, Stability: None Composition: Solid or almost completely solid (+2) Echogenicity: Hyper to Isoechoic (+1) Margin: Smooth (+0) Shape: Wider than tall (+0) Echogenic Foci: TI-RADS: 3 US/Thyroid IMPRESSION: Dominant nodule right lobe of thyroid. TR 3. Recommend follow-up ultrasound at 1, 3 and 5 years. RECOMMENDATION: TR 1 benign (0 points): No fine-needle aspirate or ultrasound follow-up require d. TR 2 not suspicious (1-2 points): No fine-needle aspirate or ultrasound follow up required. TR 3 mildly suspicious (3 points): 1.5 centimeter or greater requires ultrasoun d follow up at 1, 3 and 5 years. 2.5 centimeters or greater requires fine-needle aspirate. TR 4: Moderately suspicious (4-6 points): 1 centimeter greater requires ultraso und follow-up in 1, 2, 3 and 5 years. 1.5 centimeters or greater requires fine-needle aspirate. TR 5 highly suspicious (greater than or equal to 7 points,): 0.5 centimeters or greater requires annual follow up up to 5 years. 1.0 centimeters or greater requires fine-needle aspirate. Fine-needle aspirate no more than 2 nodules. Biopsy up to two highest TI-RADS s cores. Follow-up no more than 4 nodules with highest TI-RADS points score. Based on most suspicious nodule. Nodule size = largest diameter Only evaluate nodule if =>5 mm. Growth > 20% in 2 dimensions = worsening. Reading Location: [id number]
--- OUTSIDE RECORDS SUMMARY | 2025-07-18 15:51 | XMS RPT_ITS | CCD ---
Author Organization [facility] Care Team Providers Care [employer] Technician Name Role Phone CAITLIN DUNN Attending Unavailable CAITLIN DUNN Attending Unavailable Dr. Kyel Beard Primary Care Provider Dr. Kyle Beard Referring Provider [phone] Dr. Blanka Nguyen Attending Provider Dr. Kyle Beard DO Primary Care Provider [phone] Eliot FRANCO, Dr. Gisel Marin Attending Provide r Dr. Gisel Mccabe MD Referring Provide r Jose Elias FRANCO, Dr. Gorman Other Provider Kyle Beard DO Unavailable Generic Provider , No Assigned Pcp Primary [...] source) amLODIPine; Translations: [AMLODIPINE] Drug Allergy 2 [facility] (1 source) Pneumococcal vaccine; Translations: [PNEUMOCOCCAL 23-DONALD PS VACCINE] Drug Allergy 7 [facility] (1 source) Pravastatin; Translations: [PRAVASTATIN] Drug Allergy 5 [facility] (18 sources) Sertraline; Translations: [SERTRALINE HCL] Drug Allergy 5 [facility] (18 sources) venlafaxine; Translations: [VENLAFAXINE HCL] Drug Allergy 5 [facility] (17 sources) Pravastatin; Translations: [pravastatin sodium] Drug Allergy 9 [facility] (17 sources) pneumococcal 23-valent polysacchari; Translations: [pneumococcal 23-valent polysacchari] Propensity to adverse reactions 9 Swelling [facility] (1 source) ALLERGIES NOT ON FILE; Translations: [ALLERGIES NOT ON FILE] Propensity to adverse reactions (disorder) [facility] Medications Current Medications Medication Drug [...] 20 mg/ml oral solution (16 sources) Uncompetitive W-uikgnl-Q-aspartate Receptor Antagonist, Sigma-1 Agonist Start: 04-14-2016 take [...] )on 05-14-2025 BUN/CRE 19.1 RATIO Normal 10-20 [facility] Comment on above: Performed By: #### L 500.2500 #### [facility] [address] [place], [address] Calcium [Mass/Vol] 8.8 mg/dL Normal 7.6-11.0 [facility] Comment on above: Performed By: #### L 500.2500 #### [facility] [address] [place], [address] Chloride [Moles/Vol] 105 mmol/L Normal 98-108 [facility] Comment on above: Performed By: #### L 500.2500 #### [facility] [address] [place], [address] CO2 [Moles/Vol] 24.8 mmol/L Normal 21.0-32.0 [facility] Comment on above: Performed By: #### L 500.2500 #### [facility] [address] [place], [address] Creatinine [Mass/Vol] 2.37 mg/dL High 0.70-1.20 [facility] Comment on above: Performed By: #### L 500.2500 #### [facility] [address] [place], [address] GAP 10 Normal 5-15 [facility] Comment on above: Performed By: #### L 500.2500 #### [facility] [address] [place], [address] GFR/1.73 sq M.predicted among non-blacks MDRD (S/P/Bld) [Vol rate/Area] 22 mL/min/{1.73_m2} Low >60 [facility] Comment on above: Result Comment: mL/m in/1.73m2 CKD-EPI Creatinine Equation (2020) Performed By: #### L 500.2500 #### [facility] [address] [place], [address] Glucose [Mass/Vol] 232 mg/dL High 70-99 [facility] Comment on above: Performed By: #### L 500.2500 #### [facility] [address] [place], [address] Potassium [Moles/Vol] 4.3 mmol/L Normal 3.3-5.1 [facility] Comment on above: Performed By: #### L 500.2500 #### [facility] [address] [place], [address] Sodium [Moles/Vol] 140 mmol/L Normal 133-145 [facility] Comment on above: Performed By: #### L 500.2500 #### [facility] [address] [place], [address] Urea nitrogen [Mass/Vol] 45 mg/dL High 4-19 [facility] Comment on above: Performed By: #### L 500.2500 #### [facility] [address] [place], [address] Anion gap in Serum or Plasma Ordered By: Gisel Mccabe on 04-15-2025 Anion gap [Moles/Vol] 13 mmol/L 5- [facility] BUN/creatinine ratioOrdered By: Gisel Mccabe on 04-15-2025 Urea nitrogen/Creatinine [Mass ratio] 18.0 mg/mg - [facility] Bilirubin, totalOrdered By: Gisel Mccabe on 04-15-2025 Bilirubin [Mass/Vol] mg/dL 0.00-1.30 [facility] Calculated very low density lipoprotein (VLDL) cholesterol measurementOrdered By: Gisel Mccabe on 04-15-2025 Calculated very low density lipoprotein (VLDL) cholesterol measurement 48 mg/dL High [facility] Carbon dioxide, total [Moles /volume] in Central venous bloodOrdered By: Gisel Mccabe on 04-15-2025 CO2 [Moles/Vol] 23.3 mmol/L Normal 21.0-32.0 [facility] Comment on above: Performed By: #### L 501.0900, L500.2500 #### [facility] [address] [place], [place], [id number] Chloride assayOrdered By: Hiwot Mccabe on 04-15-2025 Chloride [Moles/Vol] 104 mmol/L Normal 98-108 [facility] Comment on above: Performed By: #### L 501.0900, L500.2500 #### [facility] [address] [place], [place], [id number] Comprehensive Metabolic Prof ilon 04-15-2025 ALK PHOS 66 U/L Normal 35-104 [facility] Comment on above: Performed By: #### L 501.0900, L500.2500 #### [facility] [address] [place], [address] BUN/CRE 18.0 RATIO Normal - [facility] Comment on above: Performed By: #### L 501.0900, L500.2500 #### [facility] [address] [place], [address] GAP 13 Normal -15 [facility] Comment on above: Performed By: #### L 501.0900, L500.2500 #### [facility] [address] [place], [address] Potassium [Moles/Vol] 4.4 mmol/L Normal 3.3-5.1 [facility] Comment on above: Performed By: #### L 501.0900, L500.2500 #### [facility] [address] [place], [address] T BILI < 0.15 Normal 0.00-1.30 [facility] Comment on above: Performed By: #### L 501.0900, L500.2500 #### [facility] [address] [place], [address] T PROT 6.6 g/dL Normal 5.9-8.4 [facility] Comment on above: Performed By: #### L 501.0900, L500.2500 #### [facility] [address] [place], [address] Comprehensive Metabolic Prof ilOrdered By: Gisel Mccabe on 04-15-2025 AST [Catalytic activity/Vol] 20 U/L Normal <=31 [facility] Comment on above: Performed By: #### L 501.0900, L500.2500 #### [facility] [address] [place], [address] Glomerular filtration rate ( GFR) estimation/1.73 sq m using serum, plasma, or whole bOrdered By: Gisel Mccabe on 04-15-2025 GFR/1.73 sq M.predicted among non-blacks MDRD (S/P/Bld) [Vol rate/Area] 21 mL/min/{1.73_m2} Low >60 [facility] Comment on above: mL/min/1.73m2 CKD-EP I Creatinine Equation (2020) Result Comment: mL/m in/1.73m2 CKD-EPI Creatinine Equation (2020) Performed By: #### L 501.0900, L500.2500 #### [facility] [address] [place], [place], [address] Hemoglobin A1con 04-15-2025 HbA1c (Bld) [Mass fraction] 7.0 % High <=5.6 [facility] Comment on above: Result Comment: Norm al < 5.7 % Prediabetic 5.7 - 6.4 % Diabetic >or= 6.5 % Please note range changes. Performed By: #### L 501.0900, L500.2500 #### [facility] [address] [place], [address] Hemoglobin A1c percentageOrd ered By: Gisel Mccabe on 04-15-2025 HbA1c (Bld) [Mass fraction] 7.0 % High <5.7 [facility] Comment on above: Normal < 5.7 % Predi abetic 5.7 - 6.4 % Diabetic >or= 6.5 % Please note range changes. LDL calc ser/plasOrdered By: Gisel Mccabe on 04-15-2025 Cholesterol in LDL [Mass/Vol] 114 mg/dL [facility] Comment on above: Tqxhqlxlss=113-130 m g/dL & Higher Esyo=971 mg/dL or greaterFriedwald Equation for LDL-C Lipid Profileon 04-15-2025 CHOL:HDL 4.44 Normal [facility] Comment on above: Performed By: #### L 501.0900, L500.2500 #### [facility] [address] [place], [address] Cholesterol [Mass/Vol] 209 mg/dL High <=200 [facility] Comment on above: Result Comment: Chol esterol level, Desirable <200 mg/dL Borderline high cholesterol 200-239 mg/dL High cholesterol >=240 mg/dL Recommendations of the NCEP Adult Treatment Panel for the following risk-cutoff thresholds for the [place] population. Performed By: #### L 501.0900, L500.2500 #### [facility] [address] [place], [address] Cholesterol in HDL [Mass/Vol] 47 mg/dL Normal [facility] Comment on above: Result Comment: Trina onal Cholesterol Education Program (NCEP) guidelines: <40 mg/dL: Low HDL-cholesterol (major risk factor for CHD) >= 60 mg/dL: High HDL-cholesterol (negative risk factor for CHD) HDL-cholesterol is affected by a number of factors, e.g. smoking, exercise, hormones, sex and age. Performed By: #### L 501.0900, L500.2500 #### [facility] [address] [place], [address] Cholesterol in LDL [Mass/Vol] 114 mg/dL Normal [facility] Comment on above: Result Comment: Bord cuqytl=025-843 mg/dL Higher Vbsd=912 mg/dL or greater Friedwald Equation for LDL-C Performed By: #### L 501.0900, L500.2500 #### [facility] [address] [place], [address] Cholesterol in VLDL [Mass/Vol] 48 mg/dL High 5-40 [facility] Comment on above: Performed By: #### L 501.0900, L500.2500 #### [facility] [address] [place], [address] Triglyceride [Mass/Vol] 238 mg/dL High [facility] Comment on above: Result Comment: The drugs N-Acetylcysteine and Metamizole may falsely depress this assay. Normal range: <150 mg/dL Borderline High: 150-199 mg/dL High: 200-499 mg/dL Very High: >500 mg/dL Performed By: #### L 501.0900, L500.2500 #### [facility] [address] [place], [address] Microalb:Creat Ratio,Random URon 04-15-2025 MALB:CREAT 3252.7 mg/g CRE High <30 mg/g CRE [facility] Comment on above: Performed By: #### L 501.0900, L500.2500 #### [facility] [address] [place], [address] MICROALBUMIN,UR 2368.0 mg/L Normal <20 mg/L [facility] Comment on above: Performed By: #### L 501.0900, L500.2500 #### [facility] [address] [place], [address] Potassium measurement (mass/ volume)Ordered By: Gisel Mccabe on 04-15-2025 Potassium (Unsp spec) [Mass/Vol] 4.4 mmol/L 3.3-5.1 [facility] Random urine creatinine lamar urement (mass/volume)Ordered By: Gisel Mccabe on 04-15-2025 Creatinine Unsp time (U) [Mass/Vol] 72.80 mg/dL 28.00-217.0 0 [facility] Screening total cholesterol/ high density lipoprotein (HDL) cholesterol ratioOrdered By: Gisel Mccabe on 04-15-2025 Cholesterol.total/Cholest rebeca in HDL [Mass ratio] 4.44 {ratio} [facility] Serum creatinine measurement (mass/volume)Ordered By: Gisel Mccabe on 04-15-2025 Creatinine [Mass/Vol] 2.42 mg/dL High 0.70-1.20 [facility] Comment on above: Performed By: #### L 501.0900, L500.2500 #### [facility] [address] [place], [address] Serum globulin measurementOr dered By: Gisel Mccabe on 04-15-2025 Globulin (S) [Mass/Vol] 3.1 g/dL Normal 2.2-4.2 [facility] Comment on above: Performed By: #### L 501.0900, L500.2500 #### [facility] [address] [place], [address] Serum glucose measurement (m ass/volume)Ordered By: Gisel Mccabe on 04-15-2025 Glucose [Mass/Vol] 179 mg/dL High 70-99 [facility] Comment on above: Performed By: #### L 501.0900, L500.2500 #### [facility] [address] [place], [address] Serum or plasma alanine clayton otransferase (ALT) measurementOrdered By: Gisel Mccabe on 04-15-2025 ALT [Catalytic activity/Vol] 26 U/L Normal <=34 [facility] Comment on above: Performed By: #### L 501.0900, L500.2500 #### [facility] [address] [place], [address] Serum or plasma albumin lamar urement (mass/volume)Ordered By: Gisel Mccabe on 04-15-2025 Albumin [Mass/Vol] 3.5 g/dL Normal 3.4-4.8 [facility] Comment on above: Performed By: #### L 501.0900, L500.2500 #### [facility] [address] [place], [address] Serum or plasma albumin/glob ulin mass ratioOrdered By: Gisel Mccabe on 04-15-2025 Albumin/Globulin [Mass ratio] 1.1 {ratio} Normal 0.9-2.4 [facility] Comment on above: Performed By: #### L 501.0900, L500.2500 #### [facility] [address] [place], [address] Serum or plasma alkaline farideh sphatase measurementOrdered By: Gisel Mccabe on 04-15-2025 ALP [Catalytic activity/Vol] 66 U/L 35-104 [facility] Serum or plasma calcium lamar urement (mass/volume)Ordered By: Gsiel Mccabe on 04-15-2025 Calcium [Mass/Vol] 9.0 mg/dL Normal 7.6-11.0 [facility] Comment on above: Performed By: #### L 501.0900, L500.2500 #### [facility] [address] [place], [place], [id number] Serum or plasma cholesterol in HDL measurement (mass/volume)Ordered By: Gisel Mccabe on 04-15-2025 Cholesterol in HDL [Mass/Vol] 47 mg/dL >40 [facility] Comment on above: National Cholesterol Education Program (NCEP) guidelines:<40 mg/dL: Low HDL-cholesterol (major risk factor for CHD)>= 60 mg/dL: High HDL-cholesterol (negative risk factor for CHD)HDL-cholesterol is affected by a number of factors, e.g. smoking, exercise, hormones, sex and age. Serum or plasma cholesterol measurement (mass/volume)Ordered By: Gisel Mccabe on 04-15-2025 Cholesterol [Mass/Vol] 209 mg/dL High <201 [facility] Comment on above: Cholesterol level, D esirable <200 mg/dLBorderline high cholesterol 200-239 mg/dLHigh cholesterol >=240 mg/dLRecommendations of the NCEP Adult Treatment Panel for the following risk-cutoff thresholds for the [place] population. Serum or plasma urea nitroge n measurement (mass/volume)Ordered By: Gisel Mccabe on 04-15-2025 Urea nitrogen [Mass/Vol] 44 mg/dL High 4-19 [facility] Comment on above: Performed By: #### L 501.0900, L500.2500 #### [facility] [address] [place], [place], [address] Sodium levelOrdered By: Eileen Mccabe on 04-15-2025 Sodium [Moles/Vol] 140 mmol/L Normal 133-145 [facility] Comment on above: Performed By: #### L 501.0900, L500.2500 #### [facility] [address] [place], [place], [id number] T4 Free Directon 04-15-2025 T4 FREE DIRECT 1.20 ng/dL Normal 0.76-1.46 [facility] Comment on above: Performed By: #### L 501.0900, L500.2500 #### [facility] [address] [place], [place], [address] T4 freeOrdered By: Gisel saenz on 04-15-2025 Free T4 [Mass/Vol] 1.20 ng/dL 0.76-1.46 [facility] TSH DL <= 0.005 mIU/L QnOrde red By: Gisel Mccabe on 04-15-2025 TSH Qn 3.800 uIU/mL 0.300-4.200 [facility] Thyroid Stim Hormone (TSH)on 04-15-2025 TSH 3.800 uIU/mL Normal 0.300-4.200 [facility] Comment on above: Performed By: #### L 501.0900, L500.2500 #### [facility] [address] [place], [place], [address] Total proteinOrdered By: Matthew Mccabe on 04-15-2025 Protein [Mass/Vol] 6.6 g/dL 5.9-8.4 [facility] Triglycerides measurementOrd ered By: Gisel Mccabe on 04-15-2025 Triglyceride [Mass/Vol] 238 mg/dL High <199 [facility] Comment on above: The drugs N-Acetylcy steine and Metamizole may falsely depress this assay. Normal range: <150 mg/dLBorderline High: 150-199 mg/dLHigh: 200-499 mg/dLVery High: >500 mg/dL Urine albumin measurement [facility] detection limit of 20 mg/L or less (mass/volume)Ordered By: Gisel Mccabe on 04-15-2025 Albumin DL <= 20 mg/L (U) [Mass/Vol] 2368.0 mg/L <20 mg/L [facility] Vitamin D,25 Hydroxyon 04-15 Vitamin D 25-OH 29.4 ng/mL Low 30-100 [facility] Comment on above: Result Comment: Jeana min D Status Deficiency: <20 ng/mL (50nmol/L) Insufficiency: 20-30 ng/mL (50-75 nmol/L) Sufficiency: 30-100 ng/mL (75-250 nmol/L) Toxicity: >100 ng/mL (>250 nmol/L) Performed By: #### L 501.0900, L500.2500 #### [facility] [address] [place], [address] No Panel Informationon 03-23 CT HEAD: 1. [...] Tobi Valdes 03/23/2025 12:56 AM Dictation workstation: [id number] Interpreted By: Tobi Browne i, and Elsamaloty Mazzin STUDY: CT FACIAL BONES WO IV CONTRAST; CT HEAD WO IV CONTRAST; 03/22/2025 10:47 pm INDICATION: Signs/Symptoms:facial trauma; Signs/Symptoms:fall with headstrike. COMPARISON: None. ACCESSION NUMBER(S): [id number]; [id number] ORDERING CLINICIAN: AMERICO CHING TECHNIQUE: Axial noncontrast [...] Signs/Symptoms:fall with headstrike. COMPARISON: None. ACCESSION NUMBER(S): [id number]; [id number] ORDERING CLINICIAN: AMERICO CHING TECHNIQUE: Axial noncontrast [...] Tobi Valdes 03/23/2025 12:56 AM Dictation workstation: [id number] [facility] Work Phone: No Panel InformationOrdered By: Tobi Valdes on 03-23-2025 [facility] Work Phone: CT FACIAL BONES WO IV CONTRA STon 03-22-2025 CT FACIAL BONES WO IV CONTRAST Interpreted By: Tobi Valdes and Elsamaloty Mazzin STUDY: CT FACIAL BONES WO IV CONTRAST; CT HEAD WO IV CONTRAST; 03/22/2025 10:47 pm INDICATION: Signs/Symptoms:facial trauma; Signs/Symptoms:fall with headstrike. COMPARISON: None. ACCESSION NUMBER(S): [id number]; [id number] ORDERING CLINICIAN: AMERICO CHING TECHNIQUE: Axial noncontrast [...] Tobi Valdes 03/23/2025 12:56 AM Dictation workstation: [id number] [facility] CT HEAD WO IV CONTRASTon CT HEAD WO IV CONTRAST Interpreted By: Tobi Diaz and Elsamaloty Mazzin STUDY: CT FACIAL BONES WO IV CONTRAST; CT HEAD WO IV CONTRAST; 03/22/2025 10:47 pm INDICATION: Signs/Symptoms:facial trauma; Signs/Symptoms:fall with headstrike. COMPARISON: None. ACCESSION NUMBER(S): [id number]; [id number] ORDERING CLINICIAN: AMERICO CHING TECHNIQUE: Axial noncontrast [...] Tobi Valdes 03/23/2025 12:56 AM Dictation workstation: [id number] Normal [facility] Glucose Test strip manual (B ld) [Mass/Vol]on 03-22-2025 Glucose [Mass/Vol] 102 mg/dL High 74 - 99 mg/dL [facility] Interpretation and review of laboratory results Abnormal [facility] Glucose [Mass/Vol] 102 mg/dL High 74-99 [facility] Comment on above: Performed By: #### 2 341-6 #### BOOGIE Barragan ([id number]) [facility] ([facility]) [address] [place] [address] No Panel Informationon 03-22 Radiology Study observation (narrative) [facility] Work Phone: Basic Metabolic Profile (BMP )on 12-02-2024 BUN/CRE 25.2 RATIO High 10-20 [facility] Comment on above: Performed By: #### L 501.0900, L500.2500 #### [facility] [address] [place], [address] Calcium [Mass/Vol] 10.1 mg/dL Normal 7.6-11.0 [facility] Comment on above: Performed By: #### L 501.0900, L500.2500 #### [facility] [address] [place], [address] Chloride [Moles/Vol] 106 mmol/L Normal 98-108 [facility] Comment on above: Performed By: #### L 501.0900, L500.2500 #### [facility] [address] [place], [address] CO2 [Moles/Vol] 22.4 mmol/L Normal 21.0-32.0 [facility] Comment on above: Performed By: #### L 501.0900, L500.2500 #### [facility] [address] [place], [address] Creatinine [Mass/Vol] 2.10 mg/dL High 0.70-1.20 [facility] Comment on above: Performed By: #### L 501.0900, L500.2500 #### [facility] [address] [place], [address] GAP 11 Normal 5-15 [facility] Comment on above: Performed By: #### L 501.0900, L500.2500 #### [facility] [address] [place], [address] GFR/1.73 sq M.predicted among non-blacks MDRD (S/P/Bld) [Vol rate/Area] 25 mL/min/{1.73_m2} Low >60 [facility] Comment on above: Result Comment: mL/m in/1.73m2 CKD-EPI Creatinine Equation (2020) Performed By: #### L 501.0900, L500.2500 #### [facility] [address] [place], [address] Glucose [Mass/Vol] 129 mg/dL High 70-99 [facility] Comment on above: Performed By: #### L 501.0900, L500.2500 #### [facility] [address] [place], [address] Potassium [Moles/Vol] 4.4 mmol/L Normal 3.3-5.1 [facility] Comment on above: Performed By: #### L 501.0900, L500.2500 #### [facility] [address] [place], [address] Sodium [Moles/Vol] 139 mmol/L Normal 133-145 [facility] Comment on above: Performed By: #### L 501.0900, L500.2500 #### [facility] [address] [place], [address] Urea nitrogen [Mass/Vol] 53 mg/dL High 4-19 [facility] Comment on above: Performed By: #### L 501.0900, L500.2500 #### [facility] [address] [place], [address] Protein+Creatinine Ratio,Uri neon 12-02-2024 PROT:CRE RATIO 3097 mg/g CRE High 0-200 [facility] [place] Comment on above: Performed By: #### L 501.0900, L500.2500 #### [facility] [address] [place], [address] Protein (U) [Mass/Vol] 131.0 mg/dL High 0.0-12.0 [facility] Comment on above: Performed By: #### L 501.0900, L500.2500 #### [facility] [place] [facility] [address] [place], [address] UR CREAT 42.30 mg/dL Normal 28.00-217.0 0 [facility] [place] Comment on above: Performed By: #### L 501.0900, L500.2500 #### [facility] [address] [place], [address] Basic Metabolic Profile (BMP )on 11-13-2024 BUN/CRE 36.6 RATIO High 10-20 [facility] [place] Comment on above: Performed By: #### L 501.0900, L500.2500 #### [facility] [address] [place], [address] Urea nitrogen [Mass/Vol] 104 mg/dL Invalid Interpretation Code 11-23 [facility] [place] Comment on above: Result Comment: Crit ical [...] Performed By: #### L 501.0900, L500.2500 #### [facility] [address] [place], [address] Liver Profileon 11-13-2024 Globulin (S) [Mass/Vol] 3.3 g/dL Normal 2.2-4.2 [facility] Comment on above: Result Comment: AMENDED REPORT 11/13/241613 GLOB previously reported as: 3.2 g/dL Performed By: #### L 501.0900, L500.2500 #### [facility] [place] [address], [address] Albumin DL <= 20 mg/L (U) [M ass/Vol]Ordered By: Gisel Mccabe on 11-12-2024 Urine Random Microalbumin 524.0 mg/L NO RANGE EST. [facility] Anion gap in Serum or Plasma Ordered By: Gisel Mccabe on 11-12-2024 Anion gap [Moles/Vol] 14 mmol/L 5-15 [facility] BUN/creatinine ratioOrdered By: Gisel Mccabe on 11-12-2024 Urea nitrogen/Creatinine [Mass ratio] 36.6 mg/mg High 10-20 [facility] Bilirubin, totalOrdered By: Gisel Mccbae on 11-12-2024 Bilirubin [Mass/Vol] 0.21 mg/dL 0.00-1.30 [facility] Bilirubin.direct [Mass/Vol]O rdered By: Gisel Mccabe on 11-12-2024 Direct Bilirubin < 0.08 mg/dL 0.00-0.30 [facility] Calculated very low density lipoprotein (VLDL) cholesterol measurementOrdered By: Gisel Mccabe on 11-12-2024 VLDL Cholesterol 47 mg/dL High 5-40 [facility] Carbon dioxide, total [Moles /volume] in Central venous bloodOrdered By: Gisel Mccabe on 11-12-2024 CO2 [Moles/Vol] 16.0 mmol/L Low 21.0-32.0 [facility] Chloride assayOrdered By: Hiwot Mccabe on 11-12-2024 Chloride [Moles/Vol] 108 mmol/L 98-108 [facility] Creatinine Unsp time (U) [Ma ss/Vol]Ordered By: Gisel Mccabe on 11-12-2024 Creatinine (U) [Mass/Vol] 41.90 mg/dL 28 .00-217.0 0 [facility] Free T3on 11-12-2024 Free T3 [Mass/Vol] 2.2 pg/mL Normal 2.18-3.98 [facility] Comment on above: Performed By: #### L 501.0900, L500.2500 #### [facility] [address] [place], [place], [address] Free P9Pxwzpzm By: Gisel saenz on 11-12-2024 Free Triiodothyronine (T3) pg/dL 2.2 pg/mL 2.18-3.98 [facility] GFR/1.73 sq M.predicted karol g non-blacks MDRD (S/P/Bld) [Vol rate/Area]Ordered By: Gisel Mccabe on 11-12-2024 Estimated GFR (MDRD) Non-Af Amer 18 Low >60 [facility] Comment on above: mL/min/1.73m2 CKD-EP I Creatinine Equation (2020) Hemoglobin A1con 11-12-2024 HbA1c (Bld) [Mass fraction] 7.0 % Normal <=5.6 [facility] Comment on above: Performed By: #### L 501.0900, L500.2500 #### [facility] [address] [place], [place], [address] Hemoglobin A1c percentageOrd ered By: Gisel Mccabe on 11-12-2024 HbA1c (Bld) [Mass fraction] 7.0 % >5.7 [facility] LDL calc ser/plasOrdered By: Gisel Mccabe on 11-12-2024 LDL Cholesterol, Calculated 90 mg/dL [facility] Comment on above: Rfxxhzugcn=541-647 m g/dL & Higher Zgdt=509 mg/dL or greater Laboratory - Chemistry and C hemistry - challengeOrdered By: Gisel Mccabe on 11-12-2024 AST [Catalytic activity/Vol] 15 U/L <32 [facility] Lipid Profileon 11-12-2024 CHOL:HDL 4.36 Normal [facility] Comment on above: Performed By: #### L 501.0900, L500.2500 #### [facility] [address] [place], [address] Cholesterol [Mass/Vol] 178 mg/dL Normal <=200 [facility] Comment on above: Result Comment: Chol esterol level, Desirable <200 mg/dL Borderline high cholesterol 200-239 mg/dL High cholesterol >=240 mg/dL Recommendations of the NCEP Adult Treatment Panel for the following risk-cutoff thresholds for the [place] population. Performed By: #### L 501.0900, L500.2500 #### [facility] [address] [place], [address] Cholesterol in HDL [Mass/Vol] 41 mg/dL Normal [facility] Comment on above: Result Comment: Trina onal Cholesterol Education Program (NCEP) guidelines: <40 mg/dL: Low HDL-cholesterol (major risk factor for CHD) >= 60 mg/dL: High HDL-cholesterol (negative risk factor for CHD) HDL-cholesterol is affected by a number of factors, e.g. smoking, exercise, hormones, sex and age. Performed By: #### L 501.0900, L500.2500 #### [facility] [address] [place], [address] Cholesterol in LDL [Mass/Vol] 90 mg/dL Normal [facility] Comment on above: Result Comment: Bord pmapwr=881-370 mg/dL Higher Jdlj=849 mg/dL or greater Performed By: #### L 501.0900, L500.2500 #### [facility] [address] [place], [address] Cholesterol in VLDL [Mass/Vol] 47 mg/dL High 5-40 [facility] Comment on above: Performed By: #### L 501.0900, L500.2500 #### [facility] [address] [place], [address] Triglyceride [Mass/Vol] 236 mg/dL High [facility] Comment on above: Result Comment: The drugs N-Acetylcysteine and Metamizole may falsely depress this assay. Normal range: <150 mg/dL Borderline High: 150-199 mg/dL High: 200-499 mg/dL Very High: >500 mg/dL Performed By: #### L 501.0900, L500.2500 #### [facility] [address] [place], [address] Microalbumin,Random Urineon 11-12-2024 MICROALBUMIN,UR 524.0 mg/L Normal NO RANGE EST. [facility] Comment on above: Performed By: #### L 501.0900, L500.2500 #### [facility] [address] [place], [address] Potassium (Unsp spec) [Mass/ Vol]Ordered By: Gisel Mccabe on 11-12-2024 Potassium [Moles/Vol] 5.5 mmol/L High 3.3-5.1 [facility] Protein+Creatinine Ratio,Uri neon 11-12-2024 PROT:CRE RATIO 1706 mg/g CRE High 0-200 [facility] Comment on above: Performed By: #### L 501.0900, L500.2500 #### [facility] [address] [place], [address] Protein (U) [Mass/Vol] 71.5 mg/dL High 0.0-12.0 [facility] Comment on above: Performed By: #### L 501.0900, L500.2500 #### [facility] [address] [place], [address] Protein/Creatinine (U) [Mass ratio]Ordered By: Gisel Mccabe on 11-12-2024 Urine Protein/Creatinine Ratio 1706 mg/g CRE High 0-200 [facility] Screening total cholesterol/ high density lipoprotein (HDL) cholesterol ratioOrdered By: Gisel Mccabe on 11-12-2024 Cholesterol.total/Cholest rebeca in HDL [Mass ratio] 4.36 {ratio} [facility] Serum creatinine measurement (mass/volume)Ordered By: Gisel Mccabe on 11-12-2024 Creatinine [Mass/Vol] 2.84 mg/dL High 0.70-1.20 [facility] Serum globulin measurementOr dered By: Gisel Mccabe on 11-12-2024 Globulin (S) [Mass/Vol] 3.3 g/dL 2.2-4.2 [facility] Comment on above: Previous reported re sult: 3.2 g/dLEdited by: KALANI on 11/13/24:1614 AMENDED REPORT 11/13/24 1614 GLOB previously reported as: 3.2 g/dL Serum glucose measurement (m ass/volume)Ordered By: Gisel Mccabe on 11-12-2024 Glucose [Mass/Vol] 116 mg/dL High 70-99 [facility] Serum or plasma alanine clayton otransferase (ALT) measurementOrdered By: Gisel Mccabe on 11-12-2024 ALT [Catalytic activity/Vol] 16 U/L <35 [facility] Serum or plasma albumin lamar urement (mass/volume)Ordered By: Gisel Mccabe on 11-12-2024 Albumin [Mass/Vol] 4.1 g/dL 3.4-4.8 [facility] Serum or plasma alkaline farideh sphatase measurementOrdered By: Gisel Mccbae on 11-12-2024 ALP [Catalytic activity/Vol] 56 U/L 35-104 [facility] Serum or plasma calcium lamar urement (mass/volume)Ordered By: Gisel Mccabe on 11-12-2024 Calcium [Mass/Vol] 9.6 mg/dL 7.6-11.0 [facility] Serum or plasma cholesterol in HDL measurement (mass/volume)Ordered By: Gisel Mccabe on 11-12-2024 Cholesterol in HDL [Mass/Vol] 41 mg/dL >40 [facility] Comment on above: National Cholesterol Education Program (NCEP) guidelines:<40 mg/dL: Low HDL-cholesterol (major risk factor for CHD)>= 60 mg/dL: High HDL-cholesterol (negative risk factor for CHD)HDL-cholesterol is affected by a number of factors, e.g. smoking, exercise, hormones, sex and age. Serum or plasma cholesterol measurement (mass/volume)Ordered By: Gisel Mccabe on 11-12-2024 Cholesterol [Mass/Vol] 178 mg/dL <201 [facility] Comment on above: Cholesterol level, D esirable <200 mg/dLBorderline high cholesterol 200-239 mg/dLHigh cholesterol >=240 mg/dLRecommendations of the NCEP Adult Treatment Panel for the following risk-cutoff thresholds for the [place] population. Serum or plasma urea nitroge n measurement (mass/volume)Ordered By: Gisel Mccabe on 11-12-2024 Urea nitrogen [Mass/Vol] 104 mg/dL High 4-19 [facility] Comment on above: Critical Result(s) C alled [...] on 11-12-2024 Sodium [Moles/Vol] 138 mmol/L 133-145 [facility] T4 Free Directon 11-12-2024 T4 FREE DIRECT 1.30 ng/dL Normal 0.76-1.46 [facility] Comment on above: Performed By: #### L 501.0900, L500.2500 #### [facility] [address] [place], [address] T4 freeOrdered By: Gisel saenz on 11-12-2024 Free T4 [Mass/Vol] 1.30 ng/dL 0.76-1.46 [facility] TSH DL <= 0.005 mIU/L QnOrde red By: Gisel Mccabe on 11-12-2024 Thyroid Stimulating Hormone (TSH) 1.810 uIU/mL 0.300-4.200 [facility] Thyroid Stim Hormone (TSH)on 11-12-2024 TSH 1.810 uIU/mL Normal 0.300-4.200 [facility] Comment on above: Performed By: #### L 501.0900, L500.2500 #### [facility] [address] [place], [place], [address] Total proteinOrdered By: Matthew Mccabe on 11-12-2024 Protein [Mass/Vol] 7.3 g/dL 5.9-8.4 [facility] Triglycerides measurementOrd ered By: Gisel Mccabe on 11-12-2024 Triglyceride [Mass/Vol] 236 mg/dL High <199 [facility] Comment on above: The drugs N-Acetylcy steine and Metamizole may falsely depress this assay. Normal range: <150 mg/dLBorderline High: 150-199 mg/dLHigh: 200-499 mg/dLVery High: >500 mg/dL Urine protein measurement (m ass/volume)Ordered By: Gisel Mccabe on 11-12-2024 Protein (U) [Mass/Vol] 71.5 mg/dL High 0.0-12.0 [facility] Vitamin D, 25-hydroxyOrdered By: Gisel Mccabe on 11-12-2024 Vitamin D 25-Hydroxy 42.1 ng/mL 30-100 [facility] Comment on above: Vitamin D StatusDefi ciency: <20 ng/mL (50nmol/L)Insufficiency: 20-30 ng/mL (50-75 nmol/L)Sufficiency: 30-100 ng/mL (75-250 nmol/L)Toxicity: >100 ng/mL (>250 nmol/L) Vitamin D,25 Hydroxyon 11-12 Vitamin D 25-OH 42.1 ng/mL Normal 30-100 [facility] Comment on above: Result Comment: Jeana min D Status Deficiency: <20 ng/mL (50nmol/L) Insufficiency: 20-30 ng/mL (50-75 nmol/L) Sufficiency: 30-100 ng/mL (75-250 nmol/L) Toxicity: >100 ng/mL (>250 nmol/L) Performed By: #### L 501.0900, L500.2500 #### [facility] [address] [place], [address] 47-WD-Isfsmdv DOrdered By: Apple Mccabe on 08-19-2024 Vitamin D 25-Hydroxy 41.5 ng/mL [facility] Comment on above: Vitamin D 25(OH) Sta tus Range Deficiency <20 ng/mL (50nmol/L) Insufficiency 20 - 30 ng/mL (50 - 75 nmol/L) Sufficiency 30 - 100 ng/mL (75 - 250 nmol/L) Toxicity >100 ng/mL (>250 nmol/L) Albumin to globulin ratioOrd ered By: Gisel Mccabe on 08-19-2024 Albumin/Globulin [Mass ratio] 0.8 {ratio} Low 0.9-2.4 [facility] Bilirubin, totalOrdered By: Gisel Mccabe on 08-19-2024 Bilirubin [Mass/Vol] 0.30 mg/dL 0.20-1.00 [facility] Comment on above: For patients on eltr ombopag therapy, use of Dimension [place] TBIL is not recommended. Blood urea nitrogen (BUN)/cr eatinine ratioOrdered By: Gisel Mccabe on 08-19-2024 Urea nitrogen/Creatinine [Mass ratio] 25.1 mg/mg High 10-20 [facility] Carbon dioxide measurementOr dered By: Gisel Mccabe on 08-19-2024 CO2 [Moles/Vol] 20.0 mmol/L Low 21.0-32.0 [facility] Chloride measurementOrdered By: Gisel Mccabe on 08-19-2024 Chloride [Moles/Vol] 110 mmol/L High 98-107 [facility] Comprehensive Metabolic Prof ilon 08-19-2024 Albumin [Mass/Vol] 3.4 g/dL Normal 3.2-5.0 [facility] Comment on above: Order Comment: N Performed By: #### L 501.9985, L506.1000, L506.0400, L502.0250, L500.4050, L501.9520, L501.20977 #### [facility] [address] [place], [address] Albumin/Globulin [Mass ratio] 0.8 {ratio} Low 0.9-2.4 [facility] Comment on above: Order Comment: N Performed By: #### L 501.9985, L506.1000, L506.0400, L502.0250, L500.4050, L501.9520, L501.18524 #### [facility] [address] [place], [address] ALK P 54 U/L Normal 45-117 [facility] Comment on above: Order Comment: N Performed By: #### L 501.9985, L506.1000, L506.0400, L502.0250, L500.4050, L501.9520, L501.24285 #### [facility] [address] [place], [address] ALT [Catalytic activity/Vol] 49 U/L Normal 13-56 [facility] Comment on above: Order Comment: N Performed By: #### L 501.9985, L506.1000, L506.0400, L502.0250, L500.4050, L501.9520, L501.31548 #### [facility] [address] [place], [address] AST [Catalytic activity/Vol] 33 U/L Normal 15-37 [facility] Comment on above: Order Comment: N Performed By: #### L 501.9985, L506.1000, L506.0400, L502.0250, L500.4050, L501.9520, L501.06207 #### [facility] [address] [place] [place], [address] Bilirubin [Mass/Vol] 0.30 mg/dL Normal 0.20-1.00 [facility] Comment on above: Order Comment: N Result Comment: For patients on eltrombopag therapy, use of Dimension [place] TBIL is not recommended. Performed By: #### L 501.9985, L506.1000, L506.0400, L502.0250, L500.4050, L501.9520, L501.31196 #### [facility] [address] [place], [address] BUN/CRE 25.1 RATIO High 10-20 [facility] Comment on above: Order Comment: N Performed By: #### L 501.9985, L506.1000, L506.0400, L502.0250, L500.4050, L501.9520, L501.59073 #### [facility] [address] [place], [address] CA,Total 9.2 mg/dL Normal 8.5-10.1 [facility] Comment on above: Order Comment: N Performed By: #### L 501.9985, L506.1000, L506.0400, L502.0250, L500.4050, L501.9520, L501.11096 #### [facility] [address] [place], [address] Chloride [Moles/Vol] 110 mmol/L High 98-107 [facility] Comment on above: Order Comment: N Performed By: #### L 501.9985, L506.1000, L506.0400, L502.0250, L500.4050, L501.9520, L501.26117 #### [facility] [address] [place], [address] CO2 [Moles/Vol] 20.0 mmol/L Low 21.0-32.0 [facility] Comment on above: Order Comment: N Performed By: #### L 501.9985, L506.1000, L506.0400, L502.0250, L500.4050, L501.9520, L501.84601 #### [facility] [address] [place], [address] Creatinine [Mass/Vol] 2.99 mg/dL High 0.55-1.02 [facility] Comment on above: Order Comment: N Result Comment: The validity of the calculated GFR GFRAA in patients over 70 years has not been determined. Clinical correlation is essential. Performed By: #### L 501.9985, L506.1000, L506.0400, L502.0250, L500.4050, L501.9520, L501.35058 #### [facility] [address] [place], [place], [id number] (651 EST GFR - AA 20 mL/min Low >60 [facility] Comment on above: Order Comment: N Result Comment: Afri can Chinese GFR Calc Performed By: #### L 501.9985, L506.1000, L506.0400, L502.0250, L500.4050, L501.9520, L501.46863 #### [facility] [address] [place], [address] GAP 10 Normal 5-15 [facility] Comment on above: Order Comment: N Performed By: #### L 501.9985, L506.1000, L506.0400, L502.0250, L500.4050, L501.9520, L501.42750 #### [facility] [address] [place], [address] GFR/1.73 sq M.predicted among non-blacks MDRD (S/P/Bld) [Vol rate/Area] 17 mL/min/{1.73_m2} Low >60 [facility] Comment on above: Order Comment: N Result Comment: Non- GFR Calc Performed By: #### L 501.9985, L506.1000, L506.0400, L502.0250, L500.4050, L501.9520, L501.73948 #### [facility] [address] [place], [address] Globulin (S) [Mass/Vol] 4.5 g/dL High 2.2-4.2 [facility] Comment on above: Order Comment: N Performed By: #### L 501.9985, L506.1000, L506.0400, L502.0250, L500.4050, L501.9520, L501.65864 #### [facility] [address] [place], [address] Glucose [Mass/Vol] 47 mg/dL Low 74-106 [facility] Comment on above: Order Comment: N Result Comment: Gluc ose result less than 50 mg/dL suggests HYPOGLYCEMIA. Performed By: #### L 501.9985, L506.1000, L506.0400, L502.0250, L500.4050, L501.9520, L501.19396 #### [facility] [address] [place], [address] Potassium [Moles/Vol] 4.6 mmol/L Normal 3.5-5.1 [facility] Comment on above: Order Comment: N Performed By: #### L 501.9985, L506.1000, L506.0400, L502.0250, L500.4050, L501.9520, L501.07429 #### [facility] [address] [place], [address] Sodium [Moles/Vol] 140 mmol/L Normal 136-145 [facility] Comment on above: Order Comment: N Performed By: #### L 501.9985, L506.1000, L506.0400, L502.0250, L500.4050, L501.9520, L501.42733 #### [facility] [address] [place], [place], [address] T PROT 7.9 g/dL Normal 6.4-8.2 [facility] Comment on above: Order Comment: N Performed By: #### L 501.9985, L506.1000, L506.0400, L502.0250, L500.4050, L501.9520, L501.87608 #### [facility] [address] [place], [place], [address] Urea nitrogen [Mass/Vol] 75 mg/dL High 7-18 [facility] Comment on above: Order Comment: N Performed By: #### L 501.9985, L506.1000, L506.0400, L502.0250, L500.4050, L501.9520, L501.99825 #### [facility] [address] [place], [place], [address] Direct serum free thyroxine (FT4) measurementOrdered By: Gisel Mccabe on 08-19-2024 Free T4 [Mass/Vol] 1.33 ng/dL 0.76-1.46 [facility] Estimated glomerular filtrat ion rate (GFR) AmericanOrdered By: Gisel Mccabe on 08-19-2024 Estimated GFR (MDRD) Amer 20 mL/min Low >60 [facility] Comment on above: GFR Calc Free T3on 08-19-2024 Free T3 [Mass/Vol] 1.4 pg/mL Low 2.18-3.98 [facility] Comment on above: Order Comment: N Performed By: #### L 501.9985, L506.1000, L506.0400, L502.0250, L500.4050, L501.9520, L501.46126 #### [facility] [address] [place], [place], [address] Free M5Vuvqosq By: Gisel saenz on 08-19-2024 Free Triiodothyronine (T3) pg/dL 1.4 pg/mL Low 2.18-3.98 [facility] Glomerular filtration rate ( GFR) estimationOrdered By: Gisel Mccabe on 08-19-2024 Estimated GFR (MDRD) Non-Af Amer 17 mL/min Low >60 [facility] Comment on above: Non- GFR Calc Glucose measurementOrdered B y: Gisel Mccabe on 08-19-2024 Glucose [Mass/Vol] 47 mg/dL Low 74-106 [facility] Comment on above: Glucose result less than 50 mg/dL suggests HYPOGLYCEMIA. Hemoglobin A1con 08-19-2024 HbA1c (Bld) [Mass fraction] 6.2 % High 3.8-5.6 [facility] Comment on above: Result Comment: Norm al < 5.7 % Prediabetic 5.7 - 6.4 % Diabetic >or= 6.5 % Please note range changes. Performed By: #### L 501.9985, L506.1000, L506.0400, L502.0250, L500.4050, L501.9520, L501.20268 #### [facility] [address] [place], [place], [address] Hemoglobin A1c percentageOrd ered By: Gisel Mccabe on 08-19-2024 HbA1c (Bld) [Mass fraction] 6.2 % High 3.8-5.6 [facility] Comment on above: Normal < 5.7 % Predi abetic 5.7 - 6.4 % Diabetic >or= 6.5 % Please note range changes. Laboratory - Chemistry and C hemistry - challengeOrdered By: Gisel Mccabe on 08-19-2024 AST [Catalytic activity/Vol] 33 U/L 15-37 [facility] Microalb:Creat Ratio,Random URon 08-19-2024 Creatinine [Mass/Vol] 68.40 mg/dL Normal NO RAN GE EST. [facility] Comment on above: Performed By: #### L 501.9985, L506.1000, L506.0400, L502.0250, L500.4050, L501.9520, L501.60199 #### [facility] [address] [place], [place], [id number] (724) MALB:CRE 1447.4 mg/g CRE High <30 mg/g CRE [facility] Comment on above: Performed By: #### L 501.9985, L506.1000, L506.0400, L502.0250, L500.4050, L501.9520, L501.82439 #### [facility] [address] [place], [place], [id number] MICROALBUMIN,UR 990.0 mg/L Normal NO RANGE EST. [facility] Comment on above: Performed By: #### L [id number], L506.1000, L506.0400, L502.0250, L500.4050, [id number], [id number] #### [facility] [address] [place], [place], [id number] Potassium measurementOrdered By: Gisel Mccabe on 08-19-2024 Potassium [Moles/Vol] 4.6 mmol/L 3.5-5.1 [facility] Random urine microalbumin me asurementOrdered By: Gisel Mccabe on 08-19-2024 Urine Random Microalbumin 990.0 mg/L NO RANGE EST. [facility] Serum anion gap measurementO rdered By: Gisel Mccabe on 08-19-2024 Anion gap [Moles/Vol] 10 mmol/L 5-15 [facility] Serum globulin measurementOr dered By: Gisel Mccabe on 08-19-2024 Globulin (S) [Mass/Vol] 4.5 g/dL High 2.2-4.2 [facility] Serum or plasma alanine clayton otransferase (ALT) measurementOrdered By: Gisel Mccabe on 08-19-2024 ALT [Catalytic activity/Vol] 49 U/L 13-56 [facility] Serum or plasma albumin lamar urement (mass/volume)Ordered By: Gisel Mccabe on 08-19-2024 Albumin [Mass/Vol] 3.4 g/dL 3.2-5.0 [facility] Serum or plasma alkaline farideh sphatase measurementOrdered By: Gisel Mccabe on 08-19-2024 ALP [Catalytic activity/Vol] 54 U/L 45-117 [facility] Serum or plasma calcium lamar urement (mass/volume)Ordered By: Gisel Mccabe on 08-19-2024 Calcium [Mass/Vol] 9.2 mg/dL 8.5-10.1 [facility] Serum or plasma creatinine m easurement (mass/volume)Ordered By: Gisel Mccabe on 08-19-2024 Creatinine [Mass/Vol] 2.99 mg/dL High 0.55-1.02 [facility] Comment on above: The validity of the calculated GFR & GFRAA in patients over 70 years has not been determined. Clinical correlation is essential. Serum or plasma urea nitroge n measurement (mass/volume)Ordered By: Gisel Mccabe on 08-19-2024 Urea nitrogen [Mass/Vol] 75 mg/dL High 7-18 [facility] Sodium levelOrdered By: Eileen Mccabe on 08-19-2024 Sodium [Moles/Vol] 140 mmol/L 136-145 [facility] T4 Free Directon 08-19-2024 T4 FREE DIRECT 1.33 ng/dL Normal 0.76-1.46 [facility] Comment on above: Order Comment: N Performed By: #### L [id number], L506.1000, L506.0400, L502.0250, L500.4050, [id number], [id number] #### [facility] [address] [place], [address] TSH QnOrdered By: Gisel reyes on 08-19-2024 Thyroid Stimulating Hormone (TSH) 2.070 uIU/mL 0.358-3.740 [facility] Thyroid Stim Hormone (TSH)on 08-19-2024 TSH 2.070 uIU/mL Normal 0.358-3.740 [facility] Comment on above: Order Comment: N Performed By: #### L [id number], L506.1000, L506.0400, L502.0250, L500.4050, [id number], [id number] #### [facility] [address] [place], [place], [id number] Total proteinOrdered By: Matthew Mccabe on 08-19-2024 Protein [Mass/Vol] 7.9 g/dL 6.4-8.2 [facility] Urine albumin/creatinine rat io for detection of microalbuminuriaOrdered By: Gisel Mccabe on 08-19-2024 Urine Microalbumin/Creatinine Ratio 1447.4 mg/g CRE High <30 [facility] Urine creatinine measurement (mass/volume)Ordered By: Gisel Mccabe on 08-19-2024 Creatinine (U) [Mass/Vol] 68.40 mg/dL NO RANGE EST. [facility] Vitamin D,25 Hydroxyon 08-19 Vitamin D 25-OH 41.5 ng/mL Normal [facility] Comment on above: Result Comment: Jeana min D 25(OH) Status Range Deficiency <20 ng/mL (50nmol/L) Insufficiency 20 - 30 ng/mL (50 - 75 nmol/L) Sufficiency 30 - 100 ng/mL (75 - 250 nmol/L) Toxicity >100 ng/mL (>250 nmol/L) Performed By: #### L [id number], L506.1000, L506.0400, L502.0250, L500.4050, [id number], [id number] #### [facility] [address] [place], [place], [id number] Absolute lymphocyte countOrd ered By: Robby Joe on 11-12-2023 Lymphocytes Auto (Unsp spec) [#/Vol] 2.74 10*3/uL 0.83-4.51 [facility] Automated lymphocyte count a s percentage of total leukocytesOrdered By: Robby Joe on 11-12-2023 Lymphocytes/100 WBC Auto (Unsp spec) 28.2 % 19-41 [facility] Basophil percentageOrdered B y: Robby Joe on 11-12-2023 Basophil percentage 0-5 SEEN /hpf 0-5 [facility] Lactate [Moles/Vol] 1.0 mmol/L [facility].4-2.[facility] Bas[facility]/100 WBC (Bld) 0.7 % 0-1 [facility] Chloride [Moles/Vol] 104 mmol/L 98-107 [facility] Eosinophils/100 WBC (Bld) 3.2 % 0-5 [facility] Glucose [Mass/Vol] 360 mg/dL 74-106 [facility] Comment on above: Glucose result great er than or equal to 200 mg/dLsuggests DIABETES MELLITUS per A.D.A. criteria. Hemoglobin (Bld) [Mass/Vol] 12.6 g/dL 12.0-15.0 [facility] Monocytes/100 WBC (Bld) 10.7 % 0-10 [facility] Neutrophils (Bld) [#/Vol] 5.5 10*3/uL 2.0-7.7 [facility] Neutrophils/100 WBC (Bld) 56.5 % 47-70 [facility] Potassium [Moles/Vol] 5.3 mmol/L 3.5-5.1 [facility] Sodium [Moles/Vol] 131 mmol/L 136-145 [facility] WBC (Bld) [#/Vol] 9.7 10*3/uL 4.4-11.0 [facility] Bilirubin Test strip Ql (U)O rdered By: Robby Joe on 11-12-2023 Bilirubin Ql (U) Negative Negative [facility] Determination of erythrocyte mean corpuscular volume (MCV)Ordered By: Robby Joe on 11-12-2023 MCV (RBC) [Entitic vol] 100.7 fL 81-99 [facility] Erythrocyte distribution wid th ratioOrdered By: Robby Joe on 11-12-2023 Erythrocyte distribution width (RBC) [Ratio] 12.4 % 11.6-14.6 [facility] Erythrocyte distribution wid th standard deviationOrdered By: Robby Joe on 11-12-2023 Erythrocyte distribution width (RBC) [Entitic vol] 45.9 fL 35.1-43.9 [facility] Hematocrit Auto (Bld) [Volum e fraction]Ordered By: Robby Joe on 11-12-2023 Hematocrit (Bld) [Volume fraction] 40.8 % 37-47 [facility] Immature granulocytes/100 WB C Auto (Bld)Ordered By: Robby Joe on 11-12-2023 Immature granulocytes/100 WBC (Bld) 0.700 % 0.0-0.9 [facility] Comment on above: IG% - Immature Granu locytes (promyelocytes, myelocytes and metamyelocytes) > 1% indicates that a LEFT SHIFT is Present. Ketones Test strip Ql (U)Ord ered By: Robby Joe on 11-12-2023 Ketones Ql (U) Negative Negative [facility] - Chemistry and C hemistry - challengeOrdered By: Robby Joe on 11-12-2023 CO2 [Moles/Vol] 20.0 mmol/L 21.0-32.0 [facility] Urea nitrogen/Creatinine [Mass ratio] 23.8 mg/mg 10-20 [facility] - Hematology and Cell countsOrdered By: Robby Joe on 11-12-2023 MCH (RBC) [Entitic mass] 31.1 pg 27.0-32.0 [facility] MCHC (RBC) [Mass/Vol] 30.9 g/dL 32-36 [facility] Nucleated RBC/100 WBC (Bld) [Ratio] 0 % 0-5 [facility] Platelet mean volume (Bld) [Entitic vol] 9.7 fL 6.2-12.0 [facility] Platelets (Bld) [#/Vol] 386 10*3/uL 150-450 [facility] Mucus LM Ql (Urine sed)Order ed By: Robby Joe on 11-12-2023 Mucus Ql (Urine sed) 0 SEEN /hpf [facility] Nitrite Test strip Ql (U)Ord ered By: Robby Joe on 11-12-2023 Nitrite Ql (U) Negative Negative [facility] No Panel InformationOrdered By: Robby Joe on 11-12-2023 Urine RBC 0 SEEN /hpf 0-5 [facility] Estimated Creatinine Clearance Calc 20.29 ml/min [facility] Estimated GFR (MDRD) Amer 23 mL/min >60 [facility] Comment on above: GFR Calc Estimated GFR (MDRD) Non-Af Amer 19 mL/min >60 [facility] Comment on above: Non- GFR Calc Troponin I High Sensitivity 3 pg/mL 3.0-54.0 [facility] Comment on above: Please Note: New Je t Units and Gender Specific Reference Ranges. For more information see Policy Stat Procedure [place] High Sensitivity Troponin (TNIH) and attachments. Protein Test strip Ql (U)Ord ered By: Robby Joe on 11-12-2023 Protein Ql (U) 100 mg/dl Negative [facility] RBC Auto (Bld) [#/Vol]Ordere d By: Robby Joe on 11-12-2023 RBC (Bld) [#/Vol] 4.05 10*6/uL 4.2-5.4 [facility] Serum or plasma calcium lamar urement (mass/volume)Ordered By: Robby Joe on 11-12-2023 Calcium [Mass/Vol] 9.1 mg/dL 8.5-10.1 [facility] Serum or plasma creatinine m easurement (mass/volume)Ordered By: Robby Joe on 11-12-2023 Creatinine [Mass/Vol] 2.65 mg/dL 0.55-1.02 [facility] Comment on above: The validity of the calculated GFR & GFRAA in patients over 70 years has not been determined. Clinical correlation is essential. Serum or plasma urea nitroge n measurement (mass/volume)Ordered By: Robby Joe on 11-12-2023 Urea nitrogen [Mass/Vol] 63 mg/dL 7-18 [facility] Squamous epithelial cells de tection in urine sediment by light microscopyOrdered By: Robby Joe on 11-12-2023 Epithelial cells.squamous LM Ql (Urine sed) 0-5 SEEN /hpf 5-10 [facility] Thin prep Papanicolaou smear with manual screeningOrdered By: Robby Joe on 11-12-2023 Thin prep Papanicolaou smear with manual screening 343 mg/dL 74-106 [facility] Comment on above: MANAGEMENT OF PATIEN T CARE PER NURSING PROTOCOL Thin prep Papanicolaou smear with manual screening 7 5-15 [facility] Urine blood detectionOrdered By: Robby Joe on 11-12-2023 RBC Ql (U) 25 /ul Negative [facility] Urine clarityOrdered By: Mann Joe on 11-12-2023 Clarity (U) Clear Clear [facility] Urine color determinationOrd ered By: Robby Joe on 11-12-2023 Color (U) Yellow Yellow [facility] Urine glucose detectionOrder ed By: Robby Joe on 11-12-2023 Glucose Ql (U) 1000 mg/dl Normal [facility] Urine leukocyte esterase det ection by dipstickOrdered By: Robby Joe on 11-12-2023 Leukocyte esterase Test strip Ql (U) Negative Negative [facility] Urine pHOrdered By: Robby lópez on 11-12-2023 pH (U) 5.0 [pH] 5.0 - 8.0 [facility] Urine sediment bacteria coun t by microscopy (number/high power field)Ordered By: Robby Joe on 11-12-2023 Bacteria LM.HPF (Urine sed) [#/Area] 0 /[HPF] None Seen [facility] Urine specific gravity measu rementOrdered By: Robby Joe on 11-12-2023 Specific gravity (U) [Rel density] 1.010 1.002-1.030 [facility] Urine urobilinogen measureme ntOrdered By: Robby Joe on 11-12-2023 Urobilinogen Ql (U) Normal mg/dl Normal [facility] Basophil percentageOrdered B y: Giselilda Mccabe on 09-14-2023 Bilirubin [Mass/Vol] 0.40 mg/dL 0.20-1.00 [facility] Comment on above: For patients on eltr ombopag therapy, use of Dimension [place] TBIL is not recommended. Chloride [Moles/Vol] 110 mmol/L 98-107 [facility] Glucose [Mass/Vol] 125 mg/dL 74-106 [facility] Comment on above: Fasting Glucose resu lt from 100 to 125 mg/dL suggests IMPAIRED HOMEOSTASIS per A.D.A. criteria. Hemoglobin (Bld) [Mass/Vol] 11.9 g/dL 12.0-15.0 [facility] Potassium [Moles/Vol] 4.6 mmol/L 3.5-5.1 [facility] Protein [Mass/Vol] 7.4 g/dL 6.4-8.2 [facility] Sodium [Moles/Vol] 141 mmol/L 136-145 [facility] WBC (Bld) [#/Vol] 10.9 10*3/uL 4.4-11.0 [facility] Determination of erythrocyte mean corpuscular volume (MCV)Ordered By: Gisel Mccabe on 09-14-2023 MCV (RBC) [Entitic vol] 95.1 fL 81-99 [facility] Erythrocyte distribution wid th ratioOrdered By: [facility]-2023 Erythrocyte distribution width (RBC) [Ratio] 12.4 % 11.6-14.6 [facility] Erythrocyte distribution wid th standard deviationOrdered By: [facility] on 09-14-2023 Erythrocyte distribution width (RBC) [Entitic vol] 42.5 fL 35.1-43.9 [facility] Hematocrit Auto (Bld) [Volum e fraction]Ordered By: Gisel Raghallie on 09-14-2023 Hematocrit (Bld) [Volume fraction] 36.5 % 37-47 [facility] Laboratory - Chemistry and C hemistry - challengeOrdered By: Giselnena Mccabe on 09-14-2023 Albumin/Globulin [Mass ratio] 0.8 {ratio} 0.9-2.4 [facility] ALP [Catalytic activity/Vol] 67 U/L 45-117 [facility] ALT [Catalytic activity/Vol] 29 U/L 13-56 [facility] CO2 [Moles/Vol] 22.0 mmol/L 21.0-32.0 [facility] Globulin (S) [Mass/Vol] 4.0 g/dL 2.2-4.2 [facility] Urea nitrogen/Creatinine [Mass ratio] 22.6 mg/mg 10-20 [facility] Laboratory - Hematology and Cell countsOrdered By: Gisel Mccabe on 09-14-2023 MCH (RBC) [Entitic mass] 31.0 pg 27.0-32.0 [facility] MCHC (RBC) [Mass/Vol] 32.6 g/dL 32-36 [facility] Platelet mean volume (Bld) [Entitic vol] 9.4 fL 6.2-12.0 [facility] Platelets (Bld) [#/Vol] 354 10*3/uL 150-450 [facility] No Panel InformationOrdered By: Gisel Mccabe on 09-14-2023 Estimated GFR (MDRD) Amer 26 mL/min >60 [facility] Comment on above: GFR Calc Estimated GFR (MDRD) Non-Af Amer 22 mL/min >60 [facility] Comment on above: Non- GFR Calc Urine Microalbumin/Creatinine Ratio 1776.5 mg/g CRE <30 [facility] Vitamin D 25-Hydroxy 59.5 ng/mL [facility] Comment on above: Vitamin D 25(OH) Sta tus Range Deficiency <20 ng/mL (50nmol/L) Insufficiency 20 - 30 ng/mL (50 - 75 nmol/L) Sufficiency 30 - 100 ng/mL (75 - 250 nmol/L) Toxicity >100 ng/mL (>250 nmol/L) RBC Auto (Bld) [#/Vol]Ordere d By: Gisel Mccabe on 09-14-2023 RBC (Bld) [#/Vol] 3.84 10*6/uL 4.2-5.4 [facility] Serum or plasma calcium lamar urement (mass/volume)Ordered By: Gisel Mccabe on 09-14-2023 Calcium [Mass/Vol] 9.2 mg/dL 8.5-10.1 [facility] Serum or plasma creatinine m easurement (mass/volume)Ordered By: Gisel Mccabe on 09-14-2023 Creatinine [Mass/Vol] 2.39 mg/dL 0.55-1.02 [facility] Comment on above: The validity of the calculated GFR & GFRAA in patients over 70 years has not been determined. Clinical correlation is essential. Serum or plasma thyroid stim ulating hormone (TSH) measurement (units/volume)Ordered By: Gisel Mccabe on 09-14-2023 TSH Qn 0.84 uIU/mL 0.358-3.74 [facility] Serum or plasma urea nitroge n measurement (mass/volume)Ordered By: Gisel Mccabe on 09-14-2023 Urea nitrogen [Mass/Vol] 54 mg/dL 7-18 [facility] Thin prep Papanicolaou smear with manual screeningOrdered By: Giselnena Mccabe on 09-14-2023 Thin prep Papanicolaou smear with manual screening 3.4 g/dL 3.2-5.0 [facility] Thin prep Papanicolaou smear with manual screening 15 U/L 15-37 [facility] Thin prep Papanicolaou smear with manual screening 9 5-15 [facility] Thin prep Papanicolaou smear with manual screening 755.0 mg/L NO RANGE EST. [facility] Thin prep Papanicolaou smear with manual screening 1.05 ng/dL 0.76-1.46 [facility] Urine creatinine measurement (mass/volume)Ordered By: Giselnena Mccabe on 09-14-2023 Creatinine (U) [Mass/Vol] 42.50 mg/dL NO RANGE EST. [facility] Basophil percentageOrdered B y: Sherif Orantes on 08-03-2023 Chloride [Moles/Vol] 110 mmol/L 98-107 [facility] Glucose [Mass/Vol] 119 mg/dL 74-106 [facility] Comment on above: Fasting Glucose resu lt from 100 to 125 mg/dL suggests IMPAIRED HOMEOSTASIS per A.D.A. criteria. Potassium [Moles/Vol] 4.7 mmol/L 3.5-5.1 [facility] Sodium [Moles/Vol] 140 mmol/L 136-145 [facility] Laboratory - Chemistry and C hemistry - challengeOrdered By: Sherif Orantes on 08-03-2023 CO2 [Moles/Vol] 24.0 mmol/L 21.0-32.0 [facility] Urea nitrogen/Creatinine [Mass ratio] 21.3 mg/mg 10-20 [facility] No Panel InformationOrdered By: Sherif Orantes on 08-03-2023 Estimated GFR (MDRD) Amer 33 mL/min >60 [facility] Comment on above: GFR Calc Estimated GFR (MDRD) Non-Af Amer 27 mL/min >60 [facility] Comment on above: Non- GFR Calc Serum or plasma calcium lamar urement (mass/volume)Ordered By: Sherif Orantes on 08-03-2023 Calcium [Mass/Vol] 9.2 mg/dL 8.5-10.1 [facility] Serum or plasma creatinine m easurement (mass/volume)Ordered By: Sherif Orantes on 08-03-2023 Creatinine [Mass/Vol] 1.97 mg/dL 0.55-1.02 [facility] Comment on above: The validity of the calculated GFR & GFRAA in patients over 70 years has not been determined. Clinical correlation is essential. Serum or plasma urea nitroge n measurement (mass/volume)Ordered By: Sherif Orantes on 08-03-2023 Urea nitrogen [Mass/Vol] 42 mg/dL 7-18 [facility] Thin prep Papanicolaou smear with manual screeningOrdered By: Sherif Orantes on 08-03-2023 Thin prep Papanicolaou smear with manual screening 6 5-15 [facility] Urine creatinine measurement (mass/volume)Ordered By: Sherif Orantes on 08-03-2023 Creatinine (U) [Mass/Vol] 21.50 mg/dL NO RANGE EST. [facility] Urine protein measurement (m ass/volume)Ordered By: Sherif Orantes on 08-03-2023 Protein (U) [Mass/Vol] 106.8 mg/dL 0.0-11.8 [facility] Urine protein/creatinine mas s ratioOrdered By: Sherif Orantes on 08-03-2023 Protein/Creatinine (U) [Mass ratio] 4967 mg/g CRE 0-200 [facility] Basophil percentageOrdered B y: Gisel Mccabe on 06-06-2023 Bilirubin [Mass/Vol] 0.20 mg/dL 0.20-1.00 [facility] Comment on above: For patients on eltr ombopag therapy, use of Dimension [place] TBIL is not recommended. Chloride [Moles/Vol] 110 mmol/L 98-107 [facility] Cholesterol [Mass/Vol] 177 mg/dL <200 [facility] Comment on above: <200 mg/dL Desirable 200-240 mg/dL Borderline >240 mg/dL High Risk Glucose [Mass/Vol] 163 mg/dL 74-106 [facility] Comment on above: Fasting Glucose resu lt greater than or equal to 126 mg/dL suggests DIABETES MELLITUS per A.D.A. criteria. Potassium [Moles/Vol] 4.4 mmol/L 3.5-5.1 [facility] Protein [Mass/Vol] 7.6 g/dL 6.4-8.2 [facility] Sodium [Moles/Vol] 137 mmol/L 136-145 [facility] Triglyceride [Mass/Vol] 297 mg/dL <199 [facility] Comment on above: The drugs N-Acetylcy steine and Metamizole may falsely depress this assay.Serum Triglycerides Reference Interval Normal <150 mg/dL Borderline high 150 - 199 mg/dL High 200 - 499 mg/dL Very High > or = 500 mg/dL Laboratory - Chemistry and C hemistry - challengeOrdered By: Gisel Mccabe on 06-06-2023 ALP [Catalytic activity/Vol] 70 U/L 45-117 [facility] ALT [Catalytic activity/Vol] 26 U/L 13-56 [facility] CO2 [Moles/Vol] 24.0 mmol/L 21.0-32.0 [facility] Free T4 [Mass/Vol] 1.10 ng/dL 0.76-1.46 [facility] Globulin (S) [Mass/Vol] 4.4 g/dL 2.2-4.2 [facility] Urea nitrogen/Creatinine [Mass ratio] 28.8 mg/mg 10-20 [facility] No Panel InformationOrdered By: Gisel Mccabe on 06-06-2023 Estimated GFR (MDRD) Amer 34 mL/min >60 [facility] Comment on above: GFR Calc Estimated GFR (MDRD) Non-Af Amer 28 mL/min >60 [facility] Comment on above: Non- GFR Calc Thyroid Stimulating Hormone (TSH) 0.24 uIU/mL 0.358-3.74 [facility] Serum or plasma albumin lamar urement (mass/volume)Ordered By: Gisel Mccabe on 06-06-2023 Albumin [Mass/Vol] 3.2 g/dL 3.2-5.0 [facility] Serum or plasma albumin/glob ulin mass ratioOrdered By: Gisel Ragformerly [facility]-06-2023 Albumin/Globulin [Mass ratio] 0.7 {ratio} 0.9-2.4 [facility] Serum or plasma calcium lamar urement (mass/volume)Ordered By: Giselnena Mccabe on 06-06-2023 Calcium [Mass/Vol] 8.9 mg/dL 8.5-10.1 [facility] Serum or plasma cholesterol in HDL measurement (mass/volume)Ordered By: Gisel Raghallie on 06-06-2023 Cholesterol in HDL [Mass/Vol] 46 mg/dL >40 [facility] Comment on above: The drugs N-Acetylcy steine and Metamizole may falsely depress this assay. Reference Range HDL <40 mg/dL Low HDL Cholesterol HDL >or= 60 mg/dL High HDL Cholesterol Serum or plasma cholesterol in VLDL measurement (mass/volume)Ordered By: Gisel Mccabe 06-06-2023 Cholesterol in VLDL [Mass/Vol] 59 mg/dL 5-40 [facility] Serum or plasma creatinine m easurement (mass/volume)Ordered By: Giselnena Mccabe 06-06-2023 Creatinine [Mass/Vol] 1.91 mg/dL 0.55-1.02 [facility] Comment on above: The validity of the calculated GFR & GFRAA in patients over 70 years has not been determined. Clinical correlation is essential. Serum or plasma low density lipoprotein (LDL) cholesterol measurement (mass/volume)Ordered By: Gisel Mccabe on 06-06-2023 Cholesterol in LDL [Mass/Vol] 72 mg/dL 0-130 [facility] Serum or plasma urea nitroge n measurement (mass/volume)Ordered By: Gisel Raghallie 06-06-2023 Urea nitrogen [Mass/Vol] 55 mg/dL 7-18 [facility] Thin prep Papanicolaou smear with manual screeningOrdered By: Gisel Mccabe on 06-06-2023 Thin prep Papanicolaou smear with manual screening 13 U/L 15-37 [facility] Thin prep Papanicolaou smear with manual screening 3 5-15 [facility] Whole blood hemoglobin A1c/t otal hemoglobin ratio (mass fraction)Ordered By: Gisel Mccabe on 06-06-2023 HbA1c (Bld) [Mass fraction] 6.3 % 3.8-5.6 [facility] Comment on above: Normal < 5.7 % Predi abetic 5.7 - 6.4 % Diabetic >or= 6.5 % Please note range changes. Basophil percentageOrdered B y: Sherif Orantes on 05-08-2023 Basophil percentage 5.2 mg/dL 2.5-4.9 [facility] Chloride [Moles/Vol] 109 mmol/L 98-107 [facility] Glucose [Mass/Vol] 119 mg/dL 74-106 [facility] Comment on above: Fasting Glucose resu lt from 100 to 125 mg/dL suggests IMPAIRED HOMEOSTASIS per A.D.A. criteria. Potassium [Moles/Vol] 5.7 mmol/L 3.5-5.1 [facility] Sodium [Moles/Vol] 138 mmol/L 136-145 [facility] WBC (Bld) [#/Vol] 10.2 10*3/uL 4.4-11.0 [facility] Blood erythrocytes count (nu mber/volume)Ordered By: Sherif Orantes on 05-08-2023 RBC (Bld) [#/Vol] 3.74 10*6/uL 4.2-5.4 [facility] Blood hemoglobin measurement (mass/volume)Ordered By: Sherif Orantes on 05-08-2023 Hemoglobin (Bld) [Mass/Vol] 11.4 g/dL 12.0-15.0 [facility] Blood platelet mean volumeOr dered By: Sherif Orantes on 05-08-2023 Platelet mean volume (Bld) [Entitic vol] 9.2 fL 6.2-12.0 [facility] Determination of erythrocyte mean corpuscular volume (MCV)Ordered By: Sherif Orantes on 05-08-2023 MCV (RBC) [Entitic vol] 99.5 fL 81-99 [facility] Hematocrit Auto (Bld) [Volum e fraction]Ordered By: Sherif Orantes on 05-08-2023 Hematocrit (Bld) [Volume fraction] 37.2 % 37-47 [facility] Laboratory - Chemistry and C hemistry - challengeOrdered By: Sherif Orantes on 05-08-2023 CO2 [Moles/Vol] 22.0 mmol/L 21.0-32.0 [facility] Urea nitrogen/Creatinine [Mass ratio] 26.1 mg/mg 10-20 [facility] Laboratory - Hematology and Cell countsOrdered By: Sherif Orantes on 05-08-2023 Erythrocyte distribution width (RBC) [Entitic vol] 44.9 fL 35.1-43.9 [facility] Erythrocyte distribution width (RBC) [Ratio] 12.5 % 11.6-14.6 [facility] MCH (RBC) [Entitic mass] 30.5 pg 27.0-32.0 [facility] MCHC Auto (RBC) [Mass/Vol]Or dered By: Sherif Orantes on 05-08-2023 MCHC (RBC) [Mass/Vol] 30.6 g/dL 32-36 [facility] No Panel InformationOrdered By: Sherif Orantes on 05-08-2023 Estimated GFR (MDRD) Amer 29 mL/min >60 [facility] Comment on above: GFR Calc Estimated GFR (MDRD) Non-Af Amer 24 mL/min >60 [facility] Comment on above: Non- GFR Calc Parathyroid Hormone (Intact) 30.8 pg/mL 18.4-80.1 [facility] Vitamin D 25-Hydroxy 47.5 ng/mL [facility] Comment on above: Vitamin D 25(OH) Sta tus Range Deficiency <20 ng/mL (50nmol/L) Insufficiency 20 - 30 ng/mL (50 - 75 nmol/L) Sufficiency 30 - 100 ng/mL (75 - 250 nmol/L) Toxicity >100 ng/mL (>250 nmol/L) Platelets bldOrdered By: Jeff Orantes on 05-08-2023 Platelets (Bld) [#/Vol] 343 10*3/uL 150-450 [facility] Serum or plasma albumin lamar urement (mass/volume)Ordered By: Sherif Orantes on 05-08-2023 Albumin [Mass/Vol] 3.4 g/dL 3.2-5.0 [facility] Serum or plasma calcium lamar urement (mass/volume)Ordered By: Sherif Orantes on 05-08-2023 Calcium [Mass/Vol] 9.4 mg/dL 8.5-10.1 [facility] Serum or plasma creatinine m easurement (mass/volume)Ordered By: Sherif Orantes on 05-08-2023 Creatinine [Mass/Vol] 2.18 mg/dL 0.55-1.02 [facility] Comment on above: The validity of the calculated GFR & GFRAA in patients over 70 years has not been determined. Clinical correlation is essential. Serum or plasma urea nitroge n measurement (mass/volume)Ordered By: Sherif Orantes on 05-08-2023 Urea nitrogen [Mass/Vol] 57 mg/dL 7-18 [facility] Urine creatinine measurement (mass/volume)Ordered By: Sherif Orantes on 05-08-2023 Creatinine (U) [Mass/Vol] 33.90 mg/dL NO RANGE EST. [facility] Urine protein measurement (m ass/volume)Ordered By: Sherif Orantes on 05-08-2023 Protein (U) [Mass/Vol] 95.1 mg/dL 0.0-11.8 [facility] Urine protein/creatinine mas s ratioOrdered By: Sherif Orantes on 05-08-2023 Protein/Creatinine (U) [Mass ratio] 2805 mg/g CRE 0-200 [facility] Basophil percentageOrdered B y: Gisel Mccabe on 03-30-2023 Chloride [Moles/Vol] 108 mmol/L 98-107 [facility] Glucose [Mass/Vol] 167 mg/dL 74-106 [facility] Comment on above: Fasting Glucose resu lt greater than or equal to 126 mg/dL suggests DIABETES MELLITUS per A.D.A. criteria. Potassium [Moles/Vol] 5.2 mmol/L 3.5-5.1 [facility] Sodium [Moles/Vol] 139 mmol/L 136-145 [facility] Laboratory - Chemistry and C hemistry - challengeOrdered By: Gisel Mccabe on 03-30-2023 CO2 [Moles/Vol] 26.0 mmol/L 21.0-32.0 [facility] Urea nitrogen/Creatinine [Mass ratio] 27.8 mg/mg 10-20 [facility] No Panel InformationOrdered By: Gisel Mccabe on 03-30-2023 Estimated GFR (MDRD) Amer 25 mL/min >60 [facility] Comment on above: GFR Calc Estimated GFR (MDRD) Non-Af Amer 20 mL/min >60 [facility] Comment on above: Non- GFR Calc Serum or plasma calcium lamar urement (mass/volume)Ordered By: Gisel Mccabe on 03-30-2023 Calcium [Mass/Vol] 9.5 mg/dL 8.5-10.1 [facility] Serum or plasma creatinine m easurement (mass/volume)Ordered By: Gisel Mccabe on 03-30-2023 Creatinine [Mass/Vol] 2.52 mg/dL 0.55-1.02 [facility] Comment on above: The validity of the calculated GFR & GFRAA in patients over 70 years has not been determined. Clinical correlation is essential. Serum or plasma urea nitroge n measurement (mass/volume)Ordered By: Gisel Mccabe on 03-30-2023 Urea nitrogen [Mass/Vol] 70 mg/dL 7-18 [facility] Serum or plasma uric acid me asurement (mass/volume)Ordered By: Gisel Mccabe on 03-30-2023 Urate [Mass/Vol] 8.7 mg/dL 2.6-6.0 [facility] Comment on above: The drugs N-Acetylcy steine and Metamizole may falsely depress this assay. Thin prep Papanicolaou smear with manual screeningOrdered By: Gisel Mccabe on 03-30-2023 Thin prep Papanicolaou smear with manual screening 5 5-15 [facility] Basophil percentageOrdered B y: Sherif Orantes on 03-13-2023 Basophil percentage 5.6 mg/dL 2.5-4.9 [facility] Bilirubin [Mass/Vol] 0.20 mg/dL 0.20-1.00 [facility] Comment on above: For patients on eltr ombopag therapy, use of Dimension [place] TBIL is not recommended. Chloride [Moles/Vol] 112 mmol/L 98-107 [facility] Cholesterol [Mass/Vol] 175 mg/dL <200 [facility] Comment on above: <200 mg/dL Desirable 200-240 mg/dL Borderline >240 mg/dL High Risk Glucose [Mass/Vol] 198 mg/dL 74-106 [facility] Comment on above: Fasting Glucose resu lt greater than or equal to 126 mg/dL suggests DIABETES MELLITUS per A.D.A. criteria. Potassium [Moles/Vol] 5.7 mmol/L 3.5-5.1 [facility] Protein [Mass/Vol] 7.3 g/dL 6.4-8.2 [facility] Sodium [Moles/Vol] 139 mmol/L 136-145 [facility] Triglyceride [Mass/Vol] 287 mg/dL <199 [facility] Comment on above: The drugs N-Acetylcy steine and Metamizole may falsely depress this assay.Serum Triglycerides Reference Interval Normal <150 mg/dL Borderline high 150 - 199 mg/dL High 200 - 499 mg/dL Very High > or = 500 mg/dL WBC (Bld) [#/Vol] 7.9 10*3/uL 4.4-11.0 [facility] Blood erythrocytes count (nu mber/volume)Ordered By: Sherif Orantes on 03-13-2023 RBC (Bld) [#/Vol] 3.72 10*6/uL 4.2-5.4 [facility] Blood hemoglobin measurement (mass/volume)Ordered By: Sherif Orantes on 03-13-2023 Hemoglobin (Bld) [Mass/Vol] 11.6 g/dL 12.0-15.0 [facility] Blood platelet mean volumeOr dered By: Sherif Orantes on 03-13-2023 Platelet mean volume (Bld) [Entitic vol] 9.8 fL 6.2-12.0 [facility] Determination of erythrocyte mean corpuscular volume (MCV)Ordered By: Sherif Orantes on 03-13-2023 MCV (RBC) [Entitic vol] 100.8 fL 81-99 [facility] Hematocrit Auto (Bld) [Volum e fraction]Ordered By: Sherif Orantes on 03-13-2023 Hematocrit (Bld) [Volume fraction] 37.5 % 37-47 [facility] Laboratory - Chemistry and C hemistry - challengeOrdered By: Sherif Orantes on 03-13-2023 ALP [Catalytic activity/Vol] 60 U/L 45-117 [facility] ALT [Catalytic activity/Vol] 25 U/L 13-56 [facility] CO2 [Moles/Vol] 21.0 mmol/L 21.0-32.0 [facility] Globulin (S) [Mass/Vol] 4.2 g/dL 2.2-4.2 [facility] Magnesium [Mass/Vol] 2.5 mg/dL 1.6-2.6 [facility] Urea nitrogen/Creatinine [Mass ratio] 26.1 mg/mg 10-20 [facility] Laboratory - Hematology and Cell countsOrdered By: Sherif Orantes on 03-13-2023 Erythrocyte distribution width (RBC) [Entitic vol] 47.1 fL 35.1-43.9 [facility] Erythrocyte distribution width (RBC) [Ratio] 12.7 % 11.6-14.6 [facility] MCH (RBC) [Entitic mass] 31.2 pg 27.0-32.0 [facility] MCHC Auto (RBC) [Mass/Vol]Or dered By: Sherif Orantes on 03-13-2023 MCHC (RBC) [Mass/Vol] 30.9 g/dL 32-36 [facility] No Panel InformationOrdered By: Sherif Orantes on 03-13-2023 Estimated GFR (MDRD) Amer 21 mL/min >60 [facility] Comment on above: GFR Calc Estimated GFR (MDRD) Non-Af Amer 18 mL/min >60 [facility] Comment on above: Non- GFR Calc Parathyroid Hormone (Intact) 58.6 pg/mL 18.4-80.1 [facility] Urine Microalbumin/Creatinine Ratio 1198.5 mg/g CRE <30 [facility] Vitamin D 25-Hydroxy 56.0 ng/mL [facility] Comment on above: Vitamin D 25(OH) Sta tus Range Deficiency <20 ng/mL (50nmol/L) Insufficiency 20 - 30 ng/mL (50 - 75 nmol/L) Sufficiency 30 - 100 ng/mL (75 - 250 nmol/L) Toxicity >100 ng/mL (>250 nmol/L) Platelets bldOrdered By: Jeff Orantes on 03-13-2023 Platelets (Bld) [#/Vol] 343 10*3/uL 150-450 [facility] Serum or plasma albumin lamar urement (mass/volume)Ordered By: Sherif Orantes on 03-13-2023 Albumin [Mass/Vol] 3.1 g/dL 3.2-5.0 [facility] Serum or plasma albumin/glob ulin mass ratioOrdered By: Sherif Orantes on 03-13-2023 Albumin/Globulin [Mass ratio] 0.7 {ratio} 0.9-2.4 [facility] Serum or plasma calcium lamar urement (mass/volume)Ordered By: Sherif Orantes on 03-13-2023 Calcium [Mass/Vol] 9.0 mg/dL 8.5-10.1 [facility] Serum or plasma cholesterol in HDL measurement (mass/volume)Ordered By: Sherif Orantes on 03-13-2023 Cholesterol in HDL [Mass/Vol] 43 mg/dL >40 [facility] Comment on above: The drugs N-Acetylcy steine and Metamizole may falsely depress this assay. Reference Range HDL <40 mg/dL Low HDL Cholesterol HDL >or= 60 mg/dL High HDL Cholesterol Serum or plasma cholesterol in VLDL measurement (mass/volume)Ordered By: Sherif Orantes on 03-13-2023 Cholesterol in VLDL [Mass/Vol] 57 mg/dL 5-40 [facility] Serum or plasma creatinine m easurement (mass/volume)Ordered By: Sherif Orantes on 03-13-2023 Creatinine [Mass/Vol] 2.87 mg/dL 0.55-1.02 [facility] Comment on above: The validity of the calculated GFR & GFRAA in patients over 70 years has not been determined. Clinical correlation is essential. Serum or plasma low density lipoprotein (LDL) cholesterol measurement (mass/volume)Ordered By: Sherif Orantes on 03-13-2023 Cholesterol in LDL [Mass/Vol] 75 mg/dL 0-130 [facility] Serum or plasma urea nitroge n measurement (mass/volume)Ordered By: Sherif Orantes on 03-13-2023 Urea nitrogen [Mass/Vol] 75 mg/dL 7-18 [facility] Thin prep Papanicolaou smear with manual screeningOrdered By: Sherif Orantes on 03-13-2023 Thin prep Papanicolaou smear with manual screening 15 U/L 15-37 [facility] Thin prep Papanicolaou smear with manual screening 6 5-15 [facility] Thin prep Papanicolaou smear with manual screening 646.0 mg/L NO RANGE EST. [facility] Urine creatinine measurement (mass/volume)Ordered By: Sherif Orantes on 03-13-2023 Creatinine (U) [Mass/Vol] 53.90 mg/dL NO RANGE EST. [facility] Whole blood hemoglobin A1c/t otal hemoglobin ratio (mass fraction)Ordered By: Sherif Orantes on 03-13-2023 HbA1c (Bld) [Mass fraction] 7.3 % 3.8-5.6 [facility] Comment on above: Normal < 5.7 % Predi abetic 5.7 - 6.4 % Diabetic >or= 6.5 % Please note range changes. Basophil percentageOrdered B y: Dr. Orantes on 11-29-2022 Basophil percentage 4.4 mg/dL 2.5-4.9 [facility] Chloride [Moles/Vol] 105 mmol/L 98-107 [facility] Glucose [Mass/Vol] 128 mg/dL 74-106 [facility] Comment on above: Fasting Glucose resu lt greater than or equal to 126 mg/dL suggests DIABETES MELLITUS per A.D.A. criteria. Potassium [Moles/Vol] 4.3 mmol/L 3.5-5.1 [facility] Sodium [Moles/Vol] 136 mmol/L 136-145 [facility] WBC (Bld) [#/Vol] 7.6 10*3/uL 4.4-11.0 [facility] Blood erythrocytes count (nu mber/volume)Ordered By: Dr. Orantes on 11-29-2022 RBC (Bld) [#/Vol] 4.17 10*6/uL 4.2-5.4 [facility] Blood hemoglobin measurement (mass/volume)Ordered By: Dr. Orantes on 11-29-2022 Hemoglobin (Bld) [Mass/Vol] 13.2 g/dL 12.0-15.0 [facility] Blood platelet mean volumeOr dered By: Dr. Orantes on 11-29-2022 Platelet mean volume (Bld) [Entitic vol] 9.8 fL 6.2-12.0 [facility] Determination of erythrocyte mean corpuscular volume (MCV)Ordered By: Dr. Orantes on 11-29-2022 MCV (RBC) [Entitic vol] 95.2 fL 81-99 [facility] Hematocrit Auto (Bld) [Volum e fraction]Ordered By: Dr. Orantes on 11-29-2022 Hematocrit (Bld) [Volume fraction] 39.7 % 37-47 [facility] Laboratory - Chemistry and C hemistry - challengeOrdered By: Dr. Orantes on 11-29-2022 Albumin [Mass/Vol] 3.5 g/dL 2.9-4.4 [facility] CO2 [Moles/Vol] 24.0 mmol/L 21.0-32.0 [facility] Urea nitrogen/Creatinine [Mass ratio] 22.7 mg/mg 10-20 [facility] Laboratory - Hematology and Cell countsOrdered By: Dr. Orantes on 11-29-2022 Erythrocyte distribution width (RBC) [Entitic vol] 43.7 fL 35.1-43.9 [facility] Erythrocyte distribution width (RBC) [Ratio] 12.5 % 11.6-14.6 [facility] MCH (RBC) [Entitic mass] 31.7 pg 27.0-32.0 [facility] MCHC Auto (RBC) [Mass/Vol]Or dered By: Dr. Orantes on 11-29-2022 MCHC (RBC) [Mass/Vol] 33.2 g/dL 32-36 [facility] No Panel InformationOrdered By: Dr. Orantes on 11-29-2022 Addendum Document Comment . [facility] Comment on above: The SPE pattern appe ars unremarkable. Evidence ofmonoclonal protein is not apparent. [id number] 0.2 g/dL 0.0-0.4 [facility] Ihjjb-2-Nlvpdejqi 0.9 g/dL 0.4-1.0 [facility] Estimated GFR (MDRD) Amer 37 mL/min >60 [facility] Comment on above: GFR Calc Estimated GFR (MDRD) Non-Af Amer 31 mL/min >60 [facility] Comment on above: Non- GFR Calc Gamma Globulins 1.2 g/dL 0.4-1.8 [facility] Parathyroid Hormone (Intact) 33.9 pg/mL 18.4-80.1 [facility] Vitamin D 25-Hydroxy 58.4 ng/mL [facility] Comment on above: Vitamin D 25(OH) Sta tus Range Deficiency <20 ng/mL (50nmol/L) Insufficiency 20 - 30 ng/mL (50 - 75 nmol/L) Sufficiency 30 - 100 ng/mL (75 - 250 nmol/L) Toxicity >100 ng/mL (>250 nmol/L) Platelets bldOrdered By: Dr. Orantes on 11-29-2022 Platelets (Bld) [#/Vol] 332 10*3/uL 150-450 [facility] Protein Fractions Elph [Inte rp]Ordered By: Dr. Orantes on 11-29-2022 Protein Fractions [Interp] Comment . [facility] Comment on above: Protein electrophore sis scan will follow via computer,mail, or appliance tester delivery. Serum DNA double strand anti body assay (units/volume)Ordered By: Dr. Orantes on 11-29-2022 DNA double strand Ab Qn (S) 1 [IU]/mL 0-9 [facility] Comment on above: Negative <5 Equivoca l 5 - 9 Positive >9Performed at: [facility] - [facility] [address] [id number] Director: Carlos Calderon PhD, Phone: [phone] Serum albumin to globulin ra darline by protein electrophoresisOrdered By: Dr. Orantes on 11-29-2022 Albumin/Globulin Elph [Mass ratio] 1.1 0.7-1.7 [facility] Serum globulin measurement ( mass/volume)Ordered By: Dr. Orantes on 11-29-2022 Globulin (S) [Mass/Vol] 3.2 g/dL 2.2-3.9 [facility] Serum or plasma albumin lamar urement (mass/volume)Ordered By: Dr. Orantes on 11-29-2022 Albumin [Mass/Vol] 3.3 g/dL 3.2-5.0 [facility] Serum or plasma beta globuli n measurement by electrophoresis (mass/volume)Ordered By: Dr. Orantes on 11-29-2022 Beta globulin Elph [Mass/Vol] 1.0 g/dL 0.7-1.3 [facility] Serum or plasma calcium lamar urement (mass/volume)Ordered By: Dr. Orantes on 11-29-2022 Calcium [Mass/Vol] 9.6 mg/dL 8.5-10.1 [facility] Serum or plasma complement C 3 measurement (mass/volume)Ordered By: Dr. Orantes on 11-29-2022 Complement C3 [Mass/Vol] 149 mg/dL 82-167 [facility] Comment on above: Performed at: [facility] - [facility] [address] [id number] Director: Carlos Calderon PhD, Phone: [phone] Serum or plasma complement C 4 measurement (mass/volume)Ordered By: Dr. Orantes on 11-29-2022 Complement C4 [Mass/Vol] 25 mg/dL 12-38 [facility] Serum or plasma creatinine m easurement (mass/volume)Ordered By: Dr. Orantes on 11-29-2022 Creatinine [Mass/Vol] 1.76 mg/dL 0.55-1.02 [facility] Comment on above: The validity of the calculated GFR & GFRAA in patients over 70 years has not been determined. Clinical correlation is essential. Serum or plasma urea nitroge n measurement (mass/volume)Ordered By: Dr. Orantes on 11-29-2022 Urea nitrogen [Mass/Vol] 40 mg/dL 7-18 [facility] Thin prep Papanicolaou smear with manual screeningOrdered By: Dr. Orantes on 11-29-2022 Thin prep Papanicolaou smear with manual screening See comment [facility] Comment on above: NOT OBSERVED Total protein bloodOrdered B y: Dr. Orantes on 11-29-2022 Protein [Mass/Vol] 6.7 g/dL 6.0-8.5 [facility] Urine creatinine measurement (mass/volume)Ordered By: Dr. Orantes on 11-29-2022 Creatinine (U) [Mass/Vol] 32.40 mg/dL NO RANGE EST. [facility] Urine protein measurement (m ass/volume)Ordered By: Dr. Orantes on 11-29-2022 Protein (U) [Mass/Vol] 211.0 mg/dL 0.0-11.8 [facility] Urine protein/creatinine mas s ratioOrdered By: Dr. Orantes on 11-29-2022 Protein/Creatinine (U) [Mass ratio] 6512 mg/g CRE 0-200 [facility] Basophil percentageOrdered B y: Dr. Mccabe on 11-21-2022 Bilirubin [Mass/Vol] 0.30 mg/dL 0.20-1.00 [facility] Comment on above: For patients on eltr ombopag therapy, use of Dimension [place] TBIL is not recommended. Chloride [Moles/Vol] 111 mmol/L 98-107 [facility] Cholesterol [Mass/Vol] 197 mg/dL <200 [facility] Comment on above: <200 mg/dL Desirable 200-240 mg/dL Borderline >240 mg/dL High Risk Glucose [Mass/Vol] 124 mg/dL 74-106 [facility] Comment on above: Fasting Glucose resu lt from 100 to 125 mg/dL suggests IMPAIRED HOMEOSTASIS per A.D.A. criteria. Potassium [Moles/Vol] 4.1 mmol/L 3.5-5.1 [facility] Protein [Mass/Vol] 7.0 g/dL 6.4-8.2 [facility] Sodium [Moles/Vol] 140 mmol/L 136-145 [facility] Triglyceride [Mass/Vol] 266 mg/dL <199 [facility] Comment on above: The drugs N-Acetylcy steine and Metamizole may falsely depress this assay.Serum Triglycerides Reference Interval Normal <150 mg/dL Borderline high 150 - 199 mg/dL High 200 - 499 mg/dL Very High > or = 500 mg/dL Laboratory - Chemistry and C hemistry - challengeOrdered By: Dr. Mccabe on 11-21-2022 ALP [Catalytic activity/Vol] 65 U/L 45-117 [facility] ALT [Catalytic activity/Vol] 24 U/L 13-56 [facility] CO2 [Moles/Vol] 26.0 mmol/L 21.0-32.0 [facility] Globulin (S) [Mass/Vol] 3.9 g/dL 2.2-4.2 [facility] Urea nitrogen/Creatinine [Mass ratio] 25.3 mg/mg 10-20 [facility] No Panel InformationOrdered By: Dr. Mccabe on 11-21-2022 Estimated GFR (MDRD) Amer 36 mL/min >60 [facility] Comment on above: GFR Calc Estimated GFR (MDRD) Non-Af Amer 30 mL/min >60 [facility] Comment on above: Non- GFR Calc Thyroid Stimulating Hormone (TSH) 0.86 uIU/mL 0.358-3.74 [facility] Serum or plasma albumin lamar urement (mass/volume)Ordered By: Dr. Mccabe on 11-21-2022 Albumin [Mass/Vol] 3.1 g/dL 3.2-5.0 [facility] Serum or plasma albumin/glob ulin mass ratioOrdered By: Dr. Mccabe on 11-21-2022 Albumin/Globulin [Mass ratio] 0.8 {ratio} 0.9-2.4 [facility] Serum or plasma calcium lamar urement (mass/volume)Ordered By: Dr. Mccabe on 11-21-2022 Calcium [Mass/Vol] 9.4 mg/dL 8.5-10.1 [facility] Serum or plasma cholesterol in HDL measurement (mass/volume)Ordered By: Dr. Mccabe on 11-21-2022 Cholesterol in HDL [Mass/Vol] 47 mg/dL >40 [facility] Comment on above: The drugs N-Acetylcy steine and Metamizole may falsely depress this assay. Reference Range HDL <40 mg/dL Low HDL Cholesterol HDL >or= 60 mg/dL High HDL Cholesterol Serum or plasma cholesterol in VLDL measurement (mass/volume)Ordered By: Dr. Mccabe on 11-21-2022 Cholesterol in VLDL [Mass/Vol] 53 mg/dL 5-40 [facility] Serum or plasma creatinine m easurement (mass/volume)Ordered By: Dr. Mccabe on 11-21-2022 Creatinine [Mass/Vol] 1.82 mg/dL 0.55-1.02 [facility] Comment on above: The validity of the calculated GFR & GFRAA in patients over 70 years has not been determined. Clinical correlation is essential. Serum or plasma low density lipoprotein (LDL) cholesterol measurement (mass/volume)Ordered By: Dr. Mccabe on 11-21-2022 Cholesterol in LDL [Mass/Vol] 97 mg/dL 0-130 [facility] Serum or plasma urea nitroge n measurement (mass/volume)Ordered By: Dr. Mccabe on 11-21-2022 Urea nitrogen [Mass/Vol] 46 mg/dL 7-18 [facility] Thin prep Papanicolaou smear with manual screeningOrdered By: Dr. Mccabe on 11-21-2022 Thin prep Papanicolaou smear with manual screening 21 U/L 15-37 [facility] Thin prep Papanicolaou smear with manual screening 3 5-15 [facility] Thin prep Papanicolaou smear with manual screening 2340.0 mg/L NO RANGE EST. [facility] Whole blood hemoglobin A1c/t otal hemoglobin ratio (mass fraction)Ordered By: Dr. Mccabe on 11-21-2022 HbA1c (Bld) [Mass fraction] 6.7 % 3.8-5.6 [facility] Comment on above: Normal < 5.7 % Predi abetic 5.7 - 6.4 % Diabetic >or= 6.5 % Please note range changes. Basophil percentageOrdered B y: Dr. Mccabe on 09-05-2022 Bilirubin [Mass/Vol] 0.30 mg/dL 0.20-1.00 [facility] Comment on above: For patients on eltr ombopag therapy, use of Dimension [place] TBIL is not recommended. Chloride [Moles/Vol] 105 mmol/L 98-107 [facility] Glucose [Mass/Vol] 218 mg/dL 74-106 [facility] Comment on above: Glucose result great er than or equal to 200 mg/dLsuggests DIABETES MELLITUS per A.D.A. criteria. Potassium [Moles/Vol] 4.4 mmol/L 3.5-5.1 [facility] Protein [Mass/Vol] 7.0 g/dL 6.4-8.2 [facility] Sodium [Moles/Vol] 139 mmol/L 136-145 [facility] Laboratory - Chemistry and C hemistry - challengeOrdered By: Dr. Mccabe on 09-05-2022 ALP [Catalytic activity/Vol] 65 U/L 45-117 [facility] ALT [Catalytic activity/Vol] 25 U/L 13-56 [facility] CO2 [Moles/Vol] 27.0 mmol/L 21.0-32.0 [facility] Globulin (S) [Mass/Vol] 4.0 g/dL 2.2-4.2 [facility] Urea nitrogen/Creatinine [Mass ratio] 28.6 mg/mg 10-20 [facility] No Panel InformationOrdered By: Dr. Mccabe on 09-05-2022 C-Peptide < 0.1 ng/mL 1.1-4.4 [facility] Comment on above: C-Peptide reference interval is for fasting patients.Performed at: [facility] [id number] Director: Carlos Calderon PhD, Phone: [phone] Estimated GFR (MDRD) Amer 33 mL/min >60 [facility] Comment on above: GFR Calc Estimated GFR (MDRD) Non-Af Amer 27 mL/min >60 [facility] Comment on above: Non- GFR Calc Serum or plasma albumin lamar urement (mass/volume)Ordered By: Dr. Mccabe on 09-05-2022 Albumin [Mass/Vol] 3.0 g/dL 3.2-5.0 [facility] Serum or plasma albumin/glob ulin mass ratioOrdered By: Dr. Mccabe on 09-05-2022 Albumin/Globulin [Mass ratio] 0.8 {ratio} 0.9-2.4 [facility] Serum or plasma calcium lamar urement (mass/volume)Ordered By: Dr. Mccabe on 09-05-2022 Calcium [Mass/Vol] 9.1 mg/dL 8.5-10.1 [facility] Serum or plasma creatinine m easurement (mass/volume)Ordered By: Dr. Mccabe on 09-05-2022 Creatinine [Mass/Vol] 1.96 mg/dL 0.55-1.02 [facility] Comment on above: The validity of the calculated GFR & GFRAA in patients over 70 years has not been determined. Clinical correlation is essential. Serum or plasma urea nitroge n measurement (mass/volume)Ordered By: Dr. Mccabe on 09-05-2022 Urea nitrogen [Mass/Vol] 56 mg/dL 7-18 [facility] Thin prep Papanicolaou smear with manual screeningOrdered By: Dr. Mccabe on 09-05-2022 Thin prep Papanicolaou smear with manual screening 15 U/L 15-37 [facility] Thin prep Papanicolaou smear with manual screening 7 5-15 [facility] Basophil percentageOrdered B y: Dr. Mccabe on 08-18-2022 Bilirubin [Mass/Vol] 0.30 mg/dL 0.20-1.00 [facility] Comment on above: For patients on eltr ombopag therapy, use of Dimension [place] TBIL is not recommended. Chloride [Moles/Vol] 106 mmol/L 98-107 [facility] Cholesterol [Mass/Vol] 189 mg/dL <200 [facility] Comment on above: <200 mg/dL Desirable 200-240 mg/dL Borderline >240 mg/dL High Risk Glucose [Mass/Vol] 133 mg/dL 74-106 [facility] Comment on above: Fasting Glucose resu lt greater than or equal to 126 mg/dL suggests DIABETES MELLITUS per A.D.A. criteria. Potassium [Moles/Vol] 3.9 mmol/L 3.5-5.1 [facility] Protein [Mass/Vol] 7.0 g/dL 6.4-8.2 [facility] Sodium [Moles/Vol] 140 mmol/L 136-145 [facility] Triglyceride [Mass/Vol] 214 mg/dL <199 [facility] Comment on above: The drugs N-Acetylcy steine and Metamizole may falsely depress this assay.Serum Triglycerides Reference Interval Normal <150 mg/dL Borderline high 150 - 199 mg/dL High 200 - 499 mg/dL Very High > or = 500 mg/dL Laboratory - Chemistry and C hemistry - challengeOrdered By: Dr. Mccabe on 08-18-2022 ALP [Catalytic activity/Vol] 69 U/L 45-117 [facility] ALT [Catalytic activity/Vol] 29 U/L 13-56 [facility] CO2 [Moles/Vol] 28.0 mmol/L 21.0-32.0 [facility] Free T4 [Mass/Vol] 1.14 ng/dL 0.76-1.46 [facility] Globulin (S) [Mass/Vol] 4.0 g/dL 2.2-4.2 [facility] Urea nitrogen/Creatinine [Mass ratio] 19.8 mg/mg 10-20 [facility] No Panel InformationOrdered By: Dr. Mccabe on 08-18-2022 Estimated GFR (MDRD) Amer 38 mL/min >60 [facility] Comment on above: GFR Calc Estimated GFR (MDRD) Non-Af Amer 32 mL/min >60 [facility] Comment on above: Non- GFR Calc Thyroid Stimulating Hormone (TSH) 1.39 uIU/mL 0.358-3.74 [facility] Vitamin D 25-Hydroxy 35.6 ng/mL [facility] Comment on above: Vitamin D 25(OH) Sta tus Range Deficiency <20 ng/mL (50nmol/L) Insufficiency 20 - 30 ng/mL (50 - 75 nmol/L) Sufficiency 30 - 100 ng/mL (75 - 250 nmol/L) Toxicity >100 ng/mL (>250 nmol/L) Serum or plasma albumin lamar urement (mass/volume)Ordered By: Dr. Mccabe on 08-18-2022 Albumin [Mass/Vol] 3.0 g/dL 3.2-5.0 [facility] Serum or plasma albumin/glob ulin mass ratioOrdered By: Dr. Mccabe on 08-18-2022 Albumin/Globulin [Mass ratio] 0.8 {ratio} 0.9-2.4 [facility] Serum or plasma calcium lamar urement (mass/volume)Ordered By: Dr. Mccabe on 08-18-2022 Calcium [Mass/Vol] 8.8 mg/dL 8.5-10.1 [facility] Serum or plasma cholesterol in HDL measurement (mass/volume)Ordered By: Dr. Mccabe on 08-18-2022 Cholesterol in HDL [Mass/Vol] 53 mg/dL >40 [facility] Comment on above: The drugs N-Acetylcy steine and Metamizole may falsely depress this assay. Reference Range HDL <40 mg/dL Low HDL Cholesterol HDL >or= 60 mg/dL High HDL Cholesterol Serum or plasma cholesterol in VLDL measurement (mass/volume)Ordered By: Dr. Mccabe on 08-18-2022 Cholesterol in VLDL [Mass/Vol] 43 mg/dL 5-40 [facility] Serum or plasma creatinine m easurement (mass/volume)Ordered By: Dr. Mccabe on 08-18-2022 Creatinine [Mass/Vol] 1.72 mg/dL 0.55-1.02 [facility] Comment on above: The validity of the calculated GFR & GFRAA in patients over 70 years has not been determined. Clinical correlation is essential. Serum or plasma low density lipoprotein (LDL) cholesterol measurement (mass/volume)Ordered By: Dr. Mccabe on 08-18-2022 Cholesterol in LDL [Mass/Vol] 93 mg/dL 0-130 [facility] Serum or plasma urea nitroge n measurement (mass/volume)Ordered By: Dr. Mccbae on 08-18-2022 Urea nitrogen [Mass/Vol] 34 mg/dL 7-18 [facility] Thin prep Papanicolaou smear with manual screeningOrdered By: Dr. Mccabe on 08-18-2022 Thin prep Papanicolaou smear with manual screening 17 U/L 15-37 [facility] Thin prep Papanicolaou smear with manual screening 6 5-15 [facility] Whole blood hemoglobin A1c/t otal hemoglobin ratio (mass fraction)Ordered By: Dr. Mccabe on 08-18-2022 HbA1c (Bld) [Mass fraction] 6.6 % 3.8-5.6 [facility] Comment on above: Normal < 5.7 % Predi abetic 5.7 - 6.4 % Diabetic >or= 6.5 % Please note range changes. Basophil percentageOrdered B y: Dr. Orantes on 06-01-2022 Basophil percentage 4.3 mg/dL 2.5-4.9 [facility] Chloride [Moles/Vol] 106 mmol/L 98-107 [facility] Glucose [Mass/Vol] 122 mg/dL 74-106 [facility] Comment on above: Fasting Glucose resu lt from 100 to 125 mg/dL suggests IMPAIRED HOMEOSTASIS per A.D.A. criteria. Potassium [Moles/Vol] 4.4 mmol/L 3.5-5.1 [facility] Sodium [Moles/Vol] 137 mmol/L 136-145 [facility] WBC (Bld) [#/Vol] 9.4 10*3/uL 4.4-11.0 [facility] Blood erythrocytes count (nu mber/volume)Ordered By: Dr. Orantes on 06-01-2022 RBC (Bld) [#/Vol] 4.24 10*6/uL 4.2-5.4 [facility] Blood hemoglobin measurement (mass/volume)Ordered By: Dr. Orantes on 06-01-2022 Hemoglobin (Bld) [Mass/Vol] 13.2 g/dL 12.0-15.0 [facility] Blood platelet mean volumeOr dered By: Dr. Orantes on 06-01-2022 Platelet mean volume (Bld) [Entitic vol] 9.5 fL 6.2-12.0 [facility] Determination of erythrocyte mean corpuscular volume (MCV)Ordered By: Dr. Orantes on 06-01-2022 MCV (RBC) [Entitic vol] 95.3 fL 81-99 [facility] Hematocrit Auto (Bld) [Volum e fraction]Ordered By: Dr. Orantes on 06-01-2022 Hematocrit (Bld) [Volume fraction] 40.4 % 37-47 [facility] Laboratory - Chemistry and C hemistry - challengeOrdered By: Dr. Orantes on 06-01-2022 CO2 [Moles/Vol] 26.0 mmol/L 21.0-32.0 [facility] Urea nitrogen/Creatinine [Mass ratio] 22.8 mg/mg 10- [facility] Laboratory - Hematology and Cell countsOrdered By: Dr. Orantes on 06-01-2022 Erythrocyte distribution width (RBC) [Entitic vol] 43.6 fL 35.1-43.9 [facility] Erythrocyte distribution width (RBC) [Ratio] 12.6 % 11.6-14.6 [facility] MCH (RBC) [Entitic mass] 31.1 pg 27.0-32.0 [facility] MCHC Auto (RBC) [Mass/Vol]Or dered By: Dr. Orantes on 06-01-2022 MCHC (RBC) [Mass/Vol] 32.7 g/dL 32-36 [facility] No Panel InformationOrdered By: Dr. Orantes on 06-01-2022 Estimated GFR (MDRD) Amer 41 mL/min >60 [facility] Comment on above: GFR Calc Estimated GFR (MDRD) Non-Af Amer 34 mL/min >60 [facility] Comment on above: Non- GFR Calc Parathyroid Hormone (Intact) 39.7 pg/mL 18.4-80.1 [facility] Vitamin D 25-Hydroxy 37.7 ng/mL [facility] Comment on above: Vitamin D 25(OH) Sta tus Range Deficiency <20 ng/mL (50nmol/L) Insufficiency 20 - 30 ng/mL (50 - 75 nmol/L) Sufficiency 30 - 100 ng/mL (75 - 250 nmol/L) Toxicity >100 ng/mL (>250 nmol/L) Platelets bldOrdered By: Dr. Orantes on 06-01-2022 Platelets (Bld) [#/Vol] 348 10*3/uL 150-450 [facility] Serum or plasma albumin lamar urement (mass/volume)Ordered By: Dr. Orantes on 06-01-2022 Albumin [Mass/Vol] 3.3 g/dL 3.2-5.0 [facility] Serum or plasma calcium lamar urement (mass/volume)Ordered By: Dr. Orantes on 06-01-2022 Calcium [Mass/Vol] 9.6 mg/dL 8.5-10.1 [facility] Serum or plasma creatinine m easurement (mass/volume)Ordered By: Dr. Orantes on 06-01-2022 Creatinine [Mass/Vol] 1.62 mg/dL 0.55-1.02 [facility] Comment on above: The validity of the calculated GFR & GFRAA in patients over 70 years has not been determined. Clinical correlation is essential. Serum or plasma urea nitroge n measurement (mass/volume)Ordered By: Dr. Orantes on 06-01-2022 Urea nitrogen [Mass/Vol] 37 mg/dL 7-18 [facility] Urine creatinine measurement (mass/volume)Ordered By: Dr. Orantes on 06-01-2022 Creatinine (U) [Mass/Vol] 15.20 mg/dL NO RANGE EST. [facility] Urine protein measurement (m ass/volume)Ordered By: Dr. Orantes on 06-01-2022 Protein (U) [Mass/Vol] 163.5 mg/dL 0.0-11.8 [facility] Urine protein/creatinine mas s ratioOrdered By: Dr. Orantes on 06-01-2022 Protein/Creatinine (U) [Mass ratio] 44438 mg/g CRE 0-200 [facility] Basophil percentageOrdered B y: Dr. Mccabe on 05-11-2022 Bilirubin [Mass/Vol] 0.40 mg/dL 0.20-1.00 [facility] Comment on above: For patients on eltr ombopag therapy, use of Dimension [place] TBIL is not recommended. Chloride [Moles/Vol] 106 mmol/L 98-107 [facility] Glucose [Mass/Vol] 148 mg/dL 74-106 [facility] Comment on above: Fasting Glucose resu lt greater than or equal to 126 mg/dL suggests DIABETES MELLITUS per A.D.A. criteria. Potassium [Moles/Vol] 3.8 mmol/L 3.5-5.1 [facility] Protein [Mass/Vol] 7.3 g/dL 6.4-8.2 [facility] Sodium [Moles/Vol] 141 mmol/L 136-145 [facility] Laboratory - Chemistry and C hemistry - challengeOrdered By: Dr. Mccabe on 05-11-2022 ALP [Catalytic activity/Vol] 68 U/L 45-117 [facility] ALT [Catalytic activity/Vol] 29 U/L 13-56 [facility] CO2 [Moles/Vol] 28.0 mmol/L 21.0-32.0 [facility] Free T4 [Mass/Vol] 1.11 ng/dL 0.76-1.46 [facility] Globulin (S) [Mass/Vol] 4.1 g/dL 2.2-4.2 [facility] Urea nitrogen/Creatinine [Mass ratio] 14.6 mg/mg 10-20 [facility] No Panel InformationOrdered By: Dr. Mccabe on 05-11-2022 Estimated GFR (MDRD) Amer 42 mL/min >60 [facility] Comment on above: GFR Calc Estimated GFR (MDRD) Non-Af Amer 35 mL/min >60 [facility] Comment on above: Non- GFR Calc Free Triiodothyronine (T3) pg/dL 2.3 pg/mL 2.18-3.98 [facility] Thyroid Stimulating Hormone (TSH) 1.51 uIU/mL 0.358-3.74 [facility] Vitamin D 25-Hydroxy 32.8 ng/mL [facility] Comment on above: Vitamin D 25(OH) Sta tus Range Deficiency <20 ng/mL (50nmol/L) Insufficiency 20 - 30 ng/mL (50 - 75 nmol/L) Sufficiency 30 - 100 ng/mL (75 - 250 nmol/L) Toxicity >100 ng/mL (>250 nmol/L) Serum or plasma albumin lamar urement (mass/volume)Ordered By: Dr. Mccabe on 05-11-2022 Albumin [Mass/Vol] 3.2 g/dL 3.2-5.0 [facility] Serum or plasma albumin/glob ulin mass ratioOrdered By: Dr. Mccabe on 05-11-2022 Albumin/Globulin [Mass ratio] 0.8 {ratio} 0.9-2.4 [facility] Serum or plasma calcium lamar urement (mass/volume)Ordered By: Dr. Mccabe on 05-11-2022 Calcium [Mass/Vol] 9.0 mg/dL 8.5-10.1 [facility] Serum or plasma creatinine m easurement (mass/volume)Ordered By: Dr. Mccabe on 05-11-2022 Creatinine [Mass/Vol] 1.58 mg/dL 0.55-1.02 [facility] Comment on above: The validity of the calculated GFR & GFRAA in patients over 70 years has not been determined. Clinical correlation is essential. Serum or plasma urea nitroge n measurement (mass/volume)Ordered By: Dr. Mccabe on 05-11-2022 Urea nitrogen [Mass/Vol] 23 mg/dL 7-18 [facility] Thin prep Papanicolaou smear with manual screeningOrdered By: Dr. Mccabe on 05-11-2022 Thin prep Papanicolaou smear with manual screening 21 U/L 15-37 [facility] Thin prep Papanicolaou smear with manual screening 7 5-15 [facility] Thin prep Papanicolaou smear with manual screening 1780.0 mg/L NO RANGE EST. [facility] Whole blood hemoglobin A1c/t otal hemoglobin ratio (mass fraction)Ordered By: Dr. Mccabe on 05-11-2022 HbA1c (Bld) [Mass fraction] 6.9 % 3.8-5.6 [facility] Comment on above: Normal < 5.7 % Predi abetic 5.7 - 6.4 % Diabetic >or= 6.5 % Please note range changes. Basophil percentageon 2021 Cholesterol [Mass/Vol] 180 mg/dL <200 [facility] Work Phone: Comment on above: <200 mg/dL Desirable 200-240 mg/dL Borderline >240 mg/dL High Risk Triglyceride [Mass/Vol] 220 mg/dL <199 [facility] Work Phone: Comment on above: The drugs N-Acetylcy steine and Metamizole may falsely depress this assay.Serum Triglycerides Reference Interval Normal <150 mg/dL Borderline high 150 - 199 mg/dL High 200 - 499 mg/dL Very High > or = 500 mg/dL Laboratory - Chemistry and C hemistry - challengeon 01-28-2022 Free T4 [Mass/Vol] 1.27 ng/dL 0.76-1.46 [facility] Work Phone: No Panel Informationon 01-28 Thyroid Stimulating Hormone (TSH) 0.84 uIU/mL 0.358-3.74 [facility] Work Phone: Serum or plasma cholesterol in HDL measurement (mass/volume)on 01-28-2022 Cholesterol in HDL [Mass/Vol] 46 mg/dL >40 [facility] Work Phone: Comment on above: The drugs N-Acetylcy steine and Metamizole may falsely depress this assay. Reference Range HDL <40 mg/dL Low HDL Cholesterol HDL >or= 60 mg/dL High HDL Cholesterol Serum or plasma cholesterol in VLDL measurement (mass/volume)on 01-28-2022 Cholesterol in VLDL [Mass/Vol] 44 mg/dL 5-40 [facility] Work Phone: Serum or plasma low density lipoprotein (LDL) cholesterol measurement (mass/volume)on 01-28-2022 Cholesterol in LDL [Mass/Vol] 90 mg/dL 0-130 [facility] Work Phone: Basophil percentageon 2021 Bilirubin [Mass/Vol] 0.30 mg/dL 0.20-1.00 [facility] Work Phone: Comment on above: For patients on eltr ombopag therapy, use of Dimension [place] TBIL is not recommended. Chloride [Moles/Vol] 107 mmol/L 98-107 [facility] Work Phone: Glucose [Mass/Vol] 154 mg/dL 74-106 [facility] Work Phone: Comment on above: Fasting Glucose resu lt greater than or equal to 126 mg/dL suggests DIABETES MELLITUS per A.D.A. criteria. Potassium [Moles/Vol] 3.9 mmol/L 3.5-5.1 [facility] Work Phone: Protein [Mass/Vol] 7.5 g/dL 6.4-8.2 [facility] Work Phone: Sodium [Moles/Vol] 140 mmol/L 136-145 [facility] Work Phone: Laboratory - Chemistry and C hemistry - challengeon 11-15-2021 ALP [Catalytic activity/Vol] 67 U/L 45-117 [facility] Work Phone: ALT [Catalytic activity/Vol] 25 U/L 13-56 [facility] Work Phone: CO2 [Moles/Vol] 26.0 mmol/L 21.0-32.0 [facility] Work Phone: Globulin (S) [Mass/Vol] 4.1 g/dL 2.2-4.2 [facility] Work Phone: Urea nitrogen/Creatinine [Mass ratio] 24.9 mg/mg 10-20 [facility] Work Phone: No Panel Informationon 11-15 Estimated GFR (MDRD) Amer 35 mL/min >60 [facility] Work Phone: Comment on above: GFR Calc Estimated GFR (MDRD) Non-Af Amer 29 mL/min >60 [facility] Work Phone: Comment on above: Non- GFR Calc Thyroid Stimulating Hormone (TSH) 0.31 uIU/mL 0.358-3.74 [facility] Work Phone: Urine Microalbumin/Creatinine Ratio 1908.5 mg/g CRE <30 [facility] Work Phone: Vitamin D 25-Hydroxy 36.4 ng/mL [facility] Work Phone: Comment on above: Vitamin D 25(OH) Sta tus Range Deficiency <20 ng/mL (50nmol/L) Insufficiency 20 - 30 ng/mL (50 - 75 nmol/L) Sufficiency 30 - 100 ng/mL (75 - 250 nmol/L) Toxicity >100 ng/mL (>250 nmol/L) Serum or plasma albumin lamar urement (mass/volume)on 11-15-2021 Albumin [Mass/Vol] 3.4 g/dL 3.2-5.0 [facility] Work Phone: Serum or plasma albumin/glob ulin mass ratioon 11-15-2021 Albumin/Globulin [Mass ratio] 0.8 {ratio} 0.9-2.4 [facility] Work Phone: Serum or plasma calcium lamar urement (mass/volume)on 11-15-2021 Calcium [Mass/Vol] 8.7 mg/dL 8.5-10.1 [facility] Work Phone: Serum or plasma creatinine m easurement (mass/volume)on 11-15-2021 Creatinine [Mass/Vol] 1.85 mg/dL 0.55-1.02 [facility] Work Phone: Comment on above: The validity of the calculated GFR & GFRAA in patients over 70 years has not been determined. Clinical correlation is essential. Serum or plasma urea nitroge n measurement (mass/volume)on 11-15-2021 Urea nitrogen [Mass/Vol] 46 mg/dL 7-18 [facility] Work Phone: Thin prep Papanicolaou smear with manual screeningon 11-15-2021 Thin prep Papanicolaou smear with manual screening 16 U/L 15-37 [facility] Work Phone: Thin prep Papanicolaou smear with manual screening 7 5-15 [facility] Work Phone: Thin prep Papanicolaou smear with manual screening 1460.0 mg/L NO RANGE EST. [facility] Work Phone: Urine creatinine measurement (mass/volume)on 11-15-2021 Creatinine (U) [Mass/Vol] 76.50 mg/dL NO RANGE EST. [facility] Work Phone: Whole blood hemoglobin A1c/t otal hemoglobin ratio (mass fraction)on 11-15-2021 HbA1c (Bld) [Mass fraction] 6.4 % 3.8-5.6 [facility] Work Phone: Comment on above: Normal < 5.7 % Predi abetic 5.7 - 6.4 % Diabetic >or= 6.5 % Please note range changes. Basophil percentageon 2021 Basophil percentage 3.9 mg/dL 2.5-4.9 [facility] Work [facility]: Chloride [Moles/Vol] 105 mmol/L 98-107 [facility] Work Phone: Glucose [Mass/Vol] 295 mg/dL 74-106 [facility] Work Phone: Comment on above: Glucose result great er than or equal to 200 mg/dLsuggests DIABETES MELLITUS per A.D.A. criteria. Potassium [Moles/Vol] 4.8 mmol/L 3.5-5.1 [facility] [place] Work Phone: Sodium [Moles/Vol] 136 mmol/L 136-145 [facility] Work Phone: WBC (Bld) [#/Vol] 8.2 10*3/uL 4.4-11.0 [facility] Work Phone: Blood erythrocytes count (nu mber/volume)on 09-08-2021 RBC (Bld) [#/Vol] 3.71 10*6/uL 4.2-5.4 [facility] Work Phone: Blood hemoglobin measurement (mass/volume)on 09-08-2021 Hemoglobin (Bld) [Mass/Vol] 11.4 g/dL 12.0-15.0 [facility] Work Phone: Blood platelet mean volumeon 09-08-2021 Platelet mean volume (Bld) [Entitic vol] 9.6 fL 6.2-12.0 [facility] Work Phone: Determination of erythrocyte mean corpuscular volume (MCV)on 09-08-2021 MCV (RBC) [Entitic vol] 94.3 fL 81-99 [facility] Work Phone: Hematocrit Auto (Bld) [Volum e fraction]on 09-08-2021 Hematocrit (Bld) [Volume fraction] 35.0 % 37-47 [facility] Work Phone: Laboratory - Chemistry and C hemistry - challengeon 09-08-2021 CO2 [Moles/Vol] 23.0 mmol/L 21.0-32.0 [facility] Work Phone: Urea nitrogen/Creatinine [Mass ratio] 25.0 mg/mg 10-20 [facility] Work Phone: Laboratory - Hematology and Cell countson 09-08-2021 Erythrocyte distribution width (RBC) [Entitic vol] 43.8 fL 35.1-43.9 [facility] Work Phone: Erythrocyte distribution width (RBC) [Ratio] 12.7 % 11.6-14.6 [facility] Work Phone: MCH (RBC) [Entitic mass] 30.7 pg 27.0-32.0 [facility] Work Phone: MCHC Auto (RBC) [Mass/Vol]on 09-08-2021 MCHC (RBC) [Mass/Vol] 32.6 g/dL 32-36 [facility] Work Phone: No Panel Informationon 09-08 Estimated GFR (MDRD) Amer 37 mL/min >60 [facility] Work Phone: Comment on above: GFR Calc Estimated GFR (MDRD) Non-Af Amer 31 mL/min >60 [facility] Work Phone: Comment on above: Non- GFR Calc Miscellaneous Test See [facility]: Comment on above: TEST RESULT LIMITSAn ti-PLA2R Anti-PLA2R < 1.8 RU/mL 0.0 - 19.9 Negative < 14.0 Borderline 14.0 - 19.9 Positive > 19.9 TESTING PERFORMED AT [facility]. ORIGINAL REPORT ON FILE IN LAB CONTAINS ADDITIONAL TEST SITE INFORMATION. Parathyroid Hormone (Intact) 43.7 pg/mL 18.4-80.1 [facility] Work Phone: Vitamin D 25-Hydroxy 39.6 ng/mL [facility] Work Phone: Comment on above: Vitamin D 25(OH) Sta tus Range Deficiency <20 ng/mL (50nmol/L) Insufficiency 20 - 30 ng/mL (50 - 75 nmol/L) Sufficiency 30 - 100 ng/mL (75 - 250 nmol/L) Toxicity >100 ng/mL (>250 nmol/L) Platelets bldon 09-08-2021 Platelets (Bld) [#/Vol] 340 10*3/uL 150-450 [facility] Work Phone: Serum or plasma albumin lamar urement (mass/volume)on 09-08-2021 Albumin [Mass/Vol] 3.4 g/dL 3.2-5.0 [facility] Work Phone: Serum or plasma calcium lamar urement (mass/volume)on 09-08-2021 Calcium [Mass/Vol] 9.1 mg/dL 8.5-10.1 [facility] Work Phone: Serum or plasma creatinine m easurement (mass/volume)on 09-08-2021 Creatinine [Mass/Vol] 1.76 mg/dL 0.55-1.02 [facility] Work Phone: Comment on above: The validity of the calculated GFR & GFRAA in patients over 70 years has not been determined. Clinical correlation is essential. Serum or plasma urea nitroge n measurement (mass/volume)on 09-08-2021 Urea nitrogen [Mass/Vol] 44 mg/dL 7-18 [facility] Work Phone: Urine creatinine measurement (mass/volume)on 09-08-2021 Creatinine (U) [Mass/Vol] 17.60 mg/dL NO RANGE EST. [facility] Work Phone: Urine protein measurement (m ass/volume)on 09-08-2021 Protein (U) [Mass/Vol] 55.5 mg/dL 0.0-11.8 [facility] Work Phone: Urine protein/creatinine mas s ratioon 09-08-2021 Protein/Creatinine (U) [Mass ratio] 3153 mg/g CRE 0-200 [facility] Work Phone: SARS coronavirus RNA [Presen ce] in Unspecified specimen by SAAD with probe detectionon 08-05-2021 SARS-CoV RNA SAAD+probe Ql (Unsp spec) Not detected Not Detected [facility] Work Phone: Comment on above: This nucleic [...] of in vitro diagnostic tests for detection [id number] virus and/or diagnosis of COVID-19 infectionunder section [...] OBSOLETEon 09-10-2018 OBSOLETE Refill (ENDMED) IMANSHILPI D ([id number]) 1955 F Date Time Provider Department 09/10/18 CAITLIN DUNN During your visit today, we recorded the following information about you: Allergies As of Date: 09/10/2018 Noted Allergy Reaction EFFEXOR (VENLAFAXINE HCL) 05/23/2005 4 - Hives NORVASC (AMLODIPINE) 07/04/2012 7 - Swelling PNEUMOVAX 23 (PNEUMOCOCCAL 23-DONADL*05/31/2007 PRAVACHOL (PRAVASTATIN) 05/23/2005 4 - Hives ZOLOFT [...] Status:Closed by ENDY BRADFORD MA on 09/10/18 [facility] CNOVon 01-02-2018 CNOV Office Visit (CYN ) SHILPI BARRON ([id number]) 1955 F Date Time Provider Department 01/02/18 [...] complications include: retinopathy and nephropathy. She sees [facility] - She has been on insulin [...] (H) 4.3 - 5.6 % Final Comment: [employer] guidelines indicate that patients with HgbA1c in the range 5.7-6.4% are at increased risk for development of diabetes, and intervention by lifestyle modification may be beneficial. HgbA1c greater or equal to 6.5% is considered diagnostic of diabetes. 02/09/2012 7.8 (H) 4.0 - 6.0 % Final Comment: [employer] guidelines indicate that patients with HgbA1c in the range 5.7-6.4% are at increased risk for development of diabetes, and intervention by lifestyle modification may be beneficial. HgbA1c greater or equal to 6.5% is considered diagnostic of diabetes. 02/26/2004 7.3 (A) 4.0 - 6.0 % Final Hemoglobin A1c Date Value Ref Range Status 05/25/2016 8.0 (A) 4 - 6 % Final HBA1C, [place] Date Value Ref Range Status 09/26/2011 7.7 (H) 4.0 - 6.0 % Final 03/31/2011 7.6 (H) 4.0 - 6.0 % Final 05/08/2009 7.7 (H) 4.2 - 5.8 % Final Comment: Test performed by: [facility], [address] [place] [address]. 09/18/2008 8.0 (H) 4.2 - 5.8 % Final Comment: Test performed by: [facility] [place], [address] [place] [address]. 04/03/2008 7.3 (H) 4.2 - 5.8 % Final Comment: Test performed by: [facility], [address] [place] [address]. Hemoglobin A1C (POCT) Date Value Ref Range [...] specific diabetes management situations: The POC device baggage smasher provides a normal range of 4.2% to 6.5% for the HGBA1C POC test. However, the [employer] guidelines indicate that patients with [...] specific diabetes management situations: The POC device baggage smasher provides a normal range of 4.2% to 6.5% for the HGBA1C POC test. However, the [employer] guidelines indicate that patients with [...] specific diabetes management situations: The POC device baggage smasher provides a normal range of 4.2% to 6.5% for the HGBA1C POC test. However, the [employer] guidelines indicate that patients with [...] specific diabetes management situations: The POC device baggage smasher provides a normal range of 4.2% to 6.5% for the HGBA1C POC test. However, the [employer] guidelines indicate that patients with [...] specific diabetes management situations: The POC device baggage smasher provides a normal range of 4.2% to 6.5% for the HGBA1C POC test. However, the [employer] guidelines indicate that patients with [...] type [E03.9] Albuminuria [R80.9] Order(s):HEMOGLOBIN A1C (POC) [8244929] Order #: [id number]. #:[id number] levothyroxine (SYNTHROID) 50 mcg tabletTake 1 [...] Letter Text Endocrinology, Diabetes and Metabolism [facility], [address] [place] [address] Caitlin Dunn D.O. January 02, 2018 Shilpi Barron [id number] 1955 Please obtain the following laboratory tests on Ms. Barron approximately 3 months. Tests: TSH Free T4 Diagnoses: Hypothyroidism (E03.9) Please fax result to [phone] and also provide Shilpi Barron with a copy. Thank you. Caitlin Dunn MD Encounter Status:Closed by CAITLIN DUNN DO on 01/02/18 Normal [facility] PROGRESSon 01-02-2018 Protein mass conc HNO ID: [id number] Author: Caitlin Dunn Service: (none) Author Type: Physician Type: Progress Notes Filed: 01/02/2018 11:46 AM Note Text: SUBJECTIVE: Shilpi Barron is a 62 year old female who presents for type 1 Diabetes-on insulin pump, hypothyroidism, hyperlipidemia and hypertension follow up Diabetes complications include: retinopathy and nephropathy. She sees [facility] - She has been on insulin [...] (H) 4.3 - 5.6 % Final Comment: [employer] guidelines indicate that patients with HgbA1c in the range 5.7-6.4% are at increased risk for development of diabetes, and intervention by lifestyle modification may be beneficial. HgbA1c greater or equal to 6.5% is considered diagnostic of diabetes. 02/09/2012 7.8 (H) 4.0 - 6.0 % Final Comment: [employer] guidelines indicate that patients with HgbA1c in the range 5.7-6.4% are at increased risk for development of diabetes, and intervention by lifestyle modification may be beneficial. HgbA1c greater or equal to 6.5% is considered diagnostic of diabetes. 02/26/2004 7.3 (A) 4.0 - 6.0 % Final Hemoglobin A1c Date Value Ref Range Status 05/25/2016 8.0 (A) 4 - 6 % Final HBA1C, [place] Date Value Ref Range Status 09/26/2011 7.7 (H) 4.0 - 6.0 % Final 03/31/2011 7.6 (H) 4.0 - 6.0 % Final 05/08/2009 7.7 (H) 4.2 - 5.8 % Final Comment: Test performed by: [facility], [address] [place] [address]. 09/18/2008 8.0 (H) 4.2 - 5.8 % Final Comment: Test performed by: [facility] [address] [place] [place] [address]. 04/03/2008 7.3 (H) 4.2 - 5.8 % Final Comment: Test performed by: [facility] [address] [place] [place] [address]. Hemoglobin A1C (POCT) Date Value Ref Range [...] specific diabetes management situations: The POC device baggage smasher provides a normal range of 4.2% to 6.5% for the HGBA1C POC test. However, the [employer] guidelines indicate that patients with [...] specific diabetes management situations: The POC device baggage smasher provides a normal range of 4.2% to 6.5% for the HGBA1C POC test. However, the [employer] guidelines indicate that patients with [...] specific diabetes management situations: The POC device baggage smasher provides a normal range of 4.2% to 6.5% for the HGBA1C POC test. However, the [employer] guidelines indicate that patients with [...] specific diabetes management situations: The POC device baggage smasher provides a normal range of 4.2% to 6.5% for the HGBA1C POC test. However, the [employer] guidelines indicate that patients with [...] specific diabetes management situations: The POC device baggage smasher provides a normal range of 4.2% to 6.5% for the HGBA1C POC test. However, the [employer] guidelines indicate that patients with [...] 3 months. Caitlin Dunn MD 01/02/18 Normal [facility] PROGRESSon 10-03-2017 Protein mass conc HNO ID: [id number] Author: Caitlin Dunn Service: (none) Author Type: Physician Type: Progress Notes Filed: 10/03/2017 11:45 AM Note Text: SUBJECTIVE: Shilpi Barron is a 62 year old female who presents for type 1 Diabetes-on insulin pump, hypothyroidism, hyperlipidemia and hypertension follow up Diabetes complications include: retinopathy and nephropathy. She sees [facility] - She has been on insulin [...] 325 mg by mouth twice daily. Lancets ([employer] ULTRA FINE LANCETS) lancets Use as instructed [...] (H) 4.3 - 5.6 % Final Comment: [employer] guidelines indicate that patients with HgbA1c in the range 5.7-6.4% are at increased risk for development of diabetes, and intervention by lifestyle modification may be beneficial. HgbA1c greater or equal to 6.5% is considered diagnostic of diabetes. 03/25/2015 8.1 Final 07/09/2014 7.2 Final 02/09/2012 7.8 (H) 4.0 - 6.0 % Final Comment: [employer] guidelines indicate that patients with HgbA1c in the range 5.7-6.4% are at increased risk for development of diabetes, and intervention by lifestyle modification may be beneficial. HgbA1c greater or equal to 6.5% is considered diagnostic of diabetes. 02/26/2004 7.3 (A) 4.0 - 6.0 % Final Hemoglobin A1c Date Value Ref Range Status 05/25/2016 8.0 (A) 4 - 6 % Final HBA1C, [place] Date Value Ref Range Status 09/26/2011 7.7 (H) 4.0 - 6.0 % Final 03/31/2011 7.6 (H) 4.0 - 6.0 % Final 05/08/2009 7.7 (H) 4.2 - 5.8 % Final Comment: Test performed by: [facility], [address] [place] [id number]. 09/18/2008 8.0 (H) 4.2 - 5.8 % Final Comment: Test performed by: [facility], [address] [place] [address]. 04/03/2008 7.3 (H) 4.2 - 5.8 % Final Comment: Test performed by: [facility], [address] [place] [address]. Hemoglobin A1C (POCT) Date Value Ref Range [...] specific diabetes management situations: The POC device baggage smasher provides a normal range of 4.2% to 6.5% for the HGBA1C POC test. However, the [employer] guidelines indicate that patients with [...] specific diabetes management situations: The POC device baggage smasher provides a normal range of 4.2% to 6.5% for the HGBA1C POC test. However, the [employer] guidelines indicate that patients with [...] specific diabetes management situations: The POC device baggage smasher provides a normal range of 4.2% to 6.5% for the HGBA1C POC test. However, the [employer] guidelines indicate that patients with [...] specific diabetes management situations: The POC device baggage smasher provides a normal range of 4.2% to 6.5% for the HGBA1C POC test. However, the [employer] guidelines indicate that patients with [...] 3 months. Caitlin Dunn MD 10/03/17 Normal [facility] Vital Signs Date Time Vital Sign Value Performing Clinician Facility 03-23-2025 01:15-0400 Diastolic blood pressure 60 mm[Hg] Maurice Marcos MD Work Phone: [facility] 03-23-2025 01:15-0400 Systolic blood pressure 180 mm[Hg] Maurice Marcos MD Work Phone: [facility] 03-22-2025 23:15-0400 SaO2% (BldA) [Mass fraction] 100 % Maurice Marcos MD Work Phone: [facility] 03-22-2025 18:49-0400 Body temperature 97.7 [degF] Maurice Marcos MD Work Phone: [facility] 03-22-2025 18:49-0400 Heart rate 63 /min Maurice Marcos MD Work Phone: [facility] 03-22-2025 18:49-0400 Respiratory rate 16 /min Maurice Marcos MD Work Phone: [facility] 11-12-2023 10:22-0400 Body temperature 97.6 [degF] [facility] 11-12-2023 10:22-0400 Diastolic blood pressure 66 mm[Hg] [facility] 11-12-2023 10:22-0400 Heart rate 57 /min [facility] 11-12-2023 10:22-0400 Respiratory rate 18 /min [facility] 11-12-2023 10:22-0400 SaO2% (BldA) [Mass fraction] 100 % [facility] 11-12-2023 10:22-0400 Systolic blood pressure 155 mm[Hg] [facility] 11-12-2023 07:53-0400 Body height 152.4 cm [facility] 11-12-2023 07:53-0400 Body mass index (BMI) [Ratio] 36.8 kg/m2 [facility] 11-12-2023 07:53-0400 Body weight 85.63 kg [facility] Encounters Encounter Date Encounter Type Care Provider Facility Start: 05-14-2025 End: 05-14-2025 ambulatory Sherif Orantes Facility:[facility] Start: 04-15-2025 End: 04-15-[address] Kyle Beard DO Work Phone: [facility] [place] Start: 04-15-2025 End: 04-15-[address] Gisel Mccabe MD -[facility] [place] Work Phone: Start: 04-15-2025 End: 04-15-2025 ambulatory Gisel Mccabe Facility:[facility] Start: 03-22-2025 End: 03-23-2025 Emergency department patient visit Maurice Marcos MD Work Phone: [facility] Comment on above: Fall, initial encoun ter (Primary Dx); Hypertension, unspecified type; Closed fracture of nasal bone, initial encounter Start: 12-02-2024 End: 12-02-2024 ambulatory Sherif Orantes Facility:[facility] Start: 11-12-2024 End: 11-12-[address] Kyle Beard DO Work Phone: [facility] Work Phone: Start: 11-12-2024 End: 11-12-[address] Gisel Mccabe MD -Laboratory, [place] Work Phone: Start: 11-12-2024 End: 11-12-2024 ambulatory Kyle Beard Facility:[facility] Start: 08-19-2024 End: 08-19-[address] Gisel Mccabe MD -Laboratory, [place] Work Phone: Start: 08-19-2024 End: 08-19-2024 ambulatory Kyle Beard Facility:[facility] Start: 11-12-2023 End: 11-12-2023 Emergency department patient visit [facility]Emer[facility] Work Phone: Start: 09-14-2023 End: 09-14-2023 ambulatory [facility] Work Phone: Start: 09-14-2023 End: 09-14-2023 Patient encounter procedure [facility] [place] Work Phone: Start: 08-03-2023 End: 08-03-2023 ambulatory [facility] Work Phone: Start: 08-03-2023 End: 08-03-2023 Patient encounter procedure [facility] [place] Work Phone: Start: 07-05-2023 End: 07-05-2023 ambulatory [facility] Work Phone: Start: 07-05-2023 End: 07-05-2023 Patient encounter procedure [facility]Outpatient [facility] Imaging Work Phone: Start: 06-06-2023 End: 06-06-2023 Patient encounter procedure [facility] Work Phone: Start: 05-08-2023 End: 05-08-2023 Patient encounter procedure [facility] Work Phone: Start: 03-30-2023 End: 03-30-2023 ambulatory [facility] Work Phone: Start: 03-30-2023 End: 03-30-2023 Patient encounter procedure [facility] Work Phone: Start: 03-13-2023 End: 03-13-2023 ambulatory [facility] Work Phone: Start: 03-13-2023 End: 03-13-2023 Patient encounter procedure [facility] Work Phone: Start: 11-29-2022 End: 11-29-2022 ambulatory [facility] Work Phone: Start: 11-29-2022 End: 11-29-2022 Patient encounter procedure [facility] [place] Start: 11-21-2022 End: 11-21-2022 Patient encounter procedure [facility] Start: 09-05-2022 End: 09-05-2022 ambulatory [facility] Work Phone: Start: 09-05-2022 End: 09-05-2022 Patient encounter procedure [facility] Start: 08-18-2022 End: 08-18-2022 ambulatory [facility] Work Phone: Start: 08-18-2022 End: 08-18-2022 Patient encounter procedure [facility] Start: 06-01-2022 End: 06-01-2022 ambulatory [facility] Work Phone: Start: 06-01-2022 End: 06-01-2022 [facility] Start: 05-16-2022 End: 05-16-2022 ambulatory [facility] Work Phone: Start: 05-16-2022 End: 05-16-2022 Patient encounter procedure [facility]Out[facility] Start: 05-11-2022 End: 05-11-2022 ambulatory [facility] Work Phone: Start: 05-11-2022 End: 05-11-2022 Patient encounter procedure [facility] Start: 01-28-2022 End: 01-28-2022 Patient encounter procedure [facility] Start: 11-15-2021 End: 11-15-[address] [facility] Start: 09-08-2021 End: 09-08-[address] [facility]ard [facility] Start: 08-05-2021 End: 08-05-[address] [facility]ard [facility] Start: 08-05-2021 End: 08-05-[address] Kyle Beard Work Phone: [facility] Start: 01-02-2018 End: 01-03-2018 [facility] Start: 10-03-2017 End: 10-04-2017 Patient encounter procedure [facility] Procedures Date Procedure Procedure Detail Performing [...] DTaP/Tdap/Td Vaccines (2 - Td or Tdap) [facility] Start: 2032 RSV High Risk: (Elderly (60+) or Population) (1 - 1-dose 75+ series) RSV High Risk: (Elderly (60+) or Population) (1 - 1-dose 75+ series) [facility] Start: 02-05-2026 Screening for osteoporosis Bone Density Scan [facility] Start: 04-07-2025 Influenza vaccination Influenza Vaccine (#1) [facility] Start: 01-08-2025 Medicare Annual Wellness Visit Medicare Annual Wellness Visit (AWV) [facility] Start: 04-07-2024 COVID-19 Vaccine ( season) COVID-19 Vaccine ( season) [facility] Start: 11-12-2023 [facility] Start: 11-12-2023 Plain chest X-ray Chest 1 View (Portable) [facility] Start: 11-12-2023 XR Chest Single view [facility] Start: 11-12-2023 CT cervical spine without contrast Spine Cervical without Contras [facility] Start: 11-12-2023 CT Cervical spine WO contrast [facility] Start: 11-12-2023 CT of head without contrast Brain/Head without Contrast [facility] Start: 11-12-2023 CT Unspecified body region WO contrast [facility] Start: 05-07-2015 Pneumococcal vaccination Pneumococcal Vaccine (2 of 2 - PCV) [facility] Start: 2007 Zoster Vaccines (1 of 2) Zoster Vaccines (1 of 2) [facility] Start: 1997 Screening for malignant neoplasm of breast Mammogram [facility] Start: 1975 Hepatitis C screening Hepatitis C Screening [facility] Start: 1958 MMR Vaccines (1 of 1 - Standard series) MMR Vaccines (1 of 1 - Standard series) [facility] Start: 1957 Lipid panel Lipid Panel [facility] Start: 1955 Screening for malignant neoplasm of colon [facility] Patient Education ED Diabetic In sulin Reaction [facility] Work Phone: Patient referral [facility] Work Phone: Immunizations Immunization Date Immunization Notes Care Provider Fa [facility] 03-22-2025 tetanus toxoid, reduced diphtheria toxoid, and acellular pertussis vaccine, adsorbed Maurice Marcos MD Work Phone: [facility] 06-10-2024 influenza virus vaccine, unspecified formulation Maurice Marcos MD Work Phone: [facility] Work Phone: 11-05-2020 Covid (Pfizer) Dr. Kyle lei Work Phone: [facility] 10-15-2020 Covid (Pfizer) Dr. Kyle lei Work Phone: [facility] 05-07-[address] Kyle Beard Work Phone: [facility] 05-07-[address] Priscilla Beard Work Phone: [facility] Work Phone: 05-07-2014 pneumococcal vaccine , unspecified formulation [facility] Payers Date Payer Category Payer Self-pay [id number] 2024 Medicare (Managed Care) [facility] [id number] 2024 Unknown [id number] 2016 Private Health Insurance [id number] 2010 Unknown [id number] 1955 Unknown [id number] [facility] [id number] Unknown [id number] Unknown [id number] Unknown [id number] Unknown [id number] Unknown [id number] Social History Date Type Detail Facility Start: 08-04-2021 End: 11-12-2023 Tobacco smoking status NHIS Unknown if ever smoked [facility] Start: 08-04-2021 None [facility] Start: 08-04-2021 Homeless [facility] Start: 08-04-2021 Non-smoker [facility] Start: 1955 Sex Assigned At Female W [facility] Start: 11-12-2023 Tobacco smoking stat us NHIS Ex-smoker (finding) [facility] Start: 11-18-2024 Sex Female (finding) [facility] Start: 1955 Sex assigned at Not on file [facility] Work Phone: Start: 07-01-2022 Sex Female [facility] Gender identity Not on file [facility] Functional Status Date Assessment Result Facility 03-22-2025 [place] - 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 - recent [C-SSRS] [facility] Work Phone: Mental Status Date Assessment Result Facility 11-12-2023 Cognitive function Level Of Consciousness Drowsy [facility] Work Phone: Hospital Discharge instructions 03-23-2025 Discharge [...] cannot be sent through Care Everywhere.Nose fracture (Portuguese)documented in this encounter [facility] Work Phone: Emergency department Triage note 03-22-2025 Asmita Meyer RN - 03/22/2025 6:45 PM EDT Note Date & Type Note Facility 03-22-2025 Emergency department Triage note Pt tripped on crack in sidewalk and fall forward, denies LOC, denies blood thinners, noted abrasions to face and bilat hands, type 1 diabetic and take meds for htn, pt states complaince with meds [facility] Work Phone: Emergency department Note 03-22-2025 Asmita Meyer RN - 03/22/2025 6:45 PM EDT Note Date & Type Note Facility 03-22-2025 Emergency department Note Pt tripped on crack in sidewalk and fall forward, denies LOC, denies blood thinners, noted abrasions to face and bilat hands, type 1 diabetic and take meds for htn, pt states complaince with meds documented in this encounter [facility] Work Phone: Evaluation note Note Date & Type Note Facility Evaluation note No assessment information availa ble [facility] Work Phone: Evaluation note Note Date & Type Note Facility Evaluation note Diagnosis Fall, initial encounter- Primary Hypertension, unspecified type Closed fracture of nasal bone, initial encounter documented in this encounter [facility] Work Phone: Reason for referral (narrative) Note Date & Type Note Facility Reason for referral (narrative) No reason for referral information available [facility] Work Phone: Summary Purpose Family History No [...] Yes August 04 021 2:59pm Power of Principal Quality Engineer Yes August 04, 2021 2:59pm Advance Directive Response Recorded Date/ Time Advance Directives Yes July 1:59pm Living Will Yes August 04 1:59pm Power of Principal Quality Engineer Yes August 04, 2021 1:59pm Advance Directive Response Recorded Date/ Time Advance Directives Yes July 2:59pm Living Will No November 12, 2023 7:58am Power of Principal Quality Engineer No November 11 7:58am Advance Directive Response [...] section and content) DATE CREATED AUTHOR 09/25/2018 [facility] DATE CREATED AUTHOR AUTHOR'S ORGANIZ ATION 03/30/2025 [facility] DATE CREATED AUTHOR AUTHOR'S ORGANIZ ATION 06/05/2025 [facility] Goals (unrecognized section and content) Goals may [...] November 12, 2024 End: November 12, 2024 [employer] Relationship Specialty Start Date End Date Kyle Beard DO [address] [place] [id number] PCP - MMO Medicare Advantage PCP 02/05/24 Generic Provider, No Assigned [place] [address] PCP - General Activities Therapist 03/22/25 Team Status: Active Member Role/Relationship Status [...] BE BASED ON THE PRIMARY CLINICAL RECORDS. [employer] [facility]. provides no warranty or guarantee of the accuracy or completeness of information in this document.
== END | disposition home or self-care (01) ==
LOC: US 15:32
PROVIDERS: PCP Family Medicine; Referring Provider Internal Medicine Endocrinology, Diabetes & Metabolism; Visit Provider Internal Medicine Endocrinology, Diabetes & Metabolism
DX: E01.0 Iodine-deficiency related diffuse (endemic) goiter (principal)
CPT/HCPCS: 76536